=== PATIENT | female | born 1970 | race Caucasian/White ===

== ENCOUNTER 2017-02-12 14:44 | Emergency (ER) | payer OTHER ==
[2017-02-12 15:00] VITALS: BP 187/101; PULSE 105; RESP 16; TEMP 98.6
[2017-02-12] MEDS ORDERED: KETOROLAC 60 MG/2 ML VIAL IM STA (16:05)
[2017-02-12] MEDS ORDERED: ORPHENADRINE 30 MG/ML 2 ML VIAL IM STA (16:05)
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
--- NOTE | 2017-02-15 04:07 | CDI ---
Dear Rox Sotomayor PA-C: Please do addendum History of Present Illness. Thank you, Trenton Leal, Nurse Research. If you have any questions, please contact Medical Records Analyst at [phone]. PRADEEPD
== END 2017-02-12 17:51 | disposition home or self-care (01) ==
LOC: EC 14:44
DX: M48.06 Spinal stenosis, lumbar region (principal); M43.16 Spondylolisthesis, lumbar region; M51.26 Other intervertebral disc displacement, lumbar region; M51.36 Other intervertebral disc degeneration, lumbar region; M47.816 Spondylosis without myelopathy or radiculopathy, lumbar region; M46.05 Spinal enthesopathy, thoracolumbar region; F17.200 Nicotine dependence, unspecified, uncomplicated; V49.49XA Driver injured in collision with other motor vehicles in traffic accident, initial encounter; Y92.410 Unspecified street and highway as the place of occurrence of the external cause
CPT/HCPCS: 99284; 96372 ×2; 72131; J2360; J1885

== ENCOUNTER → 2017-07-29 | Outpatient (CLI) | payer BC, OTHER ==
--- NOTE | 2017-07-29 10:40 | MR ---
MR lumbar spine wo con Spondylolisthesis, site unspecified, chronic lower back pain Multiplanar, multiecho imaging of the lumbar spine was obtained without contrast on a 3 Pam magnet. REFERENCE:None. FINDINGS: Paraspinal soft tissues are normal. Vertebral body height and alignment are maintained. Cord signal is maintained. The conus ends normally at the T12-L1 disc level. At T12-L1, there is disc space loss and disc desiccation. There is a broad-based disc displacement. I ntervertebral foramina are well maintained. There is mild hypertrophic change and capsulitis within t he facets. At L1-2, there is disc space loss. There is a left paracentral disc protrusion deforming the thecal s ac. This is also causing some left-sided intervertebral foraminal narrowing. There are mild hypertrop hic changes in the facets. At L2-3, there is severe disc space loss. There is a broad-based disc protrusion deforming the thecal sac. This extends into both intervertebral foramina causing mild intervertebral foraminal narrowing bilaterally. There is capsulitis and hypertrophic change in the facets. There is mild to moderate yina tral canal stenosis. At L3-4, there is disc space loss. There is mild left-sided intervertebral foraminal narrowing. There is a broad-based disc displacement. There are hypertrophic changes and capsulitis within the facets. There is moderate central canal compromise. At L4-5, there is disc space loss. There is a diffuse disc displacement. Intervertebral foramina are reasonably well-maintained. There are marked hypertrophic changes in the facets. There is moderate ce ntral canal stenosis. At L5-S1, there is disc space loss. Intervertebral foramina appear reasonably well-maintained. There is no significant compressive discopathy. There are hypertrophic changes in the facets. IMPRESSION: 1. DIFFUSE DEGENERATIVE DISC DISEASE AND FACET ARTHROPATHY. 2. BROAD-BASED DISC PROTRUSION, L2-3, EXTENDING INTO BOTH INTERVERTEBRAL FORAMINA AND CAUSING BILATER AL INTERVERTEBRAL FORAMINAL NARROWING. 3. MULTILEVEL INTERVERTEBRAL FORAMINAL NARROWING. 4. VARYING DEGREES OF CENTRAL CANAL COMPROMISE MOST MARKED AT L3-4.
== END | disposition home or self-care (01) ==
LOC: RADMRIMAIN 09:48
PROVIDERS: ATTEND Neurological Surgery
DX: M99.73 Connective tissue and disc stenosis of intervertebral foramina of lumbar region (principal); M51.26 Other intervertebral disc displacement, lumbar region; M51.36 Other intervertebral disc degeneration, lumbar region; M46.96 Unspecified inflammatory spondylopathy, lumbar region
CPT/HCPCS: 72148

== ENCOUNTER → 2017-11-25 | Outpatient (CLI) | payer BC | END | disposition home or self-care (01) | LOC: LABWHC1 08:45 | PROVIDERS: ATTEND Psychiatry & Neurology Pain Medicine | DX: Z51.81 Encounter for therapeutic drug level monitoring (principal); Z79.899 Other long term (current) drug therapy | CPT/HCPCS: 36415; 82565; 84450; 84460; 84520 ==

== ENCOUNTER 2019-01-20 22:05 | Emergency (ER) | payer BC, OTHER ==
[2019-01-20 22:11] VITALS: RESP 18
--- NOTE | 2019-01-20 22:33 | ED ---
Recheck HPI - General Chief Complaint: Recheck/Abnormal Lab/Rx Stated Complaint: Back pain Time Seen by Provider: 01/20/19 22:14 Source: patient Mode of arrival: ambulatory Limitations: no limitations - History of Present Illness Initial Comments: 40-year-old female presenting with bilateral lower extremity swelling that has been worsening over the last 2 weeks. Patient states that she has had an increase in her work duties causing her to have worsening of her chronic back pain and lower extremity swelling. She denies any new weakness, saddle anest hesia, bowel or bladder dysfunction. States that her blood pressures also been high when she's been checking it at home, however she was recently switched from amlodipine to metoprolol for her hypertension secondary to her lower extremity swelling. She denies history of DVT/PE, recent surgery, active cancer, current hormone use. She states the swelling is worse in the left leg and it is in the right, but it does improve with leg elevation. She has not tried compression stockings. - Related Data Home Medications Medication Instructions Recorded Confirmed Cyclobenzaprine [Flexeril] 10 mg PO BID PRN 01/20/19 01/20/19 Gabapentin [Neurontin] 300 mg PO TID 01/20/19 01/20/19 Hydrocodone/Acetaminophen [[place] 1 tab PO TID PRN 01/20/19 01/20/19 7.5-325] Ibuprofen [Motrin] 800 mg PO TID 01/20/19 01/20/19 Lacosamide [Vimpat] 50 mg PO BID 01/20/19 01/20/19 Metoprolol Succinate [Toprol XL] 50 mg PO DAILY 01/20/19 01/20/19 Allergies Allergy/AdvReac Type Severity Reaction Status Date / Time No Known Allergies Allergy Verified 01/20/19 23:25 Review of Systems ROS Statement: Those systems with pertinent positive or pertinent negative responses have been documented in the HPI. Review of Systems Constitutional: Denies fever, chills Eyes: Denies change in vision, Denies pain Ears, nose, mouth, throat: Denies headaches, Denies sore throat Cardiovascular: Denies chest pain. Denies palpitations Respiratory: Denies shortness of breath, Denies cough Gastrointestinal: Negative abdominal pain. Denies nausea, vomiting, diarrhea. Genitourinary: Denies hematuria, Denies infections Musculoskeletal: Positive back pain (chronic), Denies swelling Integumentary: Denies rash Neurological: Denies headache, focal weakness, focal numbness Psychiatric: Denies anxiety, Denies depression Hematologic/Lymphatic: Denies easy bleeding or bruising ROS Other: All systems not noted in ROS Statement are negative. Past Medical History Past Medical History: No Reported History Additional Past Medical History / Comment(s): stenosis, herniated discs History of Any Multi-Drug Resistant Organisms: None Reported Past Surgical History: Section, Ear Surgery Past Psychological History: No Psychological Hx Reported Smoking Status: Current every day smoker Past Alcohol Use History: None Reported Past Drug Use History: Opiates General Exam - General Exam Comments Initial Comments: General: Awake, alert, No acute Distress HENT: Normocephalic. Atraumatic Eyes: PERRL. EOMI. No scleral icterus. No injected conjunctiva Neck: Full ROM Chest/Lungs: Clear to auscultation bilaterally. No wheezing, rhonchi, or rales Cardiac: Regular rate, rhythm. No murmurs or rubs. Mild edema to bilateral lower extremities at the ankles Abdomen/GI: Soft, nontender, nondistended. No rebound, guarding, or rigidity. Musculoskeletal: Full ROM Skin: Warm, dry, intact Neurologic: A/Ox3, no weakness, no sensory deficit, no abnormal gait, no coordination deficit Limitations: no limitations Course Vital Signs 01/20/19 01/20/19 01/21/19 22:07 22:41 00:53 Temperature 98.1 F 97.9 F Pulse Rate 90 75 Respiratory 18 18 Rate Blood Pressure 191/102 145/85 165/95 O2 Sat by Pulse 98 96 Oximetry Medical Decision Making - Medical Decision Making [id number] female presenting with lower extremity swelling. Initial exam the patient is awake, alert, no acute distress. VSS. Patient is to rest her symptoms. Her lower extremity Dopplers were negative for DVT. No signs of CHF. She was instructed to wear compression stockings while at work.No further emergent workup indicated. The patient was given return to ED instructions. They were instructed to follow up with their primary care provider. Stable for discharge at this time. Disposition Clinical Impression: Leg swelling Disposition: HOME SELF-CARE Condition: Good Instructions (If sedation given, give patient instructions): Leg Edema (ED) Is patient prescribed a controlled substance at d/c from ED?: No Referrals: Arnulfo Ohara DO [Primary Care Provider] - 1-2 days
--- NOTE | 2019-01-21 00:15 | US ---
EXAM: US Duplex Bilateral Lower Extremity Veins CLINICAL HISTORY: Pain TECHNIQUE: Real-time duplex ultrasound scan of the bilateral lower extremity veins integrating B-mode two-dimensional vascular structure, Doppler spectral analysis, color flow Doppler imaging and compression. COMPARISON: No relevant prior studies available. FINDINGS: Right deep veins: Unremarkable. No DVT in the right common femoral, femoral, proximal deep femoral or popliteal veins. The veins demonstrate normal color flow, are normally compressible, with normal phasic flow and/or augmentation response. Right superficial veins: Unremarkable. No thrombus in the visualized right great saphenous vein. Left deep veins: Unremarkable. No DVT in the left common femoral, femoral, proximal deep femoral or popliteal veins. The veins demonstrate normal color flow, are normally compressible, with normal phasic flow and/or augmentation response. Left superficial veins: Unremarkable. No thrombus in the visualized left great saphenous vein. Soft tissues: No acute findings. No popliteal cyst. Lymph nodes: Bilateral inguinal lymph nodes, likely reactive. IMPRESSION: No acute findings.
[2019-01-21 00:54] VITALS: BP 165/95; PULSE 75; TEMP 97.9
== END 2019-01-21 00:54 | disposition home or self-care (01) ==
LOC: EC 22:05
DX: M79.89 Other specified soft tissue disorders (principal); G89.29 Other chronic pain; M54.9 Dorsalgia, unspecified; I15.8 Other secondary hypertension; F17.200 Nicotine dependence, unspecified, uncomplicated; Z79.891 Long term (current) use of opiate analgesic; Z79.899 Other long term (current) drug therapy
CPT/HCPCS: 93970; 99283

== ENCOUNTER → 2019-02-19 | Outpatient (CLI) | payer BC ==
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
--- NOTE | 2019-02-19 15:34 | XR ---
Right foot HISTORY: Elevated uric acid, M12.9 3 views of the right foot Bone mineralization, joint spaces and alignment are maintained. There is a plantar calcaneus spur. No fracture or dislocation. Small ossific densities are present posterior to the talus which appear wel l-corticated. IMPRESSION: No evident arthropathy. Plantar calcaneal spur. Possible loose bodies posterior ankle carmencita nt.
== END | disposition home or self-care (01) ==
LOC: RADXRMAIN 11:48
PROVIDERS: ATTEND Internal Medicine Hematology & Oncology
DX: M77.31 Calcaneal spur, right foot (principal); I10 Essential (primary) hypertension; D72.829 Elevated white blood cell count, unspecified; D72.820 Lymphocytosis (symptomatic); M19.90 Unspecified osteoarthritis, unspecified site
CPT/HCPCS: 71046

== ENCOUNTER 2020-03-06 09:57 | Inpatient (IN) | payer BC ==
[2020-03-06] MEDS ORDERED: ACETAMINOPHEN TAB 325 MG TAB PO STA (10:08)
--- NOTE | 2020-03-06 10:22 | ED ---
Fever HPI - General Chief Complaint: Fever Stated Complaint: Abd pain/weak Time Seen by Provider: 03/06/20 10:08 Source: patient Mode of arrival: wheelchair Limitations: no limitations - History of Present Illness Initial Comments: 49-year-old pleasant, female obese presents for abdominal pain and fever. Patient states Monday she was developing right upper quadrant abdominal pain she states that she thought it was her gallbladder and she had increased pain after eating greasy foods. She states she also has had loose stools. Patient states at that time she was tested for Covid she states that when she initially presented to the urgent care on Monday she did not have a fever at that time was told to come to the ER if she had increasing pain. Patient states her Covid test came back negative she states she has had increasing cough at night. She denies any lower abdominal pain she denies dysuria urgency frequency she denies any neck stiffness headaches she admits to generalized weakness and body aches. Patient states that the pain is in the RUQ and does seem to radiate to the shoulder at time. Patient denies sore throat, eat pain, rashes. Admits to nausea, no vomiting. Patient on arrival is febrile, HR elevated. She appears nontoxic however in appearance. - Related Data Home Medications Medication Instructions Recorded Confirmed Ibuprofen [Motrin] 800 mg PO DAILY 01/20/19 03/06/20 Cyclobenzaprine [Flexeril] 5 mg PO DAILY 03/06/20 03/06/20 Ferrous Sulfate [Feosol] 325 mg PO DAILY 03/06/20 03/06/20 HYDROcodone/APAP 10-325MG [[place] 1 tab PO TID 03/06/20 03/06/20 10-325] Losartan/Hydrochlorothiazide 1 tab PO DAILY 03/06/20 03/06/20 [Losartan-Hctz 100-25 mg Tab] Allergies Allergy/AdvReac Type Severity Reaction Status Date / Time No Known Allergies Allergy Verified 03/06/20 11:33 Review of Systems ROS Statement: Those systems with pertinent positive or pertinent negative responses have been documented in the HPI. ROS Other: All systems not noted in ROS Statement are negative. Past Medical History Past Medical History: Hypertension Additional Past Medical History / Comment(s): stenosis, herniated discs History of Any Multi-Drug Resistant Organisms: None Reported Past Surgical History: Section, Ear Surgery Past Psychological History: No Psychological Hx Reported Smoking Status: Current every day smoker Past Alcohol Use History: None Reported Past Drug Use History: Marijuana, Opiates General Exam - General Exam Comments Initial Comments: General: The patient is awake and alert, in no distress Eye: Pupils are equal, round and reactive to light, extra-ocular movements are intact. No nystagmus. There is normal conjunctiva bilaterally. No signs of icterus. Ears, nose, mouth and throat: There are moist mucous membranes and no oral lesions. Neck: The neck is supple, there is no tenderness or JVD. Cardiovascular: There is a regular rate and rhythm. No murmur, rub or gallop is appreciated. Respiratory: Lungs are clear to auscultation, respirations are non-labored, breath sounds are equal. No wheezes, stridor, rales, or rhonchi. Gastrointestinal: Soft, non-distended, minimal RUQ tenderness, (-) murphys sign, abdomen without masses or organomegaly noted. There is no rebound or guarding present. No CVA tenderness. Bowel sounds are unremarkable.] Musculoskeletal: Normal ROM, no tenderness. Strength 5/5. Sensation intact. Pulses equal bilaterally 2+. Neurological: A&O x 3. CN II-XII intact, There are no obvious motor or sensory deficits. Coordination appears grossly intact. Speech is normal. Skin: Skin is warm and dry and no rashes or lesions are noted. Psychiatric: Cooperative, appropriate mood & affect, normal judgment. Limitations: no limitations Course Vital Signs 03/06/20 03/06/20 03/06/20 10:04 11:38 12:12 Temperature 103 F H 103 F H Pulse Rate 116 H 101 H Respiratory 18 19 Rate Blood Pressure 117/80 111/71 O2 Sat by Pulse 96 94 L Oximetry Medical Decision Making - Medical Decision Making Patient presenting with cough and right side pain she thought it was her gallbladder initially ultrasound outpatient revealed no obvious gallbladder disease. She negative Medley sign. No significant tenderness to palpation of the abdomen. Febrile 103 with elevated heart rate on arrival she denied any shortness of breath. Patient states she has had upper respiratory symptoms as well as diarrhea. Patient is found to have a multifocal pneumonia as well as hyponatremia in the presence of diarrhea there is concern for possible Legionella. Legionella antibody urine test was obtained and is pending. No recent hospitalizations no previous intubations recently. Patient denied any leg swelling recent surgery she does not use any exogenous hormones, no history of DVT/PE wiht no history of hemoptysis. Patient was provided a potassium supplement as she was found to be at 3.4. Patietn placed on rocephin and azithromycin. She is agreeable to admission and care plan. Patient will be admitted to [facility] group as Dr. Painter who usually covers for her PCP is no communications superintendent this weekend. Dr. Schilling is agreeable to care plan and admission. Ventricular rate 117 bpm, MI interval 142 ms, QRS ration 82 ms, QT/QTC 306/426 ms. This is sinus tachycardia no ST elevation or depression is appreciated. - Lab Data Result diagrams: 03/06/20 10:43 03/06/20 10:43 Lab Results 03/06/20 03/06/20 03/06/20 Range/Units 10:43 10:43 10:43 WBC 21.2 H (3.8-10.6) k/uL RBC 4.24 (3.80-5.40) m/uL Hgb 13.3 (11.4-16.0) gm/dL Hct 38.5 (34.0-46.0) % MCV 90.8 (80.0-100.0) fL MCH 31.3 (25.0-35.0) pg MCHC 34.5 (31.0-37.0) g/dL RDW 13.2 (11.5-15.5) % Plt Count 187 (150-450) k/uL Neutrophils % 93 % Lymphocytes % 3 % Monocytes % 2 % Eosinophils % 0 % Basophils % 0 % Neutrophils # 19.8 H (1.3-7.7) k/uL Lymphocytes # 0.7 L (1.0-4.8) k/uL Monocytes # 0.5 (0-1.0) k/uL Eosinophils # 0.1 (0-0.7) k/uL Basophils # 0.1 (0-0.2) k/uL PT 11.1 (9.0-12.0) sec INR 1.1 (<1.2) APTT 30.1 H (22.0-30.0) sec Sodium 128 L (137-145) mmol/L Potassium 3.4 L (3.5-5.1) mmol/L Chloride 94 L (98-107) mmol/L Carbon Dioxide 23 (22-30) mmol/L Anion Gap 11 mmol/L BUN 20 H (7-17) mg/dL Creatinine 1.17 H (0.52-1.04) mg/dL Est GFR (CKD-EPI)AfAm 63 (>60 ml/min/1.73 sqM) Est GFR (CKD-EPI)NonAf 55 (>60 ml/min/1.73 sqM) Glucose 228 H (74-99) mg/dL Plasma Lactic Acid Tao (0.7-2.0) mmol/L Calcium 8.4 (8.4-10.2) mg/dL Total Bilirubin 0.5 (0.2-1.3) mg/dL AST 33 (14-36) U/L ALT 21 (4-34) U/L Alkaline Phosphatase 127 H (38-126) U/L Troponin I (0.000-0.034) ng/mL Total Protein 6.8 (6.3-8.2) g/dL Albumin 3.6 (3.5-5.0) g/dL Urine Color Urine Appearance (Clear) Urine pH (5.0-8.0) Ur Specific [place] (1.001-1.035) Urine Protein (Negative) Urine Glucose (UA) (Negative) Urine Ketones (Negative) Urine Blood (Negative) Urine Nitrite (Negative) Urine Bilirubin (Negative) Urine Urobilinogen (<2.0) mg/dL Ur Leukocyte Esterase (Negative) Urine RBC (0-5) /hpf Urine WBC (0-5) /hpf Ur Squamous Epith Cells (0-4) /hpf Urine Bacteria (None) /hpf Cellular Casts (0) /lpf Hyaline Casts (0-2) /lpf Granular Casts (0) /lpf Urine Mucus (None) /hpf 03/06/20 03/06/20 03/06/20 Range/Units 10:43 10:44 10:44 WBC (3.8-10.6) k/uL RBC (3.80-5.40) m/uL Hgb (11.4-16.0) gm/dL Hct (34.0-46.0) % MCV (80.0-100.0) fL MCH (25.0-35.0) pg MCHC (31.0-37.0) g/dL RDW (11.5-15.5) % Plt Count (150-450) k/uL Neutrophils % % Lymphocytes % % Monocytes % % Eosinophils % % Basophils % % Neutrophils # (1.3-7.7) k/uL Lymphocytes # (1.0-4.8) k/uL Monocytes # (0-1.0) k/uL Eosinophils # (0-0.7) k/uL Basophils # (0-0.2) k/uL PT (9.0-12.0) sec INR (<1.2) APTT (22.0-30.0) sec Sodium (137-145) mmol/L Potassium (3.5-5.1) mmol/L Chloride (98-107) mmol/L Carbon Dioxide (22-30) mmol/L Anion Gap mmol/L BUN (7-17) mg/dL Creatinine (0.52-1.04) mg/dL Est GFR (CKD-EPI)AfAm (>60 ml/min/1.73 sqM) Est GFR (CKD-EPI)NonAf (>60 ml/min/1.73 sqM) Glucose (74-99) mg/dL Plasma Lactic Acid Tao 1.8 (0.7-2.0) mmol/L Calcium (8.4-10.2) mg/dL Total Bilirubin (0.2-1.3) mg/dL AST (14-36) U/L ALT (4-34) U/L Alkaline Phosphatase (38-126) U/L Troponin I <0.012 (0.000-0.034) ng/mL Total Protein (6.3-8.2) g/dL Albumin (3.5-5.0) g/dL Urine Color Yellow Urine Appearance Turbid H (Clear) Urine pH 6.0 (5.0-8.0) Ur Specific [place] 1.026 (1.001-1.035) Urine Protein 3+ H (Negative) Urine Glucose (UA) Trace H (Negative) Urine Ketones Trace H (Negative) Urine Blood Moderate H (Negative) Urine Nitrite Negative (Negative) Urine Bilirubin Negative (Negative) Urine Urobilinogen 2.0 (<2.0) mg/dL Ur Leukocyte Esterase Negative (Negative) Urine RBC 1 (0-5) /hpf Urine WBC 16 H (0-5) /hpf Ur Squamous Epith Cells 12 H (0-4) /hpf Urine Bacteria Moderate H (None) /hpf Cellular Casts 19 (0) /lpf Hyaline Casts 34 H (0-2) /lpf Granular Casts 76 (0) /lpf Urine Mucus Occasional H (None) /hpf Disposition Clinical Impression: Fever, Cough, Hyponatremia, Pneumonia, Leukocytosis, Diarrhea Disposition: HOME SELF-CARE Condition: Good Is patient prescribed a controlled substance at d/c from ED?: No Referrals: Arnulfo Ohara DO [Primary Care Provider] - 1-2 days Time of Disposition: 11:40 Decision to Admit Reason: Admit from EC Decision Date: 03/06/20 Decision Time: 11:40
[2020-03-06] MEDS: SODIUM CHLORIDE 0.9% 1,000 ML IV SCH ×2 (10:51→20:56)
--- NOTE | 2020-03-06 11:18 | XR ---
EXAMINATION TYPE: XR chest 2V DATE OF EXAM: 03/06/2020 COMPARISON: Chest x-ray February 19, 2019. HISTORY: Fever and cough. TECHNIQUE: Frontal and lateral views of the chest are obtained. FINDINGS: There is right mid lung pneumonic infiltrate and lateral left mid to upper lung airspace o pacities. On lateral view there is involvement of superior aspect lower lobe along with anterior-infe rior aspect upper lobe. I suspect the latter corresponds to the right-sided infiltrate but not comple tely certain. No pleural effusion or pneumothorax seen bilaterally. The cardiac silhouette size remai ns within normal limits. New silhouetting right heart border suggests middle lobe involvement. The osseous structures are intact. IMPRESSION: New multifocal, multilobar, bilateral acute pneumonic infiltrates.
[2020-03-06 11:19] LABS: Albumin 3.6 g/dL (3.5-5.0); Calcium 8.4 mg/dL (8.4-10.2); Potassium 3.4 mmol/L (3.5-5.1); Total Bilirubin 0.5 mg/dL (0.2-1.3); Total Protein 6.8 g/dL (6.3-8.2)
[2020-03-06 11:34] LABS: INR 1.1 (<1.2); Partial Thromboplastin Time 30.1 sec (22.0-30.0); Prothrombin Time 11.1 sec (9.0-12.0)
[2020-03-06] MEDS ORDERED: AZITHROMYCIN 500 MG in SODIUM CHLORIDE 0.9% 250 ML IVPB STA (11:39)
[2020-03-06] MEDS ORDERED: NALOXONE 0.4 MG/ML 1 ML VIAL IV PRN (11:40)
[2020-03-06 11:55] LABS: Appearance,Urine Turbid (Clear); Bacteria,Urine Moderate /hpf; Bilirubin,Urine Negative (Negative); Blood,Urine Moderate (Negative); Cellular Casts,Urine 19 /lpf (0); Color,Urine Yellow; Glucose,Urine (UA) Trace (Negative); Granular Casts,Urine 76 /lpf (0); Hyaline Casts,Urine 34 /lpf (0-2); Ketones,Urine Trace (Negative); Leukocyte Esterase,Urine Negative (Negative); Mucus,Urine Occasional /hpf; Nitrite,Urine Negative (Negative); Protein,Urine 3+ (Negative); RBC,Urine 1 /hpf (0-5); Specific Gravity,Urine 1.026 (1.001-1.035); Squamous Epithelial Cell,Urine 12 /hpf (0-4); WBC,Urine 16 /hpf (0-5)
[2020-03-06] MEDS: IBUPROFEN 600 MG TAB PO PRN (12:06)
[2020-03-06 12:15] LABS: Basophils # (A) 0.1 k/uL (0-0.2); Basophils % (A) 0 %; Eosinophils # (A) 0.1 k/uL (0-0.7); Eosinophils % (A) 0 %; HCT 38.5 % (34.0-46.0); HGB 13.3 gm/dL (11.4-16.0); Lymphocytes # (A) 0.7 k/uL (1.0-4.8); Lymphocytes % (A) 3 %; MCH 31.3 pg (25.0-35.0); MCHC 34.5 g/dL (31.0-37.0); MCV 90.8 fL (80.0-100.0); Mean Platelet Volume 9.2; Monocytes # (A) 0.5 k/uL (0-1.0); Monocytes % (A) 2 %; Neutrophils # (A) 19.8 k/uL (1.3-7.7); Neutrophils % (A) 93 %; Platelet Count 187 k/uL (150-450); RBC 4.24 m/uL (3.80-5.40); RDW 13.2 % (11.5-15.5); WBC 21.2 k/uL (3.8-10.6)
[2020-03-06] MEDS ORDERED: POTASSIUM CHLORIDE ER 20 MEQ TAB.ER PO STA (12:23)
[2020-03-06] MEDS: HEPARIN SODIUM,PORCINE 5,000 UNIT/ML 1 ML VIAL SQ SCH ×2 (15:55→23:06)
[2020-03-06] MEDS: ACETAMINOPHEN TAB 325 MG TAB PO PRN (21:03)
--- NOTE | 2020-03-06 22:37 | P.HPIM ---
History of Present Illness H&P Date: 03/06/20 Chief Complaint: Fever Patient is a 49-year-old female with a known history of hypertension, GERD, chronic pain due to bilateral sciatica and herniated lumbar disc on follow-up with pain clinic and also everyday smoker presents to ER with complaints of abdominal pain and fever. Patient states that since last Monday she was having right upper quadrant abdominal pain and thought it was her gallbladder. Patient was also having loose stools. Patient initially went to urgent care clinic. Patient did not have any fever at that time. Patient was tested for COVID which came up negative, was told later. Denied any dysuria or hematuria. No flank pain. No chest pain. Patient is also having generalized weakness and body aches. Noticed some exertional dyspnea. Otherwise no vomiting no nausea. No headache or dizziness or lightheadedness. On admission patient was febrile with T-max 103 F with tachycardia. Saturating well on room air. Chest x-ray showed new multifocal multilobar bilateral acute pneumonic infiltrates. Laboratory data showed WBC 21.2, hemoglobin 13.3 and platelets 187 Lymphocytes 0.7 Sodium 128, potassium 3.4, chloride 94, BUN 20 and creatinine 1.17 Blood sugar is 228 Urine showed 3+ protein and turbid with trace glucose and trace ketones. Moderate blood. AST ALT 33 and 21. Alk phos 127. Bilirubin level is total 0.5 Review of Systems Constitutional: Patient does have fever. No chills. Generalized weakness and malaise.. Abdomen: Patient denied nausea vomiting and diarrhea and abdominal pain. Cardiovascular: Patient denies any chest pain or short of breath no palpitations. Respiratory: patient denied any cough is from production. No shortness of breath Neurologic: Patient denied any numbness or tingling headache. Musculoskeletal: Patient denies any complaints of joint swelling or deformity. Skin: Negative Psychiatric: Negative Endocrine: No heat or cold intolerance. No recent weight gain. Genitourinary: No dysuria or hematuria. All other 14 point ROS negative except the above Past Medical History Past Medical History: GERD/Reflux, Hypertension Additional Past Medical History / Comment(s): Stenosis, herniated bulging discs/bilateral sciatica/gait disturbance, chronic pain-sees Dr. Stephenson for pain management, abdominal discomfort past year, elevated WBC, anemia History of Any Multi-Drug Resistant Organisms: None Reported Past Surgical History: Section, Ear Surgery Additional Past Surgical History / Comment(s): Bilateral myringotomy/tubes as child Past Anesthesia/Blood Transfusion Reactions: No Reported Reaction Smoking Status: Current every day smoker - Past Family History Father Family Medical History: Cancer Additional Family Medical History / Comment(s): Father had bladder cancer. He is . Mother Family Medical History: Renal Disease Additional Family Medical History / Comment(s): Mother is . She had renal failure/dialysis. Medications and Allergies Home Medications Medication Instructions Recorded Confirmed Type Ibuprofen [Motrin] 800 mg PO DAILY 01/20/19 03/06/20 History Cyclobenzaprine [Flexeril] 5 mg PO DAILY 03/06/20 03/06/20 History Ferrous Sulfate [Feosol] 325 mg PO DAILY 03/06/20 03/06/20 History HYDROcodone/APAP 10-325MG [[place] 1 tab PO TID 03/06/20 03/06/20 History 10-325] Losartan/Hydrochlorothiazide 1 tab PO DAILY 03/06/20 03/06/20 History [Losartan-Hctz 100-25 mg Tab] Allergies Allergy/AdvReac Type Severity Reaction Status Date / Time No Known Allergies Allergy Verified 03/06/20 11:33 Physical Exam Vitals: Vital Signs Temp Pulse Resp BP Pulse Ox 03/06/20 13:34 98.8 F 03/06/20 12:12 101 H 19 111/71 94 L 03/06/20 11:38 103 F H 03/06/20 10:04 103 F H 116 H 18 117/80 96 Intake and Output 03/06/20 03/06/20 03/06/20 06:59 14:59 22:59 Other: Weight 116.12 kg PHYSICAL EXAMINATION: Patient is lying in the bed comfortably, no acute distress, awake alert and oriented.. HEENT: Normocephalic. Neck is supple. Pupils reactive. Nostrils clear. Oral cavity is moist. Ears reveal no drainage. Neck reveals no JVD, carotid bruits, or thyromegaly. CHEST EXAMINATION: Trachea is central. Symmetrical expansion. Bibasilar diminished air entry. Coarse rhonchi. Nonlabored breathing.. CARDIAC: Normal S1, S2 with no gallops. No murmurs ABDOMEN: Soft. non tender. no RUQ tenderness, Bowel sounds normal. No organomegaly. No abdominal bruits. Extremities: reveal no edema. No clubbing or cyanosis Neurologically awake, alert, oriented x3 with well-coordinated movements. No focal deficits noted Skin: No rash or skin lesions. Psychiatric: Coperative. Nonsuicidal Musculoskeletal: No joint swelling or deformity. Normal range of motion. Results CBC & Chem 7: 03/06/20 10:43 03/06/20 10:43 Labs: Abnormal Lab Results - Last 24 Hours (Table) 03/06/20 03/06/20 03/06/20 Range/Units 10:43 10:43 10:43 WBC 21.2 H (3.8-10.6) k/uL Neutrophils # 19.8 H (1.3-7.7) k/uL Lymphocytes # 0.7 L (1.0-4.8) k/uL APTT 30.1 H (22.0-30.0) sec Sodium 128 L (137-145) mmol/L Potassium 3.4 L (3.5-5.1) mmol/L Chloride 94 L (98-107) mmol/L BUN 20 H (7-17) mg/dL Creatinine 1.17 H (0.52-1.04) mg/dL Glucose 228 H (74-99) mg/dL Alkaline Phosphatase 127 H (38-126) U/L Urine Appearance (Clear) Urine Protein (Negative) Urine Glucose (UA) (Negative) Urine Ketones (Negative) Urine Blood (Negative) Urine WBC (0-5) /hpf Ur Squamous Epith Cells (0-4) /hpf Urine Bacteria (None) /hpf Hyaline Casts (0-2) /lpf Urine Mucus (None) /hpf 03/06/20 Range/Units 10:44 WBC (3.8-10.6) k/uL Neutrophils # (1.3-7.7) k/uL Lymphocytes # (1.0-4.8) k/uL APTT (22.0-30.0) sec Sodium (137-145) mmol/L Potassium (3.5-5.1) mmol/L Chloride (98-107) mmol/L BUN (7-17) mg/dL Creatinine (0.52-1.04) mg/dL Glucose (74-99) mg/dL Alkaline Phosphatase (38-126) U/L Urine Appearance Turbid H (Clear) Urine Protein 3+ H (Negative) Urine Glucose (UA) Trace H (Negative) Urine Ketones Trace H (Negative) Urine Blood Moderate H (Negative) Urine WBC 16 H (0-5) /hpf Ur Squamous Epith Cells 12 H (0-4) /hpf Urine Bacteria Moderate H (None) /hpf Hyaline Casts 34 H (0-2) /lpf Urine Mucus Occasional H (None) /hpf Thrombosis Risk Factor Assmnt - DVT/VTE Prophylaxis DVT/VTE Prophylaxis: Pharmacologic Prophylaxis ordered - Choose All That Apply Any of the Below Risk Factors Present?: Yes Each Factor Represents 1 point: Age 41-60 years, Obesity (BMI >25), Serious lung disease incl. pneumonia (< 1month) Other Risk Factors: No Other congenital or acquired thrombophilia - If yes, enter type in comment: No Thrombosis Risk Factor Assessment Total Risk Factor Score: 3 Thrombosis Risk Factor Assessment Level: Moderate Risk Assessment and Plan Assessment: Multilobar pneumonia Sepsis secondary to pneumonia Hyponatremia likely hypovolemic/prerenal Rule out COVID-19 viral infection Morbid obesity BMI 41.7 Hypertension GERD Chronic back pain and bilateral sciatica arm pain clinic follow-up. Ongoing nicotine addiction DVT prophylaxis with heparin subcu Plan: Patient will be continued on antibiotics in the form of ceftriaxone and azithromycin. Continue with IV hydration and monitor electrolytes and replace potassium. Follow-up blood cultures. Urine Legionella antigen was ordered. Continue with droplet and contact precautions and COVID-19 PCR was sent. Further recommendations based on the clinical course. Time with Patient: Greater than 30
[2020-03-06] MEDS: IPRATROPIUM-ALBUTEROL 3 ML NEB INHALATION PRN (23:13)
[2020-03-07] MEDS: IBUPROFEN 600 MG TAB PO PRN (01:33)
[2020-03-07] MEDS: SODIUM CHLORIDE 0.9% 1,000 ML IV SCH ×3 (01:34→17:53)
[2020-03-07 06:46] LABS: Basophils % (A) 0 %; Eosinophils # (A) 0.1 k/uL (0-0.7); Eosinophils % (A) 0 %; HGB 11.6 gm/dL (11.4-16.0); Lymphocytes % (A) 6 %; MCH 30.6 pg (25.0-35.0); MCHC 33.1 g/dL (31.0-37.0); MCV 92.4 fL (80.0-100.0); Mean Platelet Volume 8.3; Monocytes # (A) 0.3 k/uL (0-1.0); Monocytes % (A) 2 %; Neutrophils # (A) 14.9 k/uL (1.3-7.7); Neutrophils % (A) 91 %; Platelet Count 183 k/uL (150-450); RBC 3.79 m/uL (3.80-5.40); RDW 13.6 % (11.5-15.5); WBC 16.3 k/uL (3.8-10.6)
[2020-03-07] MEDS: CYCLOBENZAPRINE 5 MG TAB PO SCH (07:04)
[2020-03-07] MEDS: HEPARIN SODIUM,PORCINE 5,000 UNIT/ML 1 ML VIAL SQ SCH ×2 (07:04→17:50)
[2020-03-07] MEDS ORDERED: AZITHROMYCIN 500 MG TAB PO SCH (09:00)
[2020-03-07 09:48] LABS: African American GFR (CKD) 76.6 (60.0-200.0); Anion Gap 10.2 mmol/L (4.00-12.00); Carbon Dioxide 21.8 mmol/L (21.6-31.8); Non-African American GFR(CKD) 66.1 (60.0-200.0)
[2020-03-07] MEDS ORDERED: Potassium Replacement Protocol 1 EACH MISC MISCELLANE PRN ×2 (10:28→12:55)
[2020-03-07] MEDS: POTASSIUM CHLORIDE ER 20 MEQ TAB.ER PO SCH ×2 (11:20→14:23)
[2020-03-07] MEDS ORDERED: MENTHOL (NICE) LOZENGE MUCOUS MEM PRN (11:27)
[2020-03-07] MEDS ORDERED: Magnesium Replacement Protocol 1 EACH MISC MISCELLANE PRN (12:13)
[2020-03-07] MEDS: MAGNESIUM SULFATE-D5W PMX 1 GM in DEXTROSE/WATER 1 100ML.BAG IVPB SCH ×2 (12:43→14:24)
[2020-03-07] MEDS: ACETAMINOPHEN TAB 325 MG TAB PO PRN (14:20)
[2020-03-07] MEDS: IPRATROPIUM-ALBUTEROL 3 ML NEB INHALATION PRN (15:42)
--- NOTE | 2020-03-07 18:44 | CT ---
EXAMINATION TYPE: CT angio chest DATE OF EXAM: 03/07/2020 COMPARISON: None HISTORY: Elevated d-dimer. CT DLP: 937.4 mGycm Automated exposure control for dose reduction was used. CONTRAST: Performed with IV Contrast, patient injected with 74ml mL of Isovue 370. There are 3-D post processed images. There is extensive bilateral airspace pulmonary consolidation. This is more noticeable in the right u pper lobe and superior portion of the right lower lobe. There are multiple air bronchograms. Heart is top normal in size. There is no pericardial effusion. There is no pleural effusion. There is no medi astinal adenopathy. There are right bronchial and left bronchial lymph nodes measuring up to 1.3 cm. There is spurring in the thoracic spine. There is no compression fracture. There is normal contrast opacification of the pulmonary arteries. I see no filling defect. Upper abdominal soft tissues appear intact. IMPRESSION: No evidence of pulmonary embolism. Extensive bilateral airspace pneumonic consolidation consistent with bronchopneumonia.
[2020-03-07 20:39] LABS: ABG Base Excess -6.8 mmol/L; ABG HCO3 18 mmol/L (21-25); ABG Oxygen Saturation 88.8 % (94-97); ABG PCO2 30 mmHg (35-45); ABG PH 7.39 (7.35-7.45); ABG TCO2 19 mmol/L (19-24); Allen Test Performed? Yes
[2020-03-07] MEDS ORDERED: PIPERACILLIN-TAZOBACTAM 3.375 GM in SODIUM CHLORIDE 0.9% 100 ML IVPB STA (20:45)
[2020-03-07 21:31] LABS: Glucose,Whole Blood 234 mg/dL (75-99)
--- NOTE | 2020-03-07 21:35 | XR ---
EXAMINATION TYPE: XR chest 1V portable DATE OF EXAM: 03/07/2020 COMPARISON: Yesterday HISTORY: Fever and cough TECHNIQUE: Single view FINDINGS: There is bilateral peripheral pulmonary densities airspace edema. There are chest leads. He art size is probably normal. IMPRESSION: Increasing bilateral pulmonary airspace edema compared to yesterday. This is nonspecific and could relate to acute pneumonia or RDS or drug reaction. No pleural fluid seen to suggest heart f ailure.
[2020-03-07 21:36] LABS: African American GFR (CKD) >90 (>60 ml/min/1.73 sqM); Anion Gap 11 mmol/L; Blood Urea Nitrogen 15 mg/dL (7-17); Carbon Dioxide 18 mmol/L (22-30); Chloride 98 mmol/L (98-107); Glucose 247 mg/dL (74-99); Non-African American GFR(CKD) 84 (>60 ml/min/1.73 sqM); Potassium 3.6 mmol/L (3.5-5.1); Sodium 127 mmol/L (137-145)
[2020-03-07 21:40] LABS: Basophils % (A) 0 %; Eosinophils # (A) 0.1 k/uL (0-0.7); Eosinophils % (A) 0 %; HGB 12.4 gm/dL (11.4-16.0); Lymphocytes % (A) 6 %; MCH 30.6 pg (25.0-35.0); MCHC 32.5 g/dL (31.0-37.0); Mean Platelet Volume 8.9; Monocytes # (A) 0.5 k/uL (0-1.0); Monocytes % (A) 3 %; Neutrophils # (A) 15.2 k/uL (1.3-7.7); Neutrophils % (A) 90 %; Platelet Count 223 k/uL (150-450); RBC 4.04 m/uL (3.80-5.40); RDW 13.9 % (11.5-15.5); WBC 16.9 k/uL (3.8-10.6)
[2020-03-07] MEDS ORDERED: FUROSEMIDE 10 MG/ML 4 ML VIAL IV STA ×2 (21:58→23:49)
[2020-03-07 22:03] LABS: ABG Base Excess -6.2 mmol/L; ABG HCO3 18 mmol/L (21-25); ABG Oxygen Saturation 90.5 % (94-97); ABG PCO2 27 mmHg (35-45); ABG PH 7.43 (7.35-7.45); ABG TCO2 19 mmol/L (19-24); Allen Test Performed? Yes
[2020-03-07 22:09] LABS: ABG PO2 56 mmHg (83-108)
[2020-03-07] MEDS ORDERED: ALPRAZolam 0.5 MG TAB PO STA (22:17)
[2020-03-07] MEDS ORDERED: propofoL 100 ML IV ONE (22:56)
[2020-03-07 22:57] LABS: C Reactive Protein 33.6 mg/dL (0.0-0.8)
[2020-03-07] MEDS ORDERED: ROCURONIUM 10 MG/ML (10 ML VIAL) IV ONE (23:10)
[2020-03-07] MEDS ORDERED: MIDAZOLAM 1 MG/ML 5 ML VIAL ONE (23:10)
[2020-03-07] MEDS ORDERED: SUCCINYLCHOLINE CHLORIDE VIAL 200 MG/10 ML VIAL IV ONE (23:10)
[2020-03-07] MEDS ORDERED: PROPOFOL 10 MG/ML 20 ML VIAL IV ONE (23:10)
[2020-03-07 23:33] LABS: Ferritin 2286.3 ng/mL (10.0-291.0)
--- NOTE | 2020-03-07 23:43 | XR ---
EXAMINATION TYPE: XR chest 1V portable DATE OF EXAM: 03/07/2020 COMPARISON: Today HISTORY: Respiratory failure TECHNIQUE: FINDINGS: Endotracheal tube is 1.5 cm from the [place]. There is bilateral moderately severe pulmonary airspace edema. There is nasogastric tube in the stomach. There are chest leads. IMPRESSION: Endotracheal tube is low and could be pulled back 2 to 3 cm. Severe pulmonary edema sligh tly worse than exam 2 hours ago.
[2020-03-08] MEDS: ACETAMINOPHEN TAB 325 MG TAB PO PRN ×2 (00:15→19:55)
[2020-03-08 00:36] LABS: ABG Base Excess -5.6 mmol/L; ABG HCO3 21 mmol/L (21-25); ABG Oxygen Saturation 92.2 % (94-97); ABG PCO2 42 mmHg (35-45); ABG PO2 69 mmHg (83-108); ABG TCO2 22 mmol/L (19-24); Allen Test Performed? Yes
[2020-03-08] MEDS ORDERED: CHLORHEXIDINE GLUCONATE 15 ML CUP MUCOUS MEM ONE (01:32)
[2020-03-08] MEDS: HEPARIN SODIUM,PORCINE 5,000 UNIT/ML 1 ML VIAL SQ SCH ×4 (03:03→23:38)
[2020-03-08 03:36] LABS: Appearance,Urine Clear (Clear); Bacteria,Urine Rare /hpf; Bilirubin,Urine Negative (Negative); Blood,Urine Moderate (Negative); Color,Urine Colorless; Glucose,Urine (UA) Negative (Negative); Ketones,Urine Negative (Negative); Leukocyte Esterase,Urine Negative (Negative); Nitrite,Urine Negative (Negative); Protein,Urine Negative (Negative); RBC,Urine 1 /hpf (0-5); Specific Gravity,Urine 1.006 (1.001-1.035); Squamous Epithelial Cell,Urine <1 /hpf (0-4); Urobilinogen,Urine <2.0 mg/dL (<2.0); WBC,Urine 2 /hpf (0-5)
[2020-03-08] MEDS: CISATRACURIUM 200 MG in SODIUM CHLORIDE 0.9% 180 ML IV SCH ×2 (03:56→21:42)
[2020-03-08 05:08] LABS: Basophils # (A) 0.1 k/uL (0-0.2); Basophils % (A) 0 %; Eosinophils # (A) 0.1 k/uL (0-0.7); Eosinophils % (A) 1 %; HCT 36.4 % (34.0-46.0); Lymphocytes # (A) 1.3 k/uL (1.0-4.8); Lymphocytes % (A) 8 %; MCH 30.6 pg (25.0-35.0); MCHC 33.1 g/dL (31.0-37.0); MCV 92.5 fL (80.0-100.0); Mean Platelet Volume 8.7; Monocytes # (A) 0.5 k/uL (0-1.0); Monocytes % (A) 3 %; Neutrophils # (A) 13.3 k/uL (1.3-7.7); Neutrophils % (A) 86 %; Platelet Count 193 k/uL (150-450); RBC 3.94 m/uL (3.80-5.40); RDW 13.7 % (11.5-15.5); WBC 15.5 k/uL (3.8-10.6)
[2020-03-08 05:19] LABS: Calcium 7.9 mg/dL (8.4-10.2); Potassium 3.8 mmol/L (3.5-5.1)
[2020-03-08] MEDS: IPRATROPIUM-ALBUTEROL 3 ML NEB INHALATION PRN (07:26)
[2020-03-08 08:19] LABS: ABG Base Excess -4.4 mmol/L; ABG HCO3 22 mmol/L (21-25); ABG Oxygen Saturation 96.7 % (94-97); ABG PCO2 46 mmHg (35-45); ABG PH 7.29 (7.35-7.45); ABG PO2 98 mmHg (83-108); ABG TCO2 24 mmol/L (19-24); Allen Test Performed? Yes
[2020-03-08] MEDS ORDERED: VANCOMYCIN IV PER PHARMACY 1 EACH MISC MISCELLANE PRN (08:34)
[2020-03-08] MEDS ORDERED: VANCOMYCIN 2,000 MG in SODIUM CHLORIDE 0.9% 500 ML 500 ML IVPB ONE (08:45)
--- NOTE | 2020-03-08 08:58 | XR ---
EXAMINATION TYPE: XR chest 1V portable DATE OF EXAM: 03/08/2020 COMPARISON: 30/11/2019 INDICATION: Respiratory failure TECHNIQUE: Single frontal view of the chest is obtained. FINDINGS: The heart size is normal. The pulmonary vasculature is prominent. There is a patchy infiltrate within the periphery of the midlung. There is a right mid and lower lung field opacification. Findings may have improved slightly over the interval. IMPRESSION: 1. Patchy infiltrates with minimal improvement. 2. Lines and catheters discussed above
[2020-03-08 09:01] LABS: Glucose,Whole Blood 264 mg/dL (75-99)
[2020-03-08] MEDS: CYCLOBENZAPRINE 5 MG TAB PO SCH (09:36)
[2020-03-08] MEDS: SODIUM CHLORIDE 0.9% 1,000 ML IV SCH ×3 (09:41→22:25)
[2020-03-08] MEDS ORDERED: NOREPINEPHRIN 4 MG-0.9% NS PMX 4 MG/250 ML ML IV ONE (10:01)
[2020-03-08] MEDS: INSULIN ASPART (NovoLOG) 100 UNIT/ML VIAL SQ SCH ×4 (10:26→21:00)
--- NOTE | 2020-03-08 11:03 | XR ---
EXAMINATION TYPE: XR chest 1V portable DATE OF EXAM: 03/08/2020 COMPARISON: 03/08/2020 INDICATION: Line placement TECHNIQUE: Single frontal view of the chest is obtained. FINDINGS: The heart size is mildly prominent. The pulmonary vasculature is somewhat prominent. There is a large patchy infiltrate within the right lower lobe. Left perihilar and lateral infiltrate is present. Endotracheal tube and nasogastric tube remain in position. There is insertion of a right central veno us catheter with tip in the deep right atrium. No pneumothorax is evident. IMPRESSION: 1. No pneumothorax post right central venous catheter placement. Tip is deep within the right atrium. 2. Lines and catheters discussed above. 3. Bilateral lung infiltrates. Some improvement may be on the left.
--- NOTE | 2020-03-08 11:19 | P.PN ---
Subjective Progress Note Date: 03/07/20 Principal diagnosis: Acute multifocal pneumonia. Rule out COVID-19 infection. Patient is a 49-year-old female with a known history of hypertension, GERD, chronic pain due to bilateral sciatica and herniated lumbar disc on follow-up with pain clinic and also everyday smoker presents to ER with complaints of abdominal pain and fever. Patient states that since last Monday she was having right upper quadrant abdominal pain and thought it was her gallbladder. Patient was also having loose stools. Patient initially went to urgent care clinic. Patient did not have any fever at that time. Patient was tested for COVID which came up negative, was told later. Denied any dysuria or hematuria. No flank pain. No chest pain. Patient is also having generalized weakness and body aches. Noticed some exertional dyspnea. Otherwise no vomiting no nausea. No headache or dizziness or lightheadedness. On admission patient was febrile with T-max 103 F with tachycardia. Saturating well on room air. Chest x-ray showed new multifocal multilobar bilateral acute pneumonic in filtrates. Laboratory data showed WBC 21.2, hemoglobin 13.3 and platelets 187 Lymphocytes 0.7 Sodium 128, potassium 3.4, chloride 94, BUN 20 and creatinine 1.17 Blood sugar is 228 Urine showed 3+ protein and turbid with trace glucose and trace ketones. Moderate blood. AST ALT 33 and 21. Alk phos 127. Bilirubin level is total 0.5 03/07/2020 Patient is currently lying in the bed and is still complaining of shortness of breath. Patient is awake alert oriented x3. Patient is still requiring oxygen currently at 4 L via nasal cannula. Bilateral air entry is present with no evidence of wheezing on examination. Patient is also having intermittent fevers with T-max of 103.2. Neck currently being continued on antibiotics in the form of ceftriaxone and azithromycin. COVID-19 PCR is negative. Patient will be continued on droplet and contact precautions. We will check LDH, ferritin and CRP. Due to hypoxia patient had CT of the CT angiogram of the chest was done to out any pulmonary embolism. Differential include COVID-19 viral infection and Legionella pneumonia. Urine antigen for Legionella is pending at this time. Continue to follow closely. Patient denied any complaints of chest pain. No nausea vomiting or diarrhea. Diarrhea improved now. Current medications reviewed. Objective - Vital Signs Vital signs: Vital Signs Temp 101.2 F H 03/07/20 19:16 Pulse 136 H 03/07/20 19:16 Resp 24 03/07/20 19:16 BP 137/81 03/07/20 19:16 Pulse Ox 87 L 03/07/20 20:20 Intake & Output 03/07/20 03/07/20 03/08/20 06:59 18:59 06:59 Intake Total 390 200 Balance 390 200 Weight 116.12 kg Intake: Intake, IV Titration 390 Amount Sodium Chloride 0.9% 1, 390 000 ml @ 130 mls/hr IV . Q7H42M [facility] Rx#:[id number] Oral 200 Other: Voiding Method Toilet Toilet # Voids 2 - Exam PHYSICAL EXAMINATION: Patient is lying in the bed comfortably, no acute distress, awake alert and oriented.. HEENT: Normocephalic. Neck is supple. Pupils reactive. Nostrils clear. Oral cavity is moist. Ears reveal no drainage. Neck reveals no JVD, carotid bruits, or thyromegaly. CHEST EXAMINATION: Trachea is central. Symmetrical expansion. Bibasilar diminished air entry. No wheezing no rhonchi. . Nonlabored breathing.. CARDIAC: Normal S1, S2 with no gallops. No murmurs ABDOMEN: Soft. non tender. no RUQ tenderness, Bowel sounds normal. No organomegaly. No abdominal bruits. Extremities: reveal no edema. No clubbing or cyanosis Neurologically awake, alert, oriented x3 with well-coordinated movements. No focal deficits noted Skin: No rash or skin lesions. Psychiatric: Coperative. Nonsuicidal Musculoskeletal: No joint swelling or deformity. Normal range of motion. - Labs CBC & Chem 7: 03/08/20 04:47 03/08/20 04:47 Labs: Abnormal Lab Results - Last 24 Hours (Table) 03/07/20 03/07/20 03/07/20 Range/Units 05:58 05:58 12:19 WBC 16.3 H (3.8-10.6) k/uL RBC 3.79 L (3.80-5.40) m/uL Neutrophils # 14.9 H (1.3-7.7) k/uL D-Dimer (<0.60) mg/L FEU ABG pCO2 (35-45) mmHg ABG pO2 (83-108) mmHg ABG HCO3 (21-25) mmol/L ABG O2 Saturation (94-97) % Sodium 130 L (135-145) mmol/L Potassium 3.0 L 3.2 L (3.5-5.5) mmol/L BUN/Creatinine Ratio 23.00 H (12.00-20.00) Ratio Glucose 178 H (70-110) mg/dL Calcium 8.0 L (8.7-10.3) mg/dL 03/07/20 03/07/20 Range/Units 15:58 20:35 WBC (3.8-10.6) k/uL RBC (3.80-5.40) m/uL Neutrophils # (1.3-7.7) k/uL D-Dimer 5.68 H (<0.60) mg/L FEU ABG pCO2 30 L (35-45) mmHg ABG pO2 55 L* (83-108) mmHg ABG HCO3 18 L (21-25) mmol/L ABG O2 Saturation 88.8 L (94-97) % Sodium (135-145) mmol/L Potassium (3.5-5.5) mmol/L BUN/Creatinine Ratio (12.00-20.00) Ratio Glucose (70-110) mg/dL Calcium (8.7-10.3) mg/dL Microbiology - Last 24 Hours (Table) 03/06/20 10:44 Urine Culture - Final Urine,Voided 03/06/20 10:43 Blood Culture - Preliminary Blood No Growth after 24 hours Assessment and Plan Assessment: Multilobar pneumoniaDifferential include COVID-19 viral infection and Legionella pneumonia. Hypoxic respiratory failure secondary to pneumonia Sepsis secondary to pneumonia Hyponatremia likely hypovolemic/prerenal Rule out COVID-19 viral infection Morbid obesity BMI 41.7 Hypertension GERD Chronic back pain and bilateral sciatica arm pain clinic follow-up. Ongoing nicotine addiction DVT prophylaxis with heparin subcu Plan: Patient will be continued on antibiotics in the form of ceftriaxone and azithromycin. Continue with IV hydration and monitor electrolytes and replace potassium. Follow-up blood cultures. Urine Legionella antigen was ordered. Continue with droplet and contact precautions and COVID-19 PCR was sent.COVID 19 PCR is negative. Ordered LDH, CRP and ferritin level. Troponin levels will be sent as well. ID will be consulted. Continue with oxygen therapy and follow-up closely. Further recommendations based on the clinical course. Time with Patient: Greater than 30
[2020-03-08] MEDS: IPRATROPIUM-ALBUTEROL 3 ML NEB INHALATION SCH ×4 (11:55→23:49)
[2020-03-08 12:18] LABS: Glucose,Whole Blood 235 mg/dL (75-99)
--- NOTE | 2020-03-08 14:24 | P.CNPUL ---
History of Present Illness Consult date: 03/08/20 Reason for consult: pneumonia Chief complaint: Fever and cough. History of present illness: This is a 49-year-old female with history of hypertension, obesity, GERD, works at a machine shop/factory, patient has not been feeling well since last . Patient had symptoms of fever, shortness of breath, and she could not see her primary care physician for evaluation of her symptoms, she was also complaining of some vague abdominal pain, mostly in the right upper quadrant, and she was having loose stools. Went to the urgent care upon the recommendation of her primary care physician, supposedly she was tested for covid 19, and it was supposedly negative as she was told later. Her symptoms kept deteriorating, and her fever was getting as high as 103 on admission. Seen in the ER, noted to have diffuse bilateral infiltrates and multilobar pneumonia. Patient was admitted, however last night the patient's condition deteriorated, patient was switched to a nonrebreather mask, and her pO2 remained marginal in the range of 55 at best. I was notified about the patient and I recommended intubation and transferred to the ICU. Reviewed her chest x-ray, clearly shows evidence of extensive airspace disease which seems to be getting worse within a very short period of time CT angiogram of the chest was done yesterday, and it also showed extensive bilateralpulmonary consolidation. Involving right upper lobe, superior portion of the right lower lobe, and there was multiple air bronchograms in both lungs. No mediastinal adenopathy was noted. And there was no evidence of pulmonary embolism. I evaluated the patient this morning, and she is now on mechanical ventilation. Her assist control rate is 26 and I increased it to 28 tidal volume is 450 FiO2 was 100% I cut it down to 75% PEEP was at 14. Patient is requiring propofol at 60 mcg/kg/m, and she is also requiring Nimbex. Antibiotics curran patient is on broad-spectrum coverage I changed her Zithromax and Rocephin to cefepime and vancomycin. ABG this morning showed a pO2 of 98 pCO2 of 46 pH of 7.29. After evaluating the patient, I went ahead and placed a right IJ central line, and a left radial arterial line for hemodynamic monitoring. Her urine output is about 50 mL/h, patient is not requiring any pressors. She had a T-max of 103 last night. was at bedside, and I updated the on her condition I was also able to get a verbal consent regarding lines on this patient. Review of Systems ROS unobtainable: due to endotracheal tube Past Medical History Past Medical History: GERD/Reflux, Hypertension Additional Past Medical History / Comment(s): Stenosis, herniated bulging discs/bilateral sciatica/gait disturbance, chronic pain-sees Dr. Stephenson for pain management, abdominal discomfort past year, elevated WBC, anemia History of Any Multi-Drug Resistant Organisms: None Reported Past Surgical History: Section, Ear Surgery Additional Past Surgical History / Comment(s): Bilateral myringotomy/tubes as child Past Anesthesia/Blood Transfusion Reactions: No Reported Reaction Smoking Status: Current every day smoker - Past Family History Father Family Medical History: Cancer Additional Family Medical History / Comment(s): Father had bladder cancer. He is . Mother Family Medical History: Renal Disease Additional Family Medical History / Comment(s): Mother is . She had renal failure/dialysis. Medications and Allergies Home Medications Medication Instructions Recorded Confirmed Type Ibuprofen [Motrin] 800 mg PO DAILY 01/20/19 03/06/20 History Cyclobenzaprine [Flexeril] 5 mg PO DAILY 03/06/20 03/06/20 History Ferrous Sulfate [Feosol] 325 mg PO DAILY 03/06/20 03/06/20 History HYDROcodone/APAP 10-325MG [[place] 1 tab PO TID 03/06/20 03/06/20 History 10-325] Losartan/Hydrochlorothiazide 1 tab PO DAILY 03/06/20 03/06/20 History [Losartan-Hctz 100-25 mg Tab] Allergies Allergy/AdvReac Type Severity Reaction Status Date / Time No Known Allergies Allergy Verified 03/06/20 11:33 Physical Exam Vitals: Vital Signs Temp Pulse Pulse Resp BP BP Pulse Ox 03/08/20 13:00 106 H 28 H 98/67 93 L 03/08/20 12:02 86 03/08/20 12:00 85 29 H 98/67 93 L 03/08/20 11:55 79 03/08/20 11:00 82 27 H 98/67 95 03/08/20 10:00 75 20 89/63 90 L 03/08/20 09:00 79 20 105/65 94 L 03/08/20 08:00 98.7 F 86 20 135/92 99 03/08/20 07:51 98 03/08/20 07:31 89 03/08/20 07:00 79 26 H 100/66 97 03/08/20 06:00 80 26 H 104/63 97 03/08/20 05:00 80 26 H 103/65 98 03/08/20 04:00 98.5 F 81 26 H 97/60 97 03/08/20 03:00 83 30 H 91/57 94 L 03/08/20 02:00 90 26 H 105/60 93 L 03/08/20 01:00 108 H 26 H 137/75 91 L 03/08/20 00:00 103 F H 130 H 26 H 140/84 92 L 03/07/20 23:00 140 H 35 H 180/116 96 03/07/20 20:20 87 L 03/07/20 19:16 101.2 F H 136 H 24 137/81 91 L 03/07/20 19:05 24 03/07/20 17:15 93 L 03/07/20 15:53 115 H 91 L 03/07/20 15:43 112 H 03/07/20 15:36 99.1 F 91 L 03/07/20 14:30 103.2 F H 129 H 20 130/71 79 L Intake and Output 03/07/20 03/08/20 03/08/20 22:59 06:59 14:59 Intake Total 80 460 Output Total 0 1455 445 Balance 0 -1375 15 Intake: IV 80 460 0.9 Normal Saline 80 460 Output: Urine 0 1455 445 Other: Voiding Method Toilet Indwelling Catheter Indwelling Catheter # Voids 2 Weight 123.5 kg ABP, PAP, CO, CI - Last 8 Hours Arterial Blood Pressure 133/61 Arterial Blood Pressure 108/53 Arterial Blood Pressure 107/54 Gen.: Revealed 49-year-old female, obese, on mechanical ventilation, sedated and on Nimbex. Head: Atraumatic, normocephalic. HEENT: PERRLA, EOMI, endotracheal tube and orogastric tube are intact. Neck supple no neck masses no thyromegaly. No cervical lymphadenopathy. CHEST EXAMINATION: Symmetrical chest expansion, crackles at the bases bilaterall y no rhonchi and no wheezes CARDIAC: Distant S1, S2 with no gallops. No murmurs ABDOMEN: Obese, Soft. non tender. No megaly no rebound no guarding. Extremities: No clubbing edema or cyanosis. Neurologically: Could not be assessed, patient is sedated and paralyzed. Skin: No rash or skin lesions. Psychiatric: Not be assessed Musculoskeletal: No joint swelling or deformity. Results - Laboratory Findings CBC and BMP: 03/08/20 04:47 03/08/20 04:47 ABG ABG pH 7.29 (7.35-7.45) L 03/08/20 08:18 ABG pCO2 46 mmHg (35-45) H 03/08/20 08:18 ABG pO2 98 mmHg (83-108) 03/08/20 08:18 ABG O2 Saturation 96.7 % (94-97) 03/08/20 08:18 PT/INR, D-dimer PT 11.1 sec (9.0-12.0) 03/06/20 10:43 INR 1.1 (<1.2) 03/06/20 10:43 D-Dimer 5.68 mg/L FEU (<0.60) H 03/07/20 15:58 Abnormal lab findings: Abnormal Labs 03/06/20 03/06/20 03/06/20 10:43 10:43 10:43 WBC 21.2 H RBC Neutrophils # 19.8 H Lymphocytes # 0.7 L APTT 30.1 H D-Dimer ABG pH ABG pCO2 ABG pO2 ABG HCO3 ABG O2 Saturation Sodium 128 L Potassium 3.4 L Chloride 94 L Carbon Dioxide BUN 20 H Creatinine 1.17 H BUN/Creatinine Ratio Glucose 228 H POC Glucose (mg/dL) Calcium Ferritin Alkaline Phosphatase 127 H Lactate Dehydrogenase C-Reactive Protein Urine Appearance Urine Protein Urine Glucose (UA) Urine Ketones Urine Blood Urine WBC Ur Squamous Epith Cells Urine Bacteria Hyaline Casts Urine Mucus 03/06/20 03/07/20 03/07/20 10:44 05:58 05:58 WBC 16.3 H RBC 3.79 L Neutrophils # 14.9 H Lymphocytes # APTT D-Dimer ABG pH ABG pCO2 ABG pO2 ABG HCO3 ABG O2 Saturation Sodium 130 L Potassium 3.0 L Chloride Carbon Dioxide BUN Creatinine BUN/Creatinine Ratio 23.00 H Glucose 178 H POC Glucose (mg/dL) Calcium 8.0 L Ferritin Alkaline Phosphatase Lactate Dehydrogenase C-Reactive Protein Urine Appearance Turbid H Urine Protein 3+ H Urine Glucose (UA) Trace H Urine Ketones Trace H Urine Blood Moderate H Urine WBC 16 H Ur Squamous Epith Cells 12 H Urine Bacteria Moderate H Hyaline Casts 34 H Urine Mucus Occasional H 03/07/20 03/07/20 03/07/20 12:19 15:58 15:58 WBC RBC Neutrophils # Lymphocytes # APTT D-Dimer 5.68 H ABG pH ABG pCO2 ABG pO2 ABG HCO3 ABG O2 Saturation Sodium Potassium 3.2 L Chloride Carbon Dioxide BUN Creatinine BUN/Creatinine Ratio Glucose POC Glucose (mg/dL) Calcium Ferritin 2286.3 H Alkaline Phosphatase Lactate Dehydrogenase 325 H C-Reactive Protein 33.6 H Urine Appearance Urine Protein Urine Glucose (UA) Urine Ketones Urine Blood Urine WBC Ur Squamous Epith Cells Urine Bacteria Hyaline Casts Urine Mucus 03/07/20 03/07/20 03/07/20 20:35 21:05 21:05 WBC 16.9 H RBC Neutrophils # 15.2 H Lymphocytes # APTT D-Dimer ABG pH ABG pCO2 30 L ABG pO2 55 L* ABG HCO3 18 L ABG O2 Saturation 88.8 L Sodium 127 L Potassium Chloride Carbon Dioxide 18 L BUN Creatinine BUN/Creatinine Ratio Glucose 247 H POC Glucose (mg/dL) Calcium 8.0 L Ferritin Alkaline Phosphatase Lactate Dehydrogenase C-Reactive Protein Urine Appearance Urine Protein Urine Glucose (UA) Urine Ketones Urine Blood Urine WBC Ur Squamous Epith Cells Urine Bacteria Hyaline Casts Urine Mucus 03/07/20 03/07/20 03/08/20 21:29 21:58 00:00 WBC RBC Neutrophils # Lymphocytes # APTT D-Dimer ABG pH ABG pCO2 27 L ABG pO2 56 L* ABG HCO3 18 L ABG O2 Saturation 90.5 L Sodium Potassium Chloride Carbon Dioxide BUN Creatinine BUN/Creatinine Ratio Glucose POC Glucose (mg/dL) 234 H Calcium Ferritin Alkaline Phosphatase Lactate Dehydrogenase C-Reactive Protein Urine Appearance Urine Protein Urine Glucose (UA) Urine Ketones Urine Blood Moderate H Urine WBC Ur Squamous Epith Cells Urine Bacteria Rare H Hyaline Casts Urine Mucus 03/08/20 03/08/20 03/08/20 00:30 04:47 04:47 WBC 15.5 H RBC Neutrophils # 13.3 H Lymphocytes # APTT D-Dimer ABG pH 7.30 L ABG pCO2 ABG pO2 69 L ABG HCO3 ABG O2 Saturation 92.2 L Sodium 128 L Potassium Chloride Carbon Dioxide 18 L BUN Creatinine BUN/Creatinine Ratio Glucose 211 H POC Glucose (mg/dL) Calcium 7.9 L Ferritin Alkaline Phosphatase Lactate Dehydrogenase C-Reactive Protein Urine Appearance Urine Protein Urine Glucose (UA) Urine Ketones Urine Blood Urine WBC Ur Squamous Epith Cells Urine Bacteria Hyaline Casts Urine Mucus 03/08/20 03/08/20 03/08/20 08:18 08:59 12:17 WBC RBC Neutrophils # Lymphocytes # APTT D-Dimer ABG pH 7.29 L ABG pCO2 46 H ABG pO2 ABG HCO3 ABG O2 Saturation Sodium Potassium Chloride Carbon Dioxide BUN Creatinine BUN/Creatinine Ratio Glucose POC Glucose (mg/dL) 264 H 235 H Calcium Ferritin Alkaline Phosphatase Lactate Dehydrogenase C-Reactive Protein Urine Appearance Urine Protein Urine Glucose (UA) Urine Ketones Urine Blood Urine WBC Ur Squamous Epith Cells Urine Bacteria Hyaline Casts Urine Mucus - Diagnostic Findings Chest x-ray: image reviewed (As noted in HPI.) CT scan - chest: image reviewed (As noted in HPI.) Assessment and Plan Assessment: Impression: Acute hypoxic respiratory failure, requiring intubation and mechanical ventilation secondary to pneumonia. Acute community-acquired pneumonia although the possibility of covid 19 pneumonitis is still not entirely ruled out. History of chronic pain syndrome. Mostly related to herniated disc disease and lumbar stenosis. History of benign essential hypertension. Recommendation: Continue ventilatory support. Empiric broad-spectrum antibiotics. Bronchodilators. IV Solu-Medrol. GI and DVT prophylaxis. Pressors if necessary. Address nutritional support and enteral feeding in the next 24 hours. Lines were placed including a right IJ central line and left radial arterial line.. Discussed her condition with her at bedside. And made him aware that she is extremely ill, and prognosis is guarded. We'll continue to follow. Time with Patient: Greater than 30
[2020-03-08] MEDS: LEVOFLOXACIN 750MG-D5W PMX 750 MG in DEXTROSE/WATER 1 150ML.BAG IVPB SCH (15:39)
[2020-03-08] MEDS: DEXAMETHASONE SOD PHOSPHATE 4 MG/ML 1 ML VIAL IV SCH (17:02)
[2020-03-08 17:10] LABS: Glucose,Whole Blood 205 mg/dL (75-99)
[2020-03-08] MEDS: PIPERACILLIN-TAZOBACTAM 3.375 GM in SODIUM CHLORIDE 0.9% 100 ML IVPB SCH ×2 (17:20→23:37)
[2020-03-08] MEDS: CHLORHEXIDINE GLUCONATE 15 ML CUP MUCOUS MEM SCH (19:55)
[2020-03-08 20:53] LABS: Glucose,Whole Blood 159 mg/dL (75-99)
--- NOTE | 2020-03-08 21:50 | P.PN ---
Subjective Progress Note Date: 03/08/20 Principal diagnosis: Acute multifocal pneumonia. Rule out COVID-19 infection. Patient is a 49-year-old female with a known history of hypertension, GERD, chronic pain due to bilateral sciatica and herniated lumbar disc on follow-up with pain clinic and also everyday smoker presents to ER with complaints of abdominal pain and fever. Patient states that since last Monday she was having right upper quadrant abdominal pain and thought it was her gallbladder. Patient was also having loose stools. Patient initially went to urgent care clinic. Patient did not have any fever at that time. Patient was tested for COVID which came up negative, was told later. Denied any dysuria or hematuria. No flank pain. No chest pain. Patient is also having generalized weakness and body aches. Noticed some exertional dyspnea. Otherwise no vomiting no nausea. No headache or dizziness or lightheadedness. On admission patient was febrile with T-max 103 F with tachycardia. Saturating well on room air. Chest x-ray showed new multifocal multilobar bilateral acute pneumonic in filtrates. Laboratory data showed WBC 21.2, hemoglobin 13.3 and platelets 187 Lymphocytes 0.7 Sodium 128, potassium 3.4, chloride 94, BUN 20 and creatinine 1.17 Blood sugar is 228 Urine showed 3+ protein and turbid with trace glucose and trace ketones. Moderate blood. AST ALT 33 and 21. Alk phos 127. Bilirubin level is total 0.5 03/07/2020 Patient is currently lying in the bed and is still complaining of shortness of breath. Patient is awake alert oriented x3. Patient is still requiring oxygen currently at 4 L via nasal cannula. Bilateral air entry is present with no evidence of wheezing on examination. Patient is also having intermittent fevers with T-max of 103.2. Neck currently being continued on antibiotics in the form of ceftriaxone and azithromycin. COVID-19 PCR is negative. Patient will be continued on droplet and contact precautions. We will check LDH, ferritin and CRP. Due to hypoxia patient had CT of the CT angiogram of the chest was done to out any pulmonary embolism. Differential include COVID-19 viral infection and Legionella pneumonia. Urine antigen for Legionella is pending at this time. Continue to follow closely. Patient denied any complaints of chest pain. No nausea vomiting or diarrhea. Diarrhea improved now. 03/08/2020 Patient is currently on mechanical ventilator. He has daily patient was hypoxic and requiring high flow oxygen via nasal cannula. ABGs were done which showed pH of 7.43, PCO2 27, PO2 56 and bicarb 18. Patient was eventually transferred to MICU and was intubated. Initial COVID-19 test was negative. Repeat test was ordered. Chest x-ray showed worsening bilateral pulmonary airspace edema and is nonspecific related to acute pneumonia are obvious. Lab data showed WBC 15.5, hemoglobin 12.0 Sodium 128, potassium 3.8 Urine negative for infection Ferritin 2286, LDH 325, CRP 33.6. Troponin x1-. Antibiotics extended to broad-spectrum with vancomycin and continued on ceftriaxone. Patient is still febrile. Pulmonary and ID is on board. Current medications reviewed. Current medications reviewed. Objective - Vital Signs Vital signs: Vital Signs Temp 98.7 F 03/08/20 16:00 Pulse 107 H 03/08/20 19:50 Resp 28 H 03/08/20 19:00 BP 98/67 03/08/20 19:00 Pulse Ox 92 L 03/08/20 19:00 Intake & Output 03/08/20 03/08/20 03/09/20 06:59 18:59 06:59 Intake Total 80 2165.575 285.268 Output Total 1455 2045 200 Balance -1375 120.575 85.268 Weight 123.5 kg Intake: IV 80 1710 100 0.9 Normal Saline 80 960 100 Levofloxacin 750Mg-D5w 150 Pmx 750 mg In Dextrose/ Water 1 150ml.bag @ 100 mls/hr IVPB Q24H [facility] Rx#: [id number] Piperacillin-Tazobactam 3 100 .375 gm In Sodium Chloride 0.9% 100 ml @ 25 mls/hr IVPB Q8HR [facility] Rx# :[id number] Vancomycin 2,000 mg In 500 Sodium Chloride 0.9% 500 ml 500 ml @ 167 mls/hr IVPB ONCE ONE Rx#: [id number] Intake, IV Titration 455.575 185.268 Amount Cisatracurium 200 mg In 110.427 Sodium Chloride 0.9% 180 ml @ 1 MCG/KG/MIN 6.967 mls/hr IV .Q24H [facility] Rx#: [id number] propofoL 1,000 mg In 455.575 74.841 Empty Bag 1 bag @ Titrate IV .Q0M [facility] Rx#: [id number] Output: Gastric Drainage 550 Urine 1455 1495 200 Other: Voiding Method Indwelling Catheter Indwelling Catheter # Voids 2 ABP, PAP, CO, CI - Last Documented Arterial Blood Pressure 149/65 - Exam PHYSICAL EXAMINATION: Patient is lCurrently sedated and intubated on mechanical ventilator.christy in the bed comfortably, no acute distress, awake alert and oriented.. HEENT: Normocephalic. Neck is supple. Pupils reactive. Nostrils clear. Oral cavity is moist. Ears reveal no drainage. Neck reveals no JVD, carotid bruits, or thyromegaly. CHEST EXAMINATION: Trachea is central. ET tube in place ,Symmetrical expansion. Bibasilar diminished air entry. No wheezing no rhonchi. CARDIAC: Normal S1, S2 with no gallops. No murmurs ABDOMEN: Soft. Bowel sounds present. No organomegaly. No abdominal bruits. Extremities: reveal no edema. No clubbing or cyanosis Neurologically currently on mech vent. No focal deficits noted Skin: No rash or skin lesions. Psychiatric: Could not be assessed at this time. Musculoskeletal: No joint swelling or deformity. - Labs CBC & Chem 7: 03/08/20 04:47 03/08/20 04:47 Labs: Abnormal Lab Results - Last 24 Hours (Table) 03/07/20 03/07/20 03/07/20 Range/Units 15:58 20:35 21:05 WBC 16.9 H (3.8-10.6) k/uL Neutrophils # 15.2 H (1.3-7.7) k/uL ABG pH (7.35-7.45) ABG pCO2 30 L (35-45) mmHg ABG pO2 55 L* (83-108) mmHg ABG HCO3 18 L (21-25) mmol/L ABG O2 Saturation 88.8 L (94-97) % Sodium (137-145) mmol/L Carbon Dioxide (22-30) mmol/L Glucose (74-99) mg/dL POC Glucose (mg/dL) (75-99) mg/dL Calcium (8.4-10.2) mg/dL Ferritin 2286.3 H (10.0-291.0) ng/mL Lactate Dehydrogenase 325 H (120-246) U/L C-Reactive Protein 33.6 H (0.0-0.8) mg/dL Urine Blood (Negative) Urine Bacteria (None) /hpf 03/07/20 03/07/20 03/07/20 Range/Units 21:05 21:29 21:58 WBC (3.8-10.6) k/uL Neutrophils # (1.3-7.7) k/uL ABG pH (7.35-7.45) ABG pCO2 27 L (35-45) mmHg ABG pO2 56 L* (83-108) mmHg ABG HCO3 18 L (21-25) mmol/L ABG O2 Saturation 90.5 L (94-97) % Sodium 127 L (137-145) mmol/L Carbon Dioxide 18 L (22-30) mmol/L Glucose 247 H (74-99) mg/dL POC Glucose (mg/dL) 234 H (75-99) mg/dL Calcium 8.0 L (8.4-10.2) mg/dL Ferritin (10.0-291.0) ng/mL Lactate Dehydrogenase (120-246) U/L C-Reactive Protein (0.0-0.8) mg/dL Urine Blood (Negative) Urine Bacteria (None) /hpf 03/08/20 03/08/20 03/08/20 Range/Units 00:00 00:30 04:47 WBC 15.5 H (3.8-10.6) k/uL Neutrophils # 13.3 H (1.3-7.7) k/uL ABG pH 7.30 L (7.35-7.45) ABG pCO2 (35-45) mmHg ABG pO2 69 L (83-108) mmHg ABG HCO3 (21-25) mmol/L ABG O2 Saturation 92.2 L (94-97) % Sodium (137-145) mmol/L Carbon Dioxide (22-30) mmol/L Glucose (74-99) mg/dL POC Glucose (mg/dL) (75-99) mg/dL Calcium (8.4-10.2) mg/dL Ferritin (10.0-291.0) ng/mL Lactate Dehydrogenase (120-246) U/L C-Reactive Protein (0.0-0.8) mg/dL Urine Blood Moderate H (Negative) Urine Bacteria Rare H (None) /hpf 03/08/20 03/08/20 03/08/20 Range/Units 04:47 08:18 08:59 WBC (3.8-10.6) k/uL Neutrophils # (1.3-7.7) k/uL ABG pH 7.29 L (7.35-7.45) ABG pCO2 46 H (35-45) mmHg ABG pO2 (83-108) mmHg ABG HCO3 (21-25) mmol/L ABG O2 Saturation (94-97) % Sodium 128 L (137-145) mmol/L Carbon Dioxide 18 L (22-30) mmol/L Glucose 211 H (74-99) mg/dL POC Glucose (mg/dL) 264 H (75-99) mg/dL Calcium 7.9 L (8.4-10.2) mg/dL Ferritin (10.0-291.0) ng/mL Lactate Dehydrogenase (120-246) U/L C-Reactive Protein (0.0-0.8) mg/dL Urine Blood (Negative) Urine Bacteria (None) /hpf 03/08/20 03/08/20 Range/Units 12:17 17:08 WBC (3.8-10.6) k/uL Neutrophils # (1.3-7.7) k/uL ABG pH (7.35-7.45) ABG pCO2 (35-45) mmHg ABG pO2 (83-108) mmHg ABG HCO3 (21-25) mmol/L ABG O2 Saturation (94-97) % Sodium (137-145) mmol/L Carbon Dioxide (22-30) mmol/L Glucose (74-99) mg/dL POC Glucose (mg/dL) 235 H 205 H (75-99) mg/dL Calcium (8.4-10.2) mg/dL Ferritin (10.0-291.0) ng/mL Lactate Dehydrogenase (120-246) U/L C-Reactive Protein (0.0-0.8) mg/dL Urine Blood (Negative) Urine Bacteria (None) /hpf Microbiology - Last 24 Hours (Table) 03/07/20 15:58 Blood Culture - Preliminary Blood No Growth after 24 hours 03/07/20 16:08 Blood Culture - Preliminary Blood No Growth after 24 hours 03/06/20 10:43 Blood Culture - Preliminary Blood No Growth after 48 hours 03/06/20 10:44 Urine Culture - Final Urine,Voided Assessment and Plan Assessment: Acute hypoxic respiratory failure. Currently on mechanical ventilator. Multilobar pneumoniaDifferential include COVID-19 viral infection and Legionella pneumonia. Hypoxic respiratory failure secondary to pneumonia Sepsis secondary to pneumonia Hyponatremia likely hypovolemic/prerenal Rule out COVID-19 viral infection Morbid obesity BMI 41.7 Hypertension GERD Chronic back pain and bilateral sciatica arm pain clinic follow-up. Ongoing nicotine addiction DVT prophylaxis with heparin subcu Plan: Patient will be continued on antibiotics in the form of ceftriaxone and azithromycin. added vancomycin. Continue with IV hydration and monitor electrolytes and replace potassium. Follow-up blood cultures. Urine Legionella antigen was ordered. Continue with droplet and contact precautions and COVID-19 PCR was sent.COVID 19 PCR is negative. LDH, CRP and ferritin levels elevated. Repeat COVID-19 test was sent. Pulmonary and ID is on board. Time with Patient: Greater than 30
--- NOTE | 2020-03-08 22:23 | P.CONS ---
History of Present Illness - Reason for Consult Consult date: 03/08/20 Pneumonia Requesting physician: Nestor Davis - Chief Complaint Fever x few days - History of Present Illness Patient is a 49 year old female presenting to the hospital 2 days ago on 03/06/2020 for evaluation of fever and abdominal pain currently the patient s till having a fever on Tuesdays that his status prior to the hospital patient was complaining of pain to the right upper quadrant area in addition to the having loose stools the patient was complaining of for increasing shortness of breath and a cough on arrival to the ER, the patient did have fever to 103F patient did have elevated white count of 21.2 patient did have normal liver enzymes, patient did have a chest x-ray with multifocal pneumonia patient was admitted to the hospital he'll be started on Rocephin and Zithromax subsequently the patient did have worsening respiratory symptoms CT angiogram wasn't was negative for PE did shows extensive bilateral airspace the morning consultation consistent with bronchopneumonia patient did went respiratory distress and ended up getting intubated also to the ICU patient did better subsequent has been switched over to vancomycin and Zosyn and infectious disease was consulted for further management of antibiotic therapy most information has been a pain from review the chart and talking nursing staff as the patient is currently sedated on the vent and is unable to provide any history Review of Systems Positive points has been mentioned in HPI complete review could not be obtained because of his underlying mental status Past Medical History Past Medical History: GERD/Reflux, Hypertension Additional Past Medical History / Comment(s): Stenosis, herniated bulging discs/bilateral sciatica/gait disturbance, chronic pain-sees Dr. Stephenson for pain management, abdominal discomfort past year, elevated WBC, anemia History of Any Multi-Drug Resistant Organisms: None Reported Past Surgical History: Section, Ear Surgery Additional Past Surgical History / Comment(s): Bilateral myringotomy/tubes as child Past Anesthesia/Blood Transfusion Reactions: No Reported Reaction Smoking Status: Current every day smoker - Past Family History Father Family Medical History: Cancer Additional Family Medical History / Comment(s): Father had bladder cancer. He is . Mother Family Medical History: Renal Disease Additional Family Medical History / Comment(s): Mother is . She had renal failure/dialysis. Medications and Allergies Home Medications Medication Instructions Recorded Confirmed Type Ibuprofen [Motrin] 800 mg PO DAILY 01/20/19 03/06/20 History Cyclobenzaprine [Flexeril] 5 mg PO DAILY 03/06/20 03/06/20 History Ferrous Sulfate [Feosol] 325 mg PO DAILY 03/06/20 03/06/20 History HYDROcodone/APAP 10-325MG [[place] 1 tab PO TID 03/06/20 03/06/20 History 10-325] Losartan/Hydrochlorothiazide 1 tab PO DAILY 03/06/20 03/06/20 History [Losartan-Hctz 100-25 mg Tab] Allergies Allergy/AdvReac Type Severity Reaction Status Date / Time No Known Allergies Allergy Verified 03/06/20 11:33 Physical Exam Vitals: Vital Signs Temp Pulse Pulse Resp BP Pulse Ox 03/08/20 19:50 107 H 03/08/20 19:30 114 H 03/08/20 19:00 112 H 28 H 98/67 92 L 03/08/20 18:00 109 H 27 H 98/67 93 L 03/08/20 17:00 101 H 19 98/67 92 L 03/08/20 16:00 98.7 F 107 H 136 H 14 98/67 93 L 03/08/20 15:52 111 H 03/08/20 15:45 112 H 03/08/20 15:00 107 H 28 H 98/67 91 L 03/08/20 14:00 102 H 27 H 98/67 92 L 03/08/20 13:00 106 H 28 H 98/67 93 L 03/08/20 12:02 86 03/08/20 12:00 98.6 F 85 29 H 98/67 93 L 03/08/20 11:55 79 03/08/20 11:00 82 27 H 98/67 95 03/08/20 10:00 75 20 89/63 90 L 03/08/20 09:00 79 20 105/65 94 L 03/08/20 08:00 98.7 F 86 20 135/92 99 03/08/20 07:51 98 03/08/20 07:31 89 03/08/20 07:00 79 26 H 100/66 97 03/08/20 06:00 80 26 H 104/63 97 03/08/20 05:00 80 26 H 103/65 98 03/08/20 04:00 98.5 F 81 26 H 97/60 97 03/08/20 03:00 83 30 H 91/57 94 L 03/08/20 02:00 90 26 H 105/60 93 L 03/08/20 01:00 108 H 26 H 137/75 91 L 03/08/20 00:00 103 F H 130 H 26 H 140/84 92 L 03/07/20 23:00 140 H 35 H 180/116 96 03/07/20 20:20 87 L Intake and Output 03/08/20 03/08/20 03/08/20 06:59 14:59 22:59 Intake Total 80 860 1516.002 Output Total 0533 901 7113 Balance -1375 -135 266.002 Intake: IV 80 560 1250 0.9 Normal Saline 80 560 500 Levofloxacin 750Mg-D5w 150 Pmx 750 mg In Dextrose/ Water 1 150ml.bag @ 100 mls/hr IVPB Q24H [facility] Rx#: [id number] Piperacillin-Tazobactam 3 100 .375 gm In Sodium Chloride 0.9% 100 ml @ 25 mls/hr IVPB Q8HR [facility] Rx# :[id number] Vancomycin 2,000 mg In 500 Sodium Chloride 0.9% 500 ml 500 ml @ 167 mls/hr IVPB ONCE ONE Rx#: [id number] Intake, IV Titration 300 266.002 Amount Cisatracurium 200 mg In 110.427 Sodium Chloride 0.9% 180 ml @ 1 MCG/KG/MIN 6.967 mls/hr IV .Q24H [facility] Rx#: [id number] propofoL 1,000 mg In 300 155.575 Empty Bag 1 bag @ Titrate IV .Q0M [facility] Rx#: [id number] Output: Gastric Drainage 400 150 Urine 0133 111 9825 Other: Voiding Method Indwelling Catheter Indwelling Catheter Indwelling Catheter # Voids 2 2 Weight 123.5 kg ABP, PAP, CO, CI - Last 8 Hours Arterial Blood Pressure 149/65 Arterial Blood Pressure 120/52 Arterial Blood Pressure 144/63 Arterial Blood Pressure 131/60 Arterial Blood Pressure 125/54 Arterial Blood Pressure 133/61 Arterial Blood Pressure 108/53 GENERAL DESCRIPTION: Middle-aged female intubated on the vent. No tachypnea or accessory muscle of respiration use. HEENT: Shows Pallor , no scleral icterus. Oral mucous membrane is dry. Patient is orally intubated NECK: Trachea central, no thyromegaly. LUNGS: Unlabored breathing. Decreased intensity of breath sounds. No wheeze or crackle. HEART: S1, S2, regular rate and rhythm. No loud murmur ABDOMEN: Soft, no tenderness , guarding or rigidity, no organomegaly EXTREMITIES: No edema of feet. SKIN: No rash, no masses palpable. NEUROLOGICAL: The patient is sedated on the vent Results CBC & Chem 7: 03/08/20 04:47 03/08/20 04:47 Labs: Abnormal Lab Results - Last 24 Hours (Table) 03/07/20 03/07/20 03/07/20 Range/Units 15:58 20:35 21:05 WBC 16.9 H (3.8-10.6) k/uL Neutrophils # 15.2 H (1.3-7.7) k/uL ABG pH (7.35-7.45) ABG pCO2 30 L (35-45) mmHg ABG pO2 55 L* (83-108) mmHg ABG HCO3 18 L (21-25) mmol/L ABG O2 Saturation 88.8 L (94-97) % Sodium (137-145) mmol/L Carbon Dioxide (22-30) mmol/L Glucose (74-99) mg/dL POC Glucose (mg/dL) (75-99) mg/dL Calcium (8.4-10.2) mg/dL Ferritin 2286.3 H (10.0-291.0) ng/mL Lactate Dehydrogenase 325 H (120-246) U/L C-Reactive Protein 33.6 H (0.0-0.8) mg/dL Urine Blood (Negative) Urine Bacteria (None) /hpf 03/07/20 03/07/20 03/07/20 Range/Units 21:05 21:29 21:58 WBC (3.8-10.6) k/uL Neutrophils # (1.3-7.7) k/uL ABG pH (7.35-7.45) ABG pCO2 27 L (35-45) mmHg ABG pO2 56 L* (83-108) mmHg ABG HCO3 18 L (21-25) mmol/L ABG O2 Saturation 90.5 L (94-97) % Sodium 127 L (137-145) mmol/L Carbon Dioxide 18 L (22-30) mmol/L Glucose 247 H (74-99) mg/dL POC Glucose (mg/dL) 234 H (75-99) mg/dL Calcium 8.0 L (8.4-10.2) mg/dL Ferritin (10.0-291.0) ng/mL Lactate Dehydrogenase (120-246) U/L C-Reactive Protein (0.0-0.8) mg/dL Urine Blood (Negative) Urine Bacteria (None) /hpf 03/08/20 03/08/20 03/08/20 Range/Units 00:00 00:30 04:47 WBC 15.5 H (3.8-10.6) k/uL Neutrophils # 13.3 H (1.3-7.7) k/uL ABG pH 7.30 L (7.35-7.45) ABG pCO2 (35-45) mmHg ABG pO2 69 L (83-108) mmHg ABG HCO3 (21-25) mmol/L ABG O2 Saturation 92.2 L (94-97) % Sodium (137-145) mmol/L Carbon Dioxide (22-30) mmol/L Glucose (74-99) mg/dL POC Glucose (mg/dL) (75-99) mg/dL Calcium (8.4-10.2) mg/dL Ferritin (10.0-291.0) ng/mL Lactate Dehydrogenase (120-246) U/L C-Reactive Protein (0.0-0.8) mg/dL Urine Blood Moderate H (Negative) Urine Bacteria Rare H (None) /hpf 03/08/20 03/08/20 03/08/20 Range/Units 04:47 08:18 08:59 WBC (3.8-10.6) k/uL Neutrophils # (1.3-7.7) k/uL ABG pH 7.29 L (7.35-7.45) ABG pCO2 46 H (35-45) mmHg ABG pO2 (83-108) mmHg ABG HCO3 (21-25) mmol/L ABG O2 Saturation (94-97) % Sodium 128 L (137-145) mmol/L Carbon Dioxide 18 L (22-30) mmol/L Glucose 211 H (74-99) mg/dL POC Glucose (mg/dL) 264 H (75-99) mg/dL Calcium 7.9 L (8.4-10.2) mg/dL Ferritin (10.0-291.0) ng/mL Lactate Dehydrogenase (120-246) U/L C-Reactive Protein (0.0-0.8) mg/dL Urine Blood (Negative) Urine Bacteria (None) /hpf 03/08/20 03/08/20 Range/Units 12:17 17:08 WBC (3.8-10.6) k/uL Neutrophils # (1.3-7.7) k/uL ABG pH (7.35-7.45) ABG pCO2 (35-45) mmHg ABG pO2 (83-108) mmHg ABG HCO3 (21-25) mmol/L ABG O2 Saturation (94-97) % Sodium (137-145) mmol/L Carbon Dioxide (22-30) mmol/L Glucose (74-99) mg/dL POC Glucose (mg/dL) 235 H 205 H (75-99) mg/dL Calcium (8.4-10.2) mg/dL Ferritin (10.0-291.0) ng/mL Lactate Dehydrogenase (120-246) U/L C-Reactive Protein (0.0-0.8) mg/dL Urine Blood (Negative) Urine Bacteria (None) /hpf Microbiology - Last 24 Hours (Table) 03/07/20 15:58 Blood Culture - Preliminary Blood No Growth after 24 hours 03/07/20 16:08 Blood Culture - Preliminary Blood No Growth after 24 hours 03/06/20 10:43 Blood Culture - Preliminary Blood No Growth after 48 hours 03/06/20 10:44 Urine Culture - Final Urine,Voided Assessment and Plan Assessment: 1-patient presented to hospital with sepsis in this patient who did have a fever tachycardia and elevated white count source is likely pneumonia with evidence of bilateral infiltrate with a question of possible atypical bacterial pneumonia patient has been ruled out for covid 19 , the patient did have a right upper quadrant pain on presentation hospital that may need further investigation to make sure no evidence of any acute intra-abdominal pathology such as cholecys titis though her liver enzymes are normal and less likely (1) Sepsis Current Visit: Yes Status: Acute Code(s): A41.9 - SEPSIS, UNSPECIFIED ORGANISM SNOMED Code(s): 08023844 (2) Pneumonia Current Visit: Yes Status: Acute Code(s): J18.9 - PNEUMONIA, UNSPECIFIED ORGANISM SNOMED Code(s): 017649369 Plan: 1- we will obtain sputum for Gram stain and culture 2-check urine for Legionella antigen 3-check ultrasound of the liver and gallbladder area 4-continue the Zosyn however add Levaquin 750 mg daily We will follow on clinical condition and cultures to further adjust medication if needed Thank you for this consultation will follow this patient with you Time with Patient: Greater than 30
[2020-03-08 22:34] LABS: ABG Base Excess -2.8 mmol/L; ABG HCO3 23 mmol/L (21-25); ABG Oxygen Saturation 96.5 % (94-97); ABG PCO2 44 mmHg (35-45); ABG PH 7.33 (7.35-7.45); ABG PO2 86 mmHg (83-108); ABG TCO2 24 mmol/L (19-24); Allen Test Performed? Yes
[2020-03-09] MEDS ORDERED: VANCOMYCIN 1,750 MG in SODIUM CHLORIDE 0.9% 500 ML 500 ML IVPB SCH ×2
[2020-03-09 01:01] LABS: Glucose,Whole Blood 228 mg/dL (75-99)
[2020-03-09] MEDS: INSULIN ASPART (NovoLOG) 100 UNIT/ML VIAL SQ SCH ×6 (01:06→22:07)
[2020-03-09] MEDS: IPRATROPIUM-ALBUTEROL 3 ML NEB INHALATION SCH ×6 (03:56→23:17)
[2020-03-09 04:10] LABS: Glucose,Whole Blood 266 mg/dL (75-99)
--- NOTE | 2020-03-09 04:16 | PCN ---
PROCEDURE NOTE OPERATIVE REPORT: Placement of the right IJ central line. PREOPERATIVE DIAGNOSIS: Acute hypoxic respiratory failure and pneumonia. POSTOPERATIVE DIAGNOSIS: Acute hypoxic respiratory failure and pneumonia. ANESTHESIA USED: 2 mL of 1% lidocaine. PROCEDURE: The patient was placed in a Trendelenburg position, the area of the cervical region on the right side was prepared in a sterile fashion and drapes were applied. The area behind the posterior belly of the sternocleidomastoid muscle was locally anesthetized. Then using the posterior approach, the right internal jugular vein was easily cannulated, and a guidewire was placed. The area around the guidewire was dilated with a dilator. Then a triple-lumen catheter was inserted over the guidewire, and the guidewire was removed. Good blood flow and 3 different ports were working fine. The procedure was well tolerated and no evidence of any immediate complications. A chest x- ray showed no complications and adequate placement of the central line. MMODL / IJN: [id number] /
--- NOTE | 2020-03-09 04:22 | PCN ---
PROCEDURE NOTE OPERATIVE REPORT: Placement of the left radial arterial line. PREOPERATIVE DIAGNOSIS: Acute hypoxic respiratory failure. POSTOPERATIVE DIAGNOSIS: Acute hypoxic respiratory failure. ANESTHESIA USED: None deployed. PROCEDURE: The left wrist was prepared in a sterile fashion and drapes were applied. Left radial artery was palpated, cannulated easily and a guidewire was placed. A Cook catheter was inserted over the guidewire, the guidewire was removed. Good blood flow and good waveform noted. No evidence of any immediate complications. The line was secured using 3.0 silk sutures. MMODL / IJN: [id number] /
[2020-03-09 04:27] LABS: HCT 34.1 % (34.0-46.0); HGB 11.4 gm/dL (11.4-16.0); MCH 31.1 pg (25.0-35.0); MCHC 33.3 g/dL (31.0-37.0); MCV 93.4 fL (80.0-100.0); Mean Platelet Volume 8.4; Platelet Count 226 k/uL (150-450); RBC 3.65 m/uL (3.80-5.40); RDW 14.1 % (11.5-15.5)
[2020-03-09 04:37] LABS: African American GFR (CKD) >90 (>60 ml/min/1.73 sqM); Anion Gap 8 mmol/L; Blood Urea Nitrogen 15 mg/dL (7-17); Calcium 7.9 mg/dL (8.4-10.2); Carbon Dioxide 21 mmol/L (22-30); Chloride 105 mmol/L (98-107); Glucose 228 mg/dL (74-99); Non-African American GFR(CKD) >90 (>60 ml/min/1.73 sqM); Potassium 3.8 mmol/L (3.5-5.1); Sodium 134 mmol/L (137-145)
[2020-03-09] MEDS ORDERED: POTASSIUM BICARBONATE/CIT AC 20 MEQ TABLET.EFF NG-TUBE SCH (05:00)
[2020-03-09 05:21] LABS: ABG Base Excess -3.7 mmol/L; ABG HCO3 23 mmol/L (21-25); ABG Oxygen Saturation 95.9 % (94-97); ABG PCO2 45 mmHg (35-45); ABG PH 7.31 (7.35-7.45); ABG PO2 85 mmHg (83-108); ABG TCO2 24 mmol/L (19-24); Allen Test Performed? Yes
[2020-03-09 07:47] LABS: ABG PO2 55 mmHg (83-108)
[2020-03-09] MEDS: CHLORHEXIDINE GLUCONATE 15 ML CUP MUCOUS MEM SCH ×2 (08:14→21:37)
[2020-03-09] MEDS: PIPERACILLIN-TAZOBACTAM 3.375 GM in SODIUM CHLORIDE 0.9% 100 ML IVPB SCH ×3 (08:14→23:08)
[2020-03-09] MEDS: HEPARIN SODIUM,PORCINE 5,000 UNIT/ML 1 ML VIAL SQ SCH ×3 (08:15→23:08)
[2020-03-09] MEDS: CYCLOBENZAPRINE 5 MG TAB PO SCH (08:15)
[2020-03-09] MEDS: DEXAMETHASONE SOD PHOSPHATE 4 MG/ML 1 ML VIAL IV SCH (08:17)
[2020-03-09] MEDS: PANTOPRAZOLE 40 MG/10 ML VIAL IVP SCH (08:21)
--- NOTE | 2020-03-09 08:46 | XR ---
EXAMINATION TYPE: XR chest 1V portable DATE OF EXAM: 03/09/2020 COMPARISON: 03/08/2020 HISTORY: Line placement TECHNIQUE: Single frontal view of the chest is obtained. FINDINGS: Right-sided IJ catheter overlies the right atrium. No pneumothorax. ET and NG tube stable. Diffuse bilateral pleural-parenchymal changes are stable. Osseous structures intact. IMPRESSION: Diffuse bilateral pleural-parenchymal changes correlate for pulmonary edema, ARDS or dif fuse pneumonia. Findings stable.
--- NOTE | 2020-03-09 09:06 | US ---
EXAMINATION TYPE: US abdomen complete DATE OF EXAM: 03/09/2020 COMPARISON: 03/05/2020 CLINICAL HISTORY: Fever abdominal pain. ICU patient vented EXAM MEASUREMENTS: Liver Length: 24.0 cm Gallbladder Wall: 0.3 cm CBD: 0.9 cm Spleen: 15.6 cm Right Kidney: 11.8 x 4.8 x 5.0 cm Left Kidney: 12.1 x 5.1 x 5.1 cm Pancreas: wnl Liver: Enlarged, heterogeneous Gallbladder: wnl Evidence for sonographic Medley's sign: No CBD: Dilated Spleen: Enlarged Right Kidney: wnl Left Kidney: wnl Upper IVC: wnl Abd Aorta: wnl IMPRESSION: 1. Hepatosplenomegaly correlate for hepatitis or hepatocellular disease. 2. CBD is dilated measuring 9 mm. Correlate for distal CBD obstruction.
[2020-03-09 10:21] LABS: Glucose,Whole Blood 205 mg/dL (75-99)
[2020-03-09 10:29] LABS: C Reactive Protein 366.8 mg/L (<10.0)
[2020-03-09] MEDS: CISATRACURIUM 200 MG in SODIUM CHLORIDE 0.9% 180 ML IV SCH (11:28)
--- NOTE | 2020-03-09 11:56 | PN ---
PROGRESS NOTE PULMONARY/CRITICAL CARE PROGRESS NOTE: DATE OF SERVICE: 03/09/2020 CRITICAL CARE TIME: 34 minutes This is a 49-year-old female who was admitted on 11/04/2019. She apparently came with abdominal pain and pneumonia. Because of impending respiratory failure and respiratory distress, she was intubated on 03/08/2020. She was seen by my partner yesterday. The patient currently is on the volume assist-control modality, with a rate of 28, tidal volume 450, FiO2 of 70%, PEEP of 14. Will make a few changes. Will drop her to a low tidal volume strategy with a tidal volume at 350, increase the rate from 28 to 36 and also bump her PEEP up to 18 from 14 to see if we can't reduce the FiO2 down. I told the respiratory therapist that saturations 88%-90% are perfectly okay in this patient. Current gases on the old settings show a pO2 of 85, pCO2 of 45 and a pH of 7.31. This is consistent with a mild respiratory acidosis. She is on saline 100 mL an hour, propofol at 65 mcg/per minute and Nimbex at 2 mcg/kg per minute with train of 4 monitoring, at 20 milliamps, she twitches 2/4. We are going to do a bronchoscopy and BAL today paying special attention to the right lung. COVID testing x2 was negative. Current microbiology is negative. Again currently, she is heavily sedated and paralyzed. We did ask the dietary to start her on tube feeds. Current vital signs are reviewed, temperature is 98.9, heart rate 90, respiratory rate 36, blood pressure 107/51, and saturations are 93%. Appears in no acute distress, currently sedated and paralyzed. HEENT: Examination is grossly unremarkable. There is an orally placed endotracheal tube and NG tube. NECK: Supple, full range of motion. No adenopathy, thyromegaly or neck vein distention. CARDIOVASCULAR: Examination reveals regular rhythm and rate. Heart rate 92, S1, S2 normal. LUNGS: Reveal diminished breath sounds throughout. Breath sounds are equal bilaterally. There are diffuse coarse rhonchi. No crackles. ABDOMEN: Soft, bowel sounds are not noted. EXTREMITIES: Intact. No significant edema. SKIN: Without rash. NEUROLOGIC: Examination could not be adequately assessed. Current labs include a white count of 16, hemoglobin 11.4, hematocrit 34.1, platelet count 226,000. D-dimer 3.12. Blood gases have been noted. Sodium 134, potassium 3.8 chloride is 105, CO2 is 21, anion gap is 8. BUN and creatinine were 15 and 0.74. LDH of 1640 pm. C-reactive protein 366.8. Microbiology including blood and urine sampling is thus far negative. Chest x-ray shows bilateral pneumonia, more dense consolidation on the right side than on the left. CURRENT MEDICATIONS: Reviewed. She is on Tylenol, Artificial Tears, Peridex, Nimbex, Flexeril, Decadron, subcu heparin, Dilaudid, NovoLog sliding scale, DuoNeb, Levaquin, magnesium replacement, cough drops, Narcan, Protonix, Zosyn, potassium replacement, propofol and vancomycin. ASSESSMENT: 1. Acute hypoxemic respiratory failure requiring intubation and mechanical ventilation for bilateral pneumonia, on March 08, 2020. 2. Acute community-acquired pneumonia. 3. COVID-19 testing x2 negative. 4. Chronic pain syndrome. 5. History of lumbar stenosis and herniated disc. 6. History of benign essential hypertension. PLAN: Currently, the vent will be changed to a bit. Will go with a low tidal volume strategy dropping the tidal volume from 450 to 350 and the rate being increased from 28-36 breaths per minute. Will bump the PEEP from 14 to 18 and see if we cannot wean the FiO2 down further. I told the nurses and respiratory therapist to accept saturations 88% or higher. The patient is currently on saline, Diprivan and Nimbex. Will ask dietary to start tube feeds. She will have bronchoscopy and BAL today. Will sample the right lower lobe with a BAL. Additional recommendations and suggestions are forthcoming. Prognosis is guarded. Will continue to follow. CRITICAL CARE TIME: 34 minutes. MMODL / IJN: [id number] /
[2020-03-09] MEDS: ARTIFICIAL TEARS-HYPROMELLOSE DROPS 15 ML BTL BOTH EYES SCH ×4 (12:09→23:08)
[2020-03-09 14:37] LABS: Glucose,Whole Blood 251 mg/dL (75-99)
[2020-03-09 15:46] LABS: ALT 57 U/L (4-34); AST 198 U/L (14-36); African American GFR (CKD) >90 (>60 ml/min/1.73 sqM); Albumin 2.7 g/dL (3.5-5.0); Alkaline Phosphatase 114 U/L (38-126); Anion Gap 4 mmol/L; Blood Urea Nitrogen 16 mg/dL (7-17); Calcium 8.1 mg/dL (8.4-10.2); Carbon Dioxide 24 mmol/L (22-30); Chloride 108 mmol/L (98-107); Glucose 210 mg/dL (74-99); Non-African American GFR(CKD) >90 (>60 ml/min/1.73 sqM); Sodium 136 mmol/L (137-145); Total Bilirubin 0.4 mg/dL (0.2-1.3); Total Protein 5.6 g/dL (6.3-8.2)
--- NOTE | 2020-03-09 15:56 | P.PN ---
Subjective 49-year-old female with a known history of hypertension, GERD, chronic pain due to bilateral sciatica and herniated lumbar disc on follow-up with pain clinic and also everyday smoker presents to ER with complaints of abdominal pain and fever. Patient states that since last Monday she was having right upper quadrant abdominal pain and thought it was her gallbladder. Patient was also having loose stools. Patient initially went to urgent care clinic. Patient did not have any fever at that time. Patient was tested for COVID which came up neg ative, was told later. Denied any dysuria or hematuria. No flank pain. No chest pain. Patient is also having generalized weakness and body aches. Noticed some exertional dyspnea. Otherwise no vomiting no nausea. No headache or dizziness or lightheadedness. On admission patient was febrile with T-max 103 F with tachycardia. Saturating well on room air. Chest x-ray showed new multifocal multilobar bilateral acute pneumonic infiltrates. Laboratory data showed WBC 21.2, hemoglobin 13.3 and platelets 187 Lymphocytes 0.7 Sodium 128, potassium 3.4, chloride 94, BUN 20 and creatinine 1.17 Blood sugar is 228 Urine showed 3+ protein and turbid with trace glucose and trace ketones. Moderate blood. AST ALT 33 and 21. Alk phos 127. Bilirubin level is total 0.5 03/07/2020 Patient is currently lying in the bed and is still complaining of shortness of breath. Patient is awake alert oriented x3. Patient is still requiring oxygen currently at 4 L via nasal cannula. Bilateral air entry is present with no evidence of wheezing on examination. Patient is also having intermittent fevers with T-max of 103.2. Neck currently being continued on antibiotics in the form of ceftriaxone and azithromycin. COVID-19 PCR is negative. Patient will be continued on droplet and contact precautions. We will check LDH, ferritin and CRP. Due to hypoxia patient had CT of the CT angiogram of the chest was done to out any pulmonary embolism. Differential include COVID-19 viral infection and Legionella pneumonia. Urine antigen for Legionella is pending at this time. Continue to follow closely. Patient denied any complaints of chest pain. No nausea vomiting or diarrhea. Diarrhea improved now. 03/08/2020 Patient is currently on mechanical ventilator. He has daily patient was hypoxic and requiring high flow oxygen via nasal cannula. ABGs were done which showed pH of 7.43, PCO2 27, PO2 56 and bicarb 18. Patient was eventually transferred to MICU and was intubated. Initial COVID-19 test was negative. Repeat test was ordered. Chest x-ray showed worsening bilateral pulmonary airspace edema and is nonspecific related to acute pneumonia are obvious. 03/09/2020 Patient is positive for Legionella pneumonia. Covid 19 was negative. Patient is appropriately on levofloxacin which will be continued discussed with infectious disease vancomycin discontinued Zosyn will be continued for couple more days. Patient continues to be on ventilator. Patient is also on propofol and Nimbex drip not on any pressor support at this time Via systems: Unable to attend due to her clinical condition All inpatient medications were reviewed and appropriate changes in these medications as dictated in the interval history and assessment and plan. Objective - Vital Signs Vital signs: Vital Signs Temp 98.6 F 03/09/20 11:00 Pulse 89 03/09/20 15:00 Resp 36 H 03/09/20 15:00 BP 98/67 03/08/20 19:00 Pulse Ox 92 L 03/09/20 15:00 Intake & Output 03/08/20 03/09/20 03/09/20 18:59 06:59 18:59 Intake Total 2165.575 2306.700 1408.825 Output Total 2045 1170 485 Balance 383.044 4661.700 923.825 Weight 119.5 kg 119.5 kg Intake: IV 1710 1600 1000 0.9 Normal Saline 960 1000 900 Levofloxacin 750Mg-D5w 150 Pmx 750 mg In Dextrose/ Water 1 150ml.bag @ 100 mls/hr IVPB Q24H [facility] Rx#: [id number] Piperacillin-Tazobactam 3 100 100 100 .375 gm In Sodium Chloride 0.9% 100 ml @ 25 mls/hr IVPB Q8HR [facility] Rx# :[id number] Vancomycin 2,000 mg In 500 500 Sodium Chloride 0.9% 500 ml 500 ml @ 167 mls/hr IVPB ONCE ONE Rx#: [id number] Intake, IV Titration 455.575 706.700 391.825 Amount Cisatracurium 200 mg In 137.134 191.825 Sodium Chloride 0.9% 180 ml @ 1 MCG/KG/MIN 6.967 mls/hr IV .Q24H [facility] Rx#: [id number] propofoL 1,000 mg In 455.575 569.566 200 Empty Bag 1 bag @ Titrate IV .Q0M [facility] Rx#: [id number] Tube Feeding 17 Output: Gastric Drainage 550 150 Urine 1495 1020 485 Other: Voiding Method Indwelling Catheter Indwelling Catheter Indwelling Catheter # Voids 2 ABP, PAP, CO, CI - Last Documented Arterial Blood Pressure 122/58 - Exam PHYSICAL EXAMINATION: GENERAL: Obese intubated sedated HEENT: Pupils reacting to light. EOMI. No scleral icterus. No conjunctival pallor. Normocephalic, atraumatic. No pharyngeal erythema. No thyromegaly. CARDIOVASCULAR: S1 and S2 present. No murmurs, rubs, or gallops. PULMONARY: Chest is clear to auscultation, no wheezing or crackles. ABDOMEN: Soft, nontender, nondistended, normoactive bowel sounds. No palpable organomegaly. MUSCULOSKELETAL: No joint swelling or deformity. EXTREMITIES: No cyanosis, clubbing, or pedal edema. NEUROLOGICAL: Able to assess. SKIN: No rashes. - Labs CBC & Chem 7: 03/09/20 04:05 03/09/20 15:15 Labs: Abnormal Lab Results - Last 24 Hours (Table) 03/06/20 03/07/20 03/08/20 Range/Units 10:44 20:35 17:08 WBC (3.8-10.6) k/uL RBC (3.80-5.40) m/uL D-Dimer (<0.60) mg/L FEU ABG pH (7.35-7.45) ABG pO2 55 L* (83-108) mmHg Sodium (137-145) mmol/L Chloride (98-107) mmol/L Carbon Dioxide (22-30) mmol/L Glucose (74-99) mg/dL POC Glucose (mg/dL) 205 H (75-99) mg/dL Calcium (8.4-10.2) mg/dL AST (14-36) U/L ALT (4-34) U/L Lactate Dehydrogenase (313-618) U/L C-Reactive Protein (<10.0) mg/L Total Protein (6.3-8.2) g/dL Albumin (3.5-5.0) g/dL Urine Legionella Ag Positive H (Negative) 03/08/20 03/08/20 03/09/20 Range/Units 20:51 22:30 00:59 WBC (3.8-10.6) k/uL RBC (3.80-5.40) m/uL D-Dimer (<0.60) mg/L FEU ABG pH 7.33 L (7.35-7.45) ABG pO2 (83-108) mmHg Sodium (137-145) mmol/L Chloride (98-107) mmol/L Carbon Dioxide (22-30) mmol/L Glucose (74-99) mg/dL POC Glucose (mg/dL) 159 H 228 H (75-99) mg/dL Calcium (8.4-10.2) mg/dL AST (14-36) U/L ALT (4-34) U/L Lactate Dehydrogenase (313-618) U/L C-Reactive Protein (<10.0) mg/L Total Protein (6.3-8.2) g/dL Albumin (3.5-5.0) g/dL Urine Legionella Ag (Negative) 03/09/20 03/09/20 03/09/20 Range/Units 04:05 04:05 04:05 WBC 16.0 H (3.8-10.6) k/uL RBC 3.65 L (3.80-5.40) m/uL D-Dimer (<0.60) mg/L FEU ABG pH (7.35-7.45) ABG pO2 (83-108) mmHg Sodium 134 L (137-145) mmol/L Chloride (98-107) mmol/L Carbon Dioxide 21 L (22-30) mmol/L Glucose 228 H (74-99) mg/dL POC Glucose (mg/dL) (75-99) mg/dL Calcium 7.9 L (8.4-10.2) mg/dL AST (14-36) U/L ALT (4-34) U/L Lactate Dehydrogenase 1540 H (313-618) U/L C-Reactive Protein 366.8 H (<10.0) mg/L Total Protein (6.3-8.2) g/dL Albumin (3.5-5.0) g/dL Urine Legionella Ag (Negative) 03/09/20 03/09/2003/09/20 Range/Units 04:09 05:16 08:45 WBC (3.8-10.6) k/uL RBC (3.80-5.40) m/uL D-Dimer 3.12 H (<0.60) mg/L FEU ABG pH 7.31 L (7.35-7.45) ABG pO2 (83-108) mmHg Sodium (137-145) mmol/L Chloride (98-107) mmol/L Carbon Dioxide (22-30) mmol/L Glucose (74-99) mg/dL POC Glucose (mg/dL) 266 H (75-99) mg/dL Calcium (8.4-10.2) mg/dL AST (14-36) U/L ALT (4-34) U/L Lactate Dehydrogenase (313-618) U/L C-Reactive Protein (<10.0) mg/L Total Protein (6.3-8.2) g/dL Albumin (3.5-5.0) g/dL Urine Legionella Ag (Negative) 03/09/20 03/09/20 03/09/20 Range/Units 10:19 14:35 15:15 WBC (3.8-10.6) k/uL RBC (3.80-5.40) m/uL D-Dimer (<0.60) mg/L FEU ABG pH (7.35-7.45) ABG pO2 (83-108) mmHg Sodium 136 L (137-145) mmol/L Chloride 108 H (98-107) mmol/L Carbon Dioxide (22-30) mmol/L Glucose 210 H (74-99) mg/dL POC Glucose (mg/dL) 205 H 251 H (75-99) mg/dL Calcium 8.1 L (8.4-10.2) mg/dL AST 198 H (14-36) U/L ALT 57 H (4-34) U/L Lactate Dehydrogenase (313-618) U/L C-Reactive Protein (<10.0) mg/L Total Protein 5.6 L (6.3-8.2) g/dL Albumin 2.7 L (3.5-5.0) g/dL Urine Legionella Ag (Negative) Microbiology - Last 24 Hours (Table) 03/06/20 10:43 Blood Culture - Preliminary Blood No Growth after 72 hours 03/07/20 15:58 Blood Culture - Preliminary Blood No Growth after 24 hours 03/07/20 16:08 Blood Culture - Preliminary Blood No Growth after 24 hours Assessment and Plan Plan: -Acute respiratory failure: Secondary to Legionella pneumonia, ruled out covid 19. Continue with the levofloxacin and Zosyn for now since patient is intubated discontinue vancomycin discontinue Decadron. -Sepsis severe secondary to multiple lobar pneumonia from Legionella -Hypovolemic hyponatremia improved now -Uncontrolled elevated blood sugars secondary to systemic steroids, and do not have any hemoglobin A1c available patient will be continued on sliding scale -Wasting -Hypertension Gases patient reflux disease -Chronic back pain DVT prophylaxis with heparin subcu
[2020-03-09] MEDS ORDERED: VANCOMYCIN 2,000 MG in SODIUM CHLORIDE 0.9% 500 ML 500 ML IVPB SCH (16:00)
[2020-03-09] MEDS: LEVOFLOXACIN 750MG-D5W PMX 750 MG in DEXTROSE/WATER 1 150ML.BAG IVPB SCH (16:49)
[2020-03-09 16:51] LABS: Ferritin 3730.1 ng/mL (10.0-291.0)
[2020-03-09] MEDS: SODIUM CHLORIDE 0.9% 1,000 ML IV SCH (16:51)
[2020-03-09 18:26] LABS: Glucose,Whole Blood 238 mg/dL (75-99)
[2020-03-09] MEDS: HYDROmorphone 1 MG/ML 1 ML SYRINGE IVP PRN (20:24)
[2020-03-09 22:01] LABS: Glucose,Whole Blood 147 mg/dL (75-99)
--- NOTE | 2020-03-09 22:26 | PN ---
PROGRESS NOTE DATE OF SERVICE: 03/09/2020 REASON FOR FOLLOWUP: Acute pneumonia. INTERVAL HISTORY: The patient is currently afebrile. The patient is hemodynamically stable, not on any pressor support. FiO2 is currently down to 50%. The patient is status post bronchoscopy this morning. No worsening purulent secretions through the ET or any diarrhea reported by the nursing staff. The patient is currently on the vent, unable to provide any history. PHYSICAL EXAMINATION: Blood pressure is 146/67 with a pulse of 98, temperature 98.2. She is 93% on 50% FiO2. General description is a middle-aged female intubated on the vent. RESPIRATORY SYSTEM: Unlabored breathing with decreased breath sounds at the base. No wheeze. HEART: S1, S2. Regular rate and rhythm. ABDOMEN: Soft. No tenderness. LABS: Urine is positive. Hemoglobin is 11.4, white count 16,000, BUN of 16, creatinine 0.74. DIAGNOSTIC IMPRESSION AND PLAN: Patient with acute respiratory failure which is multifactorial in this patient who did have multifocal pneumonia secondary to . Patient is covered with Levaquin; to continue. The patient is status post bronchoscopy. The bronch cultures are negative for any resistant pathogen. Zosyn will be discontinued. Plan of care was discussed with the admitting physician. MMJAVEDL / ANGELON: [id number] /
[2020-03-09 23:45] LABS: Glucose,Whole Blood 155 mg/dL (75-99)
[2020-03-10] MEDS: HYDROmorphone 1 MG/ML 1 ML SYRINGE IVP PRN ×6 (00:43→22:56)
[2020-03-10] MEDS: CISATRACURIUM 200 MG in SODIUM CHLORIDE 0.9% 180 ML IV SCH ×2 (01:45→17:31)
[2020-03-10] MEDS: SODIUM CHLORIDE 0.9% 1,000 ML IV SCH ×3 (01:47→19:33)
[2020-03-10 02:01] LABS: Glucose,Whole Blood 122 mg/dL (75-99)
[2020-03-10] MEDS: INSULIN ASPART (NovoLOG) 100 UNIT/ML VIAL SQ SCH ×6 (02:02→21:03)
[2020-03-10] MEDS: ARTIFICIAL TEARS-HYPROMELLOSE DROPS 15 ML BTL BOTH EYES SCH ×6 (04:13→22:41)
[2020-03-10] MEDS: IPRATROPIUM-ALBUTEROL 3 ML NEB INHALATION SCH ×5 (04:26→19:33)
[2020-03-10 04:36] LABS: Hypochromasia Slight; MCH 31.1 pg (25.0-35.0); MCHC 32.4 g/dL (31.0-37.0); MCV 96.2 fL (80.0-100.0); Mean Platelet Volume 8.1; Platelet Count 267 k/uL (150-450); RBC 3.53 m/uL (3.80-5.40); RDW 14.4 % (11.5-15.5); WBC 16.1 k/uL (3.8-10.6)
[2020-03-10 04:49] LABS: African American GFR (CKD) >90 (>60 ml/min/1.73 sqM); Anion Gap 5 mmol/L; Blood Urea Nitrogen 21 mg/dL (7-17); Calcium 8.2 mg/dL (8.4-10.2); Carbon Dioxide 24 mmol/L (22-30); Chloride 110 mmol/L (98-107); Glucose 126 mg/dL (74-99); Non-African American GFR(CKD) 89 (>60 ml/min/1.73 sqM); Potassium 3.7 mmol/L (3.5-5.1); Sodium 139 mmol/L (137-145)
[2020-03-10 05:12] LABS: Band Neutrophils % 19 %; Lymphocytes # (M) 0.48 k/uL (1.0-4.8); Metamyelocytes # (M) 0.81 k/uL (0); Metamyelocytes % 5 %; Monocytes # (M) 0.48 k/uL (0-1.0); Neutrophils % (M) 70 %; Nucleated Red Blood Cells 0 /100 WBC (0-0); Total Cells Counted 100
[2020-03-10 05:25] LABS: ABG Base Excess -2.4 mmol/L; ABG HCO3 25 mmol/L (21-25); ABG Oxygen Saturation 92.6 % (94-97); ABG PCO2 55 mmHg (35-45); ABG PH 7.26 (7.35-7.45); ABG PO2 69 mmHg (83-108); ABG TCO2 26 mmol/L (19-24); Allen Test Performed? Yes
[2020-03-10 05:27] LABS: Glucose,Whole Blood 145 mg/dL (75-99)
[2020-03-10] MEDS ORDERED: Potassium Replacement Protocol 1 EACH MISC MISCELLANE PRN (05:33)
[2020-03-10] MEDS ORDERED: POTASSIUM BICARBONATE/CIT AC 20 MEQ TABLET.EFF NG-TUBE SCH ×2 (06:00→07:00)
--- NOTE | 2020-03-10 08:07 | XR ---
EXAMINATION TYPE: XR chest 1V portable DATE OF EXAM: 03/10/2020 COMPARISON: Prior chest x-ray 03/09/2020 HISTORY: Intubated TECHNIQUE: Single frontal view of the chest is obtained. FINDINGS: Bilateral airspace disease is again noted, there may be some slight interval improvement i n aeration. Endotracheal tube, NG tube, right jugular central venous catheter are overlying appropria te positions. There are overlying cardiac leads. No evident pneumothorax or pleural effusion. Heart i s stable. IMPRESSION: There may be some slight interval improvement in aeration
[2020-03-10] MEDS: HEPARIN SODIUM,PORCINE 5,000 UNIT/ML 1 ML VIAL SQ SCH ×3 (08:08→22:41)
[2020-03-10] MEDS: PIPERACILLIN-TAZOBACTAM 3.375 GM in SODIUM CHLORIDE 0.9% 100 ML IVPB SCH ×3 (08:08→22:41)
[2020-03-10] MEDS: PANTOPRAZOLE 40 MG/10 ML VIAL IVP SCH (08:09)
[2020-03-10] MEDS: CHLORHEXIDINE GLUCONATE 15 ML CUP MUCOUS MEM SCH ×2 (08:09→21:03)
--- NOTE | 2020-03-10 08:59 | OP ---
OPERATIVE REPORT PULMONARY/CRITICAL CARE PROCEDURE NOTE: PROCEDURE: Bronchoscopy airway examination, therapeutic lavage, BAL. PREOP DIAGNOSIS: Bilateral pneumonia. POSTOP DIAGNOSIS: Same. The patient was already sedated and paralyzed. The patient's procedure took place in the patient's room in which was room #263 in the ICU. After the patient was being fully monitored, the bronchoscope was pushed through the bronchoscope adapter, connected to the endotracheal tube. The airways were examined thoroughly. The right upper lobe, right middle lobe, right lower lobe, left upper lobe proper, lingula and left lower lobe were all evaluated. There was diffuse erythema and hyperemia of the airways. There was some secretions noted throughout. The bronchoscope was wedged into the right middle lobe. The BAL was performed. Thirty mL was recovered. It will be sent to the laboratory for analysis. All paperwork to be filled out. The patient tolerated the procedure well. She did she was receiving 100% oxygen during the procedure. There was no immediate complication. MMODL / IJN: [id number] /
--- NOTE | 2020-03-10 09:20 | CONS ---
CONSULTATION DATE OF DICTATION: March 09, 2020 REASON FOR CONSULTATION: Dilated CBD. HISTORY OF PRESENT ILLNESS: The patient is a 49-year-old pleasant white female, presented to the hospital 3 days ago with fever, shortness of breath and right upper quadrant abdominal pain. The patient had a fever of 103 and leukocytosis and subsequently chest x-ray showed multifocal pneumonia. She was admitted to the hospital and was started on Rocephin and Zithromax, but a few hours later, she had worsening respiratory symptoms and went into acute respiratory failure presently in the intensive care unit, intubated on the vent and Dr. Dick following the patient closely. She did have a CT of abdomen done at the time of admission to the hospital because of right upper quadrant abdominal pain that showed some dilated CBD at 9 mm. However, serum transaminases have been completely within normal limits. We are consulted for possible biliary sepsis. PAST MEDICAL HISTORY: Significant for GERD, hypertension, chronic back pain. PAST SURGICAL HISTORY: , ear surgery. SOCIAL HISTORY: Chronic smoker. No alcohol use. FAMILY HISTORY: Father had bladder cancer. Mother: End-stage renal disease. MEDICATIONS: Medications at home include Motrin, Flexeril, Feosol, [place], losartan, hydrochlorothiazide. ALLERGIES: None. REVIEW OF SYSTEMS: Could not be obtained as patient is presently on the vent, intubated and sedated. PHYSICAL EXAMINATION: On physical examination she appears comfortable vital signs show T-max of 99, pulse rate 99, blood pressure 144/65. HEENT examination unremarkable sclerae anicteric oral cavity no lesions. Neck no JVD or lymph node enlargement. CHEST was clear to auscultation. HEART: Regular rate and rhythm. ABDOMEN: Soft, it was obese. Bowel sounds are positive. Nontender extremities no pedal edema. Neuro sedated on the vent. LABS: Labs done from today WBC 16, hemoglobin 11.1, platelets normal. Basic metabolic panel is within normal limits. ALT, AST on December in March 06 was 33 and 21 respectively, alkaline phosphatase was 127, total bilirubin 0.5. No repeat serum transaminases since admission: Vitals; PCR negative three times. IMPRESSION: 1. Acute respiratory failure secondary to bilateral pneumonia. The patient remains on the vent, intubated, sedated, on broad-spectrum antibiotics. 2. Abdominal pain associated with nausea, vomiting. At the time of admission the hospital. An ultrasound of the abdomen done at that time showed dilated CBD. The ultrasound of abdomen done this morning did show evidence of dilated common bile duct but normal-appearing gallbladder with no gallstones noted. Serum transaminases at the time of admission to the hospital was within normal limits. Repeat labs were not done. Based on the presentation doubt we are dealing with any biliary sepsis at this time. 3. History of hypertension. 4. Hyperglycemia secondary to systemic steroids. RECOMMENDATIONS: 1. Continue broad-spectrum antibiotics. 2. Repeat LFTs on a daily basis. 3. Based on the labs, we will decide if she needs any endoscopy intervention, but at this time it is unlikely we are dealing with biliary sepsis. 4. Continue management as per activities leader. 5. We will follow with you closely, thank you for this consultation. MMODL / IJN: [id number] /
[2020-03-10 10:12] LABS: Glucose,Whole Blood 164 mg/dL (75-99)
--- NOTE | 2020-03-10 11:13 | PN ---
PROGRESS NOTE PULMONARY/CRITICAL CARE PROGRESS: DATE OF SERVICE: March 10, 2020. CRITICAL CARE TIME: 33 minutes. HISTORY: This is a 49-year-old female who was admitted on March 06, 2000. She came in with abdominal pain and pneumonia. Because of impending respiratory failure and respiratory distress, she was intubated on March 08. She has been seen by my partner over the weekend. The patient currently remains on the ventilator. She is on the volume assist- control mode. Her settings include volume assist-control rate of 36, tidal volume 350, FiO2 of 50%, PEEP of 18. Blood gases show a pO2 of 69, pCO2 of 55 and a pH of 7.26. The patient is getting saline at 100 mL an hour, Nimbex at 2 mcg/kg per minute, propofol at 55 mics per kg per minute and Vital high-protein at 17 with a goal of 17 mL an hour. Yesterday, she underwent bronchoscopy with attention to the right middle lobe, right lower lobe. BAL was sent for analysis. We also sent cytology. Those studies are pending. Her urine Legionella antigen was positive. Her COVID testing x2 and I believe x3 was negative. PHYSICAL EXAMINATION: VITAL SIGNS: Current vital signs are reviewed. Temperature 99.1. Heart rate 95, respiratory rate 36, blood pressure 119/54, saturations between 91, 92% on 50% and 18 PEEP. Currently sedated and paralyzed. HEENT: Examination is grossly unremarkable. NECK: Supple. Full range of motion. CARDIOVASCULAR: Examination reveals regular rhythm and rate. Heart rate low 90s. S1, S2 normal. Heart sounds are distant. LUNGS: Reveal diffuse coarse rhonchi. Breath sounds equal. No wheezes or crackles. ABDOMEN: Soft. Bowel sounds are heard. EXTREMITIES are intact. Minimal edema. SKIN: Without rash. NEUROLOGIC: Examination cannot be adequately assessed as the patient is currently sedated and paralyzed. LABS: Reviewed. White count 16.1, hemoglobin 11, hematocrit 34.0, platelet count 267,000. Sodium 139, potassium 3.7, chloride 110. CO2 24. Anion gap is 5. BUN and creatinine were 21 and 0.79. [place] virus testing has been negative x3. I believe. Influenza A and B studies are negative. Her urine Legionella antigen on the was positive. Cultures of the blood urine have been negative. Bronch washings are pending. Chest x-ray from March 10 shows some improvement in aeration. This may be related to the fact the patient is on higher PEEP levels. CURRENT MEDICATIONS: Reviewed. The patient is currently on Tylenol, Artificial Tears, Peridex, Nimbex, subcu heparin, Dilaudid, insulin, updrafts, Levaquin, magnesium replacement, Narcan, Protonix, Zosyn, potassium replacement, and propofol. ASSESSMENT: 1. Acute hypoxemic respiratory failure, requiring intubation and mechanical ventilation for bilateral pneumonia on March 08, 2020. 2. Acute community-acquired pneumonia, which may relate to Legionella pneumophila pneumonia. 3. COVID-19 testing x2 and maybe 3 negative. 4. Chronic pain syndrome. 5. History of lumbar stenosis and herniated disk. 6. History of benign essential hypertension. 7. Acute lung injury/acute respiratory distress syndrome secondary to pneumonia. PLAN: Currently, the patient is stable on the ventilator. We got her FiO2 down to 50% with PEEP of 18. She will stay there for now. The patient is currently on Nimbex and propofol at 2 mcg/kg per minute and 55 mics per kg per minute respectively. The patient is getting nourished. She is on appropriate antibiotics in the form of Levaquin and Zosyn. We will continue to follow. Bronch washes have been sent to the laboratory for analysis. Those are pending. Critical care time 33 minutes. MMODL / IJN: [id number] /
[2020-03-10 12:09] LABS: Glucose,Whole Blood 162 mg/dL (75-99)
[2020-03-10 12:26] LABS: ALT 60 U/L (4-34); AST 173 U/L (14-36); Albumin 2.5 g/dL (3.5-5.0); Alkaline Phosphatase 114 U/L (38-126); Bilirubin, Delta 0.6 mg/dL (0.0-0.2); Total Bilirubin 0.6 mg/dL (0.2-1.3); Total Protein 5.5 g/dL (6.3-8.2)
--- NOTE | 2020-03-10 12:42 | P.PN ---
Subjective 49-year-old female with a known history of hypertension, GERD, chronic pain due to bilateral sciatica and herniated lumbar disc on follow-up with pain clinic and also everyday smoker presents to ER with complaints of abdominal pain and fever. Patient states that since last Monday she was having right upper quadrant abdominal pain and thought it was her gallbladder. Patient was also having loose stools. Patient initially went to urgent care clinic. Patient did not have any fever at that time. Patient was tested for COVID which came up neg ative, was told later. Denied any dysuria or hematuria. No flank pain. No chest pain. Patient is also having generalized weakness and body aches. Noticed some exertional dyspnea. Otherwise no vomiting no nausea. No headache or dizziness or lightheadedness. On admission patient was febrile with T-max 103 F with tachycardia. Saturating well on room air. Chest x-ray showed new multifocal multilobar bilateral acute pneumonic infiltrates. Laboratory data showed WBC 21.2, hemoglobin 13.3 and platelets 187 Lymphocytes 0.7 Sodium 128, potassium 3.4, chloride 94, BUN 20 and creatinine 1.17 Blood sugar is 228 Urine showed 3+ protein and turbid with trace glucose and trace ketones. Moderate blood. AST ALT 33 and 21. Alk phos 127. Bilirubin level is total 0.5 03/07/2020 Patient is currently lying in the bed and is still complaining of shortness of breath. Patient is awake alert oriented x3. Patient is still requiring oxygen currently at 4 L via nasal cannula. Bilateral air entry is present with no evidence of wheezing on examination. Patient is also having intermittent fevers with T-max of 103.2. Neck currently being continued on antibiotics in the form of ceftriaxone and azithromycin. COVID-19 PCR is negative. Patient will be continued on droplet and contact precautions. We will check LDH, ferritin and CRP. Due to hypoxia patient had CT of the CT angiogram of the chest was done to out any pulmonary embolism. Differential include COVID-19 viral infection and Legionella pneumonia. Urine antigen for Legionella is pending at this time. Continue to follow closely. Patient denied any complaints of chest pain. No nausea vomiting or diarrhea. Diarrhea improved now. 03/08/2020 Patient is currently on mechanical ventilator. He has daily patient was hypoxic and requiring high flow oxygen via nasal cannula. ABGs were done which showed pH of 7.43, PCO2 27, PO2 56 and bicarb 18. Patient was eventually transferred to MICU and was intubated. Initial COVID-19 test was negative. Repeat test was ordered. Chest x-ray showed worsening bilateral pulmonary airspace edema and is nonspecific related to acute pneumonia are obvious. 03/09/2020 Patient is positive for Legionella pneumonia. Covid 19 was negative. Patient is appropriately on levofloxacin which will be continued discussed with infectious disease vancomycin discontinued Zosyn will be continued for couple more days. Patient continues to be on ventilator. Patient is also on propofol and Nimbex drip not on any pressor support at this time 03/10/2020 Patient remains admitted to support, Nimbex in the propofol patient underwent bronchoscopy and BAL was sent for analysis. Via systems: Unable to attend due to her clinical condition All inpatient medications were reviewed and appropriate changes in these medications as dictated in the interval history and assessment and plan. Objective - Vital Signs Vital signs: Vital Signs Temp 99.1 F 03/10/20 12:00 Pulse 92 03/10/20 12:23 Resp 36 H 03/10/20 12:00 BP 112/67 03/10/20 07:00 Pulse Ox 92 L 03/10/20 12:00 Intake & Output 03/09/20 03/10/20 03/10/20 18:59 06:59 18:59 Intake Total 9678.766 2759.669 1176.805 Output Total 685 710 450 Balance 7343.100 4989.669 726.805 Weight 119.5 kg 119.1 kg Intake: IV 1400 1233 718 0.9 Normal Saline 1100 1200 600 Levofloxacin 750Mg-D5w 150 Pmx 750 mg In Dextrose/ Water 1 150ml.bag @ 100 mls/hr IVPB Q24H [facility] Rx#: [id number] Piperacillin-Tazobactam 3 150 100 .375 gm In Sodium Chloride 0.9% 100 ml @ 25 mls/hr IVPB Q8HR [facility] Rx# :[id number] Pressure bag 33 18 Intake, IV Titration 491.825 456.669 279.805 Amount Cisatracurium 200 mg In 191.825 168.146 7.233 Sodium Chloride 0.9% 180 ml @ 1 MCG/KG/MIN 6.967 mls/hr IV .Q24H [facility] Rx#: [id number] propofoL 1,000 mg In 300 288.523 272.572 Empty Bag 1 bag @ Titrate IV .Q0M [facility] Rx#: [id number] Tube Feeding 68 255 119 Other 60 Output: Urine 685 710 450 Other: Voiding Method Indwelling Catheter Indwelling Catheter Indwelling Catheter ABP, PAP, CO, CI - Last Documented Arterial Blood Pressure 114/54 - Exam PHYSICAL EXAMINATION: GENERAL: Obese intubated sedated HEENT: Pupils reacting to light. EOMI. No scleral icterus. No conjunctival pallor. Normocephalic, atraumatic. No pharyngeal erythema. No thyromegaly. CARDIOVASCULAR: S1 and S2 present. No murmurs, rubs, or gallops. PULMONARY: Chest is clear to auscultation, no wheezing or crackles. ABDOMEN: Soft, nontender, nondistended, normoactive bowel sounds. No palpable organomegaly. MUSCULOSKELETAL: No joint swelling or deformity. EXTREMITIES: No cyanosis, clubbing, or pedal edema. NEUROLOGICAL: Able to assess. SKIN: No rashes. - Labs CBC & Chem 7: 03/10/20 04:00 03/10/20 04:00 Labs: Abnormal Lab Results - Last 24 Hours (Table) 03/06/20 03/09/20 03/09/20 Range/Units 10:44 04:05 14:35 WBC (3.8-10.6) k/uL RBC (3.80-5.40) m/uL Hgb (11.4-16.0) gm/dL Neutrophils # (Manual) (1.3-7.7) k/uL Lymphocytes # (Manual) (1.0-4.8) k/uL Metamyelocytes # (Man) (0) k/uL ABG pH (7.35-7.45) ABG pCO2 (35-45) mmHg ABG pO2 (83-108) mmHg ABG Total CO2 (19-24) mmol/L ABG O2 Saturation (94-97) % Sodium (137-145) mmol/L Chloride (98-107) mmol/L BUN (7-17) mg/dL Glucose (74-99) mg/dL POC Glucose (mg/dL) 251 H (75-99) mg/dL Calcium (8.4-10.2) mg/dL Ferritin 3730.1 H (10.0-291.0) ng/mL Delta Bilirubin (0.0-0.2) mg/dL AST (14-36) U/L ALT (4-34) U/L Total Protein (6.3-8.2) g/dL Albumin (3.5-5.0) g/dL Urine Legionella Ag Positive H (Negative) 03/09/20 03/09/20 03/09/20 Range/Units 15:15 18:24 21:59 WBC (3.8-10.6) k/uL RBC (3.80-5.40) m/uL Hgb (11.4-16.0) gm/dL Neutrophils # (Manual) (1.3-7.7) k/uL Lymphocytes # (Manual) (1.0-4.8) k/uL Metamyelocytes # (Man) (0) k/uL ABG pH (7.35-7.45) ABG pCO2 (35-45) mmHg ABG pO2 (83-108) mmHg ABG Total CO2 (19-24) mmol/L ABG O2 Saturation (94-97) % Sodium 136 L (137-145) mmol/L Chloride 108 H (98-107) mmol/L BUN (7-17) mg/dL Glucose 210 H (74-99) mg/dL POC Glucose (mg/dL) 238 H 147 H (75-99) mg/dL Calcium 8.1 L (8.4-10.2) mg/dL Ferritin (10.0-291.0) ng/mL Delta Bilirubin (0.0-0.2) mg/dL AST 198 H (14-36) U/L ALT 57 H (4-34) U/L Total Protein 5.6 L (6.3-8.2) g/dL Albumin 2.7 L (3.5-5.0) g/dL Urine Legionella Ag (Negative) 03/09/20 03/10/20 03/10/20 Range/Units 23:44 02:00 04:00 WBC 16.1 H (3.8-10.6) k/uL RBC 3.53 L (3.80-5.40) m/uL Hgb 11.0 L (11.4-16.0) gm/dL Neutrophils # (Manual) 14.30 H (1.3-7.7) k/uL Lymphocytes # (Manual) 0.48 L (1.0-4.8) k/uL Metamyelocytes # (Man) 0.81 H (0) k/uL ABG pH (7.35-7.45) ABG pCO2 (35-45) mmHg ABG pO2 (83-108) mmHg ABG Total CO2 (19-24) mmol/L ABG O2 Saturation (94-97) % Sodium (137-145) mmol/L Chloride (98-107) mmol/L BUN (7-17) mg/dL Glucose (74-99) mg/dL POC Glucose (mg/dL) 155 H 122 H (75-99) mg/dL Calcium (8.4-10.2) mg/dL Ferritin (10.0-291.0) ng/mL Delta Bilirubin (0.0-0.2) mg/dL AST (14-36) U/L ALT (4-34) U/L Total Protein (6.3-8.2) g/dL Albumin (3.5-5.0) g/dL Urine Legionella Ag (Negative) 03/10/20 03/10/20 03/10/20 Range/Units 04:00 05:19 05:25 WBC (3.8-10.6) k/uL RBC (3.80-5.40) m/uL Hgb (11.4-16.0) gm/dL Neutrophils # (Manual) (1.3-7.7) k/uL Lymphocytes # (Manual) (1.0-4.8) k/uL Metamyelocytes # (Man) (0) k/uL ABG pH 7.26 L (7.35-7.45) ABG pCO2 55 H (35-45) mmHg ABG pO2 69 L (83-108) mmHg ABG Total CO2 26 H (19-24) mmol/L ABG O2 Saturation 92.6 L (94-97) % Sodium (137-145) mmol/L Chloride 110 H (98-107) mmol/L BUN 21 H (7-17) mg/dL Glucose 126 H (74-99) mg/dL POC Glucose (mg/dL) 145 H (75-99) mg/dL Calcium 8.2 L (8.4-10.2) mg/dL Ferritin (10.0-291.0) ng/mL Delta Bilirubin 0.6 H (0.0-0.2) mg/dL AST 173 H (14-36) U/L ALT 60 H (4-34) U/L Total Protein 5.5 L (6.3-8.2) g/dL Albumin 2.5 L (3.5-5.0) g/dL Urine Legionella Ag (Negative) 03/10/20 03/10/20 Range/Units 10:09 12:07 WBC (3.8-10.6) k/uL RBC (3.80-5.40) m/uL Hgb (11.4-16.0) gm/dL Neutrophils # (Manual) (1.3-7.7) k/uL Lymphocytes # (Manual) (1.0-4.8) k/uL Metamyelocytes # (Man) (0) k/uL ABG pH (7.35-7.45) ABG pCO2 (35-45) mmHg ABG pO2 (83-108) mmHg ABG Total CO2 (19-24) mmol/L ABG O2 Saturation (94-97) % Sodium (137-145) mmol/L Chloride (98-107) mmol/L BUN (7-17) mg/dL Glucose (74-99) mg/dL POC Glucose (mg/dL) 164 H 162 H (75-99) mg/dL Calcium (8.4-10.2) mg/dL Ferritin (10.0-291.0) ng/mL Delta Bilirubin (0.0-0.2) mg/dL AST (14-36) U/L ALT (4-34) U/L Total Protein (6.3-8.2) g/dL Albumin (3.5-5.0) g/dL Urine Legionella Ag (Negative) Microbiology - Last 24 Hours (Table) 03/07/20 16:08 Blood Culture - Preliminary Blood No Growth after 48 hours 03/07/20 15:58 Blood Culture - Preliminary Blood No Growth after 48 hours 03/06/20 10:43 Blood Culture - Preliminary Blood No Growth after 72 hours Assessment and Plan Plan: -Acute respiratory failure: Secondary to Legionella pneumonia, ruled out covid 19. Continue with the levofloxacin and Zosyn for now since patient is intubated . Patient appears in with little Motrin and patient is status post bronchoscopy -Sepsis severe secondary to multiple lobar pneumonia from Legionella -Hypovolemic hyponatremia improved now -Uncontrolled elevated blood sugars secondary to systemic steroids, and do not have any hemoglobin A1c available patient will be continued on sliding scale -Hypertension Gases patient reflux disease -Chronic back pain DVT prophylaxis with heparin subcu
--- NOTE | 2020-03-10 12:45 | P.PN ---
Subjective Progress Note Date: 03/10/20 Principal diagnosis: Dilated common bile duct The patient is a 49-year-old white female who presented to the hospital or days ago with fever, shortness of breath and right upper quadrant abdominal pain. The patient had a fever of 103 and leukocytosis and subsequent chest x-ray showed multifocal pneumonia. The patient had worsening respiratory symptoms and went into acute respiratory failure and is presently in the intensive care unit intubated. The patient underwent a CT of the abdomen at the time of admission for right upper quadrant abdominal pain that did show some dilated CBD at 9 mm, however serum transaminases have been completely within normal limits. The trent ent remains intubated and sedated. There were no acute changes through the night. She underwent a bronchoscopy yesterday with studies. Her urine Legionella antigen was positive. Objective - Vital Signs Vital signs: Vital Signs Temp 99.1 F 03/10/20 12:00 Pulse 92 03/10/20 12:23 Resp 36 H 03/10/20 12:00 BP 112/67 03/10/20 07:00 Pulse Ox 92 L 03/10/20 12:00 Intake & Output 03/09/20 03/10/20 03/10/20 18:59 06:59 18:59 Intake Total 1802.691 4351.669 1176.805 Output Total 685 710 450 Balance 0012.081 0328.669 726.805 Weight 119.5 kg 119.1 kg Intake: IV 1400 1233 718 0.9 Normal Saline 1100 1200 600 Levofloxacin 750Mg-D5w 150 Pmx 750 mg In Dextrose/ Water 1 150ml.bag @ 100 mls/hr IVPB Q24H [facility] Rx#: [id number] Piperacillin-Tazobactam 3 150 100 .375 gm In Sodium Chloride 0.9% 100 ml @ 25 mls/hr IVPB Q8HR [facility] Rx# :[id number] Pressure bag 33 18 Intake, IV Titration 491.825 456.669 279.805 Amount Cisatracurium 200 mg In 191.825 168.146 7.233 Sodium Chloride 0.9% 180 ml @ 1 MCG/KG/MIN 6.967 mls/hr IV .Q24H [facility] Rx#: [id number] propofoL 1,000 mg In 300 288.523 272.572 Empty Bag 1 bag @ Titrate IV .Q0M [facility] Rx#: [id number] Tube Feeding 68 255 119 Other 60 Output: Urine 685 710 450 Other: Voiding Method Indwelling Catheter Indwelling Catheter Indwelling Catheter ABP, PAP, CO, CI - Last Documented Arterial Blood Pressure 114/54 - Exam General appearance: Sedated and intubated. Obese. HET: Head is normocephalic and atraumatic. Neck: Supple without lymphadenopathy. Abdomen: Soft, nontender, nondistended with bowel sounds. No palpable organomegaly. Extremities: Normal skin color and turgor. Minimal pedal edema. Neurological: Sedated. - Labs CBC & Chem 7: 03/10/20 04:00 03/10/20 04:00 Labs: Abnormal Lab Results - Last 24 Hours (Table) 03/06/20 03/09/20 03/09/20 Range/Units 10:44 04:05 14:35 WBC (3.8-10.6) k/uL RBC (3.80-5.40) m/uL Hgb (11.4-16.0) gm/dL Neutrophils # (Manual) (1.3-7.7) k/uL Lymphocytes # (Manual) (1.0-4.8) k/uL Metamyelocytes # (Man) (0) k/uL ABG pH (7.35-7.45) ABG pCO2 (35-45) mmHg ABG pO2 (83-108) mmHg ABG Total CO2 (19-24) mmol/L ABG O2 Saturation (94-97) % Sodium (137-145) mmol/L Chloride (98-107) mmol/L BUN (7-17) mg/dL Glucose (74-99) mg/dL POC Glucose (mg/dL) 251 H (75-99) mg/dL Calcium (8.4-10.2) mg/dL Ferritin 3730.1 H (10.0-291.0) ng/mL Delta Bilirubin (0.0-0.2) mg/dL AST (14-36) U/L ALT (4-34) U/L Total Protein (6.3-8.2) g/dL Albumin (3.5-5.0) g/dL Urine Legionella Ag Positive H (Negative) 03/09/20 03/09/20 03/09/20 Range/Units 15:15 18:24 21:59 WBC (3.8-10.6) k/uL RBC (3.80-5.40) m/uL Hgb (11.4-16.0) gm/dL Neutrophils # (Manual) (1.3-7.7) k/uL Lymphocytes # (Manual) (1.0-4.8) k/uL Metamyelocytes # (Man) (0) k/uL ABG pH (7.35-7.45) ABG pCO2 (35-45) mmHg ABG pO2 (83-108) mmHg ABG Total CO2 (19-24) mmol/L ABG O2 Saturation (94-97) % Sodium 136 L (137-145) mmol/L Chloride 108 H (98-107) mmol/L BUN (7-17) mg/dL Glucose 210 H (74-99) mg/dL POC Glucose (mg/dL) 238 H 147 H (75-99) mg/dL Calcium 8.1 L (8.4-10.2) mg/dL Ferritin (10.0-291.0) ng/mL Delta Bilirubin (0.0-0.2) mg/dL AST 198 H (14-36) U/L ALT 57 H (4-34) U/L Total Protein 5.6 L (6.3-8.2) g/dL Albumin 2.7 L (3.5-5.0) g/dL Urine Legionella Ag (Negative) 03/09/20 03/10/20 03/10/20 Range/Units 23:44 02:00 04:00 WBC 16.1 H (3.8-10.6) k/uL RBC 3.53 L (3.80-5.40) m/uL Hgb 11.0 L (11.4-16.0) gm/dL Neutrophils # (Manual) 14.30 H (1.3-7.7) k/uL Lymphocytes # (Manual) 0.48 L (1.0-4.8) k/uL Metamyelocytes # (Man) 0.81 H (0) k/uL ABG pH (7.35-7.45) ABG pCO2 (35-45) mmHg ABG pO2 (83-108) mmHg ABG Total CO2 (19-24) mmol/L ABG O2 Saturation (94-97) % Sodium (137-145) mmol/L Chloride (98-107) mmol/L BUN (7-17) mg/dL Glucose (74-99) mg/dL POC Glucose (mg/dL) 155 H 122 H (75-99) mg/dL Calcium (8.4-10.2) mg/dL Ferritin (10.0-291.0) ng/mL Delta Bilirubin (0.0-0.2) mg/dL AST (14-36) U/L ALT (4-34) U/L Total Protein (6.3-8.2) g/dL Albumin (3.5-5.0) g/dL Urine Legionella Ag (Negative) 03/10/20 03/10/20 03/10/20 Range/Units 04:00 05:19 05:25 WBC (3.8-10.6) k/uL RBC (3.80-5.40) m/uL Hgb (11.4-16.0) gm/dL Neutrophils # (Manual) (1.3-7.7) k/uL Lymphocytes # (Manual) (1.0-4.8) k/uL Metamyelocytes # (Man) (0) k/uL ABG pH 7.26 L (7.35-7.45) ABG pCO2 55 H (35-45) mmHg ABG pO2 69 L (83-108) mmHg ABG Total CO2 26 H (19-24) mmol/L ABG O2 Saturation 92.6 L (94-97) % Sodium (137-145) mmol/L Chloride 110 H (98-107) mmol/L BUN 21 H (7-17) mg/dL Glucose 126 H (74-99) mg/dL POC Glucose (mg/dL) 145 H (75-99) mg/dL Calcium 8.2 L (8.4-10.2) mg/dL Ferritin (10.0-291.0) ng/mL Delta Bilirubin 0.6 H (0.0-0.2) mg/dL AST 173 H (14-36) U/L ALT 60 H (4-34) U/L Total Protein 5.5 L (6.3-8.2) g/dL Albumin 2.5 L (3.5-5.0) g/dL Urine Legionella Ag (Negative) 03/10/20 03/10/20 Range/Units 10:09 12:07 WBC (3.8-10.6) k/uL RBC (3.80-5.40) m/uL Hgb (11.4-16.0) gm/dL Neutrophils # (Manual) (1.3-7.7) k/uL Lymphocytes # (Manual) (1.0-4.8) k/uL Metamyelocytes # (Man) (0) k/uL ABG pH (7.35-7.45) ABG pCO2 (35-45) mmHg ABG pO2 (83-108) mmHg ABG Total CO2 (19-24) mmol/L ABG O2 Saturation (94-97) % Sodium (137-145) mmol/L Chloride (98-107) mmol/L BUN (7-17) mg/dL Glucose (74-99) mg/dL POC Glucose (mg/dL) 164 H 162 H (75-99) mg/dL Calcium (8.4-10.2) mg/dL Ferritin (10.0-291.0) ng/mL Delta Bilirubin (0.0-0.2) mg/dL AST (14-36) U/L ALT (4-34) U/L Total Protein (6.3-8.2) g/dL Albumin (3.5-5.0) g/dL Urine Legionella Ag (Negative) Microbiology - Last 24 Hours (Table) 03/07/20 16:08 Blood Culture - Preliminary Blood No Growth after 48 hours 03/07/20 15:58 Blood Culture - Preliminary Blood No Growth after 48 hours 03/06/20 10:43 Blood Culture - Preliminary Blood No Growth after 72 hours Assessment and Plan Assessment: 1. Acute respiratory failure secondary to bilateral pneumonia. The patient remains on the vent, intubated, sedated, on broad-spectrum antibiotics. 2. Abdominal pain associated with nausea and vomiting. Abdominal ultrasound was completed which showed a dilated common bile duct at 0.9 cm, hepatosplenomegaly. Serum transaminases at the time of admission to hospital was within normal limits. With no further repeat labs done. Based on the presentation likely not dealing with any biliary sepsis at this time. 3. History of hypertension 4. Hyperglycemia secondary to systemic steroids Plan: 1. Continue broad-spectrum spectrum antibiotics 2. Repeat LFTs on a daily basis 3. Based on the labs and we will decide if the patient needs any endoscopic intervention. But at this time it is unlikely we are dealing with biliary sepsis 4. Continue management as per shopping centre manager 5. We will follow with you closely. The impression and plan of care has been dictated as directed. Dr. Lupe Singletary I performed a history and examination of this patient, discussed the same with the dictator. I agree with the dictator's note ,documented as a scribe. Any additional findings or plans will be noted.
[2020-03-10 13:07] LABS: Appearance,BF Hazy; Color,BF Pink; Nucleated Cells, Body Fluid 80 /uL; RBC, Body Fluid 19350 /uL
[2020-03-10 13:14] LABS: Mononuclear WBC,Body Fluid 83 %; Polynuclear WBC,Body Fluid 17 %; Total Cells Counted,Body Fluid 100
[2020-03-10] MEDS: LEVOFLOXACIN 750MG-D5W PMX 750 MG in DEXTROSE/WATER 1 150ML.BAG IVPB SCH (14:44)
[2020-03-10 15:58] LABS: Hemoglobin A1C 7.7 % (4.0-6.0)
[2020-03-10 17:16] LABS: Glucose,Whole Blood 177 mg/dL (75-99)
[2020-03-10 21:00] LABS: Glucose,Whole Blood 170 mg/dL (75-99)
[2020-03-10] MEDS: ACETAMINOPHEN TAB 325 MG TAB PO PRN (21:04)
--- NOTE | 2020-03-11 00:15 | PN ---
PROGRESS NOTE DATE OF SERVICE: 03/10/2020 REASON FOR FOLLOWUP: Acute Legionella pneumonia with sepsis. INTERVAL HISTORY: Patient is currently afebrile. The patient is hemodynamically stable, not on pressor support. FiO2 is currently at 50%. No vomiting. secretions in the ET. No diarrhea. PHYSICAL EXAMINATION: Blood pressure 100/69, pulse of 92, temperature 98, she is 93% on 50% Venti. General description is a middle-aged female intubated on the vent. Respiratory system: Unlabored breathing, decreased breath sounds in the bases. No wheeze. Heart S1, S2. Regular rate and rhythm. Abdomen soft, no tenderness. LABS: Hemoglobin is 11.9, white count 16.1. BUN of 21, creatinine 0.79. Bronchoscopy cultures currently pending. DIAGNOSTIC IMPRESSION AND PLAN: Patient with acute respiratory failure which is multifactorial in this patient with confirmed Legionella pneumonia, elevated liver enzymes, though ultrasound of the abdomen did show dilated CBD. The patient is currently covered on Levaquin and Zosyn to continue. Cultures have been negative so far and monitor clinical course closely. MMODL / IJN: [id number] /
[2020-03-11 01:10] LABS: Glucose,Whole Blood 155 mg/dL (75-99)
[2020-03-11] MEDS: INSULIN ASPART (NovoLOG) 100 UNIT/ML VIAL SQ SCH ×6 (01:14→22:32)
[2020-03-11] MEDS: IPRATROPIUM-ALBUTEROL 3 ML NEB INHALATION SCH ×7 (01:42→23:59)
[2020-03-11] MEDS: HYDROmorphone 1 MG/ML 1 ML SYRINGE IVP PRN ×5 (03:03→19:12)
[2020-03-11] MEDS: ARTIFICIAL TEARS-HYPROMELLOSE DROPS 15 ML BTL BOTH EYES SCH ×6 (03:05→23:51)
[2020-03-11 04:25] LABS: Albumin 2.4 g/dL (3.5-5.0); Calcium 8.1 mg/dL (8.4-10.2); Potassium 3.6 mmol/L (3.5-5.1); Total Bilirubin 0.8 mg/dL (0.2-1.3); Total Protein 5.3 g/dL (6.3-8.2)
[2020-03-11] MEDS: POTASSIUM CHLORIDE 10 MEQ in WATER FOR INJECTION 1 100ML.BAG IVPB SCH ×2 (04:48→06:52)
[2020-03-11 05:06] LABS: ABG Base Excess -0.5 mmol/L; ABG HCO3 26 mmol/L (21-25); ABG Oxygen Saturation 93.2 % (94-97); ABG PCO2 56 mmHg (35-45); ABG PH 7.28 (7.35-7.45); ABG PO2 70 mmHg (83-108); ABG TCO2 28 mmol/L (19-24); Allen Test Performed? Yes
[2020-03-11] MEDS: CISATRACURIUM 200 MG in SODIUM CHLORIDE 0.9% 180 ML IV SCH ×2 (06:20→19:30)
[2020-03-11] MEDS: SODIUM CHLORIDE 0.9% 1,000 ML IV SCH ×3 (06:52→20:27)
[2020-03-11 08:04] LABS: HCT 33.9 % (34.0-46.0); HGB 10.4 gm/dL (11.4-16.0); Hypochromasia Marked; MCH 29.9 pg (25.0-35.0); MCHC 30.6 g/dL (31.0-37.0); MCV 97.8 fL (80.0-100.0); Mean Platelet Volume 8.4; Platelet Count 321 k/uL (150-450); RBC 3.47 m/uL (3.80-5.40); RDW 14.8 % (11.5-15.5); WBC 18.8 k/uL (3.8-10.6)
[2020-03-11] MEDS: HEPARIN SODIUM,PORCINE 5,000 UNIT/ML 1 ML VIAL SQ SCH ×3 (08:11→23:52)
[2020-03-11] MEDS: PANTOPRAZOLE 40 MG/10 ML VIAL IVP SCH (08:12)
[2020-03-11] MEDS: CHLORHEXIDINE GLUCONATE 15 ML CUP MUCOUS MEM SCH ×2 (08:12→20:36)
[2020-03-11] MEDS: PIPERACILLIN-TAZOBACTAM 3.375 GM in SODIUM CHLORIDE 0.9% 100 ML IVPB SCH ×3 (08:12→23:51)
--- NOTE | 2020-03-11 08:55 | XR ---
EXAMINATION TYPE: XR chest 1V DATE OF EXAM: 03/11/2020 COMPARISON: Prior chest x-ray 03/10/2020 HISTORY: Intubated, pneumonia TECHNIQUE: Single frontal view of the chest is obtained. FINDINGS: Endotracheal tube and NG tube, right jugular central venous catheter are stable and overly ing appropriate positions. Airspace disease persists, not significant changed compared to prior exam. There is no evident pneumothorax or pleural effusion. Heart size is stable. IMPRESSION: Essentially stable findings consistent with patient's history pneumonia
[2020-03-11 09:07] LABS: Band Neutrophils % 14 %; Lymphocytes # (M) 1.32 k/uL (1.0-4.8); Metamyelocytes # (M) 0.38 k/uL (0); Metamyelocytes % 2 %; Monocytes # (M) 0.56 k/uL (0-1.0); Myelocytes # (M) 0.75 k/uL (0); Myelocytes % 4 %; Neutrophils % (M) 72 %; Nucleated Red Blood Cells 0 /100 WBC (0-0); Total Cells Counted 200
[2020-03-11 09:08] LABS: Toxic Granulation Present; Toxic Vacuolation Present
[2020-03-11 09:09] LABS: Anisocytosis (M) Present; Poikilocytosis (M) Present
[2020-03-11] MEDS ORDERED: FUROSEMIDE 10 MG/ML 4 ML VIAL IV STA (09:15)
[2020-03-11 10:21] LABS: Glucose,Whole Blood 180 mg/dL (75-99)
--- NOTE | 2020-03-11 12:55 | P.PN ---
Subjective Progress Note Date: 03/11/20 Principal diagnosis: Dilated common bile duct The patient is a 49-year-old white female who presented to the hospital or days ago with fever, shortness of breath and right upper quadrant abdominal pain. The patient had a fever of 103 and leukocytosis and subsequent chest x-ray showed multifocal pneumonia. The patient had worsening respiratory symptoms and went into acute respiratory failure and is presently in the intensive care unit intubated. The patient underwent a CT of the abdomen at the time of admission for right upper quadrant abdominal pain that did show some dilated CBD at 9 mm, however serum transaminases initially were within normal limits. They did spike , however have been continuously improving. Total bili 0.8, alkaline phosphatase 137, AST 144, ALT 72. The patient remains intubated and sedated. There were no acute changes through the night. She underwent a bronchoscopy two days ago with studies. Her urine Legionella antigen was positive. Objective - Vital Signs Vital signs: Vital Signs Temp 100.6 F H 03/11/20 12:00 Pulse 89 03/11/20 12:02 Resp 36 H 03/11/20 12:00 BP 110/64 03/10/20 21:00 Pulse Ox 95 03/11/20 12:00 Intake & Output 03/10/20 03/11/20 03/11/20 18:59 06:59 18:59 Intake Total 1018.353 0178.674 1127.801 Output Total 975 1500 1330 Balance 958.614 563.674 -202.199 Weight 119.1 kg 121.2 kg Intake: IV 1268 1321 718 0.9 Normal Saline 1000 1100 600 Levofloxacin 750Mg-D5w 150 Pmx 750 mg In Dextrose/ Water 1 150ml.bag @ 100 mls/hr IVPB Q24H [facility] Rx#: [id number] Piperacillin-Tazobactam 3 100 100 .375 gm In Sodium Chloride 0.9% 100 ml @ 25 mls/hr IVPB Q8HR [facility] Rx# :[id number] Potassium Chloride 10 meq 200 In Water For Injection 1 100ml.bag @ 100 mls/hr IVPB Q1H [facility] Rx#: [id number] Pressure bag 18 21 18 Intake, IV Titration 486.614 473.674 247.801 Amount Cisatracurium 200 mg In 24.300 25.633 Sodium Chloride 0.9% 180 ml @ 1 MCG/KG/MIN 6.967 mls/hr IV .Q24H [facility] Rx#: [id number] propofoL 1,000 mg In 462.314 448.041 247.801 Empty Bag 1 bag @ Titrate IV .Q0M [facility] Rx#: [id number] Tube Feeding 119 179 102 Other 60 90 60 Output: Urine 975 1500 1330 Other: Voiding Method Indwelling Catheter Indwelling Catheter Indwelling Catheter # Voids 2 ABP, PAP, CO, CI - Last Documented Arterial Blood Pressure 106/54 - Exam General appearance: Sedated and intubated. Obese. HET: Head is normocephalic and atraumatic. Neck: Supple without lymphadenopathy. Abdomen: Soft, nontender, nondistended with bowel sounds. No palpable organomegaly. Extremities: Normal skin color and turgor. Minimal pedal edema. Neurological: Sedated. - Labs CBC & Chem 7: 03/11/20 04:00 03/11/20 14:50 Labs: Abnormal Lab Results - Last 24 Hours (Table) 03/10/20 03/10/20 03/10/20 Range/Units 04:00 17:14 20:58 WBC (3.8-10.6) k/uL RBC (3.80-5.40) m/uL Hgb (11.4-16.0) gm/dL Hct (34.0-46.0) % MCHC (31.0-37.0) g/dL Neutrophils # (Manual) (1.3-7.7) k/uL Metamyelocytes # (Man) (0) k/uL Myelocytes # (Manual) (0) k/uL ABG pH (7.35-7.45) ABG pCO2 (35-45) mmHg ABG pO2 (83-108) mmHg ABG HCO3 (21-25) mmol/L ABG Total CO2 (19-24) mmol/L ABG O2 Saturation (94-97) % Chloride (98-107) mmol/L BUN (7-17) mg/dL Glucose (74-99) mg/dL POC Glucose (mg/dL) 177 H 170 H (75-99) mg/dL Hemoglobin A1c 7.7 H (4.0-6.0) % Calcium (8.4-10.2) mg/dL AST (14-36) U/L ALT (4-34) U/L Alkaline Phosphatase (38-126) U/L Total Protein (6.3-8.2) g/dL Albumin (3.5-5.0) g/dL 03/11/20 03/11/20 03/11/20 Range/Units 01:08 04:00 04:00 WBC 18.8 H (3.8-10.6) k/uL RBC 3.47 L (3.80-5.40) m/uL Hgb 10.4 L (11.4-16.0) gm/dL Hct 33.9 L (34.0-46.0) % MCHC 30.6 L (31.0-37.0) g/dL Neutrophils # (Manual) 16.10 H (1.3-7.7) k/uL Metamyelocytes # (Man) 0.38 H (0) k/uL Myelocytes # (Manual) 0.75 H (0) k/uL ABG pH (7.35-7.45) ABG pCO2 (35-45) mmHg ABG pO2 (83-108) mmHg ABG HCO3 (21-25) mmol/L ABG Total CO2 (19-24) mmol/L ABG O2 Saturation (94-97) % Chloride 111 H (98-107) mmol/L BUN 25 H (7-17) mg/dL Glucose 150 H (74-99) mg/dL POC Glucose (mg/dL) 155 H (75-99) mg/dL Hemoglobin A1c (4.0-6.0) % Calcium 8.1 L (8.4-10.2) mg/dL AST 144 H (14-36) U/L ALT 72 H (4-34) U/L Alkaline Phosphatase 137 H (38-126) U/L Total Protein 5.3 L (6.3-8.2) g/dL Albumin 2.4 L (3.5-5.0) g/dL 03/11/20 03/11/20 Range/Units 05:00 10:19 WBC (3.8-10.6) k/uL RBC (3.80-5.40) m/uL Hgb (11.4-16.0) gm/dL Hct (34.0-46.0) % MCHC (31.0-37.0) g/dL Neutrophils # (Manual) (1.3-7.7) k/uL Metamyelocytes # (Man) (0) k/uL Myelocytes # (Manual) (0) k/uL ABG pH 7.28 L (7.35-7.45) ABG pCO2 56 H (35-45) mmHg ABG pO2 70 L (83-108) mmHg ABG HCO3 26 H (21-25) mmol/L ABG Total CO2 28 H (19-24) mmol/L ABG O2 Saturation 93.2 L (94-97) % Chloride (98-107) mmol/L BUN (7-17) mg/dL Glucose (74-99) mg/dL POC Glucose (mg/dL) 180 H (75-99) mg/dL Hemoglobin A1c (4.0-6.0) % Calcium (8.4-10.2) mg/dL AST (14-36) U/L ALT (4-34) U/L Alkaline Phosphatase (38-126) U/L Total Protein (6.3-8.2) g/dL Albumin (3.5-5.0) g/dL Microbiology - Last 24 Hours (Table) 03/09/20 18:00 Gram Stain - Preliminary Bronchoalviolar Lavage - Right Bronchial Washings Culture - Preliminary 03/09/20 18:00 Acid Fast Bacilli Smear - Final Bronchoalviolar Lavage - Right Acid Fast Bacilli Culture - Preliminary 03/07/20 16:08 Blood Culture - Preliminary Blood No Growth after 72 hours 03/07/20 15:58 Blood Culture - Preliminary Blood No Growth after 72 hours 03/09/20 18:00 Fungal Culture - Preliminary Bronchoalviolar Lavage - Right 03/06/20 10:43 Blood Culture - Preliminary Blood No Growth after 96 hours Assessment and Plan Assessment: 1. Acute respiratory failure secondary to bilateral pneumonia. The patient remains on the vent, intubated, sedated, on broad-spectrum antibiotics. 2. Abdominal pain associated with nausea and vomiting. Abdominal ultrasound was completed which showed a dilated common bile duct at 0.9 cm, hepatosplenomegaly. Serum transaminases at the time of admission to hospital was within normal limits. With no further repeat labs done. Based on the presentation likely not dealing with any biliary sepsis at this time. 3. History of hypertension 4. Hyperglycemia secondary to systemic steroids Plan: 1. Continue broad-spectrum spectrum antibiotics 2. Repeat LFTs on a daily basis 3. Based on the labs and we will decide if the patient needs any endoscopic intervention. But at this time it is unlikely we are dealing with biliary sepsis 4. Continue management as per stock driver 5. We will sign off at this time please do not hesitate to contact us with any future concerns. The impression and plan of care has been dictated as directed. Dr. Lupe Singletary I performed a history and examination of this patient, discussed the same with the dictator. I agree with the dictator's note ,documented as a scribe. Any additional findings or plans will be noted.
--- NOTE | 2020-03-11 14:13 | PN ---
PROGRESS NOTE PULMONARY/CRITICAL CARE PROGRESS NOTE: DATE OF SERVICE: 03/11/2020 CRITICAL CARE TIME: 34 minutes. This is a 49-year-old female who was admitted back on March 06, 2020. She came in with abdominal pain and pneumonia. Because of impending respiratory failure and respiratory distress, she was intubated 2 days later on March 08, 2020. She had been seen by my partner over the weekend. She remains on mechanical ventilator. She unfortunately has developed acute respiratory distress syndrome. She is currently on the volume assist-control mode. Her rate is 36, tidal volume 350, FiO2 of 50%, PEEP of 18. Blood gases show pO2 of 70, pCO2 of 56 and a pH 7.27. The patient's lung compliance is 24 mL for 1 cm water. This is well below the normal lung compliance of 75 mL/cm water. Her peak airway pressure is 39 cm of water and her plateau pressure is 32 cm of water. She is getting saline at 100 mL an hour, propofol at 55 mcg/kg/per minute, Nimbex at 2 mcg/kg per minute with train of 4 monitoring, and Vital high- protein at 17 with a goal of 17 mL an hour. Currently, the patient is on Zosyn and Levaquin as antibiotics. We are going to give her Lasix 40 mg IV push today. She did undergo bronchoscopy a couple days ago. Results are currently pending. Chest x-ray shows diffuse bilateral infiltrates, more right than left-sided. Her urinary Legionella antigen was positive. Current vital signs are reviewed. Temperature is 99.7 heart rate 90, respiratory rate 36, blood pressure 115/58, saturations are in the low 90s. Appears in no acute distress. Currently sedated and paralyzed. HEENT: Examination is grossly unremarkable. There is an orally placed endotracheal tube and NG tube. NECK: Supple, full range of motion. No adenopathy. Neck veins are flat. CARDIOVASCULAR: Examination reveals regular rhythm and rate. S1, S2 normal. No S3, S4, or murmur. LUNGS: Reveal coarse bilateral rhonchi. Breath sounds equal. ABDOMEN: Soft, bowel sounds are noted. EXTREMITIES: Intact. There is some slight edema. It is 1+. No cyanosis or clubbing. SKIN: Without rash. NEUROLOGIC: Examination cannot be adequately assessed given the fact that the patient is sedated and paralyzed. LABS: Reviewed. White count 18.8, hemoglobin 10.4, hematocrit 33.9, platelet count 321,000, blood gases have been noted. Sodium 143, potassium 3.6, chloride 111, CO2 is 26, anion gap is 6. BUN and creatinine were 25 and 0.95. Calcium is 8.1, bilirubin 0.8, AST 144, ALT 72, albumin 2.4. Microbiology including bronch washes are all negative. Chest x-ray from today shows stable findings with bilateral airspace disease, right greater than left. MEDICATIONS: Reviewed. The patient is on Tylenol, Artificial Tears, chlorhexidine, Nimbex, heparin subcu, Dilaudid p.r.n., insulin, updrafts, Levaquin, magnesium replacement, Narcan, Zosyn, Protonix, potassium replacement, and propofol. ASSESSMENT: 1. Acute hypoxemic respiratory failure requiring intubation and mechanical ventilation for bilateral lower lobe pneumonia, on March 08, 2020. 2. Acute community-acquired pneumonia, which may relate to Legionella pneumophila pneumonia. 3. COVID-19 testing x2 and maybe negative x3. 4. Chronic pain syndrome. 5. History of lumbar stenosis and herniated disk. 6. History of benign essential hypertension. 7. Acute lung injury/acute respiratory distress syndrome characterized by elevated peak and plateau pressures, and diffuse air is characterized by increased peak and plateau pressures, diffuse bilateral airspace disease, high PEEP requirements, and low lung compliance. PLAN: Currently, the patient remains on the ventilator. She is on good antibiotics in the form of Zosyn and Levaquin. Bronch specimens are still pending or negative. The patient will get Lasix 40 mg x1 today. The patient will continue on her nutrition with Vital high-protein at goal of 17 mL an hour. She will continue on propofol and Nimbex. Will do train of 4 monitoring. No vent changes. The fact that the pH is a bit acidotic is positive as it causes hemoglobin to be less tightly bound to oxygen, with shift of the oxyhemoglobin curve to the right, allowing more oxygen at the tissue level. Additional recommendations and suggestions are forthcoming. Critical care time 34 minutes. MMODL / IJN: [id number] /
--- NOTE | 2020-03-11 14:34 | P.PN ---
Subjective 49-year-old female with a known history of hypertension, GERD, chronic pain due to bilateral sciatica and herniated lumbar disc on follow-up with pain clinic and also everyday smoker presents to ER with complaints of abdominal pain and fever. Patient states that since last Monday she was having right upper quadrant abdominal pain and thought it was her gallbladder. Patient was also having loose stools. Patient initially went to urgent care clinic. Patient did not have any fever at that time. Patient was tested for COVID which came up neg ative, was told later. Denied any dysuria or hematuria. No flank pain. No chest pain. Patient is also having generalized weakness and body aches. Noticed some exertional dyspnea. Otherwise no vomiting no nausea. No headache or dizziness or lightheadedness. On admission patient was febrile with T-max 103 F with tachycardia. Saturating well on room air. Chest x-ray showed new multifocal multilobar bilateral acute pneumonic infiltrates. Laboratory data showed WBC 21.2, hemoglobin 13.3 and platelets 187 Lymphocytes 0.7 Sodium 128, potassium 3.4, chloride 94, BUN 20 and creatinine 1.17 Blood sugar is 228 Urine showed 3+ protein and turbid with trace glucose and trace ketones. Moderate blood. AST ALT 33 and 21. Alk phos 127. Bilirubin level is total 0.5 03/07/2020 Patient is currently lying in the bed and is still complaining of shortness of breath. Patient is awake alert oriented x3. Patient is still requiring oxygen currently at 4 L via nasal cannula. Bilateral air entry is present with no evidence of wheezing on examination. Patient is also having intermittent fevers with T-max of 103.2. Neck currently being continued on antibiotics in the form of ceftriaxone and azithromycin. COVID-19 PCR is negative. Patient will be continued on droplet and contact precautions. We will check LDH, ferritin and CRP. Due to hypoxia patient had CT of the CT angiogram of the chest was done to out any pulmonary embolism. Differential include COVID-19 viral infection and Legionella pneumonia. Urine antigen for Legionella is pending at this time. Continue to follow closely. Patient denied any complaints of chest pain. No nausea vomiting or diarrhea. Diarrhea improved now. 03/08/2020 Patient is currently on mechanical ventilator. He has daily patient was hypoxic and requiring high flow oxygen via nasal cannula. ABGs were done which showed pH of 7.43, PCO2 27, PO2 56 and bicarb 18. Patient was eventually transferred to MICU and was intubated. Initial COVID-19 test was negative. Repeat test was ordered. Chest x-ray showed worsening bilateral pulmonary airspace edema and is nonspecific related to acute pneumonia are obvious. 03/09/2020 Patient is positive for Legionella pneumonia. Covid 19 was negative. Patient is appropriately on levofloxacin which will be continued discussed with infectious disease vancomycin discontinued Zosyn will be continued for couple more days. Patient continues to be on ventilator. Patient is also on propofol and Nimbex drip not on any pressor support at this time 03/10/2020 Patient remains admitted to support, Nimbex in the propofol patient underwent bronchoscopy and BAL was sent for analysis. 03/11/2020 Patient remains intubated remains on in the Nimbex propofol. Patient does see press pretty status did not improve significant elevation started having fevers today patient remains on Zosyn and the Levaquin. Patient will receive a dose of IV Lasix today. Patient does have acute respiratory distress syndrome from Le gionella pneumonia. Patient is requiring high PEEP of around 18 and also the respiratory rate was set up at the 36 with therapy is barely holding up at 7.27 and pCO2 of 56 Via systems: Unable to attend due to her clinical condition All inpatient medications were reviewed and appropriate changes in these medications as dictated in the interval history and assessment and plan. Objective - Vital Signs Vital signs: Vital Signs Temp 100.6 F H 03/11/20 12:00 Pulse 93 03/11/20 14:00 Resp 36 H 03/11/20 14:00 BP 110/64 03/10/20 21:00 Pulse Ox 93 L 03/11/20 14:00 Intake & Output 03/10/20 03/11/20 03/11/20 18:59 06:59 18:59 Intake Total 1190.461 2130.674 1367.801 Output Total 975 1500 1855 Balance 958.614 563.674 -487.199 Weight 119.1 kg 121.2 kg Intake: IV 1268 1321 924 0.9 Normal Saline 1000 1100 800 Levofloxacin 750Mg-D5w 150 Pmx 750 mg In Dextrose/ Water 1 150ml.bag @ 100 mls/hr IVPB Q24H [facility] Rx#: [id number] Piperacillin-Tazobactam 3 100 100 .375 gm In Sodium Chloride 0.9% 100 ml @ 25 mls/hr IVPB Q8HR [facility] Rx# :[id number] Potassium Chloride 10 meq 200 In Water For Injection 1 100ml.bag @ 100 mls/hr IVPB Q1H [facility] Rx#: [id number] Pressure bag 18 21 24 Intake, IV Titration 486.614 473.674 247.801 Amount Cisatracurium 200 mg In 24.300 25.633 Sodium Chloride 0.9% 180 ml @ 1 MCG/KG/MIN 6.967 mls/hr IV .Q24H [facility] Rx#: [id number] propofoL 1,000 mg In 462.314 448.041 247.801 Empty Bag 1 bag @ Titrate IV .Q0M [facility] Rx#: [id number] Tube Feeding 119 179 136 Other 60 90 60 Output: Urine 975 1500 1855 Other: Voiding Method Indwelling Catheter Indwelling Catheter Indwelling Catheter # Voids 2 ABP, PAP, CO, CI - Last Documented Arterial Blood Pressure 118/59 - Exam PHYSICAL EXAMINATION: GENERAL: Obese intubated sedated HEENT: Pupils reacting to light. EOMI. No scleral icterus. No conjunctival pallor. Normocephalic, atraumatic. No pharyngeal erythema. No thyromegaly. CARDIOVASCULAR: S1 and S2 present. No murmurs, rubs, or gallops. PULMONARY: Chest is clear to auscultation, no wheezing or crackles. ABDOMEN: Soft, nontender, nondistended, normoactive bowel sounds. No palpable organomegaly. MUSCULOSKELETAL: No joint swelling or deformity. EXTREMITIES: No cyanosis, clubbing, or pedal edema. NEUROLOGICAL: Able to assess. SKIN: No rashes. - Labs CBC & Chem 7: 03/11/20 04:00 03/11/20 04:00 Labs: Abnormal Lab Results - Last 24 Hours (Table) 03/10/20 03/10/20 03/10/20 Range/Units 04:00 17:14 20:58 WBC (3.8-10.6) k/uL RBC (3.80-5.40) m/uL Hgb (11.4-16.0) gm/dL Hct (34.0-46.0) % MCHC (31.0-37.0) g/dL Neutrophils # (Manual) (1.3-7.7) k/uL Metamyelocytes # (Man) (0) k/uL Myelocytes # (Manual) (0) k/uL ABG pH (7.35-7.45) ABG pCO2 (35-45) mmHg ABG pO2 (83-108) mmHg ABG HCO3 (21-25) mmol/L ABG Total CO2 (19-24) mmol/L ABG O2 Saturation (94-97) % Chloride (98-107) mmol/L BUN (7-17) mg/dL Glucose (74-99) mg/dL POC Glucose (mg/dL) 177 H 170 H (75-99) mg/dL Hemoglobin A1c 7.7 H (4.0-6.0) % Calcium (8.4-10.2) mg/dL AST (14-36) U/L ALT (4-34) U/L Alkaline Phosphatase (38-126) U/L Total Protein (6.3-8.2) g/dL Albumin (3.5-5.0) g/dL 03/11/20 03/11/20 03/11/20 Range/Units 01:08 04:00 04:00 WBC 18.8 H (3.8-10.6) k/uL RBC 3.47 L (3.80-5.40) m/uL Hgb 10.4 L (11.4-16.0) gm/dL Hct 33.9 L (34.0-46.0) % MCHC 30.6 L (31.0-37.0) g/dL Neutrophils # (Manual) 16.10 H (1.3-7.7) k/uL Metamyelocytes # (Man) 0.38 H (0) k/uL Myelocytes # (Manual) 0.75 H (0) k/uL ABG pH (7.35-7.45) ABG pCO2 (35-45) mmHg ABG pO2 (83-108) mmHg ABG HCO3 (21-25) mmol/L ABG Total CO2 (19-24) mmol/L ABG O2 Saturation (94-97) % Chloride 111 H (98-107) mmol/L BUN 25 H (7-17) mg/dL Glucose 150 H (74-99) mg/dL POC Glucose (mg/dL) 155 H (75-99) mg/dL Hemoglobin A1c (4.0-6.0) % Calcium 8.1 L (8.4-10.2) mg/dL AST 144 H (14-36) U/L ALT 72 H (4-34) U/L Alkaline Phosphatase 137 H (38-126) U/L Total Protein 5.3 L (6.3-8.2) g/dL Albumin 2.4 L (3.5-5.0) g/dL 03/11/20 03/11/20 Range/Units 05:00 10:19 WBC (3.8-10.6) k/uL RBC (3.80-5.40) m/uL Hgb (11.4-16.0) gm/dL Hct (34.0-46.0) % MCHC (31.0-37.0) g/dL Neutrophils # (Manual) (1.3-7.7) k/uL Metamyelocytes # (Man) (0) k/uL Myelocytes # (Manual) (0) k/uL ABG pH 7.28 L (7.35-7.45) ABG pCO2 56 H (35-45) mmHg ABG pO2 70 L (83-108) mmHg ABG HCO3 26 H (21-25) mmol/L ABG Total CO2 28 H (19-24) mmol/L ABG O2 Saturation 93.2 L (94-97) % Chloride (98-107) mmol/L BUN (7-17) mg/dL Glucose (74-99) mg/dL POC Glucose (mg/dL) 180 H (75-99) mg/dL Hemoglobin A1c (4.0-6.0) % Calcium (8.4-10.2) mg/dL AST (14-36) U/L ALT (4-34) U/L Alkaline Phosphatase (38-126) U/L Total Protein (6.3-8.2) g/dL Albumin (3.5-5.0) g/dL Microbiology - Last 24 Hours (Table) 03/06/20 10:43 Blood Culture - Preliminary Blood No Growth after 120 hours 03/09/20 18:00 Gram Stain - Preliminary Bronchoalviolar Lavage - Right Bronchial Washings Culture - Preliminary 03/09/20 18:00 Acid Fast Bacilli Smear - Final Bronchoalviolar Lavage - Right Acid Fast Bacilli Culture - Preliminary 03/07/20 16:08 Blood Culture - Preliminary Blood No Growth after 72 hours 03/07/20 15:58 Blood Culture - Preliminary Blood No Growth after 72 hours 03/09/20 18:00 Fungal Culture - Preliminary Bronchoalviolar Lavage - Right Assessment and Plan Plan: -Acute respiratory failure: Secondary to Legionella pneumonia, ruled out covid 19. Continue with the levofloxacin and Zosyn for now since patient is intubated . Patient appears in with little Motrin and patient is status post bronchoscopy -Sepsis severe secondary to multiple lobar pneumonia from Legionella -Obesity with possible restrictive lung disease and chronic CO2 retention from that -Hypovolemic hyponatremia improved now, patient is bit volume ordered if clinically receiving IV Lasix today -Uncontrolled elevated blood sugars secondary to systemic steroids, and do not have any hemoglobin A1c available patient will be continued on sliding scale -Hypertension Gases patient reflux disease -Chronic back pain DVT prophylaxis with heparin subcu
[2020-03-11 14:35] LABS: Glucose,Whole Blood 151 mg/dL (75-99)
[2020-03-11] MEDS: LEVOFLOXACIN 750MG-D5W PMX 750 MG in DEXTROSE/WATER 1 150ML.BAG IVPB SCH (17:02)
[2020-03-11] MEDS ORDERED: Potassium Replacement Protocol 1 EACH MISC MISCELLANE PRN (17:21)
[2020-03-11] MEDS ORDERED: POTASSIUM BICARBONATE/CIT AC 20 MEQ TABLET.EFF NG-TUBE SCH (18:00)
[2020-03-11 18:32] LABS: Glucose,Whole Blood 163 mg/dL (75-99)
[2020-03-11] MEDS: ACETAMINOPHEN TAB 325 MG TAB PO PRN (20:36)
[2020-03-11 22:30] LABS: Glucose,Whole Blood 166 mg/dL (75-99)
--- NOTE | 2020-03-12 01:09 | PN ---
PROGRESS NOTE DATE OF SERVICE: 03/11/2020 REASON FOR FOLLOWUP: Acute Legionella pneumonia. INTERVAL HISTORY: The patient has been running a low-grade fever of 100.9. The patient is hemodynamically stable though FiO2 still is currently stable at 50%. No significant purulent secretion through the ET or any diarrhea has been reported. PHYSICAL EXAMINATION: Blood pressure 125/62 with a pulse of 98, temperature 100.9. She is 91% on 50% FiO2. General description is a middle-aged female lying in bed in no distress. RESPIRATORY SYSTEM: Unlabored breathing, decreased breath sounds at bases. No wheeze. HEART: S1, S2. Regular rate and rhythm. ABDOMEN: Soft, no tenderness. LABS: Hemoglobin is 10.4, white count 18.8. BUN of 25, creatinine 0.95. Bronch culture so far negative. DIAGNOSTIC IMPRESSION AND PLAN: Patient with acute Legionella pneumonia in this patient with acute respiratory failure, status post bronchoscopy. Those cultures pending. Patient is covered with Levaquin to continue and monitor clinical course closely. Continue supportive care. MMODL / IJN: [id number] /
[2020-03-12 02:12] LABS: Glucose,Whole Blood 168 mg/dL (75-99)
[2020-03-12] MEDS: INSULIN ASPART (NovoLOG) 100 UNIT/ML VIAL SQ SCH ×6 (02:30→22:15)
[2020-03-12] MEDS: IPRATROPIUM-ALBUTEROL 3 ML NEB INHALATION SCH ×6 (03:20→23:54)
[2020-03-12] MEDS: ARTIFICIAL TEARS-HYPROMELLOSE DROPS 15 ML BTL BOTH EYES SCH ×5 (03:30→20:32)
[2020-03-12] MEDS: HYDROmorphone 1 MG/ML 1 ML SYRINGE IVP PRN ×3 (04:40→15:14)
[2020-03-12 04:56] LABS: ABG Base Excess 2.4 mmol/L; ABG HCO3 29 mmol/L (21-25); ABG Oxygen Saturation 94.2 % (94-97); ABG PCO2 59 mmHg (35-45); ABG PO2 75 mmHg (83-108); ABG TCO2 31 mmol/L (19-24); Allen Test Performed? Yes
[2020-03-12] MEDS: CISATRACURIUM 200 MG in SODIUM CHLORIDE 0.9% 180 ML IV SCH (05:01)
[2020-03-12 05:27] LABS: HCT 35.7 % (34.0-46.0); HGB 10.9 gm/dL (11.4-16.0); Hypochromasia Moderate; MCH 29.8 pg (25.0-35.0); MCHC 30.5 g/dL (31.0-37.0); MCV 97.6 fL (80.0-100.0); Mean Platelet Volume 7.4; Platelet Count 399 k/uL (150-450); RBC 3.66 m/uL (3.80-5.40); RDW 14.8 % (11.5-15.5); WBC 23.8 k/uL (3.8-10.6)
[2020-03-12 05:41] LABS: ALT 107 U/L (4-34); AST 188 U/L (14-36); African American GFR (CKD) >90 (>60 ml/min/1.73 sqM); Albumin 2.7 g/dL (3.5-5.0); Alkaline Phosphatase 163 U/L (38-126); Anion Gap 6 mmol/L; Blood Urea Nitrogen 28 mg/dL (7-17); Calcium 8.1 mg/dL (8.4-10.2); Carbon Dioxide 28 mmol/L (22-30); Chloride 109 mmol/L (98-107); Glucose 211 mg/dL (74-99); Non-African American GFR(CKD) 82 (>60 ml/min/1.73 sqM); Potassium 4.4 mmol/L (3.5-5.1); Sodium 143 mmol/L (137-145); Total Bilirubin 0.9 mg/dL (0.2-1.3); Total Protein 5.8 g/dL (6.3-8.2)
[2020-03-12 05:52] LABS: Band Neutrophils % 13 %; Eosinophils # (M) 0.24 k/uL (0-0.7); Lymphocytes # (M) 1.43 k/uL (1.0-4.8); Metamyelocytes # (M) 3.81 k/uL (0); Metamyelocytes % 16 %; Monocytes # (M) 0.71 k/uL (0-1.0); Myelocytes # (M) 0.95 k/uL (0); Myelocytes % 4 %; Neutrophils % (M) 57 %; Nucleated Red Blood Cells 0 /100 WBC (0-0); Total Cells Counted 200
[2020-03-12 05:54] LABS: Anisocytosis (M) Present; Poikilocytosis (M) Present; Toxic Granulation Present; Toxic Vacuolation Present
[2020-03-12 06:23] LABS: Glucose,Whole Blood 204 mg/dL (75-99)
[2020-03-12] MEDS: PIPERACILLIN-TAZOBACTAM 3.375 GM in SODIUM CHLORIDE 0.9% 100 ML IVPB SCH ×2 (08:09→16:16)
[2020-03-12] MEDS: CHLORHEXIDINE GLUCONATE 15 ML CUP MUCOUS MEM SCH ×2 (08:09→21:52)
[2020-03-12] MEDS: HEPARIN SODIUM,PORCINE 5,000 UNIT/ML 1 ML VIAL SQ SCH ×2 (08:09→16:16)
[2020-03-12] MEDS: PANTOPRAZOLE 40 MG/10 ML VIAL IVP SCH (08:09)
[2020-03-12] MEDS ORDERED: FUROSEMIDE 10 MG/ML 4 ML VIAL IV STA (09:16)
--- NOTE | 2020-03-12 09:17 | XR ---
EXAMINATION TYPE: XR chest 1V DATE OF EXAM: 03/12/2020 COMPARISON: 03/11/2020 HISTORY: Shortness of breath TECHNIQUE: Single frontal view of the chest is obtained. FINDINGS: ET and NG tube stable. Central line with the tip overlying the right atrium. Diffuse inter stitial pattern with right-sided consolidation and pleural effusion. Subsegmental changes at the left lung base. IMPRESSION: 1. Diffuse pleural-parenchymal changes are stable may been the basis of a pneumonia. Underlying heart failure not excluded.
[2020-03-12 10:27] LABS: Glucose,Whole Blood 163 mg/dL (75-99)
[2020-03-12 14:06] LABS: Glucose,Whole Blood 153 mg/dL (75-99)
--- NOTE | 2020-03-12 15:12 | PN ---
PROGRESS NOTE PULMONARY/CRITICAL CARE PROGRESS NOTE: DATE OF SERVICE: 03/12/2020 Critical care time 33 minutes. INTERVAL HISTORY: This is a 49-year-old female who was admitted back on March 06. She came in with abdominal pain and pneumonia. Because of impending respiratory failure and respiratory distress, she was intubated 2 days later on the . She was seen by my partner over the weekend. Currently, she remains on the ventilator. She has unfortunately developed acute respiratory distress syndrome. Currently, she is on the volume assist- control mode rate of 36, tidal volume 350, FiO2 of 50%, PEEP of 18. Blood gases show a pO2 of 75, pCO2 of 59, and pH of 7.30. She is getting saline at 40 mL an hour, propofol at 55 mcg/kg/min and Nimbex at 2 mcg/kg/minute. She does have train of 4 monitoring, and she is getting nourished with Vital high-protein at 28 cc/hour which is goal. Today, we are going to turn her PEEP down from 18 to 15. We will give her Lasix 40 mg IV push. We will see if we cannot DC the Nimbex. Instead of Nimbex, we will use Dilaudid hourly if we need to and if that does not work, fentanyl by drip. She did have bronchoscopy a couple days ago. BAL sampling is still pending or negative. PHYSICAL EXAMINATION: VITAL SIGNS: Current vital signs include a temperature 99.5, heart rate 92, respiratory rate 36, blood pressure 108/52, saturations are low 90s on 50% and 15 of PEEP. Appears in no acute distress. HEENT: Examination is grossly unremarkable. She has an orally placed endotracheal tube and NG tube. NECK: Supple. Full range of motion. No adenopathy. Neck veins are flat. CARDIOVASCULAR: Examination reveals regular rhythm and rate. Heart rate 92. S1, S2 normal. No S3, S4, or murmur. LUNGS: Reveal coarse rhonchi bilaterally. Breath sounds equal. ABDOMEN: Soft. Bowel sounds are noted. EXTREMITIES: Intact. Mild edema. SKIN: Without rash. NEUROLOGIC: Examination cannot be adequately assessed. LABS: Reviewed. White count 23.8, hemoglobin 10.9, hematocrit 35.7, platelet count 399,000. Blood gases are noted. Sodium 143, potassium 4.4, chloride 109, CO2 28, anion gap of 6. BUN and creatinine were 28 and 0.84. AST 188, ALT 107, alkaline phosphatase 163, total protein 5.8, albumin 2.7. Microbiology is all negative. IMAGING: A chest x-ray shows diffuse pleural parenchymal changes. These are consistent with pneumonia and ARDS. MEDICATIONS: Reviewed. Currently, the patient is on Tylenol, Artificial Tears, Peridex, Nimbex, heparin subcu, Dilaudid, insulin, DuoNeb, Levaquin, magnesium replacement, Narcan, Protonix, Zosyn, potassium replacement, propofol and saline at 40 mL an hour. ASSESSMENT: 1. Acute hypoxemic respiratory failure requiring intubation and mechanical ventilation for bilateral lower lobe pneumonia, on March 08, 2020, and ARDS. 2. Failure to wean from mechanical ventilation or even make any significant progress from the higher FiO2 and PEEP that she was on earlier. 3. Acute community-acquired pneumonia, which may relate to underlying Legionella pneumophila pneumonia. 4. COVID-19 testing x3, negative. 5. Chronic pain syndrome. 6. History of lumbar stenosis and herniated disk. 7. History of benign essential hypertension. 8. Acute lung injury/acute respiratory distress syndrome characterized by elevated peak and plateau pressures, diffuse pulmonary infiltrates and high PEEP requirements along with low lung compliance. PLAN: The patient remains on good antibiotics in form of Levaquin and Zosyn. We will attempt to get the patient off the Nimbex today. PEEP levels dropped from 18-15. The patient really has not made much progress. We will give her Lasix again 40 mg IV push. She is getting nourished at goal with Vital high-protein at 28, which is goal. She remains on propofol at 55 mcg/kg/min. We may have to use hourly Dilaudid and/or fentanyl drip. I may consider a tracheostomy and PEG tube placement tomorrow on her. Additional recommendations and suggestions are forthcoming. Prognosis is guarded. MMODL / IJN: [id number] / [facility]
[2020-03-12] MEDS: LEVOFLOXACIN 750MG-D5W PMX 750 MG in DEXTROSE/WATER 1 150ML.BAG IVPB SCH (16:16)
[2020-03-12] MEDS: ACETAMINOPHEN TAB 325 MG TAB PO PRN (16:16)
[2020-03-12 18:37] LABS: Glucose,Whole Blood 173 mg/dL (75-99)
--- NOTE | 2020-03-12 20:00 | P.PN ---
Progress Note - Text Progress Note Date: 03/12/20 Presenting complaint: Intubated Interval history: Patient presented with fever, shortness of breath. Admitted with acute respiratory failure secondary to Legionella pneumonia. COVID 19 was ruled out. Started on IV Levaquin and Zosyn. Sepsis. Hypovolemic, hyponatremia. [id number]. FiO2 50 with a PEEP of 15. On IV propofol. Telemetry shows sinus rhythm. 2 feeding at 28 mL an hour. Sedated Progress review of systems cannot be done patient intubated Active Medications Acetaminophen (Acetaminophen Tab 325 Mg Tab) 650 mg PO Q6HR PRN PRN Reason: Mild Pain or Fever > 100.5 Last Admin: 03/12/20 16:16 Dose: 650 mg Documented by: Albuterol/Ipratropium (Ipratropium-Albuterol 3 Ml Neb) 3 ml INHALATION RT-Q4H YANI Last Admin: 03/12/20 15:18 Dose: 3 ml Documented by: Artificial Tears (Artificial Tears-Hypromellose Drops 15 Ml Btl) 2 drops BOTH EYES Q4HR YANI Last Admin: 03/12/20 16:24 Dose: 2 drops Documented by: Chlorhexidine Gluconate (Chlorhexidine Gluconate 15 Ml Cup) 15 ml MUCOUS MEM BID YANI Last Admin: 03/12/20 08:09 Dose: 15 ml Documented by: Heparin Sodium (Porcine) (Heparin Sodium,Porcine 5,000 Unit/Ml 1 Ml Vial) 5,000 unit SQ Q8HR YANI Last Admin: 03/12/20 16:16 Dose: 5,000 unit Documented by: Hydromorphone HCl (Hydromorphone 1 Mg/Ml 1 Ml Syringe) 1 mg IVP Q2HR PRN PRN Reason: Pain Last Admin: 03/12/20 15:14 Dose: 1 mg Documented by: Propofol 1,000 mg/ IV Solution 100 mls @ 0 mls/hr IV .Q0M YANI; Protocol Last Admin: 03/12/20 16:37 Dose: 55 mcg/kg/min, 40.326 mls/hr Documented by: Cisatracurium Besylate 200 mg/ (Sodium Chloride) 200 mls @ 6.967 mls/hr IV .Q24H YANI; Protocol Last Titration: 03/12/20 09:36 Dose: 0 mcg/kg/min, 0 mls/hr Documented by: Piperacillin Sod/Tazobactam (Sod 3.375 gm/ Sodium Chloride) 100 mls @ 25 mls/hr IVPB Q8HR [facility] Last Admin: 03/12/20 16:16 Dose: 25 mls/hr Documented by: Levofloxacin 750 mg/ IV (Solution) 150 mls @ 100 mls/hr IVPB Q24H [facility] Last Admin: 03/12/20 16:16 Dose: 100 mls/hr Documented by: Sodium Chloride (Saline 0.9%) 1,000 mls @ 40 mls/hr IV .Q24H [facility] Last Admin: 03/11/20 20:27 Dose: 40 mls/hr Documented by: Insulin Aspart (Insulin Aspart (Novolog) 100 Unit/Ml Vial) 0 unit SQ Q4H [facility]; Protocol Last Admin: 03/12/20 18:38 Dose: 2 unit Documented by: Miscellaneous Information (Magnesium Replacement Protocol 1 Each Misc) 1 each MISCELLANE DAILY PRN; Protocol PRN Reason: Per Protocol Miscellaneous Information (Potassium Replacement Protocol 1 Each Misc) 1 each MISCELLANE DAILY PRN; Protocol PRN Reason: Per Protocol Naloxone HCl (Naloxone 0.4 Mg/Ml 1 Ml Vial) 0.2 mg IV Q2M PRN PRN Reason: Opioid Reversal Pantoprazole Sodium (Pantoprazole 40 Mg/10 Ml Vial) 40 mg IVP DAILY [facility] Last Admin: 03/12/20 08:09 Dose: 40 mg Documented by: On examination: VITAL SIGNS: 100.6, 87, 36, 135 with 64, 95% on the ventilator GENERAL APPEARANCE: BMI 54.4, laying in bed, intubated, HEENT: Intubated, or G-tube present EYES: Pupils equal. Conjunctiva normal. NECK: JVD unable to assess. Mass not palpable. RESPIRATORY: Respiratory effort increased. Lungs decreased breath sounds CARDIOVASCULAR: First and second sounds normal. No edema. ABDOMEN: Soft. Liver and spleen not palpable. No tenderness. No mass palpable. Kamara catheter PSYCHIATRY: Patient sedated INVESTIGATIONS, reviewed in the clinical context: White count 23.8 hemoglobin 10.9 platelets 399 potassium 4.4 creatinine 0.84 albumin 2.7 AST 188 ALT 107 Previous testing: Abdominal ultrasound-hepatosplenomegaly CBD dilated at 9 mm Chest [id number] infiltrates Urine Legionella antigen positive Assessment: -Acute hypoxic respiratory failure from bilateral lower lobe pneumonia, ARDS, requiring mechanical ventilation-slow to respond -Possible Legionella pneumonia -COVID 19 negative -Chronic pain syndrome -GERD -Essential hypertension -Chronic pain syndrome sees Dr. cook -Chronic nicotine dependence cigarette smoker -Chronic spine herniated disc with spinal stenosis -Morbid obesity BMI 54.4 -Hyperglycemia secondary to steroids. No diabetes. -Possible ischemic hepatitis. - Plan: Patient currently on DuoNeb, artificial tears, subcu heparin, IV Levaquin, IV propofol, IV Zosyn. Prognosis guarded.
[2020-03-12] MEDS: SODIUM CHLORIDE 0.9% 1,000 ML IV SCH (21:50)
[2020-03-12 22:04] LABS: Glucose,Whole Blood 140 mg/dL (75-99)
--- NOTE | 2020-03-12 23:49 | PN ---
PROGRESS NOTE DATE OF SERVICE: 03/12/2020 REASON FOR FOLLOWUP: 1. Acute Legionella pneumonia. 2. Patient with persistent elevated white count and fever with a question of ascending cholangitis. INTERVAL HISTORY: The patient has been running a fever though with temperature a 100.6 this afternoon. The patient is hemodynamically stable not on pressor support. FiO2 is currently stable at 50%. No significant purulent secretion through the ET or any diarrhea reported by nursing staff. PHYSICAL EXAMINATION: Blood pressure 141/71 with a pulse of 84, temperature 99.6. She is 95% on 50% FiO2. General description is a middle-aged female lying in bed in no distress. RESPIRATORY SYSTEM: Unlabored breathing, decreased breath sounds in the bases. No wheeze. HEART: S1, S2. Regular rate and rhythm. ABDOMEN: Soft, no tenderness. LABS: Hemoglobin is 10.9, white count 23.8. BUN of 28, creatinine 0.84. Liver enzymes remain to be elevated. DIAGNOSTIC IMPRESSION AND PLAN: 1. Patient with acute respiratory failure which is multifactorial in this patient who did have acute Legionella pneumonia for which the patient is covered with Levaquin. 2. Patient now with persistently elevated white count and a fever in this patient who did have abnormal ultrasound of the abdomen with question of CBD obstruction. CT of abdomen and pelvis will be ordered for tomorrow to rule out abdominal source for this elevated white count and fever. Continue Zosyn and monitor clinical course closely. MMODL / IJN: [id number] /
[2020-03-13] MEDS: PIPERACILLIN-TAZOBACTAM 3.375 GM in SODIUM CHLORIDE 0.9% 100 ML IVPB SCH ×3 (00:03→17:08)
[2020-03-13] MEDS: HEPARIN SODIUM,PORCINE 5,000 UNIT/ML 1 ML VIAL SQ SCH ×4 (00:03→23:14)
[2020-03-13] MEDS: ARTIFICIAL TEARS-HYPROMELLOSE DROPS 15 ML BTL BOTH EYES SCH ×7 (00:04→23:15)
[2020-03-13] MEDS: HYDROmorphone 1 MG/ML 1 ML SYRINGE IVP PRN ×2 (01:03→03:53)
[2020-03-13] MEDS: INSULIN ASPART (NovoLOG) 100 UNIT/ML VIAL SQ SCH ×5 (02:43→20:34)
[2020-03-13 02:46] LABS: Glucose,Whole Blood 154 mg/dL (75-99)
[2020-03-13] MEDS: IPRATROPIUM-ALBUTEROL 3 ML NEB INHALATION SCH ×5 (03:50→19:35)
[2020-03-13 04:11] LABS: ABG Base Excess 6.1 mmol/L; ABG HCO3 31 mmol/L (21-25); ABG Oxygen Saturation 93.2 % (94-97); ABG PCO2 49 mmHg (35-45); ABG PH 7.41 (7.35-7.45); ABG PO2 66 mmHg (83-108); ABG TCO2 32 mmol/L (19-24); Allen Test Performed? Yes
[2020-03-13 04:28] LABS: HCT 34.8 % (34.0-46.0); Hypochromasia Slight; MCH 30.2 pg (25.0-35.0); MCHC 31.6 g/dL (31.0-37.0); MCV 95.6 fL (80.0-100.0); Mean Platelet Volume 7.5; Platelet Count 407 k/uL (150-450); RBC 3.64 m/uL (3.80-5.40); RDW 14.5 % (11.5-15.5); WBC 26.5 k/uL (3.8-10.6)
[2020-03-13 04:40] LABS: African American GFR (CKD) >90 (>60 ml/min/1.73 sqM); Anion Gap 5 mmol/L; Blood Urea Nitrogen 32 mg/dL (7-17); Calcium 8.4 mg/dL (8.4-10.2); Carbon Dioxide 31 mmol/L (22-30); Chloride 110 mmol/L (98-107); Glucose 164 mg/dL (74-99); Non-African American GFR(CKD) 86 (>60 ml/min/1.73 sqM); Potassium 3.8 mmol/L (3.5-5.1); Sodium 146 mmol/L (137-145)
[2020-03-13] MEDS: ACETAMINOPHEN TAB 325 MG TAB PO PRN (04:41)
[2020-03-13] MEDS ORDERED: POTASSIUM BICARBONATE/CIT AC 20 MEQ TABLET.EFF NG-TUBE SCH (05:00)
[2020-03-13 06:02] LABS: Band Neutrophils % 14 %; Eosinophils # (M) 1.06 k/uL (0-0.7); Lymphocytes # (M) 2.39 k/uL (1.0-4.8); Metamyelocytes # (M) 1.06 k/uL (0); Metamyelocytes % 4 %; Monocytes # (M) 0.53 k/uL (0-1.0); Myelocytes % 3 %; Neutrophils % (M) 66 %; Nucleated Red Blood Cells 0 /100 WBC (0-0); Total Cells Counted 200
[2020-03-13 06:04] LABS: Anisocytosis (M) Present; Polychromasia Present
[2020-03-13 06:05] LABS: Large Platelets Present; Poikilocytosis (M) Present
[2020-03-13 06:14] LABS: Glucose,Whole Blood 165 mg/dL (75-99)
[2020-03-13] MEDS ORDERED: IBUPROFEN 800 MG TAB PO PRN (09:32)
[2020-03-13 09:58] LABS: Glucose,Whole Blood 171 mg/dL (75-99)
[2020-03-13] MEDS: PANTOPRAZOLE 40 MG/10 ML VIAL IVP SCH (10:26)
[2020-03-13] MEDS: CHLORHEXIDINE GLUCONATE 15 ML CUP MUCOUS MEM SCH ×2 (10:26→20:35)
[2020-03-13] MEDS: IOPAMIDOL CONTRAST (ORAL USE) VIAL PO PRN ×2 (10:27→11:36)
--- NOTE | 2020-03-13 10:29 | XR ---
EXAMINATION TYPE: XR chest 1V DATE OF EXAM: 03/13/2020 COMPARISON: Prior chest x-ray dated 03/12/2020 HISTORY: Intubated, pneumonia TECHNIQUE: Single frontal view of the chest is obtained. FINDINGS: Endotracheal tube and NG tube are overlying appropriate positions, right jugular central v enous catheter is stable, tip is in the right atrium. There is no evident pneumothorax. Bilateral air space disease persists. No evident effusion. There are overlying cardiac leads. IMPRESSION: Findings consistent with bilateral pneumonia, similar to prior exam.
[2020-03-13 12:05] LABS: Appearance,Urine Clear (Clear); Bacteria,Urine Rare /hpf; Bilirubin,Urine Negative (Negative); Blood,Urine Negative (Negative); Color,Urine Yellow; Glucose,Urine (UA) Negative (Negative); Ketones,Urine Negative (Negative); Leukocyte Esterase,Urine Negative (Negative); Mucus,Urine Rare /hpf; Nitrite,Urine Negative (Negative); PH, Urine 6.5 (5.0-8.0); Protein,Urine 1+ (Negative); Specific Gravity,Urine 1.032 (1.001-1.035); Urobilinogen,Urine <2.0 mg/dL (<2.0); WBC,Urine 2 /hpf (0-5)
--- NOTE | 2020-03-13 13:27 | PN ---
PROGRESS NOTE PULMONARY/CRITICAL CARE PROGRESS NOTE: DATE OF SERVICE: March 13, 2020 Critical care time 34 minutes. HISTORY: This is a 49-year-old female who was admitted back on March 06. She came in with abdominal pain and pneumonia. She developed acute impending hypoxemic respiratory failure and respiratory distress and was intubated 2 days later on March 08. She was seen by my partner over the weekend. She currently remains on the ventilator. She has developed acute lung injury/ARDS. Anyway, the patient is on the volume assist- control mode rate of 36, tidal volume 350, FiO2 of 50%, PEEP of 15. Blood gases show a pO2 of 66, pCO2 49 and pH is 7.41. The PEEP is going to be reduced from 15-12. She is on propofol at 55 mics per minute, saline at 40 mL an hour and Vital high-protein at 28 mL now which is goal. We were able to get her off the Nimbex. She had been paralyzed for a number of days. Microbiology is negative. This includes a bronchoscopy that was done. We did a bronch wash focusing on the right middle lobe and right lower lobe. A CT of the abdomen and pelvis was ordered by the Infectious Disease doctor today. She remains on Zosyn and Levaquin. Overall, her status has remained relatively stable. She is critically ill but stable. PHYSICAL EXAMINATION: VITAL SIGNS: Current vital signs are reviewed. Temperature is 101.1, heart rate 111, respiratory rate 36, blood pressure 111/54, saturations 93% on the 50% and 12 PEEP. GENERAL: Appears in no acute distress, currently sedated. HEENT: Examination is grossly unremarkable. She has an orally placed endotracheal tube and NG tube. NECK: Supple. Full range of motion. No adenopathy. Neck veins are flat. CARDIOVASCULAR: Examination reveals tachycardia. Heart rate 111. S1, S2 normal. She is in sinus rhythm. LUNGS: Reveal diffuse coarse rhonchi. Breath sounds equal. ABDOMEN: Obese. Bowel sounds are heard. EXTREMITIES are intact. Minimal edema. SKIN: Without rash. NEUROLOGIC: Examination is difficult to assess given her level of sedation. LABS: Reviewed. White count 26.5, hemoglobin 11, hematocrit 34.8, platelet count 407,000, blood gases have been noted. Sodium 146, potassium 3.8, chloride 110, CO2 31, anion gap is 5. BUN and creatinine were 32 and 0.81. Glucose 164. Urine HCG was negative. Microbiology including bronch washes have all been negative. The most recent chest x-ray shows diffuse bilateral infiltrates, with atelectasis and pleural effusions, right greater than left. CURRENT MEDICATIONS: Reviewed. They include Tylenol, Artificial Tears, Peridex, subcu heparin, Dilaudid, Motrin, insulin, DuoNeb, Levaquin, magnesium replacement, Narcan, Protonix, Zosyn, potassium replacement, and propofol. ASSESSMENT: 1. Acute hypoxemic respiratory failure, requiring intubation and mechanical ventilation, for bilateral lower lobe pneumonia, on March 08, 2020. 2. Subsequent development of acute lung injury and acute respiratory distress syndrome, requiring high concentrations of oxygen and PEEP. 3. Failure to wean from mechanical ventilation or even make significant progress, although more recently, FiO2 has been weaned down and PEEP levels have been reduced as well. 4. Acute community-acquired pneumonia, which may relate to underlying Legionella pneumophila pneumonia. 5. COVID-19 testing x3, was negative. 6. Chronic pain syndrome. 7. History of lumbar stenosis and herniated disc. 8. History of benign essential hypertension. PLAN: The patient will continue on the ventilator. We have been able to wean her FiO2 down to 50% from 100% and PEEP levels which were previously 18 have been weaned down to 12. Her blood gases are stable. She remains on propofol at 55 mics per kg per minute. She is getting Vital high-protein at 28, which is goal. The patient's microbiology studies have been negative thus far. CT of the abdomen and pelvis ordered by Infectious Diseases to rule out an abscess. She remains on Zosyn and Levaquin. Overall prognosis is guarded. We will continue to follow. We have been able to wean her off the paralytic. Critical care time 34 minutes. MMODL / IJN: [id number] /
--- NOTE | 2020-03-13 13:35 | CT ---
EXAMINATION TYPE: CT abdomen pelvis w con DATE OF EXAM: 03/13/2020 HISTORY: Fever of Unknown origin. CT DLP: 3681.4mGycm Automated Exposure Control for Dose Reduction was Utilized. CONTRAST: CT scan of the abdomen and pelvis is performed with oral and with IV Contrast, patient injected with 100 mL of Isovue 300. COMPARISON: Chest x-ray earlier today. Abdominal ultrasound March 09, 2020 FINDINGS: LUNG BASES: There are tiny bilateral pleural effusions there are patchy areas of groundglass opacity and consolidation in the left lung base. There is more dense consolidation posteriorly in the right l megan base. There is cardiomegaly with portion of right internal jugular catheter terminating in inferi or right atrium identified. LIVER/GB: Mildly enlarged liver with prominent right hepatic lobe. Overall heterogeneity. PANCREAS: No significant abnormality is seen. SPLEEN: No significant abnormality is seen. ADRENALS: No significant abnormality is seen. KIDNEYS: Symmetric cortical medullary uptake. No visualized excretion bilaterally. No hydronephrosis or concerning renal masses identified. BOWEL: Orogastric tube in decompressed stomach. Oral contrast reaches level of the proximal transvers e colon. No suspicious small or large bowel dilatation. Scattered air-fluid levels are present, nonsp ecific finding. Fluid-filled distal sigmoid colon and rectum noted correlate for underlying diarrhea or mild uncomplicated colitis. No suspicious wall thickening UTERUS/ADNEXA: Anteverted uterus. Both ovaries normal in size. There is 1.9 cm cystic lesion left ova ry probably prominent follicle or simple small ovarian cyst on axial image 81. LYMPH NODES: No greater than 1cm abdominal or pelvic lymph nodes are appreciated. OSSEOUS STRUCTURES: Multilevel spurring and disc space narrowing in the thoracolumbar spine. Multilev el vacuum disc phenomenon is present. OTHER: No significant additional abnormality is seen. IMPRESSION: 1. Cardiomegaly with tiny bilateral pleural effusions. Multifocal small areas of groundglass opacity and consolidation in the left lung base. More prominent consolidation with central air bronchograms i n the right lung base. Correlate clinically for multifocal bilateral pneumonias. 2. No well-formed fluid collection or drainable abscess. Possible mild distal colitis versus diarrhea . Overall nonspecific but strongly favor nonobstructive bowel gas pattern currently.
[2020-03-13 16:04] LABS: Glucose,Whole Blood 153 mg/dL (75-99)
[2020-03-13] MEDS: LEVOFLOXACIN 750MG-D5W PMX 750 MG in DEXTROSE/WATER 1 150ML.BAG IVPB SCH (16:16)
--- NOTE | 2020-03-13 17:02 | P.PN ---
Progress Note - Text Progress Note Date: 03/13/20 Presenting complaint: Intubated Interval history: Patient presented with fever, shortness of breath. Admitted with acute respiratory failure secondary to Legionella pneumonia. COVID 19 was ruled out. Started on IV Levaquin and Zosyn. Sepsis. Hypovolemic, hyponatremia. [id number]. FiO2 50 with a PEEP of 12. On IV propofol. Telemetry shows sinus rhythm. 2 feeding at 28 mL an hour. Schilling-green secretions through the tracheostomy. Has been spiking fevers. Getting pancultured. at the bedside. Progress review of systems cannot be done patient intubated Active Medications Acetaminophen (Acetaminophen Tab 325 Mg Tab) 650 mg PO Q6HR PRN PRN Reason: Mild Pain or Fever > 100.5 Last Admin: 03/13/20 04:41 Dose: 650 mg Documented by: Albuterol/Ipratropium (Ipratropium-Albuterol 3 Ml Neb) 3 ml INHALATION RT-Q4H [facility] Last Admin: 03/13/20 15:01 Dose: 3 ml Documented by: Artificial Tears (Artificial Tears-Hypromellose Drops 15 Ml Btl) 2 drops BOTH EYES Q4HR [facility] Last Admin: 03/13/20 16:20 Dose: 2 drops Documented by: Chlorhexidine Gluconate (Chlorhexidine Gluconate 15 Ml Cup) 15 ml MUCOUS MEM BID YANI Last Admin: 03/13/20 10:26 Dose: 15 ml Documented by: Heparin Sodium (Porcine) (Heparin Sodium,Porcine 5,000 Unit/Ml 1 Ml Vial) 5,000 unit SQ Q8HR YANI Last Admin: 03/13/20 16:17 Dose: 5,000 unit Documented by: Hydromorphone HCl (Hydromorphone 1 Mg/Ml 1 Ml Syringe) 1 mg IVP Q2HR PRN PRN Reason: Pain Last Admin: 03/13/20 03:53 Dose: 1 mg Documented by: Propofol 1,000 mg/ IV Solution 100 mls @ 0 mls/hr IV .Q0M [facility]; Protocol Last Admin: 03/13/20 13:06 Dose: 55 mcg/kg/min, 40.326 mls/hr Documented by: Levofloxacin 750 mg/ IV (Solution) 150 mls @ 100 mls/hr IVPB Q24H [facility] Last Admin: 03/13/20 16:16 Dose: 100 mls/hr Documented by: Sodium Chloride (Saline 0.9%) 1,000 mls @ 40 mls/hr IV .Q24H [facility] Last Admin: 03/12/20 21:50 Dose: 40 mls/hr Documented by: Ibuprofen (Ibuprofen 800 Mg Tab) 800 mg PO QID PRN PRN Reason: Fever and/ or Pain Last Admin: 03/13/20 10:26 Dose: 800 mg Documented by: Insulin Aspart (Insulin Aspart (Novolog) 100 Unit/Ml Vial) 0 unit SQ Q4HR [facility]; Protocol Last Admin: 03/13/20 16:17 Dose: 2 unit Documented by: Miscellaneous Information (Magnesium Replacement Protocol 1 Each Misc) 1 each MISCELLANE DAILY PRN; Protocol PRN Reason: Per Protocol Miscellaneous Information (Potassium Replacement Protocol 1 Each Misc) 1 each MISCELLANE DAILY PRN; Protocol PRN Reason: Per Protocol Naloxone HCl (Naloxone 0.4 Mg/Ml 1 Ml Vial) 0.2 mg IV Q2M PRN PRN Reason: Opioid Reversal Pantoprazole Sodium (Pantoprazole 40 Mg/10 Ml Vial) 40 mg IVP DAILY [facility] Last Admin: 03/13/20 10:26 Dose: 40 mg Documented by: Vancomycin HCl (Vancomycin Oral Solution 250 Mg/5 Ml Bottle) 250 mg OG-TUBE Q6HR [facility] On examination: VITAL SIGNS: T-max 102.1, 81, 27, 119/64, 96% on the ventilator GENERAL APPEARANCE: laying in bed, intubated, HEENT: Intubated, OG-tube present EYES: Pupils equal. Conjunctiva normal. NECK: JVD unable to assess. Mass not palpable. RESPIRATORY: Respiratory effort increased. Lungs decreased breath sounds CARDIOVASCULAR: First and second sounds normal. No edema. ABDOMEN: Soft. Liver and spleen not palpable. No tenderness. No mass palpable. Kamara catheter PSYCHIATRY: Patient sedated INVESTIGATIONS, reviewed in the clinical context: White count 26.5 hemoglobin 11 increased neutrophils, sodium 146 creatinine 0.81 Chest x-ray film personally reviewed by me-bilateral infiltrates right greater than left Computed tomography scan of the abdomen-nonspecific findings. Consolidation in the right lower lobe. Previous testing: Abdominal ultrasound-hepatosplenomegaly CBD dilated at 9 mm Chest [id number] infiltrates Urine Legionella antigen positive Assessment: -Acute hypoxic respiratory failure from bilateral lower lobe pneumonia, ARDS, re quiring mechanical ventilation-slow to respond -Possible Legionella pneumonia -Persistent sepsis-repeat panculture-slow to respond. -COVID 19 negative -Chronic pain syndrome -GERD -Essential hypertension -Chronic pain syndrome sees Dr. cook -Chronic nicotine dependence cigarette smoker -Chronic spine herniated disc with spinal stenosis -Morbid obesity BMI 54.4 -Hyperglycemia secondary to steroids. No diabetes. -Possible ischemic hepatitis. - Plan: Patient currently on DuoNeb, artificial tears, subcu heparin, IV Levaquin, IV propofol, IV Zosyn-discontinued. Oral vancomycin added per Dr. Givens. Patient had a couple of loose stools. Care was discussed with her at the bedside.
[2020-03-13] MEDS: VANCOMYCIN ORAL SOLUTION 250 MG/5 ML BOTTLE OG-TUBE SCH ×2 (18:41→23:14)
--- NOTE | 2020-03-13 19:14 | PN ---
PROGRESS NOTE DATE OF SERVICE: 03/13/2020 REASON FOR FOLLOWUP: 1. Acute Legionella pneumonia. 2. Persistent fever. INTERVAL HISTORY: The patient did spike another fever this morning of 102.1 degrees Fahrenheit. The patient is currently hemodynamically stable, not on any pressor support. FiO2 stable 96. The patient noted to have some diarrhea by the nursing staff. Though hemodynamically stable, not on any pressor support. PHYSICAL EXAMINATION: Blood pressure 119/64, pulse 81. Temperature 99.5. She is 96% on 50% FiO2. General description is a middle-aged female lying in bed in no distress. Respiratory system: Unlabored breathing with decreased breath sounds in the bases. No wheeze. HEART: S1, S2. Regular rate and rhythm. ABDOMEN: Soft. No tenderness. LABS: Hemoglobin is 11.9, white count 6.5. BUN of 32, creatinine 0.81. Bronch and lavage cultures so far negative. Blood culture negative. The patient did have a CT of abdomen and pelvis multifocal small areas of ground-glass opacities, consolidation left lung base and right lung base possible colitis. DIAGNOSTIC IMPRESSION AND PLAN: Patient with acute Legionella pneumonia with acute respiratory failure with concern for possible aspiration pneumonia. The patient now with persistent fever and elevated white count with some component of colitis seen on the CT. Stool for C diff will be requested. We will empirically add oral vancomycin and see clinical response to it and monitor clinical course closely. MMJAVEDL / DARELL: [id number] /
[2020-03-13 20:34] LABS: Glucose,Whole Blood 135 mg/dL (75-99)
[2020-03-13] MEDS: SODIUM CHLORIDE 0.9% 1,000 ML IV SCH (20:35)
[2020-03-13 23:40] LABS: Glucose,Whole Blood 136 mg/dL (75-99)
[2020-03-14] MEDS: INSULIN ASPART (NovoLOG) 100 UNIT/ML VIAL SQ SCH ×6 (00:02→19:39)
[2020-03-14] MEDS: IPRATROPIUM-ALBUTEROL 3 ML NEB INHALATION SCH ×7 (00:02→22:55)
[2020-03-14] MEDS: ARTIFICIAL TEARS-HYPROMELLOSE DROPS 15 ML BTL BOTH EYES SCH ×5 (03:47→19:39)
[2020-03-14 03:57] LABS: Glucose,Whole Blood 162 mg/dL (75-99)
[2020-03-14] MEDS: HYDROmorphone 1 MG/ML 1 ML SYRINGE IVP PRN ×6 (04:04→21:36)
[2020-03-14 04:11] LABS: HGB 10.2 gm/dL (11.4-16.0); Hypochromasia Slight; MCH 30.7 pg (25.0-35.0); MCV 95.8 fL (80.0-100.0); Mean Platelet Volume 7.5; Platelet Count 371 k/uL (150-450); RBC 3.34 m/uL (3.80-5.40); RDW 14.3 % (11.5-15.5); WBC 21.1 k/uL (3.8-10.6)
[2020-03-14 04:28] LABS: African American GFR (CKD) >90 (>60 ml/min/1.73 sqM); Anion Gap 2 mmol/L; Blood Urea Nitrogen 33 mg/dL (7-17); Carbon Dioxide 29 mmol/L (22-30); Chloride 112 mmol/L (98-107); Glucose 162 mg/dL (74-99); Non-African American GFR(CKD) >90 (>60 ml/min/1.73 sqM); Potassium 3.7 mmol/L (3.5-5.1); Sodium 143 mmol/L (137-145)
[2020-03-14 04:29] LABS: Band Neutrophils % 13 %; Lymphocytes # (M) 1.48 k/uL (1.0-4.8); Metamyelocytes # (M) 1.27 k/uL (0); Metamyelocytes % 6 %; Monocytes # (M) 0.63 k/uL (0-1.0); Myelocytes # (M) 0.42 k/uL (0); Myelocytes % 2 %; Neutrophils % (M) 70 %; Nucleated Red Blood Cells 0 /100 WBC (0-0); Total Cells Counted 200
[2020-03-14 04:30] LABS: Anisocytosis (M) Present; Poikilocytosis (M) Present; Toxic Granulation Present; Toxic Vacuolation Present
[2020-03-14 04:31] LABS: Polychromasia Present
[2020-03-14 05:01] LABS: ABG Base Excess 5.5 mmol/L; ABG HCO3 30 mmol/L (21-25); ABG Oxygen Saturation 97.1 % (94-97); ABG PCO2 43 mmHg (35-45); ABG PH 7.45 (7.35-7.45); ABG PO2 87 mmHg (83-108); ABG TCO2 31 mmol/L (19-24); Allen Test Performed? Yes
[2020-03-14] MEDS: POTASSIUM CHLORIDE 10 MEQ in WATER FOR INJECTION 1 100ML.BAG IVPB SCH ×2 (05:57→06:55)
[2020-03-14] MEDS: VANCOMYCIN ORAL SOLUTION 250 MG/5 ML BOTTLE OG-TUBE SCH ×3 (05:57→17:36)
[2020-03-14 06:40] LABS: Triglycerides 805 mg/dL (<150)
[2020-03-14 07:49] LABS: Glucose,Whole Blood 139 mg/dL (75-99)
--- NOTE | 2020-03-14 07:51 | XR ---
EXAMINATION TYPE: XR chest 1V portable DATE OF EXAM: 03/14/2020 COMPARISON: Prior chest x-ray 03/13/2020 HISTORY: Intubated TECHNIQUE: Single frontal view of the chest is obtained. FINDINGS: Endotracheal tube, NG tube, right jugular central venous catheter are all again noted and appear stable. There are overlying cardiac leads. No evident pneumothorax. Increased density has deve loped in the interval in the left lung base, left hemidiaphragm is obscured. Airspace disease persist s on the right. Heart size may be accentuated by technique. IMPRESSION: Correlate for pneumonia, edema, associated effusion
[2020-03-14] MEDS: HEPARIN SODIUM,PORCINE 5,000 UNIT/ML 1 ML VIAL SQ SCH ×2 (08:22→15:48)
[2020-03-14] MEDS: CHLORHEXIDINE GLUCONATE 15 ML CUP MUCOUS MEM SCH ×2 (08:22→19:39)
[2020-03-14] MEDS: PANTOPRAZOLE 40 MG/10 ML VIAL IVP SCH (08:23)
[2020-03-14 11:29] LABS: Glucose,Whole Blood 148 mg/dL (75-99)
--- NOTE | 2020-03-14 11:34 | PN ---
PROGRESS NOTE PULMONARY/CRITICAL CARE PROGRESS NOTE: DATE OF SERVICE: 03/14/2020 Critical care time 34 minutes. This is a 49-year-old female who was admitted back on March 06. She came in with abdominal pain and pneumonia. Unfortunately, she developed acute impending hypoxemic respiratory failure in david respiratory distress and was intubated 2 days later on March 08. She was seen by my partners over the weekend. Currently, she remains on the ventilator. She has developed acute respiratory distress syndrome, but has improved over the last couple of days. Currently, she is on the volume assist-control mode rate of 36, tidal volume 350, FiO2 50%, PEEP of 12 to be turned down to PEEP of 10. Blood gases today show a pO2 of 87, pCO2 43, pH 7.44. Currently, she is on propofol at 25 mics/kg/minute, saline at 40 mL an hour and Vital high-protein at 28 with a goal of 28 mL an hour. Yesterday, she was re-cultured. She had a CT of the abdomen and pelvis which did not show anything acute. It was ordered by Infectious Diseases. Again currently, her overall situation seems to be stable and a bit improved. The patient remains on Zosyn and Levaquin as per ID. Current vital signs reviewed. Temperature 98.4, heart rate 80, respiratory rate is 36, blood pressure 164/82, mean is 93. CVP is 14. Saturations are 97%. She appears in no acute distress. Currently stable. Sedated. HEENT: Examination is grossly unremarkable. Neck has full range of motion. No adenopathy. Neck veins are flat. CARDIOVASCULAR: Examination reveals regular rhythm rate. Heart rate 80 beats per minute. Heart sounds are distant. No murmur. LUNGS: Reveal diffuse coarse rhonchi bilaterally. Breath sounds equal. No crackles or wheezes. ABDOMEN: Soft. Bowel sounds are heard. EXTREMITIES: Intact. Minimal edema. No cyanosis or clubbing. SKIN: Without rash. NEUROLOGIC: Examination could not be properly assessed. LABS: Reviewed. White count 21.1, hemoglobin 10.2, hematocrit 32.0, platelet count 371,000. Blood gases show a pO2 of 87, pCO2 of 43 and a pH is 7.45. Sodium 143, potassium 3.7, chloride 112, CO2 29, anion gap is 2. BUN and creatinine were 33 and 0.61. Microbiology is all negative. Urinary Legionella antigen was positive. Chest x-ray was done on March 14. It does show bilateral lower lobe infiltrates. The abnormalities tend to be more right than left-sided. CURRENT MEDICATIONS: Reviewed. The patient is currently on Tylenol, Artificial Tears, chlorhexidine, subcu heparin, Dilaudid, Motrin, insulin, DuoNeb, Levaquin, magnesium, Narcan, Protonix, potassium replacement, vancomycin orally, and propofol. Zosyn has apparently been discontinued. ASSESSMENT: 1. Acute hypoxemic respiratory failure, requiring intubation and mechanical ventilation for bilateral lower lobe pneumonia on March 08, 2020. 2. Subsequent development of acute lung injury and acute respiratory distress syndrome, requiring high concentrations of oxygen and PEEP, somewhat improved. 3. Failure to wean from mechanical ventilation or even make significant progress, although more recently, FiO2 and PEEP levels have been weaned. 4. Acute community-acquired pneumonia, which may relate to underlying Legionella pneumophila pneumonia. 5. COVID-19 testing negative x3. 6. Chronic pain syndrome. 7. History of lumbar stenosis and herniated disk. 8. History of benign essential hypertension. 9. PLAN: The patient will have her PEEP dropped from 12 to 10. She will remain on the ventilator for now. Tomorrow we will attempt a daily interruption of sedation with spontaneous breathing trial. She is being nourished with Vital high-protein at 28, which is goal. Abdomen and pelvic CT scan were negative essentially. The patient will be re-cultured. No additional recommendations are made. She is on oral vancomycin and also Levaquin IV. Zosyn has been discontinued. Appreciate ID input. Prognosis is guarded. MMODL / IJN: [id number] /
[2020-03-14 15:22] LABS: Glucose,Whole Blood 137 mg/dL (75-99)
--- NOTE | 2020-03-14 15:43 | P.PN ---
Progress Note - Text Progress Note Date: 03/14/20 Presenting complaint: Intubated Interval history: Patient presented with fever, shortness of breath. Admitted with acute respiratory failure secondary to Legionella pneumonia. COVID 19 was ruled out. Started on IV Levaquin and Zosyn. Sepsis. Hypovolemic, hyponatremia. [id number]. FiO2 50 and a PEEP of 10. Telemetry shows sinus rhythm. Drips included propofol. Stool negative for C. diff.. [address] Progress review of systems cannot be done patient intubated Active Medications Acetaminophen (Acetaminophen Tab 325 Mg Tab) 650 mg PO Q6HR PRN PRN Reason: Mild Pain or Fever > 100.5 Last Admin: 03/13/20 04:41 Dose: 650 mg Documented by: Albuterol/Ipratropium (Ipratropium-Albuterol 3 Ml Neb) 3 ml INHALATION RT-Q4H [facility] Last Admin: 03/14/20 14:54 Dose: 3 ml Documented by: Artificial Tears (Artificial Tears-Hypromellose Drops 15 Ml Btl) 2 drops BOTH EYES Q4HR [facility] Last Admin: 03/14/20 12:36 Dose: 2 drops Documented by: Chlorhexidine Gluconate (Chlorhexidine Gluconate 15 Ml Cup) 15 ml MUCOUS MEM BID [facility] Last Admin: 03/14/20 08:22 Dose: 15 ml Documented by: Heparin Sodium (Porcine) (Heparin Sodium,Porcine 5,000 Unit/Ml 1 Ml Vial) 5,000 unit SQ Q8HR [facility] Last Admin: 03/14/20 08:22 Dose: 5,000 unit Documented by: Hydromorphone HCl (Hydromorphone 1 Mg/Ml 1 Ml Syringe) 1 mg IVP Q2HR PRN PRN Reason: Pain Last Admin: 03/14/20 11:56 Dose: 1 mg Documented by: Propofol 1,000 mg/ IV Solution 100 mls @ 0 mls/hr IV .Q0M [facility]; Protocol Last Titration: 03/14/20 15:00 Dose: 30 mcg/kg/min, 21.834 mls/hr Documented by: Levofloxacin 750 mg/ IV (Solution) 150 mls @ 100 mls/hr IVPB Q24H [facility] Last Admin: 03/13/20 16:16 Dose: 100 mls/hr Documented by: Sodium Chloride (Saline 0.9%) 1,000 mls @ 40 mls/hr IV .Q24H [facility] Last Admin: 03/13/20 20:35 Dose: 40 mls/hr Documented by: Ibuprofen (Ibuprofen 800 Mg Tab) 800 mg PO QID PRN PRN Reason: Fever and/ or Pain Last Admin: 03/13/20 10:26 Dose: 800 mg Documented by: Insulin Aspart (Insulin Aspart (Novolog) 100 Unit/Ml Vial) 0 unit SQ Q4HR [facility]; Protocol Last Admin: 03/14/20 11:56 Dose: 1 unit Documented by: Miscellaneous Information (Magnesium Replacement Protocol 1 Each Misc) 1 each MISCELLANE DAILY PRN; Protocol PRN Reason: Per Protocol Miscellaneous Information (Potassium Replacement Protocol 1 Each Misc) 1 each MISCELLANE DAILY PRN; Protocol PRN Reason: Per Protocol Naloxone HCl (Naloxone 0.4 Mg/Ml 1 Ml Vial) 0.2 mg IV Q2M PRN PRN Reason: Opioid Reversal Pantoprazole Sodium (Pantoprazole 40 Mg/10 Ml Vial) 40 mg IVP DAILY [facility] Last Admin: 03/14/20 08:23 Dose: 40 mg Documented by: Vancomycin HCl (Vancomycin Oral Solution 250 Mg/5 Ml Bottle) 250 mg OG-TUBE Q6HR [facility] Last Admin: 03/14/20 12:36 Dose: 250 mg Documented by: On examination: VITAL SIGNS: Afebrile, 73, 30, 138/71, 96% on the ventilator GENERAL APPEARANCE: laying in bed, intubated, HEENT: Intubated, OG-tube present EYES: Pupils equal. Conjunctiva normal. NECK: JVD unable to assess. Mass not palpable. RESPIRATORY: Respiratory effort increased. Lungs decreased breath sounds CARDIOVASCULAR: First and second sounds normal. No edema. ABDOMEN: Soft. Liver and spleen not palpable. No tenderness. No mass palpable. Kamara catheter PSYCHIATRY: Patient sedated INVESTIGATIONS, reviewed in the clinical context: White count 21.1 hemoglobin 10.2 potassium 3.7 creatinine 0.61 Chest x-ray film personally reviewed by me-bilateral infiltrates right greater than left Computed tomography scan of the abdomen-nonspecific findings. Consolidation in the right lower lobe. Previous testing: Abdominal ultrasound-hepatosplenomegaly CBD dilated at 9 mm Chest [id number] infiltrates Urine Legionella antigen positive Assessment: -Acute hypoxic respiratory failure from bilateral lower lobe pneumonia, ARDS, requiring mechanical ventilation-slow to respond -Possible Legionella pneumonia -Persistent sepsis-repeat panculture-slow to respond. -COVID 19 negative -Chronic pain syndrome -GERD -Essential hypertension -Chronic pain syndrome sees Dr. cook -Chronic nicotine dependence cigarette smoker -Chronic spine herniated disc with spinal stenosis -Morbid obesity BMI 54.4 -Hyperglycemia secondary to steroids. No diabetes. -Possible ischemic hepatitis. - Plan: Continue DuoNeb, artificial tears, subcu heparin, IV Levaquin, IV propofol,. Oral vancomycin-can be stopped C. diff negative.. Patient remains critical..
[2020-03-14] MEDS: LEVOFLOXACIN 750MG-D5W PMX 750 MG in DEXTROSE/WATER 1 150ML.BAG IVPB SCH (15:49)
[2020-03-14 19:34] LABS: Glucose,Whole Blood 130 mg/dL (75-99)
[2020-03-14] MEDS: SODIUM CHLORIDE 0.9% 1,000 ML IV SCH (19:38)
--- NOTE | 2020-03-14 22:52 | PN ---
PROGRESS NOTE DATE OF SERVICE: 03/14/2020 REASON FOR FOLLOWUP: 1. Acute Legionella pneumonia. 2. Possible C. diff. INTERVAL HISTORY: Patient is currently afebrile. The patient is hemodynamically stable, not on any pressor support. FiO2 is currently stable at 50% and the patient's diarrhea has improved. EXAMINATION: Her blood pressure is 115/62 with a pulse of 73, temperature 98.4. She is 100% on 50% FIO2. General description is a middle-aged female intubated on the vent. Respiratory system: Unlabored breathing, decreased breath sounds at the base, no wheeze. Heart S1, S2. Regular rate and rhythm. Abdomen soft, no tenderness. Extremities: Trace edema of feet. LABS: Hemoglobin is 10.3, white count 21.1. BUN of 33, creatinine 0.61. DIAGNOSTIC IMPRESSION AND PLAN: 1. Patient with acute Legionella pneumonia currently covered with Levaquin. The patient did have a bronchoscopy and those cultures have been negative. Zosyn discontinued. 2. Patient with diarrhea with fever, elevated white count, possible C diff. Clinically responding to oral vancomycin, to continue and monitor clinical course closely. MMODL / IJN: [id number] /
[2020-03-15] MEDS: HYDROmorphone 1 MG/ML 1 ML SYRINGE IVP PRN ×3 (00:03→09:30)
[2020-03-15 00:04] LABS: Glucose,Whole Blood 145 mg/dL (75-99)
[2020-03-15] MEDS: HEPARIN SODIUM,PORCINE 5,000 UNIT/ML 1 ML VIAL SQ SCH ×3 (00:29→18:34)
[2020-03-15] MEDS: VANCOMYCIN ORAL SOLUTION 250 MG/5 ML BOTTLE OG-TUBE SCH ×4 (00:30→18:27)
[2020-03-15] MEDS: INSULIN ASPART (NovoLOG) 100 UNIT/ML VIAL SQ SCH ×6 (00:30→19:53)
[2020-03-15] MEDS: ARTIFICIAL TEARS-HYPROMELLOSE DROPS 15 ML BTL BOTH EYES SCH ×6 (00:30→19:53)
[2020-03-15] MEDS: IPRATROPIUM-ALBUTEROL 3 ML NEB INHALATION SCH ×6 (02:53→23:03)
[2020-03-15 04:14] LABS: Glucose,Whole Blood 126 mg/dL (75-99)
[2020-03-15 04:19] LABS: African American GFR (CKD) >90 (>60 ml/min/1.73 sqM); Anion Gap 2 mmol/L; Blood Urea Nitrogen 31 mg/dL (7-17); Calcium 7.9 mg/dL (8.4-10.2); Carbon Dioxide 27 mmol/L (22-30); Chloride 115 mmol/L (98-107); Glucose 135 mg/dL (74-99); Non-African American GFR(CKD) >90 (>60 ml/min/1.73 sqM); Sodium 144 mmol/L (137-145)
[2020-03-15 04:25] LABS: HGB 10.4 gm/dL (11.4-16.0); Hypochromasia Slight; MCH 30.6 pg (25.0-35.0); MCHC 31.5 g/dL (31.0-37.0); MCV 97.3 fL (80.0-100.0); Mean Platelet Volume 7.6; Platelet Count 348 k/uL (150-450); RBC 3.39 m/uL (3.80-5.40); RDW 14.6 % (11.5-15.5); WBC 21.2 k/uL (3.8-10.6)
[2020-03-15 05:20] LABS: Band Neutrophils % 12 %; Eosinophils # (M) 0.42 k/uL (0-0.7); Lymphocytes # (M) 2.76 k/uL (1.0-4.8); Metamyelocytes # (M) 1.27 k/uL (0); Metamyelocytes % 6 %; Monocytes # (M) 0.42 k/uL (0-1.0); Myelocytes # (M) 0.21 k/uL (0); Myelocytes % 1 %; Neutrophils % (M) 66 %; Nucleated Red Blood Cells 0 /100 WBC (0-0); Total Cells Counted 200
[2020-03-15 05:21] LABS: Anisocytosis (M) Present; Large Platelets Present
[2020-03-15 05:22] LABS: Polychromasia Present
[2020-03-15 05:23] LABS: Poikilocytosis (M) Present
[2020-03-15 05:41] LABS: ABG Base Excess 3.6 mmol/L; ABG HCO3 28 mmol/L (21-25); ABG Oxygen Saturation 93.2 % (94-97); ABG PCO2 39 mmHg (35-45); ABG PH 7.46 (7.35-7.45); ABG PO2 65 mmHg (83-108); ABG TCO2 29 mmol/L (19-24); Allen Test Performed? Yes
[2020-03-15 07:51] LABS: Glucose,Whole Blood 140 mg/dL (75-99)
[2020-03-15] MEDS: PANTOPRAZOLE 40 MG/10 ML VIAL IVP SCH (07:54)
[2020-03-15] MEDS: CHLORHEXIDINE GLUCONATE 15 ML CUP MUCOUS MEM SCH ×2 (07:55→19:52)
--- NOTE | 2020-03-15 08:02 | XR ---
EXAMINATION TYPE: XR chest 1V portable DATE OF EXAM: 03/15/2020 COMPARISON: 03/14/2020 INDICATION: Assess lungs TECHNIQUE: Single frontal view of the chest is obtained. FINDINGS: The heart size is with prominent. The pulmonary vasculature is indistinct. Is diffuse increased lung markings through the right lung and in the left perihilar region. Milder in filtrate is in the left lower lobe. Left central venous catheter is present with the tip in the right atrium. Endotracheal tube tip is ab ove the cortez. Nasogastric tube transverses the thorax. IMPRESSION: 1. Bilateral lung infiltrates, increasing in the left perihilar region. 2. Multiple lines and catheters discussed above
[2020-03-15 12:01] LABS: Glucose,Whole Blood 139 mg/dL (75-99)
[2020-03-15] MEDS ORDERED: FUROSEMIDE 10 MG/ML 4 ML VIAL IV STA (12:55)
--- NOTE | 2020-03-15 13:35 | PN ---
PROGRESS NOTE PULMONARY/CRITICAL CARE PROGRESS NOTE: DATE OF SERVICE: 03/15/2020 Critical care time 33 minutes. This is a 49-year-old female who was admitted back on March 06. She initially came in with abdominal pain and pneumonia. Unfortunately, she developed acute impending hypoxemic respiratory failure with david respiratory distress and was intubated two days later on March 08. The patient remains on the mechanical ventilator. She did develop acute lung injury with ARDS. Initially, she was on 100% and 18 of PEEP and we have been able to wean her down to 50% and 10 of PEEP. Currently, her vent settings include the volume assist-control modality, rate 36, tidal volume 350, FiO2 of 50%, PEEP of 10. Blood gases show pO2 of 65, pCO2 of 39 and pH 7.45. She remains on propofol at 50 mcg/kg per minute, saline at 40 mL an hour and Vital high-protein at 28 with a goal of 28 mL an hour. Because she is doing much better, we will attempt a daily interruption of sedation and spontaneous breathing trial on 10 of pressure support and 5 of CPAP. In addition, the patient will get Lasix 40 mg IV push for fluid overload. The patient remains on antibiotics. Other than her urinary Legionella antigen, all culture data including bronch results have been negative. PHYSICAL EXAMINATION: VITAL SIGNS: Current vital signs good temperature 96, heart rate 82, respiratory rate 15, blood pressure 110/74, and a saturation 93%. She appears in no acute distress, she is currently sedated. HEENT: Examination is grossly unremarkable. There is an orally placed endotracheal tube and NG tube. NECK: Supple. Full range of motion. No adenopathy. Neck veins are flat. CARDIOVASCULAR: Examination reveals regular rhythm and rate. Heart rate mid 80s. S1, S2 normal. Heart sounds are distant. LUNGS: Reveal diffuse coarse rhonchi. Breath sounds are diminished. No wheezes or crackles. ABDOMEN: Obese. Bowel sounds are heard. EXTREMITIES are intact. Mild edema. No cyanosis or clubbing. SKIN: Without rash. NEUROLOGIC: Examination could not be adequately assessed. White count 21.2, hemoglobin 10.4, hematocrit 33.0, platelet count 348,000. Blood gases have been noted. Sodium 144, potassium 4, chloride 115, CO2 27, anion gap is 2, BUN and creatinine were 31 and 0.57. Microbiologic data is all negative up to this point. Her most recent chest x-ray done this morning shows diffuse bilateral infiltrates, more so in the left parahilar region. CURRENT MEDICATIONS: Reviewed. She is currently on Tylenol, Artificial Tears, chlorhexidine, subcu heparin, Dilaudid p.r.n., ibuprofen for fever control, sliding scale insulin, DuoNeb, Levaquin, magnesium replacement, Narcan, Protonix, potassium replacement protocol, propofol, saline IV, and oral vancomycin. ASSESSMENT: 1. Acute hypoxemic respiratory failure requiring intubation and mechanical ventilation for bilateral lower lobe pneumonia, March 08, 2020. 2. Subsequent development of acute lung injury/ARDS, requiring high concentrations of oxygen and high levels of PEEP, somewhat improved. 3. Failure to wean from mechanical ventilation although patient will have a daily interruption of sedation and spontaneous breathing trial today. 4. Acute community-acquired pneumonia, which may relate to underlying new Legionella pneumophila pneumonia. 5. COVID-19 testing negative x3. 6. Chronic pain syndrome. 7. History of lumbar stenosis and herniated disk. 8. History of benign essential hypertension. PLAN: Currently, the patient's respiratory status has slightly improved. She is down to 50% and 10 of PEEP. We will attempt a daily interruption of sedation and spontaneous breathing trial on PSV 10, CPAP of 5. She will get Lasix 40 mg IV push prior. No additional recommendations are made. Prognosis is guarded. She may end up needing a tracheostomy and PEG tube placement. Culture data is all negative. She is currently on Levaquin and oral vancomycin. We will continue to follow. Prognosis is guarded. MMODL / IJN: [id number] /
--- NOTE | 2020-03-15 14:17 | P.PN ---
Progress Note - Text Progress Note Date: 03/15/20 Presenting complaint: Intubated Interval history: Patient presented with fever, shortness of breath. Admitted with acute respiratory failure secondary to Legionella pneumonia. COVID 19 was ruled out. Started on IV Levaquin and Zosyn. Sepsis. Hypovolemic, hyponatremia. Empirically being treated with Flagyl by ID for C. diff.. [id number]. FiO2 50 and a PEEP of 10. Telemetry shows sinus rhythm. Propofol dose decreased. 2 feeding to continue. Patient awake. Following simple commands. Progress review of systems cannot be done patient intubated Active Medications Acetaminophen (Acetaminophen Tab 325 Mg Tab) 650 mg PO Q6HR PRN PRN Reason: Mild Pain or Fever > 100.5 Last Admin: 03/13/20 04:41 Dose: 650 mg Documented by: Albuterol/Ipratropium (Ipratropium-Albuterol 3 Ml Neb) 3 ml INHALATION RT-Q4H [facility] Last Admin: 03/15/20 12:51 Dose: 3 ml Documented by: Artificial Tears (Artificial Tears-Hypromellose Drops 15 Ml Btl) 2 drops BOTH EYES Q4HR [facility] Last Admin: 03/15/20 13:32 Dose: Not Given Documented by: Chlorhexidine Gluconate (Chlorhexidine Gluconate 15 Ml Cup) 15 ml MUCOUS MEM BID [facility] Last Admin: 03/15/20 07:55 Dose: 15 ml Documented by: Heparin Sodium (Porcine) (Heparin Sodium,Porcine 5,000 Unit/Ml 1 Ml Vial) 5,000 unit SQ Q8HR [facility] Last Admin: 03/15/20 07:56 Dose: 5,000 unit Documented by: Hydromorphone HCl (Hydromorphone 1 Mg/Ml 1 Ml Syringe) 1 mg IVP Q2HR PRN PRN Reason: Pain Last Admin: 03/15/20 09:30 Dose: 1 mg Documented by: Propofol 1,000 mg/ IV Solution 100 mls @ 0 mls/hr IV .Q0M [facility]; Protocol Last Admin: 03/15/20 08:18 Dose: 50 mcg/kg/min, 36.39 mls/hr Documented by: Levofloxacin 750 mg/ IV (Solution) 150 mls @ 100 mls/hr IVPB Q24H [facility] Last Admin: 03/14/20 15:49 Dose: 100 mls/hr Documented by: Sodium Chloride (Saline 0.9%) 1,000 mls @ 40 mls/hr IV .Q24H [facility] Last Admin: 03/14/20 19:38 Dose: 40 mls/hr Documented by: Ibuprofen (Ibuprofen 800 Mg Tab) 800 mg PO QID PRN PRN Reason: Fever and/ or Pain Last Admin: 03/13/20 10:26 Dose: 800 mg Documented by: Insulin Aspart (Insulin Aspart (Novolog) 100 Unit/Ml Vial) 0 unit SQ Q4HR [facility]; Protocol Last Admin: 03/15/20 13:32 Dose: Not Given Documented by: Miscellaneous Information (Magnesium Replacement Protocol 1 Each Misc) 1 each MISCELLANE DAILY PRN; Protocol PRN Reason: Per Protocol Miscellaneous Information (Potassium Replacement Protocol 1 Each Misc) 1 each MISCELLANE DAILY PRN; Protocol PRN Reason: Per Protocol Naloxone HCl (Naloxone 0.4 Mg/Ml 1 Ml Vial) 0.2 mg IV Q2M PRN PRN Reason: Opioid Reversal Pantoprazole Sodium (Pantoprazole 40 Mg/10 Ml Vial) 40 mg IVP DAILY [facility] Last Admin: 03/15/20 07:54 Dose: 40 mg Documented by: Vancomycin HCl (Vancomycin Oral Solution 250 Mg/5 Ml Bottle) 250 mg OG-TUBE Q6HR [facility] Last Admin: 03/15/20 13:32 Dose: Not Given Documented by: On examination: VITAL SIGNS: 98.6, 74, 23, 120 7066, 94% on ventilator GENERAL APPEARANCE: laying in bed, intubated, somewhat awake HEENT: Intubated, OG-tube present EYES: Pupils equal. Conjunctiva normal. NECK: JVD unable to assess. Mass not palpable. RESPIRATORY: Respiratory effort increased. Lungs decreased breath sounds CARDIOVASCULAR: First and second sounds normal. No edema. ABDOMEN: Soft. Liver and spleen not palpable. No tenderness. No mass palpable. Kamara catheter PSYCHIATRY: Patient sedated INVESTIGATIONS, reviewed in the clinical context: White count 21.2 hemoglobin 10.4 potassium 4 creatinine 0.57 Previous testing Chest x-ray film personally reviewed by me-bilateral infiltrates right greater than left Computed tomography scan of the abdomen-nonspecific findings. Consolidation in the right lower lobe. Abdominal ultrasound-hepatosplenomegaly CBD dilated at 9 mm Chest [id number] infiltrates Urine Legionella antigen positive Sputum-Luisa albicans Assessment: -Acute hypoxic respiratory failure from bilateral lower lobe pneumonia, ARDS, requiring mechanical ventilation-slow to respond -Possible Legionella pneumonia -Persistent sepsis-repeat fevers - down -COVID 19 negative -Chronic pain syndrome -GERD -Essential hypertension -Chronic pain syndrome sees Dr. cook -Chronic nicotine dependence cigarette smoker -Chronic spine herniated disc with spinal stenosis -Morbid obesity BMI 54.4 -Hyperglycemia secondary to steroids. No diabetes. -Possible ischemic hepatitis. - Plan: Continue DuoNeb, artificial tears, subcu heparin, IV Levaquin, IV propofol,. Oral vancomycin-continued empirically as patient is responding though C. diff reported negative
[2020-03-15] MEDS: LEVOFLOXACIN 750MG-D5W PMX 750 MG in DEXTROSE/WATER 1 150ML.BAG IVPB SCH (18:33)
[2020-03-15 19:45] LABS: Glucose,Whole Blood 202 mg/dL (75-99)
[2020-03-15] MEDS: SODIUM CHLORIDE 0.9% 1,000 ML IV SCH (19:53)
[2020-03-16] MEDS: ARTIFICIAL TEARS-HYPROMELLOSE DROPS 15 ML BTL BOTH EYES SCH ×6 (00:49→19:50)
[2020-03-16] MEDS: INSULIN ASPART (NovoLOG) 100 UNIT/ML VIAL SQ SCH ×6 (00:49→20:46)
[2020-03-16 00:50] LABS: Glucose,Whole Blood 141 mg/dL (75-99)
[2020-03-16] MEDS: HYDROmorphone 1 MG/ML 1 ML SYRINGE IVP PRN ×4 (00:51→22:29)
[2020-03-16] MEDS: HEPARIN SODIUM,PORCINE 5,000 UNIT/ML 1 ML VIAL SQ SCH ×3 (00:51→17:25)
[2020-03-16] MEDS: VANCOMYCIN ORAL SOLUTION 250 MG/5 ML BOTTLE OG-TUBE SCH ×2 (00:51→06:42)
[2020-03-16] MEDS: IPRATROPIUM-ALBUTEROL 3 ML NEB INHALATION SCH ×5 (03:23→18:20)
[2020-03-16 03:57] LABS: Glucose,Whole Blood 147 mg/dL (75-99)
[2020-03-16 04:58] LABS: ALT 72 U/L (4-34); AST 72 U/L (14-36); African American GFR (CKD) >90 (>60 ml/min/1.73 sqM); Albumin 2.7 g/dL (3.5-5.0); Alkaline Phosphatase 142 U/L (38-126); Anion Gap 3 mmol/L; Blood Urea Nitrogen 26 mg/dL (7-17); Calcium 7.9 mg/dL (8.4-10.2); Carbon Dioxide 29 mmol/L (22-30); Chloride 111 mmol/L (98-107); Glucose 154 mg/dL (74-99); Non-African American GFR(CKD) >90 (>60 ml/min/1.73 sqM); Potassium 3.4 mmol/L (3.5-5.1); Sodium 143 mmol/L (137-145); Total Bilirubin 0.8 mg/dL (0.2-1.3); Total Protein 5.8 g/dL (6.3-8.2)
[2020-03-16 05:10] LABS: ABG Base Excess 4.7 mmol/L; ABG HCO3 29 mmol/L (21-25); ABG Oxygen Saturation 95.8 % (94-97); ABG PCO2 41 mmHg (35-45); ABG PH 7.45 (7.35-7.45); ABG PO2 78 mmHg (83-108); ABG TCO2 30 mmol/L (19-24); Allen Test Performed? Yes
--- NOTE | 2020-03-16 05:56 | PN ---
PROGRESS NOTE DATE OF SERVICE: 03/15/2020 REASON FOR FOLLOWUP: 1. Acute Legionella pneumonia. 2. Possible C difficile. INTERVAL HISTORY: The patient is currently afebrile. The patient is hemodynamically stable. FiO2 is currently stable at 50%. No significant purulent secretion through ET. The patient continued to have diarrhea for which the patient did have fecal management system. PHYSICAL EXAMINATION: Blood pressure 126/68 with a pulse of 91, temperature 99.1. She is 96% on 50% FiO2. General description is a middle-aged female intubated on the vent. RESPIRATORY SYSTEM: Unlabored breathing, decreased breath sounds at the bases. No wheeze. HEART: S1, S2. Regular rate and rhythm. ABDOMEN: Soft, no tenderness. EXTREMITIES: No edema of feet. LABS: Hemoglobin is 10.4, white count 21.2, BUN of 31, creatinine 0.57. DIAGNOSTIC IMPRESSION AND PLAN: 1. Patient with acute Legionella pneumonia for which the patient is currently covered with Levaquin and to continue. 2. Patient did have a fever, elevated white count and diarrhea with concern for possible Clostridium difficile, though stool for Clostridium difficile came back negative; however, the patient's fever and white count responded to the oral vancomycin which will be continued. Monitor clinical course closely. MMODL / IJN: [id number] /
[2020-03-16 05:59] LABS: HCT 33.6 % (34.0-46.0); HGB 10.8 gm/dL (11.4-16.0); MCHC 32.3 g/dL (31.0-37.0); Mean Platelet Volume 8.4; Platelet Count 355 k/uL (150-450); RDW 14.5 % (11.5-15.5); WBC 21.4 k/uL (3.8-10.6)
[2020-03-16] MEDS: POTASSIUM BICARBONATE/CIT AC 20 MEQ TABLET.EFF NG-TUBE SCH ×2 (06:41→08:28)
[2020-03-16 07:16] LABS: Band Neutrophils % 16 %; Eosinophils # (M) 0.43 k/uL (0-0.7); Lymphocytes # (M) 3.64 k/uL (1.0-4.8); Metamyelocytes # (M) 0.64 k/uL (0); Metamyelocytes % 3 %; Monocytes # (M) 0.21 k/uL (0-1.0); Myelocytes # (M) 0.43 k/uL (0); Myelocytes % 2 %; Neutrophils % (M) 59 %; Nucleated Red Blood Cells 0 /100 WBC (0-0); Total Cells Counted 200
[2020-03-16 07:17] LABS: Toxic Granulation Present
[2020-03-16 07:19] LABS: Toxic Vacuolation Present
[2020-03-16] MEDS: CHLORHEXIDINE GLUCONATE 15 ML CUP MUCOUS MEM SCH ×2 (08:23→20:43)
[2020-03-16] MEDS: PANTOPRAZOLE 40 MG/10 ML VIAL IVP SCH (08:23)
--- NOTE | 2020-03-16 08:26 | XR ---
EXAMINATION TYPE: XR chest 1V portable DATE OF EXAM: 03/16/2020 COMPARISON: Prior chest x-ray 03/15/2020 HISTORY: ARDS, intubated TECHNIQUE: Single frontal view of the chest is obtained. FINDINGS: There is improved aeration as compared to prior exam. Endotracheal tube, orogastric tube, right jugular central venous catheter are overlying stable position. There is no evident pneumothorax . Persistent increased density noted at the right lung base obscures the right hemidiaphragm, interva l improved visualization of the left hemidiaphragm. Heart size likely stable accounting for differenc es in technique. IMPRESSION: Improved aeration especially in the left lung as compared to prior exam.
[2020-03-16] MEDS: DEXMEDETOMIDINE/0.9% NACL(PMX) 400 MCG in EMPTY BAG 1 BAG IV SCH (10:30)
[2020-03-16 12:15] LABS: Glucose,Whole Blood 200 mg/dL (75-99)
[2020-03-16] MEDS ORDERED: ANIDULAFUNGIN 200 MG in SODIUM CHLORIDE 0.9% 200 ML IVPB ONE (13:00)
--- NOTE | 2020-03-16 14:42 | P.PN ---
Subjective Progress Note Date: 03/16/20 This is a 49-year-old here patient remains intubated on a mechanical ventilator for lower lobe pneumonia since 03/08/2020. The patient developed acute hypoxic respiratory failure requiring intubation mechanical ventilation. Subsequently, she developed an acute lung injury/ARDS and the patient required high level of oxygen and PEEP level. The patient had an acute pneumonia" at 19 testing came back negative and the patient checked positive for Legionella and and had urine antigen, negative influenza screen, and bronchoscopy was further done and the bronchioloalveolar lavage was negative for any other microbial growth. The patient is currently on Levaquin and vancomycin. She remains intubated on a mechanical ventilator. She remains sedated, and comfortable. This morning, the patient remains on a mechanical ventilator and she is on a PEEP of 10 with an FiO2 of 50%. Respiratory rate is a 36 with a tidal volume of 350. She is on propofol which is running at 50 g per KG per minute. Normal saline is running at 40 mL an hour. She is receiving vital high protein enteral feeding for nutri tional support at the rate of 28 mL an hour which is at goal. The patient is being seen in the follow-up today in the intensive care unit on 03/16/2020. The chest x-ray still showing extensive consolidation of the right lung base. The patient's triglyceride level was noted to be quite elevated. Based on that, I made recommendations to stop the propofol is was this patient to Precedex for now and use Versed if needed. Note that earlier this morning, the patient is still on a low tidal volume ventilation. I made the necessity ventilator changes as the patient's airway pressures are not elevated at this point in time and the patient was urinating higher tidal volumes on a mechanical ventilator. The patient is arousable while off the sedation. Tolerating enteral feeding for nutritional support. CAT scan of the chest will be needed to characterized abnormal mass in the right lower lobe. The patient is on Levaquin IV. The patient has a fecal management system for some limited diarrhea. No evidence of any significant colitis. No fever. The patient has some Luisa elements in the mouth and infection disease saw the patient and evaluated her and added Eraxis. Objective - Vital Signs Vital signs: Vital Signs Temp 98.4 F 03/16/20 12:00 Pulse 82 03/16/20 14:00 Resp 19 10/05/20 14:00 BP 110/74 03/16/20 14:00 Pulse Ox 96 03/16/20 14:00 Intake & Output 03/15/20 03/16/20 03/16/20 18:59 06:59 18:59 Intake Total 068.945 9186.970 Output Total 3925 1270 Balance -3474.271 339.970 Weight 124.3 kg 118.9 kg Intake: IV 222 679 0.9 Normal Saline 180 490 Levofloxacin 750Mg-D5w 150 Pmx 750 mg In Dextrose/ Water 1 150ml.bag @ 100 mls/hr IVPB Q24H YANI Rx#: [id number] Normal Saline Pressure 42 39 bag Intake, IV Titration 86.729 504.970 Amount propofoL 1,000 mg In 86.729 504.970 Empty Bag 1 bag @ Titrate IV .Q0M YANI Rx#: [id number] Tube Feeding 112 336 Other 30 90 Output: Urine 3925 1270 Other: Voiding Method Indwelling Catheter Indwelling Catheter ABP, PAP, CO, CI - Last Documented Arterial Blood Pressure 141/82 - Exam Gen. appearance, comfortable not this is intubated on a mechanical ventilator. Orogastric and orotracheal tube are both in place. Sedated with propofol. Head exam was generally normal. There was no scleral icterus or corneal arcus. Mucous membranes were moist. Neck was supple and without jugular venous distension, thyromegaly, or carotid bruits. Carotids were easily palpable bilaterally. There was no adenopathy. Lungs sounds are diminished in the right lung base otherwise there is no wheezes, rhonchi or crackles Cardiac exam revealed the PMI to be normally situated and sized. The rhythm was regular and no extrasystoles were noted during several minutes of auscultation. The first and second heart sounds were normal and physiologic splitting of the second heart sound was noted. There were no murmurs, rubs, clicks, or gallops. Abdominal exam revealed normal bowel sounds. The abdomen was soft, non-tender, and without masses, organomegaly, or appreciable enlargement of the abdominal aorta. Examination of the extremities revealed easily palpable radial, femoral and pedal pulses. There was no cyanosis, clubbing or edema. Examination of the skin revealed no evidence of significant rashes, suspicious appearing nevi or other concerning lesions. Neurologic is sedated - Labs CBC & Chem 7: 03/16/20 03:58 03/16/20 03:58 Labs: Abnormal Lab Results - Last 24 Hours (Table) 03/15/20 03/16/20 03/16/20 Range/Units 19:43 00:48 03:55 WBC (3.8-10.6) k/uL RBC (3.80-5.40) m/uL Hgb (11.4-16.0) gm/dL Hct (34.0-46.0) % Neutrophils # (Manual) (1.3-7.7) k/uL Metamyelocytes # (Man) (0) k/uL Myelocytes # (Manual) (0) k/uL ABG pO2 (83-108) mmHg ABG HCO3 (21-25) mmol/L ABG Total CO2 (19-24) mmol/L Potassium (3.5-5.1) mmol/L Chloride (98-107) mmol/L BUN (7-17) mg/dL Glucose (74-99) mg/dL POC Glucose (mg/dL) 202 H 141 H 147 H (75-99) mg/dL Calcium (8.4-10.2) mg/dL AST (14-36) U/L ALT (4-34) U/L Alkaline Phosphatase (38-126) U/L Total Protein (6.3-8.2) g/dL Albumin (3.5-5.0) g/dL 03/16/20 03/16/20 03/16/20 Range/Units 03:58 03:58 05:08 WBC 21.4 H (3.8-10.6) k/uL RBC 3.50 L (3.80-5.40) m/uL Hgb 10.8 L (11.4-16.0) gm/dL Hct 33.6 L (34.0-46.0) % Neutrophils # (Manual) 16.00 H (1.3-7.7) k/uL Metamyelocytes # (Man) 0.64 H (0) k/uL Myelocytes # (Manual) 0.43 H (0) k/uL ABG pO2 78 L (83-108) mmHg ABG HCO3 29 H (21-25) mmol/L ABG Total CO2 30 H (19-24) mmol/L Potassium 3.4 L (3.5-5.1) mmol/L Chloride 111 H (98-107) mmol/L BUN 26 H (7-17) mg/dL Glucose 154 H (74-99) mg/dL POC Glucose (mg/dL) (75-99) mg/dL Calcium 7.9 L (8.4-10.2) mg/dL AST 72 H (14-36) U/L ALT 72 H (4-34) U/L Alkaline Phosphatase 142 H (38-126) U/L Total Protein 5.8 L (6.3-8.2) g/dL Albumin 2.7 L (3.5-5.0) g/dL 03/16/20 Range/Units 12:14 WBC (3.8-10.6) k/uL RBC (3.80-5.40) m/uL Hgb (11.4-16.0) gm/dL Hct (34.0-46.0) % Neutrophils # (Manual) (1.3-7.7) k/uL Metamyelocytes # (Man) (0) k/uL Myelocytes # (Manual) (0) k/uL ABG pO2 (83-108) mmHg ABG HCO3 (21-25) mmol/L ABG Total CO2 (19-24) mmol/L Potassium (3.5-5.1) mmol/L Chloride (98-107) mmol/L BUN (7-17) mg/dL Glucose (74-99) mg/dL POC Glucose (mg/dL) 200 H (75-99) mg/dL Calcium (8.4-10.2) mg/dL AST (14-36) U/L ALT (4-34) U/L Alkaline Phosphatase (38-126) U/L Total Protein (6.3-8.2) g/dL Albumin (3.5-5.0) g/dL Microbiology - Last 24 Hours (Table) 03/13/20 10:55 Blood Culture - Preliminary Blood No Growth after 72 hours 03/13/20 19:40 Gram Stain - Final Sputum Sputum Culture - Final Luisa albicans 03/13/20 14:09 Blood Culture - Preliminary Blood No Growth after 48 hours Assessment and Plan Plan: 1 acute hypoxic respiratory failure secondary to Legionella pneumonia. The patient have bronchoscopy and the bronchioloalveolar lavage was negative. The Legionella urine antigen was positive. The patient had negative influenza screen. The Covid 19 testing was also negative. The patient remains on Levaquin. She remains intubated on a mechanical ventilator. The patient was found to have some Luisa in the sputum and Eraxis was also added by infectious disease. Utility of this antibiotic is questionable as the patient's working diagnosis is very much consistent with Legionella pneumonia. 2 ARDS secondary to Legionella pneumonia, improved and the based on day airway pressures, the patient's lungs are obviously more compliant compared to yeste rday and today before. 3 sepsis secondary to Legionella pneumonia 4 obesity, morbid with a BMI 55.3. 5 hypertension 6 chronic back pain as the patient has lumbar stenosis and herniated this diseas e 7 leukocytosis 8 enteral feeding for nutritional support 9 mild transaminitis secondary to Legionella 10 hypertriglyceridemia secondary to propofol infusion Plan Continue ventilator support Increase the tidal volume 450 and dropped a respiratory rate down to 24, keep the PEEP at 10 and there is no further room for improvement at this point in time. Peak air pressures around 26 with a static airway pressure of 20. Perform a CAT scan of the chest to characterized abnormalities in the right lower lobe. Fluid is doubtful and I think this is a Legionella related pneumonia/consolidation Continue Levaquin Fecal management system Enteral feeding for nutritional support Eraxis per ID Monitor the white cell count Stop the propofol and switch this patient to Precedex drip as the patient's t riglycerides are quite elevated May utilize Versed if needed Not ready for weaning and will continue to follow make further recommendations based on her progress. Condition is critical and his evaluation was done more than 30 minutes. Time with Patient: Greater than 30
[2020-03-16] MEDS: MIDAZOLAM HCL 50 MG in SODIUM CHLORIDE 0.9% 40 ML IV SCH ×2 (15:30→20:43)
[2020-03-16 17:16] LABS: Glucose,Whole Blood 177 mg/dL (75-99)
[2020-03-16] MEDS: LEVOFLOXACIN 750MG-D5W PMX 750 MG in DEXTROSE/WATER 1 150ML.BAG IVPB SCH (17:25)
[2020-03-16] MEDS: SODIUM CHLORIDE 0.9% 1,000 ML IV SCH (19:50)
[2020-03-16 20:43] LABS: Glucose,Whole Blood 144 mg/dL (75-99)
--- NOTE | 2020-03-16 20:57 | CT ---
EXAMINATION TYPE: CT chest wo con DATE OF EXAM: 03/16/2020 COMPARISON: Chest x-ray same date, CT 03/07/2020 HISTORY: Follow up for pneumonia. CT DLP: 995.9 mGycm. Automated Exposure Control for Dose Reduction was Utilized. TECHNIQUE: CT scan of the thorax is performed without IV contrast. FINDINGS: Endotracheal tube is present within the tracheal air column. LUNGS: The lungs are improved, upper lobes and right middle lobe are better aerated as compared to pr ior exam, there is persistent groundglass opacity present in the right lower lobe greater than left, minimal bilateral pleural effusions. There is an orogastric tube present within the stomach. Central venous catheter shows the distal tip in the right atrium. MEDIASTINUM: Lack of IV contrast is noted to limit evaluation for mediastinal and especially hilar ad enopathy. There are no definitive greater than 1 cm hilar or mediastinal lymph nodes. No cardiomega ly or pericardial effusion is seen. OTHER: No significant increased attenuation is present within the subcutaneous fat of the flanks whi ch is indeterminate.. IMPRESSION: There is some improvement in aeration compared to prior exam. Noncontrast exam.
--- NOTE | 2020-03-16 22:23 | P.PN ---
Progress Note - Text Progress Note Date: 03/16/20 Presenting complaint: Intubated Interval history: Patient presented with fever, shortness of breath. Admitted with acute respiratory failure secondary to Legionella pneumonia. COVID 19 was ruled out. Started on IV Levaquin and Zosyn. Sepsis. Hypovolemic, hyponatremia. Empirically being treated with Flagyl by ID for C. diff.. [id number]. FiO2 50 and a PEEP of 10. Telemetry shows sinus rhythm. On 2 feeding at 32 mL an hour. Started on IV antifungal, IV Levaquin, IV Versed. Propofol discontinued. Also on Precedex. Somewhat awake Progress review of systems cannot be done patient intubated Active Medications Acetaminophen (Acetaminophen Tab 325 Mg Tab) 650 mg PO Q6HR PRN PRN Reason: Mild Pain or Fever > 100.5 Last Admin: 03/13/20 04:41 Dose: 650 mg Documented by: Albuterol/Ipratropium (Ipratropium-Albuterol 3 Ml Neb) 3 ml INHALATION RT-Q4H YANI Last Admin: 03/16/20 18:20 Dose: 3 ml Documented by: Artificial Tears (Artificial Tears-Hypromellose Drops 15 Ml Btl) 2 drops BOTH EYES Q4HR YANI Last Admin: 03/16/20 19:50 Dose: 2 drops Documented by: Chlorhexidine Gluconate (Chlorhexidine Gluconate 15 Ml Cup) 15 ml MUCOUS MEM BID YANI Last Admin: 03/16/20 20:43 Dose: 15 ml Documented by: Heparin Sodium (Porcine) (Heparin Sodium,Porcine 5,000 Unit/Ml 1 Ml Vial) 5,000 unit SQ Q8HR YANI Last Admin: 03/16/20 17:25 Dose: 5,000 unit Documented by: Hydromorphone HCl (Hydromorphone 1 Mg/Ml 1 Ml Syringe) 1 mg IVP Q2HR PRN PRN Reason: Pain Last Admin: 03/16/20 13:53 Dose: 1 mg Documented by: Levofloxacin 750 mg/ IV (Solution) 150 mls @ 100 mls/hr IVPB Q24H YANI Last Admin: 03/16/20 17:25 Dose: 100 mls/hr Documented by: Sodium Chloride (Saline 0.9%) 1,000 mls @ 40 mls/hr IV .Q24H YANI Last Admin: 03/16/20 19:50 Dose: 40 mls/hr Documented by: Dexmedetomidine HCl 400 mcg/ (IV Solution) 100 mls @ 0 mls/hr IV .Q0M [facility]; Protocol Stop: 03/17/20 08:57 Last Titration: 03/16/20 12:00 Dose: 0.07 mcg/kg/hr, 2.081 mls/hr Documented by: Anidulafungin 100 mg/ Sodium (Chloride) 100 mls @ 84 mls/hr IVPB DAILY@1200 YANI Midazolam HCl 50 mg/ Sodium (Chloride) 50 mls @ 1 mls/hr IV .Q24H YANI; Protocol Last Admin: 03/16/20 20:43 Dose: 4 mg/hr, 4 mls/hr Documented by: Ibuprofen (Ibuprofen 800 Mg Tab) 800 mg PO QID PRN PRN Reason: Fever and/ or Pain Last Admin: 03/13/20 10:26 Dose: 800 mg Documented by: Insulin Aspart (Insulin Aspart (Novolog) 100 Unit/Ml Vial) 0 unit SQ Q4HR [facility]; Protocol Last Admin: 03/16/20 20:46 Dose: 1 unit Documented by: Miscellaneous Information (Magnesium Replacement Protocol 1 Each Misc) 1 each MISCELLANE DAILY PRN; Protocol PRN Reason: Per Protocol Miscellaneous Information (Potassium Replacement Protocol 1 Each Misc) 1 each MISCELLANE DAILY PRN; Protocol PRN Reason: Per Protocol Naloxone HCl (Naloxone 0.4 Mg/Ml 1 Ml Vial) 0.2 mg IV Q2M PRN PRN Reason: Opioid Reversal Pantoprazole Sodium (Pantoprazole 40 Mg/10 Ml Vial) 40 mg IVP DAILY [facility] Last Admin: 03/16/20 08:23 Dose: 40 mg Documented by: Vancomycin HCl (Vancomycin Oral Solution 250 Mg/5 Ml Bottle) 250 mg PO Q6HR [facility] On examination: VITAL SIGNS: 85, 24, 110/74, 97% on 50% ventilator GENERAL APPEARANCE: laying in bed, intubated, does open eyes HEENT: Intubated, OG-tube present EYES: Pupils equal. Conjunctiva normal. NECK: JVD unable to assess. Mass not palpable. RESPIRATORY: Respiratory effort increased. Lungs decreased breath sounds CARDIOVASCULAR: First and second sounds normal. No edema. ABDOMEN: Soft. Liver and spleen not palpable. No tenderness. No mass palpable. Kamara catheter PSYCHIATRY: Patient sedated INVESTIGATIONS, reviewed in the clinical context: White count 21.4 hemoglobin 10.8 potassium 3.4 creatinine 0.63 AST 72 ALT 72 albumin 2.7 Previous testing Chest x-ray film personally reviewed by me-bilateral infiltrates right greater than left Computed tomography scan of the abdomen-nonspecific findings. Consolidation in the right lower lobe. Abdominal ultrasound-hepatosplenomegaly CBD dilated at 9 mm Chest [id number] infiltrates Urine Legionella antigen positive Sputum-Luisa albicans Assessment: -Acute hypoxic respiratory failure from bilateral lower lobe pneumonia, ARDS, requiring mechanical ventilation-slow to respond - Legionella pneumonia -Bronchoscopy done on March 09 -Persistent sepsis-repeat fevers -improving -COVID 19 negative -Chronic pain syndrome -GERD -Essential hypertension -Chronic pain syndrome -Chronic nicotine dependence cigarette smoker -Chronic spine herniated disc with spinal stenosis -Morbid obesity BMI 54.4 -Hyperglycemia secondary to steroids. No diabetes. -Possible ischemic hepatitis.-Improving - Plan: IV antifungal added by ID today. Patient also on Precedex, IV Levaquin, IV medazepam, vancomycin. Remains critical. In ICU. Follow with refractory mixer, ID.
--- NOTE | 2020-03-16 23:42 | PN ---
PROGRESS NOTE DATE OF SERVICE: 03/16/2020 REASON FOR FOLLOWUP: 1. Acute Legionella pneumonia. 2. Diarrhea with question of C difficile. 3. Elevated white count, question of oropharyngeal candidiasis. INTERVAL HISTORY: The patient is currently afebrile. The patient is hemodynamically stable not on pressor support. FiO2 is currently down to 50%. Patient is slightly more awake, opening her eyes. She has been tolerating her tube feeds and no worsening diarrhea reported by nursing staff. PHYSICAL EXAMINATION: Blood pressure 132/70 with a pulse of 85, temperature 98. She is 98% on 50% FiO2. General description is a middle-aged female lying in bed in no distress. RESPIRATORY SYSTEM: Unlabored breathing, decreased breath sounds at the bases. No wheeze. HEART: S1, S2. Regular rate and rhythm. ABDOMEN: Soft, no tenderness. EXTREMITIES: No edema of the feet. LABS: Hemoglobin is 10.8, white count 21.4, BUN of 26, creatinine 0.63. DIAGNOSTIC IMPRESSION AND PLAN: 1. Patient with acute Legionella pneumonia. Patient is covered with Levaquin to continue. 2. The patient with diarrhea, significant concern for Clostridium difficile. Oral vancomycin discontinued by the Pulmonary staff though responding to the vancomycin needs to be monitored closely. 3. Patient with persistent elevated white count and sputum has positive for Luisa. Concern for possible oropharyngeal candidiasis and Eraxis will be added and see clinical response. MMODL / IJN: [id number] /
[2020-03-17] MEDS: HEPARIN SODIUM,PORCINE 5,000 UNIT/ML 1 ML VIAL SQ SCH ×4 (00:04→23:45)
[2020-03-17] MEDS: VANCOMYCIN ORAL SOLUTION 250 MG/5 ML BOTTLE PO SCH ×5 (00:05→23:42)
[2020-03-17] MEDS: ARTIFICIAL TEARS-HYPROMELLOSE DROPS 15 ML BTL BOTH EYES SCH ×7 (00:05→23:41)
[2020-03-17 00:12] LABS: Glucose,Whole Blood 168 mg/dL (75-99)
[2020-03-17] MEDS: INSULIN ASPART (NovoLOG) 100 UNIT/ML VIAL SQ SCH ×7 (00:22→23:44)
[2020-03-17] MEDS: IPRATROPIUM-ALBUTEROL 3 ML NEB INHALATION SCH ×6 (01:06→19:00)
[2020-03-17 04:12] LABS: Glucose,Whole Blood 245 mg/dL (75-99)
[2020-03-17] MEDS: ACETAMINOPHEN TAB 325 MG TAB PO PRN ×2 (04:54→17:18)
[2020-03-17 05:55] LABS: ABG Base Excess 4.2 mmol/L; ABG HCO3 28 mmol/L (21-25); ABG Oxygen Saturation 97.3 % (94-97); ABG PCO2 39 mmHg (35-45); ABG PH 7.47 (7.35-7.45); ABG PO2 85 mmHg (83-108); ABG TCO2 29 mmol/L (19-24); Allen Test Performed? Yes
[2020-03-17 06:23] LABS: Basophils # (A) 0.1 k/uL (0-0.2); Basophils % (A) 0 %; Eosinophils # (A) 0.2 k/uL (0-0.7); Eosinophils % (A) 2 %; HCT 33.2 % (34.0-46.0); HGB 10.5 gm/dL (11.4-16.0); Hypochromasia Slight; Lymphocytes # (A) 1.8 k/uL (1.0-4.8); Lymphocytes % (A) 12 %; MCH 31.3 pg (25.0-35.0); MCHC 31.6 g/dL (31.0-37.0); Mean Platelet Volume 9.2; Monocytes # (A) 0.7 k/uL (0-1.0); Monocytes % (A) 5 %; Neutrophils # (A) 11.4 k/uL (1.3-7.7); Neutrophils % (A) 80 %; Platelet Count 273 k/uL (150-450); RBC 3.36 m/uL (3.80-5.40); RDW 14.4 % (11.5-15.5); WBC 14.3 k/uL (3.8-10.6)
[2020-03-17 06:28] LABS: African American GFR (CKD) >90 (>60 ml/min/1.73 sqM); Anion Gap 6 mmol/L; Blood Urea Nitrogen 24 mg/dL (7-17); Calcium 8.2 mg/dL (8.4-10.2); Carbon Dioxide 27 mmol/L (22-30); Chloride 110 mmol/L (98-107); Glucose 190 mg/dL (74-99); Non-African American GFR(CKD) >90 (>60 ml/min/1.73 sqM); Potassium 4.2 mmol/L (3.5-5.1); Sodium 143 mmol/L (137-145)
[2020-03-17] MEDS: MIDAZOLAM HCL 50 MG in SODIUM CHLORIDE 0.9% 40 ML IV SCH ×2 (06:35→20:03)
--- NOTE | 2020-03-17 08:45 | XR ---
EXAMINATION TYPE: XR chest 1V portable DATE OF EXAM: 03/17/2020 COMPARISON: 03/16/2020 HISTORY: Shortness of breath TECHNIQUE: Single frontal view of the chest is obtained. FINDINGS: Bilateral consolidation and pleural effusion. ET tube, NG tube and central line stable. No sizable pneumothorax. Heart size stable. IMPRESSION: 1. Bilateral infiltrate and small effusion greater on the right stable.
[2020-03-17] MEDS: CHLORHEXIDINE GLUCONATE 15 ML CUP MUCOUS MEM SCH ×2 (10:04→20:17)
[2020-03-17] MEDS: PANTOPRAZOLE 40 MG/10 ML VIAL IVP SCH (10:05)
[2020-03-17 10:11] LABS: Glucose,Whole Blood 247 mg/dL (75-99)
[2020-03-17 12:21] LABS: Glucose,Whole Blood 223 mg/dL (75-99)
--- NOTE | 2020-03-17 12:28 | P.PN ---
Subjective Progress Note Date: 03/17/20 This is a 49-year-old here patient remains intubated on a mechanical ventilator for lower lobe pneumonia since 03/08/2020. The patient developed acute hypoxic respiratory failure requiring intubation mechanical ventilation. Subsequently, she developed an acute lung injury/ARDS and the patient required high level of oxygen and PEEP level. The patient had an acute pneumonia" at 19 testing came back negative and the patient checked positive for Legionella and and had urine antigen, negative influenza screen, and bronchoscopy was further done and the bronchioloalveolar lavage was negative for any other microbial growth. The patient is currently on Levaquin and vancomycin. She remains intubated on a mechanical ventilator. She remains sedated, and comfortable. This morning, the patient remains on a mechanical ventilator and she is on a PEEP of 10 with an FiO2 of 50%. Respiratory rate is a 36 with a tidal volume of 350. She is on propofol which is running at 50 g per KG per minute. Normal saline is running at 40 mL an hour. She is receiving vital high protein enteral feeding for nutr itional support at the rate of 28 mL an hour which is at goal. The patient is being seen in the follow-up today in the intensive care unit on 03/16/2020. The chest x-ray still showing extensive consolidation of the right lung base. The patient's triglyceride level was noted to be quite elevated. Based on that, I made recommendations to stop the propofol is was this patient to Precedex for now and use Versed if needed. Note that earlier this morning, the patient is still on a low tidal volume ventilation. I made the necessity ventilator changes as the patient's airway pressures are not elevated at this point in time and the patient was urinating higher tidal volumes on a mechanical ventilator. The patient is arousable while off the sedation. Tolerating enteral feeding for nutritional support. CAT scan of the chest will be needed to characterized abnormal mass in the right lower lobe. The patient is on Levaquin IV. The patient has a fecal management system for some limited diarrhea. No evidence of any significant colitis. No fever. The patient has some Luisa elements in the mouth and infection disease saw the patient and evaluated her and added Eraxis. On 03/17/2020 on seeing this patient for a follow-up in regards to her respiratory failure and Legionella pneumonia. The patient remains quite sedated and the patient is currently on a combination of Precedex at 1 mg per KG and Versed which is running at 6 malignant is an hour. The patient is was sedated and she is easily arousable. No agitation. In terms of her mechanical ventilator, the patient remains on assist control mode of ventilation at the rate of 20 with a tidal volume of 450 and FiO2 of 50% with a PEEP of 10. The blood gases from today shows a pH of 7.47 with a pCO2 of 39 and pO2 of 85 and this was on FiO2 of 50%. CAT scan of the chest was done yesterday and it showed extensive consolidation of the right lower lobe related to Legionella pneumonia. Was no evidence of any pleural effusion. A repeat chest x-ray from today shows interval improvement and the right lower lobe pulmonary infiltrate and a left perihilar infiltrate compared to previous chest x-rays. The patient's white cell count gradually improving and is down to 14.3. Hemoglobin stable at 10.5. Renal function is also stable with a creatinine of 0.6 with a BUN of 24. No other significant events overnight. The patient is tolerating enteral feeding for nutritional support and the patient is currently on vital high protein at the rate of 32 mL an hour. The patient is a negative fluid balance of 3.1 L and the patient is producing adequate amount of urine output for now. Objective - Vital Signs Vital signs: Vital Signs Temp 97.7 F 03/17/20 08:00 Pulse 87 03/17/20 11:35 Resp 23 03/17/20 09:00 BP 110/74 03/17/20 09:00 Pulse Ox 98 03/17/20 09:00 Intake & Output 03/16/20 03/17/20 03/17/20 18:59 06:59 18:59 Intake Total 393.165 1292.141 248 Output Total 2205 1086 240 Balance -1643.640 -6.859 8 Weight 122.5 kg Intake: IV 473 549 184 0.9 Normal Saline 440 480 160 Normal Saline Pressure 33 69 24 bag Intake, IV Titration 4.360 82.141 Amount Dexmedetomidine/0.9% NaCl 4.360 26.924 (Pmx) 400 mcg In Empty Bag 1 bag @ Titrate IV . Q0M YAIN Rx#:[id number] Midazolam HCl 50 mg In 55.217 Sodium Chloride 0.9% 40 ml @ 1 MG/HR 1 mls/hr IV .Q24H YANI Rx#:[id number] Tube Feeding 84 448 64 Output: Urine 2205 1086 240 Other: Voiding Method Indwelling Catheter Indwelling Catheter Indwelling Catheter ABP, PAP, CO, CI - Last Documented Arterial Blood Pressure 139/63 - Exam Gen. appearance, comfortable not this is intubated on a mechanical ventilator. Orogastric and orotracheal tube are both in place. Sedated with propofol. Head exam was generally normal. There was no scleral icterus or corneal arcus. Mucous membranes were moist. Neck was supple and without jugular venous distension, thyromegaly, or carotid bruits. Carotids were easily palpable bilaterally. There was no adenopathy. Lungs sounds are diminished in the right lung base otherwise there is no wheez es, rhonchi or crackles Cardiac exam revealed the PMI to be normally situated and sized. The rhythm was regular and no extrasystoles were noted during several minutes of auscultation. The first and second heart sounds were normal and physiologic splitting of the second heart sound was noted. There were no murmurs, rubs, clicks, or gallops. Abdominal exam revealed normal bowel sounds. The abdomen was soft, non-tender, and without masses, organomegaly, or appreciable enlargement of the abdominal a maritza. Examination of the extremities revealed easily palpable radial, femoral and pedal pulses. There was no cyanosis, clubbing or edema. Examination of the skin revealed no evidence of significant rashes, suspicious appearing nevi or other concerning lesions. Neurologic is sedated - Labs CBC & Chem 7: 03/17/20 04:15 03/17/20 04:15 Labs: Abnormal Lab Results - Last 24 Hours (Table) 03/16/20 03/16/20 03/17/20 Range/Units 17:14 20:42 00:11 WBC (3.8-10.6) k/uL RBC (3.80-5.40) m/uL Hgb (11.4-16.0) gm/dL Hct (34.0-46.0) % Neutrophils # (1.3-7.7) k/uL ABG pH (7.35-7.45) ABG HCO3 (21-25) mmol/L ABG Total CO2 (19-24) mmol/L ABG O2 Saturation (94-97) % Chloride (98-107) mmol/L BUN (7-17) mg/dL Glucose (74-99) mg/dL POC Glucose (mg/dL) 177 H 144 H 168 H (75-99) mg/dL Calcium (8.4-10.2) mg/dL 03/17/20 03/17/20 03/17/20 Range/Units 04:10 04:15 04:15 WBC 14.3 H (3.8-10.6) k/uL RBC 3.36 L (3.80-5.40) m/uL Hgb 10.5 L (11.4-16.0) gm/dL Hct 33.2 L (34.0-46.0) % Neutrophils # 11.4 H (1.3-7.7) k/uL ABG pH (7.35-7.45) ABG HCO3 (21-25) mmol/L ABG Total CO2 (19-24) mmol/L ABG O2 Saturation (94-97) % Chloride 110 H (98-107) mmol/L BUN 24 H (7-17) mg/dL Glucose 190 H (74-99) mg/dL POC Glucose (mg/dL) 245 H (75-99) mg/dL Calcium 8.2 L (8.4-10.2) mg/dL 03/17/20 03/17/20 03/17/20 Range/Units 05:50 10:09 12:19 WBC (3.8-10.6) k/uL RBC (3.80-5.40) m/uL Hgb (11.4-16.0) gm/dL Hct (34.0-46.0) % Neutrophils # (1.3-7.7) k/uL ABG pH 7.47 H (7.35-7.45) ABG HCO3 28 H (21-25) mmol/L ABG Total CO2 29 H (19-24) mmol/L ABG O2 Saturation 97.3 H (94-97) % Chloride (98-107) mmol/L BUN (7-17) mg/dL Glucose (74-99) mg/dL POC Glucose (mg/dL) 247 H 223 H (75-99) mg/dL Calcium (8.4-10.2) mg/dL Microbiology - Last 24 Hours (Table) 03/13/20 14:09 Blood Culture - Preliminary Blood No Growth after 72 hours 03/13/20 10:55 Blood Culture - Preliminary Blood No Growth after 72 hours 03/13/20 19:40 Gram Stain - Final Sputum Sputum Culture - Final Luisa albicans Assessment and Plan Plan: 1 acute hypoxic respiratory failure secondary to Legionella pneumonia. The patient have bronchoscopy and the bronchioloalveolar lavage was negative. The Legionella urine antigen was positive. The patient had negative influenza screen. The Covid 19 testing was also negative. The patient remains on Levaquin. She remains intubated on a mechanical ventilator. The patient was found to have some Luisa in the sputum and Eraxis was also added by infectious disease. Utility of this antibiotic is questionable as the patient's working diagnosis is very much consistent with Legionella pneumonia. The CAT scan of the chest showed extensive consolidation of the right lower lobe which is improving. The chest x-rays also showing gradual improvement in the pulmonary infiltrates. The patient oxidation is improved and the patient currently is on a combination of 10 of PEEP with an FiO2 of 50%. Blood gases was noted. We'll gradually wean down the PEEP if possible. 2 ARDS secondary to Legionella pneumonia, improved and the based on day airway pressures, the patient's lungs are obviously more compliant compared to yesterday and today before. 3 sepsis secondary to Legionella pneumonia, and the patient has leukocytosis which is improving 4 obesity, morbid with a BMI 55.3. 5 hypertension 6 chronic back pain as the patient has lumbar stenosis and herniated this disease 7 leukocytosis, improving 8 enteral feeding for nutritional support 9 mild transaminitis secondary to Legionella 10 hypertriglyceridemia secondary to propofol infusion, and the propofol infusion was discontinued and the patient is currently on a combination of Precedex and Versed 11 diarrhea with a negative stool for C. diff Plan Continue ventilator support with gradual attempts to wean down the PEEP Continue Precedex and Versed infusions for sedation Discontinue the propofol Continue enteral feeding for nutritional support No need for diuretics as the patient is producing adequate amount of urine output and the patient is a negative fluid balance White cell count is improving Hemodynamically stable I'm hoping that within next 24-48 hours. Able to do some weaning trials in this patient. We'll continue to follow. Is a critically care evaluation and this is done in more than 30 minutes. Time with Patient: Greater than 30
[2020-03-17] MEDS: DEXMEDETOMIDINE/0.9% NACL(PMX) 400 MCG in EMPTY BAG 1 BAG IV SCH ×3 (13:44→20:31)
[2020-03-17] MEDS: ANIDULAFUNGIN 100 MG in SODIUM CHLORIDE 0.9% 100 ML IVPB SCH (14:28)
--- NOTE | 2020-03-17 15:54 | P.PN ---
Progress Note - Text Progress Note Date: 03/17/20 Presenting complaint: Intubated Interval history: Patient presented with fever, shortness of breath. Admitted with acute respiratory failure secondary to Legionella pneumonia. COVID 19 was ruled out. Started on IV Levaquin and Zosyn. Sepsis. Hypovolemic, hyponatremia. Empirically being treated with Flagyl by ID for C. diff.. IV antifungal added. Cesuf-CRS-renovsxpi. FiO2 50 and now P4 8. Awake. Telemetry shows sinus rhythm. On IV midazolam, 2 feeding 32 mL an hour. Spiking fevers Progress review of systems cannot be done patient intubated Active Medications Acetaminophen (Acetaminophen Tab 325 Mg Tab) 650 mg PO Q6HR PRN PRN Reason: Mild Pain or Fever > 100.5 Last Admin: 03/17/20 04:54 Dose: 650 mg Documented by: Albuterol/Ipratropium (Ipratropium-Albuterol 3 Ml Neb) 3 ml INHALATION RT-Q4H YANI Last Admin: 03/17/20 15:29 Dose: 3 ml Documented by: Artificial Tears (Artificial Tears-Hypromellose Drops 15 Ml Btl) 2 drops BOTH EYES Q4HR YANI Last Admin: 03/17/20 13:45 Dose: Not Given Documented by: Chlorhexidine Gluconate (Chlorhexidine Gluconate 15 Ml Cup) 15 ml MUCOUS MEM BID YANI Last Admin: 03/17/20 10:04 Dose: 15 ml Documented by: Heparin Sodium (Porcine) (Heparin Sodium,Porcine 5,000 Unit/Ml 1 Ml Vial) 5,000 unit SQ Q8HR YANI Last Admin: 03/17/20 10:04 Dose: 5,000 unit Documented by: Hydromorphone HCl (Hydromorphone 1 Mg/Ml 1 Ml Syringe) 1 mg IVP Q2HR PRN PRN Reason: Pain Last Admin: 03/16/20 22:29 Dose: 1 mg Documented by: Levofloxacin 750 mg/ IV (Solution) 150 mls @ 100 mls/hr IVPB Q24H YANI Last Admin: 03/16/20 17:25 Dose: 100 mls/hr Documented by: Sodium Chloride (Saline 0.9%) 1,000 mls @ 40 mls/hr IV .Q24H YANI Last Admin: 03/16/20 19:50 Dose: 40 mls/hr Documented by: Anidulafungin 100 mg/ Sodium (Chloride) 100 mls @ 84 mls/hr IVPB DAILY@1200 YANI Last Admin: 03/17/20 14:28 Dose: 84 mls/hr Documented by: Midazolam HCl 50 mg/ Sodium (Chloride) 50 mls @ 1 mls/hr IV .Q24H [facility]; Protocol Last Admin: 03/17/20 06:35 Dose: 6 mg/hr, 6 mls/hr Documented by: Dexmedetomidine HCl 400 mcg/ (IV Solution) 100 mls @ 0 mls/hr IV .Q0M YANI; Protocol Last Admin: 03/17/20 14:28 Dose: 1 mcg/kg/hr, 30.625 mls/hr Documented by: Ibuprofen (Ibuprofen 800 Mg Tab) 800 mg PO QID PRN PRN Reason: Fever and/ or Pain Last Admin: 03/13/20 10:26 Dose: 800 mg Documented by: Insulin Aspart (Insulin Aspart (Novolog) 100 Unit/Ml Vial) 0 unit SQ Q4HR [facility]; Protocol Last Admin: 03/17/20 14:28 Dose: Not Given Documented by: Miscellaneous Information (Magnesium Replacement Protocol 1 Each Misc) 1 each MISCELLANE DAILY PRN; Protocol PRN Reason: Per Protocol Miscellaneous Information (Potassium Replacement Protocol 1 Each Misc) 1 each MISCELLANE DAILY PRN; Protocol PRN Reason: Per Protocol Naloxone HCl (Naloxone 0.4 Mg/Ml 1 Ml Vial) 0.2 mg IV Q2M PRN PRN Reason: Opioid Reversal Pantoprazole Sodium (Pantoprazole 40 Mg/10 Ml Vial) 40 mg IVP DAILY [facility] Last Admin: 03/17/20 10:05 Dose: 40 mg Documented by: Vancomycin HCl (Vancomycin Oral Solution 250 Mg/5 Ml Bottle) 250 mg PO Q6HR [facility] Last Admin: 03/17/20 13:46 Dose: Not Given Documented by: On examination: VITAL SIGNS: 102.6, 86, 71, 110 but 74, 97% on ventilator GENERAL APPEARANCE: laying in bed, intubated, eyes open HEENT: Intubated, OG-tube present EYES: Pupils equal. Conjunctiva normal. NECK: JVD unable to assess. Mass not palpable. RESPIRATORY: Respiratory effort increased. Lungs decreased breath sounds CARDIOVASCULAR: First and second sounds normal. No edema. ABDOMEN: Soft. Liver and spleen not palpable. No tenderness. No mass palpable. Kamara catheter PSYCHIATRY: Unable to assess INVESTIGATIONS, reviewed in the clinical context: White count 14.3 hemoglobin 10.5 platelets 273 potassium 4.2 creatinine 0.64 Previous testing Chest x-ray film personally reviewed by me-bilateral infiltrates right greater than left Computed tomography scan of the abdomen-nonspecific findings. Consolidation in the right lower lobe. Abdominal ultrasound-hepatosplenomegaly CBD dilated at 9 mm Chest [id number] infiltrates Urine Legionella antigen positive Sputum-Luisa albicans Assessment: -Acute hypoxic respiratory failure from bilateral lower lobe pneumonia, ARDS, requiring mechanical ventilation-slowly improving - Legionella pneumonia -Bronchoscopy done on March 09 -Persistent sepsis- spiking fevers - -COVID 19 negative -Chronic pain syndrome -GERD -Essential hypertension -Chronic pain syndrome -Chronic nicotine dependence cigarette smoker -Chronic spine herniated disc with spinal stenosis -Morbid obesity BMI 54.4 -Hyperglycemia secondary to steroids. No diabetes. -Possible ischemic hepatitis.-Improving - Plan: IV Eraxis, IV Levaquin, IV midazolam, vancomycin. Remains critical. In ICU.
[2020-03-17 16:45] LABS: Glucose,Whole Blood 220 mg/dL (75-99)
--- NOTE | 2020-03-17 17:04 | PN ---
PROGRESS NOTE DATE OF SERVICE: 03/17/2020 REASON FOR FOLLOWUP: 1. Acute legionella pneumonia. 2. Possible oropharyngeal candidiasis. INTERVAL HISTORY: Patient did spike a fever this morning of 103, followed by 102.6 in the afternoon. The patient is hemodynamically stable, not on pressor support. FiO2 is currently stable at 50%. No significant purulent secretion through the ET or any worsening diarrhea per the nursing staff. The patient is slightly more awake today. PHYSICAL EXAMINATION: Blood pressure 110/74, pulse of 89, temperature 100, T-max 103, she is 97% on 50% FiO2. General description is a middle-aged female, lying in bed in no distress. RESPIRATORY SYSTEM: Unlabored breathing, decreased breath sounds in the base, with no wheeze. HEART: S1, S2. Regular rate and rhythm. ABDOMEN: Soft, no tenderness. LABS: Hemoglobin is 10.4, white count 14.3, BUN of 24, creatinine 0.64. Sputum is Luisa albicans. CT of the chest done yesterday, improvement in aeration, did not mention any localized fluid. DIAGNOSTIC IMPRESSION AND PLAN: 1. Patient with acute Legionella pneumonia with acute respiratory failure only on the vent. The patient did have multiple cultures, those have been negative including bronchoscopy cultures and the white count has shown a downward trend. The patient is covered with Levaquin that will be continued. 2. Patient with elevated white count with concern for possible oropharyngeal candidiasis. The patient responded to Eraxis will be continued. Repeat culture has been ordered because of the new fever. Those will be followed. Continue supportive care. MMODL / IJN: [id number] /
[2020-03-17] MEDS: LEVOFLOXACIN 750MG-D5W PMX 750 MG in DEXTROSE/WATER 1 150ML.BAG IVPB SCH (17:19)
[2020-03-17] MEDS: HYDROmorphone 1 MG/ML 1 ML SYRINGE IVP PRN (17:41)
[2020-03-17 20:05] LABS: Glucose,Whole Blood 228 mg/dL (75-99)
[2020-03-17] MEDS: SODIUM CHLORIDE 0.9% 1,000 ML IV SCH (20:18)
[2020-03-17 22:56] LABS: Glucose,Whole Blood 219 mg/dL (75-99)
[2020-03-17 23:28] LABS: Glucose,Whole Blood 219 mg/dL (75-99)
[2020-03-17] MEDS: INSULIN DETEMIR (LEVEMIR) 100 UNIT/ML SYR SQ SCH (23:28)
[2020-03-17] MEDS ORDERED: IBUPROFEN 400 MG TAB PO PRN (23:43)
[2020-03-18] MEDS: IPRATROPIUM-ALBUTEROL 3 ML NEB INHALATION SCH ×7 (00:49→23:32)
[2020-03-18] MEDS: ACETAMINOPHEN TAB 325 MG TAB PO PRN (02:04)
[2020-03-18] MEDS: DEXMEDETOMIDINE/0.9% NACL(PMX) 400 MCG in EMPTY BAG 1 BAG IV SCH ×2 (02:11→06:18)
[2020-03-18 04:04] LABS: Glucose,Whole Blood 185 mg/dL (75-99)
[2020-03-18] MEDS: ARTIFICIAL TEARS-HYPROMELLOSE DROPS 15 ML BTL BOTH EYES SCH ×3 (04:11→12:41)
[2020-03-18] MEDS: INSULIN ASPART (NovoLOG) 100 UNIT/ML VIAL SQ SCH ×5 (04:28→20:39)
[2020-03-18 05:02] LABS: Basophils # (A) 0.1 k/uL (0-0.2); Basophils % (A) 0 %; Eosinophils # (A) 0.1 k/uL (0-0.7); Eosinophils % (A) 1 %; HCT 29.9 % (34.0-46.0); HGB 9.6 gm/dL (11.4-16.0); Lymphocytes % (A) 21 %; MCH 31.1 pg (25.0-35.0); MCHC 32.2 g/dL (31.0-37.0); MCV 96.7 fL (80.0-100.0); Mean Platelet Volume 7.7; Monocytes # (A) 0.8 k/uL (0-1.0); Monocytes % (A) 5 %; Neutrophils # (A) 10.1 k/uL (1.3-7.7); Neutrophils % (A) 71 %; Platelet Count 267 k/uL (150-450); RBC 3.09 m/uL (3.80-5.40); RDW 14.5 % (11.5-15.5); WBC 14.2 k/uL (3.8-10.6)
[2020-03-18 05:10] LABS: African American GFR (CKD) >90 (>60 ml/min/1.73 sqM); Anion Gap 2 mmol/L; Blood Urea Nitrogen 25 mg/dL (7-17); Calcium 7.9 mg/dL (8.4-10.2); Carbon Dioxide 30 mmol/L (22-30); Chloride 111 mmol/L (98-107); Glucose 213 mg/dL (74-99); Non-African American GFR(CKD) 90 (>60 ml/min/1.73 sqM); Potassium 3.5 mmol/L (3.5-5.1); Sodium 143 mmol/L (137-145)
[2020-03-18 05:38] LABS: ABG Base Excess 5.1 mmol/L; ABG HCO3 29 mmol/L (21-25); ABG Oxygen Saturation 95.2 % (94-97); ABG PCO2 42 mmHg (35-45); ABG PH 7.45 (7.35-7.45); ABG PO2 72 mmHg (83-108); ABG TCO2 30 mmol/L (19-24); Allen Test Performed? Yes
[2020-03-18 06:03] LABS: Glucose,Whole Blood 195 mg/dL (75-99)
[2020-03-18] MEDS: MIDAZOLAM HCL 50 MG in SODIUM CHLORIDE 0.9% 40 ML IV SCH (06:15)
[2020-03-18] MEDS: VANCOMYCIN ORAL SOLUTION 250 MG/5 ML BOTTLE PO SCH ×2 (06:20→12:36)
[2020-03-18] MEDS: POTASSIUM CHLORIDE 10 MEQ in WATER FOR INJECTION 1 100ML.BAG IVPB SCH ×6 (06:24→23:48)
[2020-03-18 07:49] LABS: Glucose,Whole Blood 215 mg/dL (75-99)
--- NOTE | 2020-03-18 08:00 | XR ---
EXAMINATION TYPE: XR chest 1V portable DATE OF EXAM: 03/18/2020 CLINICAL HISTORY: Shortness of breath TECHNIQUE: Portable semiupright view of the chest COMPARISON: 03/17/2020 chest radiograph FINDINGS: Endotracheal tube, enteric tube, and right internal jugular central venous catheter not sig nificantly changed. Low lung volumes accentuates the cardiac silhouette. Bilateral pleural effusions and bibasilar airspace opacities, mildly increased on the left versus 03/17/2020. No pneumothorax. IMPRESSION: Bilateral pleural effusions and bibasilar airspace opacities, mildly increased on the lef t.
[2020-03-18] MEDS: CHLORHEXIDINE GLUCONATE 15 ML CUP MUCOUS MEM SCH ×2 (08:04→20:32)
[2020-03-18] MEDS: HEPARIN SODIUM,PORCINE 5,000 UNIT/ML 1 ML VIAL SQ SCH ×2 (08:04→16:52)
[2020-03-18] MEDS: PANTOPRAZOLE 40 MG/10 ML VIAL IVP SCH (08:04)
[2020-03-18] MEDS ORDERED: CEFEPIME 1 GM in SODIUM CHLORIDE 0.9% 50 ML IVPB ONE (09:00)
[2020-03-18 09:42] LABS: ABG Base Excess 4.9 mmol/L; ABG HCO3 29 mmol/L (21-25); ABG Oxygen Saturation 92.3 % (94-97); ABG PCO2 41 mmHg (35-45); ABG PH 7.46 (7.35-7.45); ABG PO2 61 mmHg (83-108); ABG TCO2 30 mmol/L (19-24)
[2020-03-18 09:44] LABS: Allen Test Performed? no
[2020-03-18 11:31] LABS: Glucose,Whole Blood 153 mg/dL (75-99)
[2020-03-18 12:40] LABS: Glucose,Whole Blood 129 mg/dL (75-99)
[2020-03-18] MEDS: ANIDULAFUNGIN 100 MG in SODIUM CHLORIDE 0.9% 100 ML IVPB SCH (12:41)
--- NOTE | 2020-03-18 13:27 | P.PN ---
Subjective Progress Note Date: 03/18/20 This is a 49-year-old here patient remains intubated on a mechanical ventilator for lower lobe pneumonia since 03/08/2020. The patient developed acute hypoxic respiratory failure requiring intubation mechanical ventilation. Subsequently, she developed an acute lung injury/ARDS and the patient required high level of oxygen and PEEP level. The patient had an acute pneumonia" at 19 testing came back negative and the patient checked positive for Legionella and and had urine antigen, negative influenza screen, and bronchoscopy was further done and the bronchioloalveolar lavage was negative for any other microbial growth. The patient is currently on Levaquin and vancomycin. She remains intubated on a mechanical ventilator. She remains sedated, and comfortable. This morning, the patient remains on a mechanical ventilator and she is on a PEEP of 10 with an FiO2 of 50%. Respiratory rate is a 36 with a tidal volume of 350. She is on propofol which is running at 50 g per KG per minute. Normal saline is running at 40 mL an hour. She is receiving vital high protein enteral feeding for nutr itional support at the rate of 28 mL an hour which is at goal. The patient is being seen in the follow-up today in the intensive care unit on 03/16/2020. The chest x-ray still showing extensive consolidation of the right lung base. The patient's triglyceride level was noted to be quite elevated. Based on that, I made recommendations to stop the propofol is was this patient to Precedex for now and use Versed if needed. Note that earlier this morning, the patient is still on a low tidal volume ventilation. I made the necessity ventilator changes as the patient's airway pressures are not elevated at this point in time and the patient was urinating higher tidal volumes on a mechanical ventilator. The patient is arousable while off the sedation. Tolerating enteral feeding for nutritional support. CAT scan of the chest will be needed to characterized abnormal mass in the right lower lobe. The patient is on Levaquin IV. The patient has a fecal management system for some limited diarrhea. No evidence of any significant colitis. No fever. The patient has some Luisa elements in the mouth and infection disease saw the patient and evaluated her and added Eraxis. On 03/17/2020 on seeing this patient for a follow-up in regards to her respiratory failure and Legionella pneumonia. The patient remains quite sedated and the patient is currently on a combination of Precedex at 1 mg per KG and Versed which is running at 6 malignant is an hour. The patient is was sedated and she is easily arousable. No agitation. In terms of her mechanical ventilator, the patient remains on assist control mode of ventilation at the rate of 20 with a tidal volume of 450 and FiO2 of 50% with a PEEP of 10. The blood gases from today shows a pH of 7.47 with a pCO2 of 39 and pO2 of 85 and this was on FiO2 of 50%. CAT scan of the chest was done yesterday and it showed extensive consolidation of the right lower lobe related to Legionella pneumonia. Was no evidence of any pleural effusion. A repeat chest x-ray from today shows interval improvement and the right lower lobe pulmonary infiltrate and a left perihilar infiltrate compared to previous chest x-rays. The patient's white cell count gradually improving and is down to 14.3. Hemoglobin stable at 10.5. Renal function is also stable with a creatinine of 0.6 with a BUN of 24. No other significant events overnight. The patient is tolerating enteral feeding for nutritional support and the patient is currently on vital high protein at the rate of 32 mL an hour. The patient is a negative fluid balance of 3.1 L and the patient is producing adequate amount of urine output for now. On 03/18/2020 the patient is being seen in follow-up in the intensive care unit. The patient is being treated for a Legionella pneumonia which has caused extensive consolidation bilaterally. Her pneumonia was gradually improving and her oxygenation was also improving. I'm a bit concerned about his ongoing fever that started yesterday. The patient was cultured and on today's chest x-ray there is some new infiltration of the left lung and I think there may be a component of ventilatory a pneumonia and the patient will be started on IV cefepime and combination to Levaquin. Meanwhile, the patient remains on a mechanical ventilator. The patient remains on assist control mode at the rate of 20 with a tidal volume of 450 and FiO2 of 50% with a PEEP of 5. The blood gases from today Showed a pH of 7.45 with a pCO2 of 42 and pO2 of 72. Earlier this morning, the patient was on a combination of Versed 2 mg an hour on Precedex at 0.8 mg per KG per minute. The sedation was gradually withdrawn and the patient was given a sedation holiday and following that the patient patient was given a trial of spontaneous breathing with a pressure support of 5 and a PEEP of 5 and FiO2 of 40%. The subsequent blood gases showed a pH of 7.46 and 0 41 and pO2 of 61. The patient was extubated to BiPAP. The patient is currently in a negative fluid balance of 1.5 L and he is making adequate urine output not even receiving any diuretics. I'm still a bit concerned about the fever. I'm going to check a pro-calcitonin level. I'm going to also ultimately replace the triple-lumen catheter and send the tip for cultures. Blood cultures were sent yesterday. Sputum culture was sent yesterday. Antibiotic modification will be done. Objective - Vital Signs Vital signs: Vital Signs Temp 98.3 F 03/18/20 12:00 Pulse 96 03/18/20 12:00 Resp 28 H 03/18/20 12:00 BP 110/74 03/17/20 16:00 Pulse Ox 96 03/18/20 12:00 Intake & Output 03/17/20 03/18/20 03/18/20 18:59 06:59 18:59 Intake Total 826 4022.209 9049.944 Output Total 1325 1013 505 Balance -499 223.534 524.944 Weight 122 kg Intake: IV 598 506 319 0.9 Normal Saline 520 440 280 Normal Saline Pressure 78 66 39 bag Intake, IV Titration 100 288.534 616.944 Amount Anidulafungin 100 mg In 100 Sodium Chloride 0.9% 100 ml @ 84 mls/hr IVPB DAILY @1200 [facility] Rx#:[id number] Cefepime 1 gm In Sodium 100 Chloride 0.9% 50 ml @ 100 mls/hr IVPB ONCE ONE Rx# :[id number] Dexmedetomidine/0.9% NaCl 100 200 6.344 (Pmx) 400 mcg In Empty Bag 1 bag @ Titrate IV . Q0M [facility] Rx#:[id number] Midazolam HCl 50 mg In 88.534 10.6 Sodium Chloride 0.9% 40 ml @ 1 MG/HR 1 mls/hr IV .Q24H [facility] Rx#:[id number] Potassium Chloride 10 meq 400 In Water For Injection 1 100ml.bag @ 100 mls/hr IVPB Q1HR [facility] Rx#: [id number] Tube Feeding 128 352 64 Other 90 30 Output: Urine 1325 1013 505 Other: Voiding Method Indwelling Catheter Indwelling Catheter Indwelling Catheter # Voids 2 ABP, PAP, CO, CI - Last Documented Arterial Blood Pressure 146/69 - Exam Gen. appearance, comfortable and the patient was taken off the sedation the patient was extubated to BiPAP. Head exam was generally normal. There was no scleral icterus or corneal arcus. Mucous membranes were moist. Neck was supple and without jugular venous distension, thyromegaly, or carotid bruits. Carotids were easily palpable bilaterally. There was no adenopathy. Lungs sounds are diminished in the right lung base otherwise there is no wheezes, rhonchi or crackles Cardiac exam revealed the PMI to be normally situated and sized. The rhythm was regular and no extrasystoles were noted during several minutes of auscultation. The first and second heart sounds were normal and physiologic splitting of the s econd heart sound was noted. There were no murmurs, rubs, clicks, or gallops. Abdominal exam revealed normal bowel sounds. The abdomen was soft, non-tender, and without masses, organomegaly, or appreciable enlargement of the abdominal aorta. Examination of the extremities revealed easily palpable radial, femoral and pedal pulses. There was no cyanosis, clubbing or edema. Examination of the skin revealed no evidence of significant rashes, suspicious appearing nevi or other concerning lesions. Neurologic the patient is awake and alert and following commands and questions appropriately. She is moving all 4 extremities while off sedation. - Labs CBC & Chem 7: 03/18/20 04:40 03/18/20 04:40 Labs: Abnormal Lab Results - Last 24 Hours (Table) 03/17/20 03/17/20 03/17/20 Range/Units 16:44 20:04 22:54 WBC (3.8-10.6) k/uL RBC (3.80-5.40) m/uL Hgb (11.4-16.0) gm/dL Hct (34.0-46.0) % Neutrophils # (1.3-7.7) k/uL ABG pH (7.35-7.45) ABG pO2 (83-108) mmHg ABG HCO3 (21-25) mmol/L ABG Total CO2 (19-24) mmol/L ABG O2 Saturation (94-97) % Chloride (98-107) mmol/L BUN (7-17) mg/dL Glucose (74-99) mg/dL POC Glucose (mg/dL) 220 H 228 H 219 H (75-99) mg/dL Calcium (8.4-10.2) mg/dL 03/17/20 03/18/20 03/18/20 Range/Units 23:27 04:03 04:40 WBC 14.2 H (3.8-10.6) k/uL RBC 3.09 L (3.80-5.40) m/uL Hgb 9.6 L (11.4-16.0) gm/dL Hct 29.9 L (34.0-46.0) % Neutrophils # 10.1 H (1.3-7.7) k/uL ABG pH (7.35-7.45) ABG pO2 (83-108) mmHg ABG HCO3 (21-25) mmol/L ABG Total CO2 (19-24) mmol/L ABG O2 Saturation (94-97) % Chloride (98-107) mmol/L BUN (7-17) mg/dL Glucose (74-99) mg/dL POC Glucose (mg/dL) 219 H 185 H (75-99) mg/dL Calcium (8.4-10.2) mg/dL 03/18/20 03/18/20 03/18/20 Range/Units 04:40 05:33 06:01 WBC (3.8-10.6) k/uL RBC (3.80-5.40) m/uL Hgb (11.4-16.0) gm/dL Hct (34.0-46.0) % Neutrophils # (1.3-7.7) k/uL ABG pH (7.35-7.45) ABG pO2 72 L (83-108) mmHg ABG HCO3 29 H (21-25) mmol/L ABG Total CO2 30 H (19-24) mmol/L ABG O2 Saturation (94-97) % Chloride 111 H (98-107) mmol/L BUN 25 H (7-17) mg/dL Glucose 213 H (74-99) mg/dL POC Glucose (mg/dL) 195 H (75-99) mg/dL Calcium 7.9 L (8.4-10.2) mg/dL 03/18/20 03/18/20 03/18/20 Range/Units 07:47 09:39 11:30 WBC (3.8-10.6) k/uL RBC (3.80-5.40) m/uL Hgb (11.4-16.0) gm/dL Hct (34.0-46.0) % Neutrophils # (1.3-7.7) k/uL ABG pH 7.46 H (7.35-7.45) ABG pO2 61 L (83-108) mmHg ABG HCO3 29 H (21-25) mmol/L ABG Total CO2 30 H (19-24) mmol/L ABG O2 Saturation 92.3 L (94-97) % Chloride (98-107) mmol/L BUN (7-17) mg/dL Glucose (74-99) mg/dL POC Glucose (mg/dL) 215 H 153 H (75-99) mg/dL Calcium (8.4-10.2) mg/dL 03/18/20 Range/Units 12:38 WBC (3.8-10.6) k/uL RBC (3.80-5.40) m/uL Hgb (11.4-16.0) gm/dL Hct (34.0-46.0) % Neutrophils # (1.3-7.7) k/uL ABG pH (7.35-7.45) ABG pO2 (83-108) mmHg ABG HCO3 (21-25) mmol/L ABG Total CO2 (19-24) mmol/L ABG O2 Saturation (94-97) % Chloride (98-107) mmol/L BUN (7-17) mg/dL Glucose (74-99) mg/dL POC Glucose (mg/dL) 129 H (75-99) mg/dL Calcium (8.4-10.2) mg/dL Microbiology - Last 24 Hours (Table) 03/13/20 10:55 Blood Culture - Preliminary Blood No Growth after 120 hours 03/18/20 01:00 Sputum Culture - Preliminary Sputum 03/17/20 17:32 Urine Culture - Preliminary Urine,Catheterized 03/13/20 14:09 Blood Culture - Preliminary Blood No Growth after 96 hours Assessment and Plan Plan: 1 acute hypoxic respiratory failure secondary to Legionella pneumonia. The patient have bronchoscopy and the bronchioloalveolar lavage was negative. The Legionella urine antigen was positive. The patient had negative influenza screen. The Covid 19 testing was also negative. The patient remains on Levaquin. She remains intubated on a mechanical ventilator. The patient was found to have some Luisa in the sputum and Eraxis was also added by infectious disease. Utility of this antibiotic is questionable as the patient's working diagnosis is very much consistent with Legionella pneumonia. Meanwhile, the patient was weaned off the mechanical ventilator and the patient was extubated. Nevertheless, the patient is having episodes of fever which obviously raises the possibility of a ventilator assist pneumonia especially the patient has a new onset left lower lobe pulmonary infiltrate. Antibiotics will be broadened. 2 ARDS secondary to Legionella pneumonia, and the patient and the positive Legionella urine antigen and legionella was also cultured by PCR and the bronchioloalveolar lavage 3 sepsis secondary to Legionella pneumonia, and the patient has leukocytosis which is improving 4 obesity, new onset fever currently under investigation 5 hypertension 6 chronic back pain as the patient has lumbar stenosis and herniated this disease 7 leukocytosis, improving 8 enteral feeding for nutritional support 9 mild transaminitis secondary to Legionella 10 hypertriglyceridemia secondary to propofol infusion, and the propofol infusion was discontinued and the patient is currently on a combination of Precedex and Versed 11 diarrhea with a negative stool for C. diff 12 obesity with a BMI 54.3 Plan Continue respiratory support and the patient has been extubated to BiPAP Discontinue all sedation Add cefepime for a possibility of a ventilator associated pneumonia and obtain sputum culture and blood culture Remove the triple-lumen catheter in the patient with a peripheral line and send it for cultures Continue Eraxis Continue Levaquin Check a pro-calcitonin level Continue Precedex and Versed infusions for sedation The condition is a critically care evaluation and this is done in more than 30 minutes. Time with Patient: Greater than 30
[2020-03-18] MEDS ORDERED: FUROSEMIDE 10 MG/ML 4 ML VIAL IV STA (15:01)
--- NOTE | 2020-03-18 16:05 | P.PN ---
Progress Note - Text Progress Note Date: 03/18/20 Presenting complaint: Intubated Interval history: Patient presented with fever, shortness of breath. Admitted with acute respiratory failure secondary to Legionella pneumonia. COVID 19 was ruled out. Started on IV Levaquin and Zosyn. Sepsis. Hypovolemic, hyponatremia. Empirically being treated with Flagyl by ID for C. diff.. IV antifungal added. Sputum culture positive for Luisa albicans. Had undergone bronchoscopy.-Other cultures were negative. [id number] today. t on BiPAP at 50%. Following commands. Still spiking fevers. All drips discontinued. Except for saline. Progress review of systems cannot be done patient on BiPAP Active Medications Acetaminophen (Acetaminophen Tab 325 Mg Tab) 650 mg PO Q6HR PRN PRN Reason: Mild Pain or Fever > 100.5 Last Admin: 03/18/20 02:04 Dose: 650 mg Documented by: Albuterol/Ipratropium (Ipratropium-Albuterol 3 Ml Neb) 3 ml INHALATION RT-Q4H [facility] Last Admin: 03/18/20 14:59 Dose: 3 ml Documented by: Chlorhexidine Gluconate (Chlorhexidine Gluconate 15 Ml Cup) 15 ml MUCOUS MEM BID [facility] Last Admin: 03/18/20 08:04 Dose: 15 ml Documented by: Heparin Sodium (Porcine) (Heparin Sodium,Porcine 5,000 Unit/Ml 1 Ml Vial) 5,000 unit SQ Q8HR [facility] Last Admin: 03/18/20 08:04 Dose: 5,000 unit Documented by: Hydromorphone HCl (Hydromorphone 1 Mg/Ml 1 Ml Syringe) 1 mg IVP Q2HR PRN PRN Reason: Pain Last Admin: 03/17/20 17:41 Dose: 1 mg Documented by: Levofloxacin 750 mg/ IV (Solution) 150 mls @ 100 mls/hr IVPB Q24H [facility] Last Admin: 03/17/20 17:19 Dose: 100 mls/hr Documented by: Sodium Chloride (Saline 0.9%) 1,000 mls @ 40 mls/hr IV .Q24H [facility] Last Admin: 03/17/20 20:18 Dose: 40 mls/hr Documented by: Anidulafungin 100 mg/ Sodium (Chloride) 100 mls @ 84 mls/hr IVPB DAILY@1200 [facility] Last Admin: 03/18/20 12:41 Dose: 84 mls/hr Documented by: Midazolam HCl 50 mg/ Sodium (Chloride) 50 mls @ 1 mls/hr IV .Q24H [facility]; Protocol Last Titration: 03/18/20 08:54 Dose: 0 mg/hr, 0 mls/hr Documented by: Dexmedetomidine HCl 400 mcg/ (IV Solution) 100 mls @ 0 mls/hr IV .Q0M [facility]; Protocol Last Titration: 03/18/20 08:54 Dose: 0 mcg/kg/hr, 0 mls/hr Documented by: Cefepime HCl 1 gm/ Sodium (Chloride) 50 mls @ 12.5 mls/hr IVPB Q12HR [facility] Ibuprofen (Ibuprofen 400 Mg Tab) 800 mg PO QID PRN PRN Reason: Fever and/ or Pain Insulin Aspart (Insulin Aspart (Novolog) 100 Unit/Ml Vial) 0 unit SQ Q4HR [facility]; Protocol Last Admin: 03/18/20 12:38 Dose: Not Given Documented by: Insulin Detemir (Insulin Detemir (Levemir) 100 Unit/Ml Syr) 15 unit SQ [facility] Last Admin: 03/17/20 23:28 Dose: 15 unit Documented by: Miscellaneous Information (Magnesium Replacement Protocol 1 Each Misc) 1 each MISCELLANE DAILY PRN; Protocol PRN Reason: Per Protocol Miscellaneous Information (Potassium Replacement Protocol 1 Each Misc) 1 each MISCELLANE DAILY PRN; Protocol PRN Reason: Per Protocol Naloxone HCl (Naloxone 0.4 Mg/Ml 1 Ml Vial) 0.2 mg IV Q2M PRN PRN Reason: Opioid Reversal Pantoprazole Sodium (Pantoprazole 40 Mg/10 Ml Vial) 40 mg IVP DAILY [facility] Last Admin: 03/18/20 08:04 Dose: 40 mg Documented by: Vancomycin HCl (Vancomycin Oral Solution 250 Mg/5 Ml Bottle) 250 mg PO Q6HR [facility] Last Admin: 03/18/20 12:36 Dose: Not Given Documented by: On examination: VITAL SIGNS: 100.3, 79, 23, 130s in the 65, 96% GENERAL APPEARANCE: laying in bed, awake, BiPAP in place HEENT: Dry mucous membranes EYES: Pupils equal. Conjunctiva normal. NECK: JVD unable to assess. Mass not palpable. RESPIRATORY: Respiratory effort increased. Lungs decreased breath sounds CARDIOVASCULAR: First and second sounds normal. No edema. ABDOMEN: Soft. Liver and spleen not palpable. No tenderness. No mass palpable. Kamara catheter PSYCHIATRY: Unable to assess INVESTIGATIONS, reviewed in the clinical context: White count 14.2 hemoglobin 9.6 platelets 267 potassium 3.5 creatinine 0.78 Previous testing Chest x-ray film personally reviewed by me-bilateral infiltrates right greater than left Computed tomography scan of the abdomen-nonspecific findings. Consolidation in the right lower lobe. Abdominal ultrasound-hepatosplenomegaly CBD dilated at 9 mm Chest [id number] infiltrates Urine Legionella antigen positive Sputum-Luisa albicans Additional cultures including blood Gram stain all negative Assessment: -Acute hypoxic respiratory failure from bilateral lower lobe pneumonia, ARDS, requiring mechanical ventilation-extubated March 18 - Legionella pneumonia -Bronchoscopy done on March 09 -Persistent sepsis- spiking fevers - -COVID 19 negative -Chronic pain syndrome -GERD -Essential hypertension -Chronic pain syndrome -Chronic nicotine dependence cigarette smoker -Chronic spine herniated disc with spinal stenosis -Morbid obesity BMI 54.4 -Hyperglycemia secondary to steroids. No diabetes. -Possible ischemic hepatitis.-Improving - Plan: Remains on IV Eraxis, IV Levaquin, vancomycin. Extubated-on BiPAP.
[2020-03-18 16:19] LABS: Glucose,Whole Blood 151 mg/dL (75-99)
[2020-03-18] MEDS ORDERED: RACEPINEPHRINE 2.25% NEB 0.5 ML NEBU INHALATION STA (16:34)
[2020-03-18] MEDS: LEVOFLOXACIN 750MG-D5W PMX 750 MG in DEXTROSE/WATER 1 150ML.BAG IVPB SCH (16:53)
[2020-03-18] MEDS: DEXAMETHASONE SOD PHOSPHATE 10 MG/ML 1 ML VIAL IV SCH (17:05)
[2020-03-18] MEDS ORDERED: DEXAMETHASONE SOD PHOSPHATE 10 MG/ML 1 ML VIAL IV SCH (18:00)
[2020-03-18] MEDS ORDERED: hydrALAZINE HCL 20 MG/ML 1 ML VIAL IVP PRN (18:53)
[2020-03-18] MEDS ORDERED: Potassium Replacement Protocol 1 EACH MISC MISCELLANE PRN (19:02)
[2020-03-18] MEDS ORDERED: ACETAMINOPHEN IV (For NPO) 1,000 MG in EMPTY BAG 1 BAG IVPB SCH (19:45)
[2020-03-18] MEDS: CLEVIDIPINE BUTYRATE 25 MG in EMPTY BAG 1 BAG IV SCH ×2 (19:45→21:35)
[2020-03-18] MEDS: HYDROmorphone 1 MG/ML 1 ML SYRINGE IVP PRN (19:53)
[2020-03-18 19:54] LABS: ABG Base Excess 6.1 mmol/L; ABG HCO3 31 mmol/L (21-25); ABG Oxygen Saturation 96.5 % (94-97); ABG PCO2 46 mmHg (35-45); ABG PH 7.43 (7.35-7.45); ABG PO2 83 mmHg (83-108); ABG TCO2 32 mmol/L (19-24)
[2020-03-18 19:55] LABS: Allen Test Performed? n
[2020-03-18] MEDS ORDERED: DEXMEDETOMIDINE/0.9% NACL(PMX) 400 MCG in EMPTY BAG 1 BAG IV SCH (20:15)
[2020-03-18 20:32] LABS: Glucose,Whole Blood 226 mg/dL (75-99)
[2020-03-18] MEDS: INSULIN DETEMIR (LEVEMIR) 100 UNIT/ML SYR SQ SCH (20:39)
[2020-03-18] MEDS: CEFEPIME 1 GM in SODIUM CHLORIDE 0.9% 50 ML IVPB SCH (20:39)
[2020-03-18] MEDS: SODIUM CHLORIDE 0.9% 1,000 ML IV SCH (20:41)
--- NOTE | 2020-03-18 22:35 | PN ---
PROGRESS NOTE DATE OF SERVICE: 03/18/2020 REASON FOR FOLLOWUP: 1. Acute Legionella pneumonia. 2. Oropharyngeal candidiasis. 3. New fever. INTERVAL HISTORY: The patient has been spiking a fever for the last 24 hours. The patient has been extubated. She is hemodynamically stable, not on any pressor support. Denies having any chest pain. Minimal cough. No vomiting or any worsening diarrhea. PHYSICAL EXAMINATION: Blood pressure 140/67, pulse of , temperature T-max of 101. She is 94% on 4 L nasal cannula. General description is a middle-aged female lying in bed in no distress. RESPIRATORY SYSTEM: Unlabored breathing with decreased breath sounds at the base. No wheeze. HEART: S1, S2. Regular rate and rhythm. ABDOMEN: Soft. No tenderness. LAB: Hemoglobin is 9.3, white count 14.2, BUN of 25, creatinine 0.78. DIAGNOSTIC IMPRESSION AND PLAN: 1. Patient with acute Legionella pneumonia, for which the patient has been on Levaquin; to continue. 2. Patient with significant diarrhea with concern for Clostridium difficile. The stool for C difficile came back negative. Vancomycin has been discontinued. 3. Patient with persistent fever, concern for possible Gram-negative pneumonia. Cefepime has been added. Sputum culture will be followed. 4. Patient with elevated white count and possible component of oropharyngeal candidiasis, for which the patient is currently covered with Eraxis; to continue, and we will monitor clinical course closely. MMODL / IJN: [id number] /
[2020-03-18] MEDS ORDERED: ACETAMINOPHEN IV (For NPO) 1,000 MG in EMPTY BAG 1 BAG IVPB PRN (23:49)
[2020-03-18 23:52] LABS: Glucose,Whole Blood 195 mg/dL (75-99)
[2020-03-19] MEDS: HEPARIN SODIUM,PORCINE 5,000 UNIT/ML 1 ML VIAL SQ SCH ×3 (00:05→17:17)
[2020-03-19] MEDS: INSULIN ASPART (NovoLOG) 100 UNIT/ML VIAL SQ SCH ×6 (00:06→21:24)
[2020-03-19] MEDS: DEXAMETHASONE SOD PHOSPHATE 10 MG/ML 1 ML VIAL IV SCH ×2 (00:06→04:57)
[2020-03-19] MEDS: IPRATROPIUM-ALBUTEROL 3 ML NEB INHALATION SCH ×6 (03:39→23:40)
[2020-03-19 04:34] LABS: Glucose,Whole Blood 188 mg/dL (75-99)
[2020-03-19 04:41] LABS: Basophils % (A) 0 %; Eosinophils # (A) 0.1 k/uL (0-0.7); Eosinophils % (A) 0 %; HGB 10.9 gm/dL (11.4-16.0); Lymphocytes # (A) 1.4 k/uL (1.0-4.8); Lymphocytes % (A) 8 %; MCH 29.7 pg (25.0-35.0); MCHC 31.1 g/dL (31.0-37.0); MCV 95.6 fL (80.0-100.0); Mean Platelet Volume 7.5; Monocytes # (A) 0.5 k/uL (0-1.0); Monocytes % (A) 3 %; Neutrophils # (A) 15.1 k/uL (1.3-7.7); Neutrophils % (A) 88 %; Platelet Count 320 k/uL (150-450); RBC 3.67 m/uL (3.80-5.40); RDW 14.5 % (11.5-15.5); WBC 17.1 k/uL (3.8-10.6)
[2020-03-19 04:49] LABS: African American GFR (CKD) >90 (>60 ml/min/1.73 sqM); Anion Gap 5 mmol/L; Blood Urea Nitrogen 25 mg/dL (7-17); Calcium 8.6 mg/dL (8.4-10.2); Carbon Dioxide 31 mmol/L (22-30); Chloride 106 mmol/L (98-107); Glucose 194 mg/dL (74-99); Non-African American GFR(CKD) >90 (>60 ml/min/1.73 sqM); Potassium 4.3 mmol/L (3.5-5.1); Sodium 142 mmol/L (137-145)
[2020-03-19 05:54] LABS: Glucose,Whole Blood 194 mg/dL (75-99)
[2020-03-19] MEDS: CLEVIDIPINE BUTYRATE 25 MG in EMPTY BAG 1 BAG IV SCH (07:00)
[2020-03-19 08:44] LABS: Glucose,Whole Blood 177 mg/dL (75-99)
--- NOTE | 2020-03-19 10:05 | XR ---
EXAMINATION TYPE: XR chest 1V portable DATE OF EXAM: 03/19/2020 CLINICAL HISTORY: Shortness of breath TECHNIQUE: Portable upright view of the chest COMPARISON: 03/18/2020 chest radiograph FINDINGS: Interval removal of endotracheal tube, enteric tube, and right internal jugular central ve nous catheter. Cardiomegaly. Bilateral pleural effusions redemonstrated. Bibasilar airspace opacities , mildly more confluent on the right versus 03/18/2020. No pneumothorax. The osseous structures are in tact. IMPRESSION: 1. Interval removal of endotracheal, enteric, and right internal jugular central venous catheter. 2. Redemonstrated bilateral pleural effusions. Bibasilar airspace opacities, mildly more confluent on the right versus 03/18/2020.
[2020-03-19] MEDS: CEFEPIME 1 GM in SODIUM CHLORIDE 0.9% 50 ML IVPB SCH ×2 (10:32→21:26)
[2020-03-19] MEDS: CHLORHEXIDINE GLUCONATE 15 ML CUP MUCOUS MEM SCH ×2 (10:33→21:24)
[2020-03-19] MEDS: PANTOPRAZOLE 40 MG/10 ML VIAL IVP SCH (10:33)
[2020-03-19] MEDS: LOSARTAN 50 MG TAB PO SCH (10:46)
[2020-03-19 14:19] LABS: Glucose,Whole Blood 161 mg/dL (75-99)
--- NOTE | 2020-03-19 14:40 | P.PN ---
Subjective Progress Note Date: 03/19/20 This is a 49-year-old here patient remains intubated on a mechanical ventilator for lower lobe pneumonia since 03/08/2020. The patient developed acute hypoxic respiratory failure requiring intubation mechanical ventilation. Subsequently, she developed an acute lung injury/ARDS and the patient required high level of oxygen and PEEP level. The patient had an acute pneumonia" at 19 testing came back negative and the patient checked positive for Legionella and and had urine antigen, negative influenza screen, and bronchoscopy was further done and the bronchioloalveolar lavage was negative for any other microbial growth. The patient is currently on Levaquin and vancomycin. She remains intubated on a mechanical ventilator. She remains sedated, and comfortable. This morning, the patient remains on a mechanical ventilator and she is on a PEEP of 10 with an FiO2 of 50%. Respiratory rate is a 36 with a tidal volume of 350. She is on propofol which is running at 50 g per KG per minute. Normal saline is running at 40 mL an hour. She is receiving vital high protein enteral feeding for nutr itional support at the rate of 28 mL an hour which is at goal. The patient is being seen in the follow-up today in the intensive care unit on 03/16/2020. The chest x-ray still showing extensive consolidation of the right lung base. The patient's triglyceride level was noted to be quite elevated. Based on that, I made recommendations to stop the propofol is was this patient to Precedex for now and use Versed if needed. Note that earlier this morning, the patient is still on a low tidal volume ventilation. I made the necessity ventilator changes as the patient's airway pressures are not elevated at this point in time and the patient was urinating higher tidal volumes on a mechanical ventilator. The patient is arousable while off the sedation. Tolerating enteral feeding for nutritional support. CAT scan of the chest will be needed to characterized abnormal mass in the right lower lobe. The patient is on Levaquin IV. The patient has a fecal management system for some limited diarrhea. No evidence of any significant colitis. No fever. The patient has some Luisa elements in the mouth and infection disease saw the patient and evaluated her and added Eraxis. On 03/17/2020 on seeing this patient for a follow-up in regards to her respiratory failure and Legionella pneumonia. The patient remains quite sedated and the patient is currently on a combination of Precedex at 1 mg per KG and Versed which is running at 6 malignant is an hour. The patient is was sedated and she is easily arousable. No agitation. In terms of her mechanical ventilator, the patient remains on assist control mode of ventilation at the rate of 20 with a tidal volume of 450 and FiO2 of 50% with a PEEP of 10. The blood gases from today shows a pH of 7.47 with a pCO2 of 39 and pO2 of 85 and this was on FiO2 of 50%. CAT scan of the chest was done yesterday and it showed extensive consolidation of the right lower lobe related to Legionella pneumonia. Was no evidence of any pleural effusion. A repeat chest x-ray from today shows interval improvement and the right lower lobe pulmonary infiltrate and a left perihilar infiltrate compared to previous chest x-rays. The patient's white cell count gradually improving and is down to 14.3. Hemoglobin stable at 10.5. Renal function is also stable with a creatinine of 0.6 with a BUN of 24. No other significant events overnight. The patient is tolerating enteral feeding for nutritional support and the patient is currently on vital high protein at the rate of 32 mL an hour. The patient is a negative fluid balance of 3.1 L and the patient is producing adequate amount of urine output for now. On 03/18/2020 the patient is being seen in follow-up in the intensive care unit. The patient is being treated for a Legionella pneumonia which has caused extensive consolidation bilaterally. Her pneumonia was gradually improving and her oxygenation was also improving. I'm a bit concerned about his ongoing fever that started yesterday. The patient was cultured and on today's chest x-ray there is some new infiltration of the left lung and I think there may be a component of ventilatory a pneumonia and the patient will be started on IV cefepime and combination to Levaquin. Meanwhile, the patient remains on a mechanical ventilator. The patient remains on assist control mode at the rate of 20 with a tidal volume of 450 and FiO2 of 50% with a PEEP of 5. The blood gases from today Showed a pH of 7.45 with a pCO2 of 42 and pO2 of 72. Earlier this morning, the patient was on a combination of Versed 2 mg an hour on Precedex at 0.8 mg per KG per minute. The sedation was gradually withdrawn and the patient was given a sedation holiday and following that the patient patient was given a trial of spontaneous breathing with a pressure support of 5 and a PEEP of 5 and FiO2 of 40%. The subsequent blood gases showed a pH of 7.46 and 0 41 and pO2 of 61. The patient was extubated to BiPAP. The patient is currently in a negative fluid balance of 1.5 L and he is making adequate urine output not even receiving any diuretics. I'm still a bit concerned about the fever. I'm going to check a pro-calcitonin level. I'm going to also ultimately replace the triple-lumen catheter and send the tip for cultures. Blood cultures were sent yesterday. Sputum culture was sent yesterday. Antibiotic modification will be done. On 03/19/2020, the patient remains extubated. Postextubation, the patient developed stridor and the patient was placed on Decadron and she was also given racemic epinephrine. She also had some issues with restlessness, anxiety and agitation and tachycardia. Overnight she was placed on Precedex at the lower dose which was gradually weaned off. This morning her blood pressure is still elevated and the patient on a clevidipine drip running at 2 mg an hour for blood pressure control. She is afebrile for now. She was having significant fever episodes earlier and for that reason the triple-lumen catheter was removed and the catheter tip was sent for cultures and the cultures are all negative. The pro-calcitonin is not significantly elevated. For now, the patient on a combination of cefepime, Levaquin regarding her Legionella pneumonia and Eraxis. The patient is not having any major respiratory distress pH is laying comfortably in bed. She is communicating. She is currently on 6 L of oxygen by nasal cannula with a pulse ox of 92%. Incentive spirometer is being used and the volume inhaled is in the order of 750. On and off, the patient required BiPAP postextubation pressure of 10/5 cm of water and currently stopped the BiPAP. She is on normal saline today to 40 mL an hour. She is awake and alert. No hoarseness. No stridor. Cough is weak yet is adequate for the time being. The chest x-ray from today is showing removal of the orotracheal tube. The patient has still a right IJ triple-lumen catheter. The patient bilateral airspace disease most on the right. There is no evidence of any pleural effusion based on her most recent CAT scan of the chest that was done prior to extubation. Objective - Vital Signs Vital signs: Vital Signs Temp 98.7 F 03/19/20 08:00 Pulse 100 03/19/20 11:48 Resp 19 03/19/20 11:00 BP 156/108 03/19/20 07:00 Pulse Ox 93 L 03/19/20 11:00 Intake & Output 03/18/20 03/19/20 03/19/20 18:59 06:59 18:59 Intake Total 1437.944 916.956 218 Output Total 1635 1540 501 Balance -197.056 -623.044 -283 Weight 122 kg 119.7 kg Intake: IV 727 796 218 0.9 Normal Saline 520 480 200 Cefepime 1 gm In Sodium 50 Chloride 0.9% 50 ml @ 12. 5 mls/hr IVPB Q12HR [facility] Rx#:[id number] Levofloxacin 750Mg-D5w 150 Pmx 750 mg In Dextrose/ Water 1 150ml.bag @ 100 mls/hr IVPB Q24H [facility] Rx#: [id number] Normal Saline Pressure 57 66 18 bag Potassium Chloride 10 meq 200 In Water For Injection 1 100ml.bag @ 100 mls/hr IVPB Q1H [facility] Rx#: [id number] Intake, IV Titration 616.944 120.956 0 Amount Anidulafungin 100 mg In 100 Sodium Chloride 0.9% 100 ml @ 84 mls/hr IVPB DAILY @1200 [facility] Rx#:[id number] Cefepime 1 gm In Sodium 100 Chloride 0.9% 50 ml @ 100 mls/hr IVPB ONCE ONE Rx# :[id number] Clevidipine Butyrate 25 76.833 0 mg In Empty Bag 1 bag @ 1 MG/HR 2 mls/hr IV .Q24H [facility] Rx#:[id number] Dexmedetomidine/0.9% NaCl 6.344 (Pmx) 400 mcg In Empty Bag 1 bag @ Titrate IV . Q0M [facility] Rx#:[id number] Dexmedetomidine/0.9% NaCl 44.123 (Pmx) 400 mcg In Empty Bag 1 bag @ Titrate IV . Q0M [facility] Rx#:[id number] Midazolam HCl 50 mg In 10.6 Sodium Chloride 0.9% 40 ml @ 1 MG/HR 1 mls/hr IV .Q24H [facility] Rx#:[id number] Potassium Chloride 10 meq 400 In Water For Injection 1 100ml.bag @ 100 mls/hr IVPB Q1HR [facility] Rx#: [id number] Tube Feeding 64 Other 30 Output: Urine 1635 1540 501 Other: Voiding Method Indwelling Catheter Indwelling Catheter Indwelling Catheter ABP, PAP, CO, CI - Last Documented Arterial Blood Pressure 148/70 - Exam Gen. appearance, comfortable and the patient was currently on 6 L of oxygen by nasal cannula Head exam was generally normal. There was no scleral icterus or corneal arcus. Mucous membranes were moist. Neck was supple and without jugular venous distension, thyromegaly, or carotid bruits. Carotids were easily palpable bilaterally. There was no adenopathy. Lungs sounds are diminished in the right lung base otherwise there is no wh eezes, rhonchi or crackles Cardiac exam revealed the PMI to be normally situated and sized. The rhythm was regular and no extrasystoles were noted during several minutes of auscultation. The first and second heart sounds were normal and physiologic splitting of the second heart sound was noted. There were no murmurs, rubs, clicks, or gallops. Abdominal exam revealed normal bowel sounds. The abdomen was soft, non-tender, and without masses, organomegaly, or appreciable enlargement of the abdominal aorta. Examination of the extremities revealed easily palpable radial, femoral and pedal pulses. There was no cyanosis, clubbing or edema. Examination of the skin revealed no evidence of significant rashes, suspicious appearing nevi or other concerning lesions. Neurologic the patient is awake and alert and following commands and questions appropriately. She is moving all 4 extremities while off sedation.Neurologically, the patient is awake and alert and the patient does not have any focal neurological deficit. Cranial nerves are essentially intact. - Labs CBC & Chem 7: 03/19/20 04:20 03/19/20 04:20 Labs: Abnormal Lab Results - Last 24 Hours (Table) 03/18/20 03/18/20 03/18/20 Range/Units 16:17 19:53 20:30 WBC (3.8-10.6) k/uL RBC (3.80-5.40) m/uL Hgb (11.4-16.0) gm/dL Neutrophils # (1.3-7.7) k/uL ABG pCO2 46 H (35-45) mmHg ABG HCO3 31 H (21-25) mmol/L ABG Total CO2 32 H (19-24) mmol/L Carbon Dioxide (22-30) mmol/L BUN (7-17) mg/dL Glucose (74-99) mg/dL POC Glucose (mg/dL) 151 H 226 H (75-99) mg/dL 03/18/20 03/19/20 03/19/20 Range/Units 23:49 04:20 04:20 WBC 17.1 H (3.8-10.6) k/uL RBC 3.67 L (3.80-5.40) m/uL Hgb 10.9 L (11.4-16.0) gm/dL Neutrophils # 15.1 H (1.3-7.7) k/uL ABG pCO2 (35-45) mmHg ABG HCO3 (21-25) mmol/L ABG Total CO2 (19-24) mmol/L Carbon Dioxide 31 H (22-30) mmol/L BUN 25 H (7-17) mg/dL Glucose 194 H (74-99) mg/dL POC Glucose (mg/dL) 195 H (75-99) mg/dL 03/19/20 03/19/20 03/19/20 Range/Units 04:32 05:52 08:41 WBC (3.8-10.6) k/uL RBC (3.80-5.40) m/uL Hgb (11.4-16.0) gm/dL Neutrophils # (1.3-7.7) k/uL ABG pCO2 (35-45) mmHg ABG HCO3 (21-25) mmol/L ABG Total CO2 (19-24) mmol/L Carbon Dioxide (22-30) mmol/L BUN (7-17) mg/dL Glucose (74-99) mg/dL POC Glucose (mg/dL) 188 H 194 H 177 H (75-99) mg/dL 03/19/20 Range/Units 14:17 WBC (3.8-10.6) k/uL RBC (3.80-5.40) m/uL Hgb (11.4-16.0) gm/dL Neutrophils # (1.3-7.7) k/uL ABG pCO2 (35-45) mmHg ABG HCO3 (21-25) mmol/L ABG Total CO2 (19-24) mmol/L Carbon Dioxide (22-30) mmol/L BUN (7-17) mg/dL Glucose (74-99) mg/dL POC Glucose (mg/dL) 161 H (75-99) mg/dL Microbiology - Last 24 Hours (Table) 03/13/20 10:55 Blood Culture - Final Blood No Growth after 144 hours 03/18/20 12:15 Catheter Tip Culture - Preliminary Catheter Tip 03/18/20 01:00 Gram Stain - Preliminary Sputum Sputum Culture - Preliminary 03/17/20 17:32 Urine Culture - Final Urine,Catheterized 03/17/20 17:26 Blood Culture - Preliminary Blood No Growth after 24 hours 03/13/20 14:09 Blood Culture - Preliminary Blood No Growth after 120 hours Assessment and Plan Plan: 1 acute hypoxic respiratory failure secondary to Legionella pneumonia. The patient was intubated and placed on a mechanical ventilator and she was extubated successfully yesterday and currently she is on 60 direction by nasal cannula. She encountered some stridor for which she was given Decadron in the stomach epinephrine. No stridor for the time being. 2 Fever, currently under investigation. Pro-calcitonin level is low. Cultures of been sent and the triple-lumen catheter was also removed and the tip was sent for culture. No significant leukocytosis. Fever has resolved and there has been no fever spike over the past 12 hours. 3 sepsis secondary to Legionella pneumonia, and the patient has leukocytosis which is improving 4 obesity, 5 hypertension, currently on a chiropractor for blood pressure control 6 chronic back pain as the patient has lumbar stenosis and herniated this disease 7 leukocytosis, improving 8 enteral feeding for nutritional support 9 mild transaminitis secondary to Legionella 10 hypertriglyceridemia secondary to propofol infusion and this was discontinued. 11 diarrhea with a negative stool for C. diff 12 obesity with a BMI 54.3 Plan Keep the patient on 6 L of oxygen by nasal cannula and aggressive pulmonary toileting and use incentive spirometer Continue the cefepime due to concern of a gram-negative pneumonia and continue Levaquin regarding the Legionella pneumonia and Eraxis per ID Monitor the fever pattern Cultures of been sent including the triple-lumen catheter tip and we'll be awaiting the results Utilize Cleviprex drip for blood pressure control and gradually wean it off and the patient will be started on losartan market manager Provide diet Physical therapy We'll continue to follow, the patient will be staying in ICU for now.
[2020-03-19] MEDS: ANIDULAFUNGIN 100 MG in SODIUM CHLORIDE 0.9% 100 ML IVPB SCH (15:18)
--- NOTE | 2020-03-19 15:52 | P.PN ---
Progress Note - Text Progress Note Date: 03/19/20 Presenting complaint: Intubated Interval history: Patient presented with fever, shortness of breath. Admitted with acute respiratory failure secondary to Legionella pneumonia. COVID 19 was ruled out. Started on IV Levaquin and Zosyn. Sepsis. Hypovolemic, hyponatremia. Empirically being treated with Flagyl by ID for C. diff.. IV antifungal added. Sputum culture positive for Luisa albicans. Had undergone bronchoscopy.-Other cultures were negative. Extubated March 18. Zumap-HUD-fl awake. Laying in bed. Nasal cannula. Overnight blood pressure is running high. Was put on Cleviprex. This morning passed bedside swallowing test. Patient's fever this is remained controlled after central line catheter was removed. Review of systems: Was done for constitutional, cardiovascular, GI, pulmonary. relevant finding as above Active Medications Albuterol/Ipratropium (Ipratropium-Albuterol 3 Ml Neb) 3 ml INHALATION RT-Q4H [facility] Last Admin: 03/19/20 15:25 Dose: 3 ml Documented by: Chlorhexidine Gluconate (Chlorhexidine Gluconate 15 Ml Cup) 15 ml MUCOUS MEM BID [facility] Last Admin: 03/19/20 10:33 Dose: Not Given Documented by: Heparin Sodium (Porcine) (Heparin Sodium,Porcine 5,000 Unit/Ml 1 Ml Vial) 5,000 unit SQ Q8HR [facility] Last Admin: 03/19/20 10:31 Dose: 5,000 unit Documented by: Hydralazine HCl (Hydralazine Hcl 20 Mg/Ml 1 Ml Vial) 10 mg IVP Q6HR PRN PRN Reason: Blood Pressure - High Last Admin: 03/18/20 19:10 Dose: 10 mg Documented by: Hydromorphone HCl (Hydromorphone 1 Mg/Ml 1 Ml Syringe) 1 mg IVP Q2HR PRN PRN Reason: Pain Last Admin: 03/18/20 19:53 Dose: 1 mg Documented by: Levofloxacin 750 mg/ IV (Solution) 150 mls @ 100 mls/hr IVPB Q24H [facility] Last Admin: 03/18/20 16:53 Dose: 100 mls/hr Documented by: Sodium Chloride (Saline 0.9%) 1,000 mls @ 40 mls/hr IV .Q24H [facility] Last Admin: 03/18/20 20:41 Dose: 40 mls/hr Documented by: Anidulafungin 100 mg/ Sodium (Chloride) 100 mls @ 84 mls/hr IVPB DAILY@1200 [facility] Last Admin: 03/19/20 15:18 Dose: 84 mls/hr Documented by: Cefepime HCl 1 gm/ Sodium (Chloride) 50 mls @ 12.5 mls/hr IVPB Q12HR [facility] Last Admin: 03/19/20 10:32 Dose: 12.5 mls/hr Documented by: Clevidipine 25 mg/ IV Solution 50 mls @ 2 mls/hr IV .Q24H [facility]; Protocol Last Admin: 03/19/20 07:00 Dose: 2 mg/hr, 4 mls/hr Documented by: Dexmedetomidine HCl 400 mcg/ (IV Solution) 100 mls @ 0 mls/hr IV .Q0M [facility]; Protocol Stop: 03/19/20 20:12 Last Titration: 03/19/20 04:30 Dose: 0 mcg/kg/hr, 0 mls/hr Documented by: Acetaminophen 1,000 mg/ IV (Solution) 100 mls @ 400 mls/hr IVPB Q6HR PRN PRN Reason: Fever>101 Stop: 03/19/20 18:14 Ibuprofen (Ibuprofen 400 Mg Tab) 800 mg PO QID PRN PRN Reason: Fever and/ or Pain Insulin Aspart (Insulin Aspart (Novolog) 100 Unit/Ml Vial) 0 unit SQ Q4HR [facility]; Protocol Last Admin: 03/19/20 14:55 Dose: Not Given Documented by: Insulin Detemir (Insulin Detemir (Levemir) 100 Unit/Ml Syr) 15 unit SQ HS [facility] Last Admin: 03/18/20 20:39 Dose: 15 unit Documented by: Losartan Potassium (Losartan 50 Mg Tab) 100 mg PO DAILY [facility] Last Admin: 03/19/20 10:46 Dose: 100 mg Documented by: Miscellaneous Information (Magnesium Replacement Protocol 1 Each Misc) 1 each MISCELLANE DAILY PRN; Protocol PRN Reason: Per Protocol Miscellaneous Information (Potassium Replacement Protocol 1 Each Misc) 1 each MISCELLANE DAILY PRN; Protocol PRN Reason: Per Protocol Miscellaneous Information (Potassium Replacement Protocol 1 Each Misc) 1 each MISCELLANE DAILY PRN; Protocol PRN Reason: Per Protocol Naloxone HCl (Naloxone 0.4 Mg/Ml 1 Ml Vial) 0.2 mg IV Q2M PRN PRN Reason: Opioid Reversal Pantoprazole Sodium (Pantoprazole 40 Mg/10 Ml Vial) 40 mg IVP DAILY [facility] Last Admin: 03/19/20 10:33 Dose: 40 mg Documented by: On examination: VITAL SIGNS: 98.7, 94, 17, 150/70, 93% on 6 L GENERAL APPEARANCE: laying in bed, awake, nasal cannula HEENT: Dry mucous membranes EYES: Pupils equal. Conjunctiva normal. NECK: JVD unable to assess. Mass not palpable. RESPIRATORY: Respiratory effort increased. Lungs decreased breath sounds CARDIOVASCULAR: First and second sounds normal. No edema. ABDOMEN: Soft. Liver and spleen not palpable. No tenderness. No mass palpable. Kamara catheter PSYCHIATRY: Awake, answering questions INVESTIGATIONS, reviewed in the clinical context: White count 7.1 hemoglobin 10.9 potassium 4.3 creatinine 0.7 Previous testing Chest x-ray film personally reviewed by me-bilateral infiltrates right greater than left Computed tomography scan of the abdomen-nonspecific findings. Consolidation in the right lower lobe. Abdominal ultrasound-hepatosplenomegaly CBD dilated at 9 mm Chest [id number] infiltrates Urine Legionella antigen positive Sputum-Luisa albicans Additional cultures including blood Gram stain all negative Assessment: -Acute hypoxic respiratory failure from bilateral lower lobe pneumonia, ARDS, requiring mechanical ventilation-extubated March 18 -Legionella pneumonia -Bronchoscopy done on March 09 -Persistent sepsis- spiking fevers - -COVID 19 negative -Chronic pain syndrome -GERD -Essential hypertension -Chronic pain syndrome -Chronic nicotine dependence cigarette smoker -Chronic spine herniated disc with spinal stenosis -Morbid obesity BMI 54.4 -Hyperglycemia secondary to steroids. No diabetes. -Possible ischemic hepatitis.-Improving - Plan: Patient is improving. Diet to be advanced. On IV Levaquin. IV Eraxis. Discussed with patient.
[2020-03-19 16:45] LABS: Glucose,Whole Blood 138 mg/dL (75-99)
[2020-03-19] MEDS: LEVOFLOXACIN 750MG-D5W PMX 750 MG in DEXTROSE/WATER 1 150ML.BAG IVPB SCH (17:17)
[2020-03-19 21:20] LABS: Glucose,Whole Blood 120 mg/dL (75-99)
[2020-03-19] MEDS: INSULIN DETEMIR (LEVEMIR) 100 UNIT/ML SYR SQ SCH (21:27)
--- NOTE | 2020-03-19 22:09 | PN ---
PROGRESS NOTE DATE OF SERVICE: 03/19/2020 REASON FOR FOLLOWUP: 1. Legionella pneumonia. 2. Oropharyngeal candidiasis. 3. Diarrhea. INTERVAL HISTORY: The patient's overall fever pattern has improved. No fever has been recorded. Her last temperature was 100.6 at midnight. The patient is breathing comfortably. Denies having chest pain. Cough; not bringing up any sputum. No nausea, vomiting, abdominal pain or worsening diarrhea reported by the nursing staff. PHYSICAL EXAMINATION: Blood pressure 159/76, pulse of 94, temperature 98. She is 95% on 2 L nasal cannula. General description is a middle-aged female lying in bed in no distress. RESPIRATORY SYSTEM: Unlabored breathing with decreased breath sounds at the base. No wheeze. HEART: S1, S2. Regular rate and rhythm. ABDOMEN: Soft. No tenderness. LABS: Hemoglobin is 10.9, white count 17.1. BUN of 25, creatinine 0.70. Repeat culture so far pending. DIAGNOSTIC IMPRESSION AND PLAN: 1. Patient with acute Legionella pneumonia with acute respiratory failure, for which the patient has been on Levaquin; to continue. 2. Patient with possible secondary bacterial pneumonia with cefepime added yesterday, but it should be adjusted to 2 grams q.12 normal kidney function. 3. possible pharyngeal candidiasis, currently covered with Eraxis. 4. Slight worsening of the white count, more likely steroid effect, which has been discontinued. Expecting the white count to show a downward trend tomorrow. MMODL / IJN: [id number] /
[2020-03-19 23:46] LABS: Glucose,Whole Blood 126 mg/dL (75-99)
[2020-03-20] MEDS: INSULIN ASPART (NovoLOG) 100 UNIT/ML VIAL SQ SCH ×5 (00:26→21:07)
[2020-03-20] MEDS: SODIUM CHLORIDE 0.9% 1,000 ML IV SCH (00:35)
[2020-03-20] MEDS: HEPARIN SODIUM,PORCINE 5,000 UNIT/ML 1 ML VIAL SQ SCH ×4 (00:36→23:32)
[2020-03-20] MEDS: IPRATROPIUM-ALBUTEROL 3 ML NEB INHALATION SCH ×5 (03:48→21:13)
[2020-03-20 04:12] LABS: Glucose,Whole Blood 148 mg/dL (75-99)
[2020-03-20 05:19] LABS: HCT 33.1 % (34.0-46.0); HGB 10.5 gm/dL (11.4-16.0); MCH 30.7 pg (25.0-35.0); MCHC 31.8 g/dL (31.0-37.0); MCV 96.5 fL (80.0-100.0); Mean Platelet Volume 7.8; Platelet Count 294 k/uL (150-450); RBC 3.43 m/uL (3.80-5.40); RDW 14.8 % (11.5-15.5); WBC 15.1 k/uL (3.8-10.6)
[2020-03-20 05:31] LABS: African American GFR (CKD) >90 (>60 ml/min/1.73 sqM); Anion Gap 6 mmol/L; Blood Urea Nitrogen 27 mg/dL (7-17); Calcium 8.5 mg/dL (8.4-10.2); Carbon Dioxide 26 mmol/L (22-30); Chloride 107 mmol/L (98-107); Glucose 142 mg/dL (74-99); Non-African American GFR(CKD) >90 (>60 ml/min/1.73 sqM); Potassium 3.3 mmol/L (3.5-5.1); Sodium 139 mmol/L (137-145)
[2020-03-20] MEDS: CLEVIDIPINE BUTYRATE 25 MG in EMPTY BAG 1 BAG IV SCH (06:37)
[2020-03-20] MEDS: POTASSIUM CHLORIDE ER 20 MEQ TAB.ER PO SCH ×2 (06:37→09:04)
[2020-03-20 07:19] LABS: Glucose,Whole Blood 135 mg/dL (75-99)
--- NOTE | 2020-03-20 08:17 | XR ---
EXAMINATION TYPE: XR chest 1V portable DATE OF EXAM: 03/20/2020 COMPARISON: Prior chest x-ray 03/19/2020 HISTORY: Shortness of breath TECHNIQUE: Single frontal view of the chest is obtained. FINDINGS: There is some improvement in aeration at the right lung base. Patient is again rotated. No evident pneumothorax. Heart size is stable. IMPRESSION: Some slight interval improvement in aeration.
[2020-03-20] MEDS: CEFEPIME 1 GM in SODIUM CHLORIDE 0.9% 50 ML IVPB SCH (09:05)
[2020-03-20] MEDS: LOSARTAN 50 MG TAB PO SCH (09:06)
[2020-03-20] MEDS: PANTOPRAZOLE 40 MG/10 ML VIAL IVP SCH (09:06)
[2020-03-20] MEDS: CHLORHEXIDINE GLUCONATE 15 ML CUP MUCOUS MEM SCH ×2 (09:06→21:06)
[2020-03-20] MEDS ORDERED: FUROSEMIDE 10 MG/ML 4 ML VIAL IV STA (09:43)
[2020-03-20] MEDS: ANIDULAFUNGIN 100 MG in SODIUM CHLORIDE 0.9% 100 ML IVPB SCH (11:13)
[2020-03-20 12:17] LABS: Glucose,Whole Blood 177 mg/dL (75-99)
--- NOTE | 2020-03-20 13:42 | P.PN ---
Subjective Progress Note Date: 03/20/20 This is a 49-year-old here patient remains intubated on a mechanical ventilator for lower lobe pneumonia since 03/08/2020. The patient developed acute hypoxic respiratory failure requiring intubation mechanical ventilation. Subsequently, she developed an acute lung injury/ARDS and the patient required high level of oxygen and PEEP level. The patient had an acute pneumonia" at 19 testing came back negative and the patient checked positive for Legionella and and had urine antigen, negative influenza screen, and bronchoscopy was further done and the bronchioloalveolar lavage was negative for any other microbial growth. The patient is currently on Levaquin and vancomycin. She remains intubated on a mechanical ventilator. She remains sedated, and comfortable. This morning, the patient remains on a mechanical ventilator and she is on a PEEP of 10 with an FiO2 of 50%. Respiratory rate is a 36 with a tidal volume of 350. She is on propofol which is running at 50 g per KG per minute. Normal saline is running at 40 mL an hour. She is receiving vital high protein enteral feeding for nutr itional support at the rate of 28 mL an hour which is at goal. The patient is being seen in the follow-up today in the intensive care unit on 03/16/2020. The chest x-ray still showing extensive consolidation of the right lung base. The patient's triglyceride level was noted to be quite elevated. Based on that, I made recommendations to stop the propofol is was this patient to Precedex for now and use Versed if needed. Note that earlier this morning, the patient is still on a low tidal volume ventilation. I made the necessity ventilator changes as the patient's airway pressures are not elevated at this point in time and the patient was urinating higher tidal volumes on a mechanical ventilator. The patient is arousable while off the sedation. Tolerating enteral feeding for nutritional support. CAT scan of the chest will be needed to characterized abnormal mass in the right lower lobe. The patient is on Levaquin IV. The patient has a fecal management system for some limited diarrhea. No evidence of any significant colitis. No fever. The patient has some Luisa elements in the mouth and infection disease saw the patient and evaluated her and added Eraxis. On 03/17/2020 on seeing this patient for a follow-up in regards to her respiratory failure and Legionella pneumonia. The patient remains quite sedated and the patient is currently on a combination of Precedex at 1 mg per KG and Versed which is running at 6 malignant is an hour. The patient is was sedated and she is easily arousable. No agitation. In terms of her mechanical ventilator, the patient remains on assist control mode of ventilation at the rate of 20 with a tidal volume of 450 and FiO2 of 50% with a PEEP of 10. The blood gases from today shows a pH of 7.47 with a pCO2 of 39 and pO2 of 85 and this was on FiO2 of 50%. CAT scan of the chest was done yesterday and it showed extensive consolidation of the right lower lobe related to Legionella pneumonia. Was no evidence of any pleural effusion. A repeat chest x-ray from today shows interval improvement and the right lower lobe pulmonary infiltrate and a left perihilar infiltrate compared to previous chest x-rays. The patient's white cell count gradually improving and is down to 14.3. Hemoglobin stable at 10.5. Renal function is also stable with a creatinine of 0.6 with a BUN of 24. No other significant events overnight. The patient is tolerating enteral feeding for nutritional support and the patient is currently on vital high protein at the rate of 32 mL an hour. The patient is a negative fluid balance of 3.1 L and the patient is producing adequate amount of urine output for now. On 03/18/2020 the patient is being seen in follow-up in the intensive care unit. The patient is being treated for a Legionella pneumonia which has caused extensive consolidation bilaterally. Her pneumonia was gradually improving and her oxygenation was also improving. I'm a bit concerned about his ongoing fever that started yesterday. The patient was cultured and on today's chest x-ray there is some new infiltration of the left lung and I think there may be a component of ventilatory a pneumonia and the patient will be started on IV cefepime and combination to Levaquin. Meanwhile, the patient remains on a mechanical ventilator. The patient remains on assist control mode at the rate of 20 with a tidal volume of 450 and FiO2 of 50% with a PEEP of 5. The blood gases from today Showed a pH of 7.45 with a pCO2 of 42 and pO2 of 72. Earlier this morning, the patient was on a combination of Versed 2 mg an hour on Precedex at 0.8 mg per KG per minute. The sedation was gradually withdrawn and the patient was given a sedation holiday and following that the patient patient was given a trial of spontaneous breathing with a pressure support of 5 and a PEEP of 5 and FiO2 of 40%. The subsequent blood gases showed a pH of 7.46 and 0 41 and pO2 of 61. The patient was extubated to BiPAP. The patient is currently in a negative fluid balance of 1.5 L and he is making adequate urine output not even receiving any diuretics. I'm still a bit concerned about the fever. I'm going to check a pro-calcitonin level. I'm going to also ultimately replace the triple-lumen catheter and send the tip for cultures. Blood cultures were sent yesterday. Sputum culture was sent yesterday. Antibiotic modification will be done. On 03/19/2020, the patient remains extubated. Postextubation, the patient developed stridor and the patient was placed on Decadron and she was also given racemic epinephrine. She also had some issues with restlessness, anxiety and agitation and tachycardia. Overnight she was placed on Precedex at the lower dose which was gradually weaned off. This morning her blood pressure is still elevated and the patient on a clevidipine drip running at 2 mg an hour for blood pressure control. She is afebrile for now. She was having significant fever episodes earlier and for that reason the triple-lumen catheter was removed and the catheter tip was sent for cultures and the cultures are all negative. The pro-calcitonin is not significantly elevated. For now, the patient on a combination of cefepime, Levaquin regarding her Legionella pneumonia and Eraxis. The patient is not having any major respiratory distress pH is laying comfortably in bed. She is communicating. She is currently on 6 L of oxygen by nasal cannula with a pulse ox of 92%. Incentive spirometer is being used and the volume inhaled is in the order of 750. On and off, the patient required BiPAP postextubation pressure of 10/5 cm of water and currently stopped the BiPAP. She is on normal saline today to 40 mL an hour. She is awake and alert. No hoarseness. No stridor. Cough is weak yet is adequate for the time being. The chest x-ray from today is showing removal of the orotracheal tube. The patient has still a right IJ triple-lumen catheter. The patient bilateral airspace disease most on the right. There is no evidence of any pleural effusion based on her most recent CAT scan of the chest that was done prior to extubation. On 03/20/2020, the patient is awake and alert and she is improving and the chest exit from today shows further improvement in the right lower lobe consolidation that was attributed to Legionella pneumonia. The patient is afebrile. The patient is on a combination of antibiotics including Levaquin, cefepime and Eraxis. No fever. No chills or chills and weaned down to 6 L of oxygen by nasal cannula with a pulse is at 97%. She is having loose stools. She had a normal sed rate of 40 mL an hour. She is off the Upper extremities was utilized for blood pressure control. She is weak. She is working with physical therapy. She has no stridor. She has been extubated after being intubated for a long period of time regarding an acute Legionella pneumonia. No altered mentation. Objective - Vital Signs Vital signs: Vital Signs Temp 97.8 F 03/20/20 08:00 Pulse 96 03/20/20 12:30 Resp 13 03/20/20 12:30 BP 126/85 03/20/20 12:00 Pulse Ox 90 L 03/20/20 12:30 Intake & Output 03/19/20 03/20/20 03/20/20 18:59 06:59 18:59 Intake Total 762 523.267 436 Output Total 1201 950 285 Balance -439 -426.733 151 Weight 113.2 kg Intake: IV 762 473 196 0.9 Normal Saline 520 440 140 Anidulafungin 100 mg In 100 Sodium Chloride 0.9% 100 ml @ 84 mls/hr IVPB DAILY @1200 [facility] Rx#:[id number] Cefepime 1 gm In Sodium 50 Chloride 0.9% 50 ml @ 12. 5 mls/hr IVPB Q12HR [facility] Rx#:[id number] Levofloxacin 750Mg-D5w 100 Pmx 750 mg In Dextrose/ Water 1 150ml.bag @ 100 mls/hr IVPB Q24H [facility] Rx#: [id number] Normal Saline Pressure 42 33 6 bag Intake, IV Titration 0 50.267 Amount Clevidipine Butyrate 25 0 50.267 mg In Empty Bag 1 bag @ 1 MG/HR 2 mls/hr IV .Q24H [facility] Rx#:[id number] Oral 240 Output: Urine 1201 950 285 Other: Voiding Method Indwelling Catheter Indwelling Catheter # Bowel Movements 1 1 ABP, PAP, CO, CI - Last Documented Arterial Blood Pressure 92/86 - Exam Gen. appearance, comfortable and the patient was currently on 6 L of oxygen by nasal cannula Head exam was generally normal. There was no scleral icterus or corneal arcus. Mucous membranes were moist. Neck was supple and without jugular venous distension, thyromegaly, or carotid bruits. Carotids were easily palpable bilaterally. There was no adenopathy. Lungs sounds are diminished in the right lung base otherwise there is no wheezes, rhonchi or crackles Cardiac exam revealed the PMI to be normally situated and sized. The rhythm was regular and no extrasystoles were noted during several minutes of auscultation. The first and second heart sounds were normal and physiologic splitting of the second heart sound was noted. There were no murmurs, rubs, clicks, or gallops. Abdominal exam revealed normal bowel sounds. The abdomen was soft, non-tender, and without masses, organomegaly, or appreciable enlargement of the abdominal aorta. Examination of the extremities revealed easily palpable radial, femoral and pedal pulses. There was no cyanosis, clubbing or edema. Examination of the skin revealed no evidence of significant rashes, suspicious appearing nevi or other concerning lesions. Neurologic the patient is awake and alert and following commands and questions appropriately. She is moving all 4 extremities while off sedation.Neurologically, the patient is awake and alert and the patient does not have any focal neurological deficit. Cranial nerves are essentially intact. - Labs CBC & Chem 7: 03/20/20 04:51 03/20/20 04:51 Labs: Abnormal Lab Results - Last 24 Hours (Table) 03/19/20 03/19/20 03/19/20 Range/Units 14:17 16:43 21:18 WBC (3.8-10.6) k/uL RBC (3.80-5.40) m/uL Hgb (11.4-16.0) gm/dL Hct (34.0-46.0) % Potassium (3.5-5.1) mmol/L BUN (7-17) mg/dL Glucose (74-99) mg/dL POC Glucose (mg/dL) 161 H 138 H 120 H (75-99) mg/dL 03/19/20 03/20/20 03/20/20 Range/Units 23:45 04:11 04:51 WBC 15.1 H (3.8-10.6) k/uL RBC 3.43 L (3.80-5.40) m/uL Hgb 10.5 L (11.4-16.0) gm/dL Hct 33.1 L (34.0-46.0) % Potassium (3.5-5.1) mmol/L BUN (7-17) mg/dL Glucose (74-99) mg/dL POC Glucose (mg/dL) 126 H 148 H (75-99) mg/dL 03/20/20 03/20/20 03/20/20 Range/Units 04:51 07:18 12:15 WBC (3.8-10.6) k/uL RBC (3.80-5.40) m/uL Hgb (11.4-16.0) gm/dL Hct (34.0-46.0) % Potassium 3.3 L (3.5-5.1) mmol/L BUN 27 H (7-17) mg/dL Glucose 142 H (74-99) mg/dL POC Glucose (mg/dL) 135 H 177 H (75-99) mg/dL Microbiology - Last 24 Hours (Table) 03/18/20 12:15 Catheter Tip Culture - Final Catheter Tip 03/18/20 01:00 Gram Stain - Final Sputum Sputum Culture - Final Luisa albicans 03/17/20 17:26 Blood Culture - Preliminary Blood No Growth after 48 hours 03/13/20 14:09 Blood Culture - Final Blood No Growth after 144 hours 03/13/20 10:55 Blood Culture - Final Blood No Growth after 144 hours Assessment and Plan Plan: 1 acute hypoxic respiratory failure secondary to Legionella pneumonia. The patient is improving and currently she is down to 6 L of oxygen by nasal cannula. Chest x-ray shows further improvement in the right lower lobe consolidation. 2 Fever, currently under investigation. Pro-calcitonin level is low. Cultures of been sent and the triple-lumen catheter was also removed and the tip was sent for culture. No significant leukocytosis. The patient is afebrile for now. The patient is covered with a combination of antibiotics including Levaquin, cefepime and Eraxis. 3 sepsis secondary to Legionella pneumonia, and the patient has leukocytosis which is improving 4 obesity, 5 hypertension, BP is under adequate control 6 chronic back pain as the patient has lumbar stenosis and herniated this disease 7 leukocytosis, improving 8 enteral feeding for nutritional support 9 mild transaminitis secondary to Legionella 10 hypertriglyceridemia secondary to propofol infusion and this was discontinued. 11 diarrhea with a negative stool for C. diff 12 obesity with a BMI 54.3 Plan We'll wean the FiO2 further commented saturation above 90% The IV Fluids to KVO He is a patient dose of Lasix 40 mg IV push Advance diet [facility] physical therapy BP is under good control and continue the losartan Keep in ICU for another 24 hours We'll continue to follow
[2020-03-20 16:47] LABS: Glucose,Whole Blood 105 mg/dL (75-99)
--- NOTE | 2020-03-20 17:10 | PN ---
PROGRESS NOTE DATE OF SERVICE: 03/20/2020. REASON FOR FOLLOWUP: Pneumonia. INTERVAL HISTORY: The patient is currently afebrile, the patient is breathing comfortably, the patient denies having any chest pain or shortness of breath. Minimal cough. No nausea. No abdominal pain, no diarrhea. PHYSICAL EXAMINATION: Her blood pressure is 170/76, pulse of 89, temperature is 97.8. She is 94% on room air. General description is a middle-aged female, up in the bed, in no distress. RESPIRATORY SYSTEM: Unlabored breathing, decreased breath sounds in the base, with no wheeze. HEART: S1, S2. Regular rate and rhythm. ABDOMEN: Soft, no tenderness. LABS: Hemoglobin 10.4, white count 15.9, BUN of 26, creatinine 0.65. DIAGNOSTIC IMPRESSION AND PLAN: 1. Patient with acute Legionella pneumonia with concern for possible secondary bacterial pneumonia as the patient did have a fever. Blood culture has been negative. Clinically responding to the Levaquin and cefepime that was added to continue. 2. Possible oropharyngeal candidiasis covered with Eraxis. White count showing a downward trend. 3. at the bedside. Questions were answered. MMODL / IJN: [id number] /
[2020-03-20] MEDS: LEVOFLOXACIN 750MG-D5W PMX 750 MG in DEXTROSE/WATER 1 150ML.BAG IVPB SCH (17:16)
--- NOTE | 2020-03-20 17:24 | P.PN ---
Progress Note - Text Progress Note Date: 03/20/20 Presenting complaint: Short of breath Interval history: Patient presented with fever, shortness of breath. Admitted with acute respiratory failure secondary to Legionella pneumonia. COVID 19 was ruled out. Started on IV Levaquin and Zosyn. Sepsis. Hypovolemic, hyponatremia. Empirically being treated with Flagyl by ID for C. diff.. IV antifungal added. Sputum culture positive for Luisa albicans. Had undergone bronchoscopy.-Other cultures were negative. Extubated March 18. Fulnx-OHW-ievwoih better. Sitting up in a chair. is visiting. Breathing is improved. On a clear liquid diet. Review of systems: Was done for constitutional, cardiovascular, GI, pulmonary. relevant finding as above Active Medications Albuterol/Ipratropium (Ipratropium-Albuterol 3 Ml Neb) 3 ml INHALATION RT-Q4H [facility] Last Admin: 03/20/20 17:09 Dose: 3 ml Documented by: Chlorhexidine Gluconate (Chlorhexidine Gluconate 15 Ml Cup) 15 ml MUCOUS MEM BID [facility] Last Admin: 03/20/20 09:06 Dose: Not Given Documented by: Heparin Sodium (Porcine) (Heparin Sodium,Porcine 5,000 Unit/Ml 1 Ml Vial) 5,000 unit SQ Q8HR [facility] Last Admin: 03/20/20 17:16 Dose: 5,000 unit Documented by: Hydralazine HCl (Hydralazine Hcl 20 Mg/Ml 1 Ml Vial) 10 mg IVP Q6HR PRN PRN Reason: Blood Pressure - High Last Admin: 03/18/20 19:10 Dose: 10 mg Documented by: Hydromorphone HCl (Hydromorphone 1 Mg/Ml 1 Ml Syringe) 1 mg IVP Q2HR PRN PRN Reason: Pain Last Admin: 03/18/20 19:53 Dose: 1 mg Documented by: Levofloxacin 750 mg/ IV (Solution) 150 mls @ 100 mls/hr IVPB Q24H [facility] Last Admin: 03/20/20 17:16 Dose: 100 mls/hr Documented by: Sodium Chloride (Saline 0.9%) 1,000 mls @ 10 mls/hr IV .Q24H [facility] Last Admin: 03/20/20 00:35 Dose: 40 mls/hr Documented by: Anidulafungin 100 mg/ Sodium (Chloride) 100 mls @ 84 mls/hr IVPB DAILY@1200 [facility] Last Admin: 03/20/20 11:13 Dose: 84 mls/hr Documented by: Cefepime HCl 2 gm/ Sodium (Chloride) 100 mls @ 25 mls/hr IVPB Q12HR [facility] Ibuprofen (Ibuprofen 400 Mg Tab) 800 mg PO QID PRN PRN Reason: Fever and/ or Pain Insulin Aspart (Insulin Aspart (Novolog) 100 Unit/Ml Vial) 0 unit SQ ACHS [facility]; Protocol Last Admin: 03/20/20 17:08 Dose: Not Given Documented by: Insulin Detemir (Insulin Detemir (Levemir) 100 Unit/Ml Syr) 15 unit SQ HS [facility] Last Admin: 03/19/20 21:27 Dose: 15 unit Documented by: Losartan Potassium (Losartan 50 Mg Tab) 100 mg PO DAILY [facility] Last Admin: 03/20/20 09:06 Dose: 100 mg Documented by: Miscellaneous Information (Magnesium Replacement Protocol 1 Each Misc) 1 each MISCELLANE DAILY PRN; Protocol PRN Reason: Per Protocol Miscellaneous Information (Potassium Replacement Protocol 1 Each Misc) 1 each MISCELLANE DAILY PRN; Protocol PRN Reason: Per Protocol Miscellaneous Information (Potassium Replacement Protocol 1 Each Misc) 1 each MISCELLANE DAILY PRN; Protocol PRN Reason: Per Protocol Naloxone HCl (Naloxone 0.4 Mg/Ml 1 Ml Vial) 0.2 mg IV Q2M PRN PRN Reason: Opioid Reversal Pantoprazole Sodium (Pantoprazole 40 Mg/10 Ml Vial) 40 mg IVP DAILY [facility] Last Admin: 03/20/20 09:06 Dose: 40 mg Documented by: On examination: VITAL SIGNS: Afebrile, 85, 21, 119/57, 87% on nasal cannula GENERAL APPEARANCE: Sitting up in a chair, more awake HEENT: Dry mucous membranes EYES: Pupils equal. Conjunctiva normal. NECK: JVD unable to assess. Mass not palpable. RESPIRATORY: Respiratory effort increased. Lungs decreased breath sounds CARDIOVASCULAR: First and second sounds normal. No edema. ABDOMEN: Soft. Liver and spleen not palpable. No tenderness. No mass palpable. Kamara catheter PSYCHIATRY: Answering questions appropriately INVESTIGATIONS, reviewed in the clinical context: White count 15.1 hemoglobin 10.5 potassium 3.3 creatinine 0.65 Chest x-ray film from October 9-improvement in aeration Previous testing Chest x-ray film personally reviewed by me-bilateral infiltrates right greater than left Computed tomography scan of the abdomen-nonspecific findings. Consolidation in the right lower lobe. Abdominal ultrasound-hepatosplenomegaly CBD dilated at 9 mm Chest [id number] infiltrates Urine Legionella antigen positive Sputum-Luisa albicans Additional cultures including blood Gram stain all negative Assessment: -Acute hypoxic respiratory failure from bilateral lower lobe pneumonia, ARDS, requiring mechanical ventilation-extubated March 18-and nasal cannula -Legionella pneumonia -Bronchoscopy done on March 09 -Persistent sepsis- spiking fevers -improved -COVID 19 negative -Chronic pain syndrome -GERD -Essential hypertension -Chronic pain syndrome -Chronic nicotine dependence cigarette smoker -Chronic spine herniated disc with spinal stenosis -Morbid obesity BMI 54.4 -Hyperglycemia secondary to steroids. No diabetes. -Possible ischemic hepatitis.-Improving - Plan: Continues to improve. On a clear liquid diet. Which to be advanced. Blood pressure is better controlled. We will repeat CMP in the morning. On IV Levaquin, IV Eraxis. Discussed with the patient and .. Follow with ID and pulmonary.
[2020-03-20] MEDS ORDERED: CEFEPIME 2 GM in SODIUM CHLORIDE 0.9% 50 ML IVPB SCH (21:00)
[2020-03-20 21:01] LABS: Glucose,Whole Blood 138 mg/dL (75-99)
[2020-03-20] MEDS: CEFEPIME 2 GM in SODIUM CHLORIDE 0.9% 100 ML IVPB SCH (21:06)
[2020-03-20] MEDS: INSULIN DETEMIR (LEVEMIR) 100 UNIT/ML SYR SQ SCH (21:07)
[2020-03-20 23:59] LABS: Glucose,Whole Blood 106 mg/dL (75-99)
[2020-03-21] MEDS: IPRATROPIUM-ALBUTEROL 3 ML NEB INHALATION SCH ×6 (00:39→20:11)
[2020-03-21 04:00] LABS: Glucose,Whole Blood 125 mg/dL (75-99)
[2020-03-21 05:22] LABS: Basophils # (A) 0.1 k/uL (0-0.2); Basophils % (A) 1 %; Eosinophils # (A) 0.3 k/uL (0-0.7); Eosinophils % (A) 3 %; HGB 11.4 gm/dL (11.4-16.0); Lymphocytes # (A) 1.8 k/uL (1.0-4.8); Lymphocytes % (A) 21 %; MCH 31.8 pg (25.0-35.0); MCHC 32.6 g/dL (31.0-37.0); MCV 97.7 fL (80.0-100.0); Mean Platelet Volume 8.1; Monocytes # (A) 0.5 k/uL (0-1.0); Monocytes % (A) 6 %; Neutrophils # (A) 5.9 k/uL (1.3-7.7); Neutrophils % (A) 68 %; Platelet Count 273 k/uL (150-450); RBC 3.58 m/uL (3.80-5.40); RDW 14.5 % (11.5-15.5); WBC 8.6 k/uL (3.8-10.6)
[2020-03-21 05:35] LABS: African American GFR (CKD) >90 (>60 ml/min/1.73 sqM); Anion Gap 4 mmol/L; Blood Urea Nitrogen 23 mg/dL (7-17); Calcium 8.4 mg/dL (8.4-10.2); Carbon Dioxide 30 mmol/L (22-30); Chloride 104 mmol/L (98-107); Glucose 124 mg/dL (74-99); Non-African American GFR(CKD) >90 (>60 ml/min/1.73 sqM); Potassium 3.1 mmol/L (3.5-5.1); Sodium 138 mmol/L (137-145)
[2020-03-21 06:34] LABS: Glucose,Whole Blood 147 mg/dL (75-99)
[2020-03-21] MEDS: POTASSIUM CHLORIDE ER 20 MEQ TAB.ER PO SCH ×2 (06:42→08:51)
[2020-03-21] MEDS: INSULIN ASPART (NovoLOG) 100 UNIT/ML VIAL SQ SCH ×4 (06:43→20:47)
--- NOTE | 2020-03-21 07:02 | XR ---
EXAMINATION TYPE: XR chest 1V portable DATE OF EXAM: 03/21/2020 COMPARISON: 03/20/2020 HISTORY: Shortness of breath TECHNIQUE: Single frontal view of the chest is obtained. FINDINGS: Bilateral infiltrate and pleural effusion. No pneumothorax. Heart size prominent stable.. Osseous structures are stable. IMPRESSION: 1. Stable bilateral pleural-parenchymal changes. Correlate for pneumonia. Otherwise consider CHF.
[2020-03-21] MEDS ORDERED: FUROSEMIDE 10 MG/ML 2 ML VIAL IV ONE (08:40)
[2020-03-21] MEDS: HEPARIN SODIUM,PORCINE 5,000 UNIT/ML 1 ML VIAL SQ SCH ×3 (08:50→23:35)
[2020-03-21] MEDS: LOSARTAN 50 MG TAB PO SCH (08:51)
[2020-03-21] MEDS: PANTOPRAZOLE 40 MG/10 ML VIAL IVP SCH (08:52)
[2020-03-21] MEDS: CEFEPIME 2 GM in SODIUM CHLORIDE 0.9% 100 ML IVPB SCH ×2 (08:52→21:48)
[2020-03-21 12:07] LABS: Glucose,Whole Blood 190 mg/dL (75-99)
--- NOTE | 2020-03-21 12:09 | P.PN ---
Subjective Progress Note Date: 03/21/20 This is a 49-year-old here patient remains intubated on a mechanical ventilator for lower lobe pneumonia since 03/08/2020. The patient developed acute hypoxic respiratory failure requiring intubation mechanical ventilation. Subsequently, she developed an acute lung injury/ARDS and the patient required high level of oxygen and PEEP level. The patient had an acute pneumonia" at 19 testing came back negative and the patient checked positive for Legionella and and had urine antigen, negative influenza screen, and bronchoscopy was further done and the bronchioloalveolar lavage was negative for any other microbial growth. The patient is currently on Levaquin and vancomycin. She remains intubated on a mechanical ventilator. She remains sedated, and comfortable. This morning, the patient remains on a mechanical ventilator and she is on a PEEP of 10 with an FiO2 of 50%. Respiratory rate is a 36 with a tidal volume of 350. She is on propofol which is running at 50 g per KG per minute. Normal saline is running at 40 mL an hour. She is receiving vital high protein enteral feeding for nutr itional support at the rate of 28 mL an hour which is at goal. The patient is being seen in the follow-up today in the intensive care unit on 03/16/2020. The chest x-ray still showing extensive consolidation of the right lung base. The patient's triglyceride level was noted to be quite elevated. Based on that, I made recommendations to stop the propofol is was this patient to Precedex for now and use Versed if needed. Note that earlier this morning, the patient is still on a low tidal volume ventilation. I made the necessity ventilator changes as the patient's airway pressures are not elevated at this point in time and the patient was urinating higher tidal volumes on a mechanical ventilator. The patient is arousable while off the sedation. Tolerating enteral feeding for nutritional support. CAT scan of the chest will be needed to characterized abnormal mass in the right lower lobe. The patient is on Levaquin IV. The patient has a fecal management system for some limited diarrhea. No evidence of any significant colitis. No fever. The patient has some Luisa elements in the mouth and infection disease saw the patient and evaluated her and added Eraxis. On 03/17/2020 on seeing this patient for a follow-up in regards to her respiratory failure and Legionella pneumonia. The patient remains quite sedated and the patient is currently on a combination of Precedex at 1 mg per KG and Versed which is running at 6 malignant is an hour. The patient is was sedated and she is easily arousable. No agitation. In terms of her mechanical ventilator, the patient remains on assist control mode of ventilation at the rate of 20 with a tidal volume of 450 and FiO2 of 50% with a PEEP of 10. The blood gases from today shows a pH of 7.47 with a pCO2 of 39 and pO2 of 85 and this was on FiO2 of 50%. CAT scan of the chest was done yesterday and it showed extensive consolidation of the right lower lobe related to Legionella pneumonia. Was no evidence of any pleural effusion. A repeat chest x-ray from today shows interval improvement and the right lower lobe pulmonary infiltrate and a left perihilar infiltrate compared to previous chest x-rays. The patient's white cell count gradually improving and is down to 14.3. Hemoglobin stable at 10.5. Renal function is also stable with a creatinine of 0.6 with a BUN of 24. No other significant events overnight. The patient is tolerating enteral feeding for nutritional support and the patient is currently on vital high protein at the rate of 32 mL an hour. The patient is a negative fluid balance of 3.1 L and the patient is producing adequate amount of urine output for now. On 03/18/2020 the patient is being seen in follow-up in the intensive care unit. The patient is being treated for a Legionella pneumonia which has caused extensive consolidation bilaterally. Her pneumonia was gradually improving and her oxygenation was also improving. I'm a bit concerned about his ongoing fever that started yesterday. The patient was cultured and on today's chest x-ray there is some new infiltration of the left lung and I think there may be a component of ventilatory a pneumonia and the patient will be started on IV cefepime and combination to Levaquin. Meanwhile, the patient remains on a mechanical ventilator. The patient remains on assist control mode at the rate of 20 with a tidal volume of 450 and FiO2 of 50% with a PEEP of 5. The blood gases from today Showed a pH of 7.45 with a pCO2 of 42 and pO2 of 72. Earlier this morning, the patient was on a combination of Versed 2 mg an hour on Precedex at 0.8 mg per KG per minute. The sedation was gradually withdrawn and the patient was given a sedation holiday and following that the patient patient was given a trial of spontaneous breathing with a pressure support of 5 and a PEEP of 5 and FiO2 of 40%. The subsequent blood gases showed a pH of 7.46 and 0 41 and pO2 of 61. The patient was extubated to BiPAP. The patient is currently in a negative fluid balance of 1.5 L and he is making adequate urine output not even receiving any diuretics. I'm still a bit concerned about the fever. I'm going to check a pro-calcitonin level. I'm going to also ultimately replace the triple-lumen catheter and send the tip for cultures. Blood cultures were sent yesterday. Sputum culture was sent yesterday. Antibiotic modification will be done. On 03/19/2020, the patient remains extubated. Postextubation, the patient developed stridor and the patient was placed on Decadron and she was also given racemic epinephrine. She also had some issues with restlessness, anxiety and agitation and tachycardia. Overnight she was placed on Precedex at the lower dose which was gradually weaned off. This morning her blood pressure is still elevated and the patient on a clevidipine drip running at 2 mg an hour for blood pressure control. She is afebrile for now. She was having significant fever episodes earlier and for that reason the triple-lumen catheter was removed and the catheter tip was sent for cultures and the cultures are all negative. The pro-calcitonin is not significantly elevated. For now, the patient on a combination of cefepime, Levaquin regarding her Legionella pneumonia and Eraxis. The patient is not having any major respiratory distress pH is laying comfortably in bed. She is communicating. She is currently on 6 L of oxygen by nasal cannula with a pulse ox of 92%. Incentive spirometer is being used and the volume inhaled is in the order of 750. On and off, the patient required BiPAP postextubation pressure of 10/5 cm of water and currently stopped the BiPAP. She is on normal saline today to 40 mL an hour. She is awake and alert. No hoarseness. No stridor. Cough is weak yet is adequate for the time being. The chest x-ray from today is showing removal of the orotracheal tube. The patient has still a right IJ triple-lumen catheter. The patient bilateral airspace disease most on the right. There is no evidence of any pleural effusion based on her most recent CAT scan of the chest that was done prior to extubation. On 03/20/2020, the patient is awake and alert and she is improving and the chest exit from today shows further improvement in the right lower lobe consolidation that was attributed to Legionella pneumonia. The patient is afebrile. The patient is on a combination of antibiotics including Levaquin, cefepime and Eraxis. No fever. No chills or chills and weaned down to 6 L of oxygen by nasal cannula with a pulse is at 97%. She is having loose stools. She had a normal sed rate of 40 mL an hour. She is off the Upper extremities was utilized for blood pressure control. She is weak. She is working with physical therapy. She has no stridor. She has been extubated after being intubated for a long period of time regarding an acute Legionella pneumonia. No altered mentation. 03/21/2020, the patient is doing extremely well. No new complaints. Oxygen level is improved and the patient is currently on 2 L of oxygen by nasal cannula. No respiratory distress. Kamara catheter is in place. She has loose bowel movements. No active diarrhea. She was given a dose of Lasix yesterday and she put out approximately 1.5 cm out immediately. She remains on a combination of Levaquin, cefepime and Eraxis. No altered mentation. Weakness improving. He is working with physical therapy. No fever. No other significant events overnight. The patient is quite stable for now as she recovered from an acute hypoxic respiratory failure related to Legionella pneumonia. Objective - Vital Signs Vital signs: Vital Signs Temp 98.2 F 03/21/20 08:00 Pulse 104 H 03/21/20 10:00 Resp 23 03/21/20 10:00 BP 116/84 03/21/20 10:00 Pulse Ox 94 L 03/21/20 10:00 Intake & Output 03/20/20 03/21/20 03/21/20 18:59 06:59 18:59 Intake Total 606 220 312 Output Total 8475 825 605 Balance -1929 -605 -293 Weight 113.2 kg 114.3 kg Intake: IV 366 220 90 0.9 Normal Saline 210 120 40 Anidulafungin 100 mg In 100 Sodium Chloride 0.9% 100 ml @ 84 mls/hr IVPB DAILY @1200 [facility] Rx#:[id number] Cefepime 1 gm In Sodium 50 100 50 Chloride 0.9% 50 ml @ 12. 5 mls/hr IVPB Q12HR [facility] Rx#:[id number] Normal Saline Pressure 6 bag Oral 240 222 Output: Urine 2535 825 605 Other: Voiding Method Indwelling Catheter Indwelling Catheter Indwelling Catheter # Bowel Movements 1 ABP, PAP, CO, CI - Last Documented Arterial Blood Pressure 92/86 - Exam Gen. appearance, comfortable and the patient was currently on 2 L of oxygen by nasal cannula Head exam was generally normal. There was no scleral icterus or corneal arcus. Mucous membranes were moist. Neck was supple and without jugular venous distension, thyromegaly, or carotid bruits. Carotids were easily palpable bilaterally. There was no adenopathy. Lungs sounds are diminished in the right lung base otherwise there is no wheezes, rhonchi or crackles Cardiac exam revealed the PMI to be normally situated and sized. The rhythm was regular and no extrasystoles were noted during several minutes of auscultation. The first and second heart sounds were normal and physiologic splitting of the second heart sound was noted. There were no murmurs, rubs, clicks, or gallops. Abdominal exam revealed normal bowel sounds. The abdomen was soft, non-tender, and without masses, organomegaly, or appreciable enlargement of the abdominal aorta. Examination of the extremities revealed easily palpable radial, femoral and pedal pulses. There was no cyanosis, clubbing or edema. Examination of the skin revealed no evidence of significant rashes, suspicious appearing nevi or other concerning lesions. Neurologic the patient is awake and alert and following commands and questions appropriately. She is moving all 4 extremities while off sedation.Neurologically, the patient is awake and alert and the patient does not have any focal neurological deficit. Cranial nerves are essentially intact. - Labs CBC & Chem 7: 03/21/20 04:55 03/21/20 04:55 Labs: Abnormal Lab Results - Last 24 Hours (Table) 03/20/20 03/20/20 03/20/20 Range/Units 12:15 16:45 21:00 RBC (3.80-5.40) m/uL Potassium (3.5-5.1) mmol/L BUN (7-17) mg/dL Glucose (74-99) mg/dL POC Glucose (mg/dL) 177 H 105 H 138 H (75-99) mg/dL 03/20/20 03/21/20 03/21/20 Range/Units 23:57 03:58 04:55 RBC 3.58 L (3.80-5.40) m/uL Potassium (3.5-5.1) mmol/L BUN (7-17) mg/dL Glucose (74-99) mg/dL POC Glucose (mg/dL) 106 H 125 H (75-99) mg/dL 03/21/20 03/21/20 Range/Units 04:55 06:33 RBC (3.80-5.40) m/uL Potassium 3.1 L (3.5-5.1) mmol/L BUN 23 H (7-17) mg/dL Glucose 124 H (74-99) mg/dL POC Glucose (mg/dL) 147 H (75-99) mg/dL Microbiology - Last 24 Hours (Table) 03/20/20 07:59 Catheter Tip Culture - Preliminary Catheter Tip 03/17/20 17:26 Blood Culture - Preliminary Blood No Growth after 72 hours 03/18/20 12:15 Catheter Tip Culture - Final Catheter Tip 03/18/20 01:00 Gram Stain - Final Sputum Sputum Culture - Final Luisa albicans Assessment and Plan Plan: 1 acute hypoxic respiratory failure secondary to Legionella pneumonia. The patient is improving and currently she is down to 2 L of oxygen by nasal cannula. Chest x-ray shows further improvement in the right lower lobe consolidation. Clinically stable as the patient is requiring minimal amount of oxygen and she is hemodynamically stable and she is recovering from an acute hypoxic respiratory failure related to pneumonia. 2 Fever, currently under investigation. Pro-calcitonin level is low. Cultures of been sent and the triple-lumen catheter was also removed and the tip was sent for culture. No significant leukocytosis. The patient is afebrile for now. The patient is covered with a combination of antibiotics including Levaquin, cefepime and Eraxis. The patient is currently afebrile. 3 sepsis secondary to Legionella pneumonia, and the patient has leukocytosis which is improving 4 obesity, 5 hypertension, BP is under adequate control 6 chronic back pain as the patient has lumbar stenosis and herniated this disease 7 leukocytosis, improving 8 enteral feeding for nutritional support 9 mild transaminitis secondary to Legionella 10 hypertriglyceridemia secondary to propofol infusion and this was discontinued. 11 diarrhea with a negative stool for C. diff 12 obesity with a BMI 54.3 Plan Given additional dose of Lasix 20 mg IV push IV fluids to KVO Remove the Kamara catheter Continue antibiotic coverage Work with physical therapy Transferred out of the intensive care unit
[2020-03-21] MEDS: LEVOFLOXACIN 750MG-D5W PMX 750 MG in DEXTROSE/WATER 1 150ML.BAG IVPB SCH (14:50)
[2020-03-21] MEDS: ANIDULAFUNGIN 100 MG in SODIUM CHLORIDE 0.9% 100 ML IVPB SCH (14:56)
[2020-03-21] MEDS: SODIUM CHLORIDE 0.9% 1,000 ML IV SCH ×2 (17:33→22:00)
[2020-03-21 17:40] LABS: Glucose,Whole Blood 221 mg/dL (75-99)
--- NOTE | 2020-03-21 19:49 | PN ---
PROGRESS NOTE DATE OF SERVICE: 03/21/2020 REASON FOR FOLLOWUP: Pneumonia. INTERVAL HISTORY: The patient is currently afebrile. The patient is breathing more comfortably. The patient denies having any chest pain or shortness of breath. Minimal cough. No nausea, no vomiting. No abdominal pain. No diarrhea. PHYSICAL EXAMINATION: Blood pressure 135/83 with a pulse of 100, temperature 98.4. She is 94% on 2 L nasal cannula. General description is a middle-aged female up in the bed in no distress. Respiratory system: Unlabored breathing, decreased breath sounds at bases, no wheeze. Heart S1, S2. Regular rate and rhythm. ABDOMEN: Soft, no tenderness. LAB: Hemoglobin is 11.4, white count 8.6, BUN of 23, creatinine 0.69. DIAGNOSTIC IMPRESSION AND PLAN: 1. Patient with acute Legionella pneumonia with acute respiratory failure. The patient has been extubated and breathing comfortably. Concern for possible secondary bacterial pneumonia. So far the patient's fever is responding to cefepime, to continue along with Levaquin. 2. Patient with oropharyngeal candidiasis covered with Eraxis. Transition to nystatin swish and swallow. Continue supportive care. MMODL / IJN: [id number] /
[2020-03-21 20:44] LABS: Glucose,Whole Blood 138 mg/dL (75-99)
[2020-03-21] MEDS: INSULIN DETEMIR (LEVEMIR) 100 UNIT/ML SYR SQ SCH (20:48)
--- NOTE | 2020-03-21 23:43 | P.PN ---
Subjective This is a pleasant 40 years old female with multiple medical problems who was admitted initially because of respiratory symptoms and within one day she become severely hypoxic needing going to the icu with mechanical ventilation, patient was found to have legionella pneumonia with suspicion of superimposed bacterial infection, infectious and pulmonary team or on the case and patient is treated with broad-spectrum antibiotics with levaquin, cefepime and eraxis. Patient showed interval improvement and eventually she got extubated, currently she was seen and examined in the ICU, resting comfortably and 2 L oxygen via nasal cannula with no significant dyspnea or coughing or chest pain. However she was a transverse, her oxygen requirement lowered to 2 L/m via nasal cannula today. Patient for possible discharge to the general medical floor Patient looks generally weak and she might benefit from rehab. Review of systems CONSTITUTIONAL: No fever, no malaise, no fatigue. HEENT: No recent visual problems or hearing problems. Denied any sore throat. CARDIOVASCULAR: No orthopnea, PND, no palpitations, no syncope. PULMONARY: No shortness of breath, no cough, no hemoptysis. GASTROINTESTINAL: No diarrhea, no nausea, no vomiting, no abdominal pain. Normoactive bowel sounds. Active Medications Generic Name Dose Route Start Last Admin Trade Name Freq PRN Reason Stop Dose Admin Albuterol/Ipratropium 3 ml 03/08/20 12:00 03/21/20 20:11 Ipratropium-Albuterol 3 Ml Neb INHALATION Not Given RT-Q4H [facility] Heparin Sodium (Porcine) 5,000 unit 03/06/20 16:00 03/21/20 23:35 Heparin Sodium,Porcine 5,000 Unit/Ml 1 Ml Vial SQ 5,000 unit Q8HR [facility] Administration Hydralazine HCl 10 mg 03/18/20 18:53 03/18/20 19:10 Hydralazine Hcl 20 Mg/Ml 1 Ml Vial IVP 10 mg Q6HR PRN Administration Blood Pressure - High Hydromorphone HCl 1 mg 03/08/20 20:32 03/18/20 19:53 Hydromorphone 1 Mg/Ml 1 Ml Syringe IVP 1 mg Q2HR PRN Administration Pain Levofloxacin 750 mg/ IV 150 mls @ 100 mls/hr 03/08/20 16:00 03/21/20 14:50 Solution IVPB 100 mls/hr Q24H [facility] Administration Sodium Chloride 1,000 mls @ 10 mls/hr 03/11/20 20:30 03/21/20 17:33 Saline 0.9% IV 10 mls/hr .Q24H [facility] Administration Anidulafungin 100 mg/ Sodium 100 mls @ 84 mls/hr 03/17/20 12:00 03/21/20 14:56 Chloride IVPB 84 mls/hr DAILY@1200 [facility] Administration Cefepime HCl 2 gm/ Sodium 100 mls @ 25 mls/hr 03/20/20 21:00 03/21/20 21:48 Chloride IVPB 25 mls/hr Q12HR [facility] Administration Ibuprofen 800 mg 03/17/20 23:43 Ibuprofen 400 Mg Tab PO QID PRN Fever and/ or Pain Insulin Aspart 0 unit 03/20/20 12:30 03/21/20 20:47 Insulin Aspart (Novolog) 100 Unit/Ml Vial SQ 1 unit ACHS [facility] Administration Protocol Insulin Detemir 15 unit 03/17/20 21:00 03/21/20 20:48 Insulin Detemir (Levemir) 100 Unit/Ml Syr SQ 15 unit HS [facility] Administration Losartan Potassium 100 mg 03/19/20 09:30 03/21/20 08:51 Losartan 50 Mg Tab PO 100 mg DAILY [facility] Administration Miscellaneous Information 1 each 03/07/20 12:13 Magnesium Replacement Protocol 1 Each Misc MISCELLANE DAILY PRN Per Protocol Protocol Miscellaneous Information 1 each 03/11/20 17:21 Potassium Replacement Protocol 1 Each Misc MISCELLANE DAILY PRN Per Protocol Protocol Miscellaneous Information 1 each 03/18/20 19:02 Potassium Replacement Protocol 1 Each Misc MISCELLANE DAILY PRN Per Protocol Protocol Naloxone HCl 0.2 mg 03/06/20 11:40 Naloxone 0.4 Mg/Ml 1 Ml Vial IV Q2M PRN Opioid Reversal Pantoprazole Sodium 40 mg 03/09/20 09:00 03/21/20 08:52 Pantoprazole 40 Mg/10 Ml Vial IVP 40 mg DAILY [facility] Administration Objective - Vital Signs Vital signs: Vital Signs Temp 98.2 F 03/21/20 08:00 Pulse 100 03/21/20 13:28 Resp 23 03/21/20 10:00 BP 116/84 03/21/20 10:00 Pulse Ox 97 03/21/20 13:16 Intake & Output 03/20/20 03/21/20 03/21/20 18:59 06:59 18:59 Intake Total 940 095 9852 Output Total 2535 825 1195 Balance -1929 -605 -149 Weight 113.2 kg 114.3 kg Intake: IV 366 220 380 0.9 Normal Saline 210 120 80 Anidulafungin 100 mg In 100 100 Sodium Chloride 0.9% 100 ml @ 84 mls/hr IVPB DAILY @1200 [facility] Rx#:[id number] Cefepime 1 gm In Sodium 50 100 50 Chloride 0.9% 50 ml @ 12. 5 mls/hr IVPB Q12HR [facility] Rx#:[id number] Levofloxacin 750Mg-D5w 150 Pmx 750 mg In Dextrose/ Water 1 150ml.bag @ 100 mls/hr IVPB Q24H [facility] Rx#: [id number] Normal Saline Pressure 6 bag Oral 240 666 Output: Urine 2535 825 1195 Other: Voiding Method Indwelling Catheter Indwelling Catheter Indwelling Catheter # Bowel Movements 1 ABP, PAP, CO, CI - Last Documented Arterial Blood Pressure 92/86 - Exam -GENERAL: The patient is alert and oriented x3, not in any acute distress. Well morbidly obese HEENT: Pupils are round and equally reacting to light. EOMI. No scleral icterus. No conjunctival pallor. Normocephalic, atraumatic. No pharyngeal erythema. No thyromegaly. CARDIOVASCULAR: S1 and S2 present. No murmurs, rubs, or gallops. PULMONARY: Chest is clear to auscultation, no wheezing or crackles. ABDOMEN: Soft, nontender, nondistended, normoactive bowel sounds. No palpable organomegaly. MUSCULOSKELETAL: No joint swelling or deformity. EXTREMITIES: No cyanosis, clubbing, or pedal edema. NEUROLOGICAL: Gross neurological examination did not reveal any focal deficits. SKIN: No rashes. no petechiae. - Labs CBC & Chem 7: 03/21/20 04:55 03/21/20 04:55 Labs: Abnormal Lab Results - Last 24 Hours (Table) 03/20/20 03/20/20 03/20/20 Range/Units 16:45 21:00 23:57 RBC (3.80-5.40) m/uL Potassium (3.5-5.1) mmol/L BUN (7-17) mg/dL Glucose (74-99) mg/dL POC Glucose (mg/dL) 105 H 138 H 106 H (75-99) mg/dL 03/21/20 03/21/20 03/21/20 Range/Units 03:58 04:55 04:55 RBC 3.58 L (3.80-5.40) m/uL Potassium 3.1 L (3.5-5.1) mmol/L BUN 23 H (7-17) mg/dL Glucose 124 H (74-99) mg/dL POC Glucose (mg/dL) 125 H (75-99) mg/dL 03/21/20 03/21/20 Range/Units 06:33 12:06 RBC (3.80-5.40) m/uL Potassium (3.5-5.1) mmol/L BUN (7-17) mg/dL Glucose (74-99) mg/dL POC Glucose (mg/dL) 147 H 190 H (75-99) mg/dL Microbiology - Last 24 Hours (Table) 03/20/20 07:59 Catheter Tip Culture - Preliminary Catheter Tip 03/17/20 17:26 Blood Culture - Preliminary Blood No Growth after 72 hours 03/18/20 12:15 Catheter Tip Culture - Final Catheter Tip Assessment and Plan Assessment: Acute left generalized pneumonia with possible superimposed bacterial infection Acute hypoxic respiratory failure, status post extubation after short period of mechanical ventilation Morbidly obese GERD Essential hypertension Plan: This is a pleasant 49 years old female who presents with vaginal pneumonia. Continue with antibiotics, continue with oxygen. Follow-up recommendation by infectious disease and pulmonary service. Labs and medication were reviewed.. Continue same treatment. Continue with symptomatic treatment. Resume home medication. Monitor lytes and vitals. DVT and GI prophylaxis. Further recommendations of the clinical course of the patient DVT prophylaxis: Subcutaneous heparin GI Prophylaxis: Ppi PT/OT: ECF for rehab
[2020-03-22] MEDS ORDERED: IPRATROPIUM-ALBUTEROL 3 ML NEB INHALATION PRN (00:25)
[2020-03-22] MEDS: IPRATROPIUM-ALBUTEROL 3 ML NEB INHALATION SCH ×5 (00:25→20:08)
[2020-03-22 04:18] LABS: Basophils # (A) 0.1 k/uL (0-0.2); Basophils % (A) 1 %; Eosinophils # (A) 0.3 k/uL (0-0.7); Eosinophils % (A) 3 %; HCT 36.5 % (34.0-46.0); HGB 11.8 gm/dL (11.4-16.0); Lymphocytes # (A) 2.6 k/uL (1.0-4.8); Lymphocytes % (A) 22 %; MCH 31.8 pg (25.0-35.0); MCHC 32.4 g/dL (31.0-37.0); MCV 98.2 fL (80.0-100.0); Mean Platelet Volume 8.2; Monocytes # (A) 0.6 k/uL (0-1.0); Monocytes % (A) 5 %; Neutrophils # (A) 8.1 k/uL (1.3-7.7); Neutrophils % (A) 68 %; Platelet Count 262 k/uL (150-450); RBC 3.72 m/uL (3.80-5.40); RDW 14.8 % (11.5-15.5); WBC 11.9 k/uL (3.8-10.6)
[2020-03-22 04:38] LABS: African American GFR (CKD) >90 (>60 ml/min/1.73 sqM); Anion Gap 5 mmol/L; Blood Urea Nitrogen 25 mg/dL (7-17); Calcium 8.7 mg/dL (8.4-10.2); Carbon Dioxide 27 mmol/L (22-30); Chloride 103 mmol/L (98-107); Glucose 159 mg/dL (74-99); Non-African American GFR(CKD) >90 (>60 ml/min/1.73 sqM); Potassium 3.2 mmol/L (3.5-5.1); Sodium 135 mmol/L (137-145)
[2020-03-22 06:31] LABS: Glucose,Whole Blood 153 mg/dL (75-99)
[2020-03-22] MEDS: POTASSIUM CHLORIDE ER 20 MEQ TAB.ER PO SCH ×2 (06:35→09:09)
[2020-03-22] MEDS: INSULIN ASPART (NovoLOG) 100 UNIT/ML VIAL SQ SCH ×4 (06:36→21:58)
--- NOTE | 2020-03-22 07:12 | XR ---
EXAMINATION TYPE: XR chest 1V portable DATE OF EXAM: 03/22/2020 COMPARISON: 03/21/2020 HISTORY: Shortness of breath TECHNIQUE: Single frontal view of the chest is obtained. FINDINGS: Basilar infiltrates and small effusions unchanged. The cardiac silhouette size is within normal limits. The osseous structures are intact. IMPRESSION: 1. Stable chest.
[2020-03-22] MEDS: HEPARIN SODIUM,PORCINE 5,000 UNIT/ML 1 ML VIAL SQ SCH ×2 (09:03→15:53)
[2020-03-22] MEDS: LOSARTAN 50 MG TAB PO SCH (09:04)
[2020-03-22] MEDS: PANTOPRAZOLE 40 MG/10 ML VIAL IVP SCH (09:04)
--- NOTE | 2020-03-22 11:24 | P.PN ---
Subjective Progress Note Date: 03/22/20 This is a 49-year-old here patient remains intubated on a mechanical ventilator for lower lobe pneumonia since 03/08/2020. The patient developed acute hypoxic respiratory failure requiring intubation mechanical ventilation. Subsequently, she developed an acute lung injury/ARDS and the patient required high level of oxygen and PEEP level. The patient had an acute pneumonia" at 19 testing came back negative and the patient checked positive for Legionella and and had urine antigen, negative influenza screen, and bronchoscopy was further done and the bronchioloalveolar lavage was negative for any other microbial growth. The patient is currently on Levaquin and vancomycin. She remains intubated on a mechanical ventilator. She remains sedated, and comfortable. This morning, the patient remains on a mechanical ventilator and she is on a PEEP of 10 with an FiO2 of 50%. Respiratory rate is a 36 with a tidal volume of 350. She is on propofol which is running at 50 g per KG per minute. Normal saline is running at 40 mL an hour. She is receiving vital high protein enteral feeding for nutr itional support at the rate of 28 mL an hour which is at goal. The patient is being seen in the follow-up today in the intensive care unit on 03/16/2020. The chest x-ray still showing extensive consolidation of the right lung base. The patient's triglyceride level was noted to be quite elevated. Based on that, I made recommendations to stop the propofol is was this patient to Precedex for now and use Versed if needed. Note that earlier this morning, the patient is still on a low tidal volume ventilation. I made the necessity ventilator changes as the patient's airway pressures are not elevated at this point in time and the patient was urinating higher tidal volumes on a mechanical ventilator. The patient is arousable while off the sedation. Tolerating enteral feeding for nutritional support. CAT scan of the chest will be needed to characterized abnormal mass in the right lower lobe. The patient is on Levaquin IV. The patient has a fecal management system for some limited diarrhea. No evidence of any significant colitis. No fever. The patient has some Luisa elements in the mouth and infection disease saw the patient and evaluated her and added Eraxis. On 03/17/2020 on seeing this patient for a follow-up in regards to her respiratory failure and Legionella pneumonia. The patient remains quite sedated and the patient is currently on a combination of Precedex at 1 mg per KG and Versed which is running at 6 malignant is an hour. The patient is was sedated and she is easily arousable. No agitation. In terms of her mechanical ventilator, the patient remains on assist control mode of ventilation at the rate of 20 with a tidal volume of 450 and FiO2 of 50% with a PEEP of 10. The blood gases from today shows a pH of 7.47 with a pCO2 of 39 and pO2 of 85 and this was on FiO2 of 50%. CAT scan of the chest was done yesterday and it showed extensive consolidation of the right lower lobe related to Legionella pneumonia. Was no evidence of any pleural effusion. A repeat chest x-ray from today shows interval improvement and the right lower lobe pulmonary infiltrate and a left perihilar infiltrate compared to previous chest x-rays. The patient's white cell count gradually improving and is down to 14.3. Hemoglobin stable at 10.5. Renal function is also stable with a creatinine of 0.6 with a BUN of 24. No other significant events overnight. The patient is tolerating enteral feeding for nutritional support and the patient is currently on vital high protein at the rate of 32 mL an hour. The patient is a negative fluid balance of 3.1 L and the patient is producing adequate amount of urine output for now. On 03/18/2020 the patient is being seen in follow-up in the intensive care unit. The patient is being treated for a Legionella pneumonia which has caused extensive consolidation bilaterally. Her pneumonia was gradually improving and her oxygenation was also improving. I'm a bit concerned about his ongoing fever that started yesterday. The patient was cultured and on today's chest x-ray there is some new infiltration of the left lung and I think there may be a component of ventilatory a pneumonia and the patient will be started on IV cefepime and combination to Levaquin. Meanwhile, the patient remains on a mechanical ventilator. The patient remains on assist control mode at the rate of 20 with a tidal volume of 450 and FiO2 of 50% with a PEEP of 5. The blood gases from today Showed a pH of 7.45 with a pCO2 of 42 and pO2 of 72. Earlier this morning, the patient was on a combination of Versed 2 mg an hour on Precedex at 0.8 mg per KG per minute. The sedation was gradually withdrawn and the patient was given a sedation holiday and following that the patient patient was given a trial of spontaneous breathing with a pressure support of 5 and a PEEP of 5 and FiO2 of 40%. The subsequent blood gases showed a pH of 7.46 and 0 41 and pO2 of 61. The patient was extubated to BiPAP. The patient is currently in a negative fluid balance of 1.5 L and he is making adequate urine output not even receiving any diuretics. I'm still a bit concerned about the fever. I'm going to check a pro-calcitonin level. I'm going to also ultimately replace the triple-lumen catheter and send the tip for cultures. Blood cultures were sent yesterday. Sputum culture was sent yesterday. Antibiotic modification will be done. On 03/19/2020, the patient remains extubated. Postextubation, the patient developed stridor and the patient was placed on Decadron and she was also given racemic epinephrine. She also had some issues with restlessness, anxiety and agitation and tachycardia. Overnight she was placed on Precedex at the lower dose which was gradually weaned off. This morning her blood pressure is still elevated and the patient on a clevidipine drip running at 2 mg an hour for blood pressure control. She is afebrile for now. She was having significant fever episodes earlier and for that reason the triple-lumen catheter was removed and the catheter tip was sent for cultures and the cultures are all negative. The pro-calcitonin is not significantly elevated. For now, the patient on a combination of cefepime, Levaquin regarding her Legionella pneumonia and Eraxis. The patient is not having any major respiratory distress pH is laying comfortably in bed. She is communicating. She is currently on 6 L of oxygen by nasal cannula with a pulse ox of 92%. Incentive spirometer is being used and the volume inhaled is in the order of 750. On and off, the patient required BiPAP postextubation pressure of 10/5 cm of water and currently stopped the BiPAP. She is on normal saline today to 40 mL an hour. She is awake and alert. No hoarseness. No stridor. Cough is weak yet is adequate for the time being. The chest x-ray from today is showing removal of the orotracheal tube. The patient has still a right IJ triple-lumen catheter. The patient bilateral airspace disease most on the right. There is no evidence of any pleural effusion based on her most recent CAT scan of the chest that was done prior to extubation. On 03/20/2020, the patient is awake and alert and she is improving and the chest exit from today shows further improvement in the right lower lobe consolidation that was attributed to Legionella pneumonia. The patient is afebrile. The patient is on a combination of antibiotics including Levaquin, cefepime and Eraxis. No fever. No chills or chills and weaned down to 6 L of oxygen by nasal cannula with a pulse is at 97%. She is having loose stools. She had a normal sed rate of 40 mL an hour. She is off the Upper extremities was utilized for blood pressure control. She is weak. She is working with physical therapy. She has no stridor. She has been extubated after being intubated for a long period of time regarding an acute Legionella pneumonia. No altered mentation. 03/21/2020, the patient is doing extremely well. No new complaints. Oxygen level is improved and the patient is currently on 2 L of oxygen by nasal cannula. No respiratory distress. Kamara catheter is in place. She has loose bowel movements. No active diarrhea. She was given a dose of Lasix yesterday and she put out approximately 1.5 cm out immediately. She remains on a combination of Levaquin, cefepime and Eraxis. No altered mentation. Weakness improving. He is working with physical therapy. No fever. No other significant events overnight. The patient is quite stable for now as she recovered from an acute hypoxic respiratory failure related to Legionella pneumonia. 03/22/2020, the patient is on 2 L of oxygen by nasal cannula. No fever. No chills. No respiratory difficulties. Chest x-ray still showing lower lobe infiltrates more so on the right. Ambulating. Working with physical therapy. Antibiotics need to be modified. No nausea. No vomiting. No abdominal pain. No chest pain. No other significant events overnight. Objective - Vital Signs Vital signs: Vital Signs Temp 98.3 F 03/22/20 08:00 Pulse 112 H 03/22/20 09:00 Resp 32 H 03/22/20 09:00 BP 121/73 03/22/20 08:00 Pulse Ox 91 L 03/22/20 09:00 Intake & Output 03/21/20 03/22/20 03/22/20 18:59 06:59 18:59 Intake Total 1046 190 Output Total 1195 625 Balance -149 -435 Weight 113.1 kg Intake: IV 380 90 0.9 Normal Saline 80 90 Anidulafungin 100 mg In 100 Sodium Chloride 0.9% 100 ml @ 84 mls/hr IVPB DAILY @1200 [facility] Rx#:[id number] Cefepime 1 gm In Sodium 50 Chloride 0.9% 50 ml @ 12. 5 mls/hr IVPB Q12HR [facility] Rx#:[id number] Levofloxacin 750Mg-D5w 150 Pmx 750 mg In Dextrose/ Water 1 150ml.bag @ 100 mls/hr IVPB Q24H [facility] Rx#: [id number] Intake, IV Titration 100 Amount Cefepime 2 gm In Sodium 100 Chloride 0.9% 100 ml @ 25 mls/hr IVPB Q12HR [facility] Rx #:[id number] Oral 666 Output: Urine 1195 625 Other: Voiding Method Bedside Commode Bedside Commode Bedside Commode # Voids 1 ABP, PAP, CO, CI - Last Documented Arterial Blood Pressure 92/86 - Exam Gen. appearance, comfortable and the patient was currently on 2 L of oxygen by nasal cannula Head exam was generally normal. There was no scleral icterus or corneal arcus. Mucous membranes were moist. Neck was supple and without jugular venous distension, thyromegaly, or carotid bruits. Carotids were easily palpable bilaterally. There was no adenopathy. Lungs sounds are diminished in the right lung base otherwise there is no wheezes , rhonchi or crackles Cardiac exam revealed the PMI to be normally situated and sized. The rhythm was regular and no extrasystoles were noted during several minutes of auscultation. The first and second heart sounds were normal and physiologic splitting of the second heart sound was noted. There were no murmurs, rubs, clicks, or gallops. Abdominal exam revealed normal bowel sounds. The abdomen was soft, non-tender, and without masses, organomegaly, or appreciable enlargement of the abdominal aorta. Examination of the extremities revealed easily palpable radial, femoral and pedal pulses. There was no cyanosis, clubbing or edema. Examination of the skin revealed no evidence of significant rashes, suspicious appearing nevi or other concerning lesions. Neurologic the patient is awake and alert and following commands and questions appropriately. She is moving all 4 extremities while off shlomo tion.Neurologically, the patient is awake and alert and the patient does not have any focal neurological deficit. Cranial nerves are essentially intact. - Labs CBC & Chem 7: 03/22/20 03:55 03/22/20 03:55 Labs: Abnormal Lab Results - Last 24 Hours (Table) 03/21/20 03/21/20 03/21/20 Range/Units 12:06 17:38 20:43 WBC (3.8-10.6) k/uL RBC (3.80-5.40) m/uL Neutrophils # (1.3-7.7) k/uL Sodium (137-145) mmol/L Potassium (3.5-5.1) mmol/L BUN (7-17) mg/dL Glucose (74-99) mg/dL POC Glucose (mg/dL) 190 H 221 H 138 H (75-99) mg/dL 03/22/20 03/22/20 03/22/20 Range/Units 03:55 03:55 06:30 WBC 11.9 H (3.8-10.6) k/uL RBC 3.72 L (3.80-5.40) m/uL Neutrophils # 8.1 H (1.3-7.7) k/uL Sodium 135 L (137-145) mmol/L Potassium 3.2 L (3.5-5.1) mmol/L BUN 25 H (7-17) mg/dL Glucose 159 H (74-99) mg/dL POC Glucose (mg/dL) 153 H (75-99) mg/dL Microbiology - Last 24 Hours (Table) 03/17/20 17:26 Blood Culture - Preliminary Blood No Growth after 96 hours 03/20/20 07:59 Catheter Tip Culture - Preliminary Catheter Tip Assessment and Plan Plan: 1 acute hypoxic respiratory failure secondary to Legionella pneumonia. The patient is improving and currently she is down to 2 L of oxygen by nasal cannula. Chest x-ray shows further improvement in the right lower lobe consolidation. Clinically stable as the patient is requiring minimal amount of oxygen and she is hemodynamically stable and she is recovering from an acute hypoxic respiratory failure related to pneumonia. 2 Fever, currently under investigation. Pro-calcitonin level is low. Cultures of been sent and the triple-lumen catheter was also removed and the tip was sent for culture. No significant leukocytosis. The patient is afebrile for now. The patient is covered with a combination of antibiotics including Levaquin, cefepime and Eraxis. The patient is currently afebrile. 3 sepsis secondary to Legionella pneumonia, and the patient has leukocytosis which is improving 4 obesity, 5 hypertension, BP is under adequate control 6 chronic back pain as the patient has lumbar stenosis and herniated this disease 7 leukocytosis, improving 8 enteral feeding for nutritional support 9 mild transaminitis secondary to Legionella 10 hypertriglyceridemia secondary to propofol infusion and this was discontinued. 11 diarrhea with a negative stool for C. diff 12 obesity with a BMI 54.3 Plan Switch Levaquin to 750 mg oral 1 tablet a day This continued IV cefepime Oxygen 2 L per minute nasal cannula and try to wean Physical therapy Transfer out of the intensive care unit.
[2020-03-22 12:08] LABS: Glucose,Whole Blood 161 mg/dL (75-99)
[2020-03-22] MEDS: ANIDULAFUNGIN 100 MG in SODIUM CHLORIDE 0.9% 100 ML IVPB SCH (13:10)
[2020-03-22] MEDS: LEVOFLOXACIN 750 MG TAB PO SCH (15:53)
[2020-03-22 17:02] LABS: Glucose,Whole Blood 117 mg/dL (75-99)
[2020-03-22] MEDS: SODIUM CHLORIDE 0.9% 1,000 ML IV SCH (20:31)
[2020-03-22 20:45] LABS: Glucose,Whole Blood 144 mg/dL (75-99)
[2020-03-22] MEDS: INSULIN DETEMIR (LEVEMIR) 100 UNIT/ML SYR SQ SCH (21:59)
--- NOTE | 2020-03-22 22:44 | P.PN ---
Subjective This is a pleasant 40 years old female with multiple medical problems who was admitted initially because of respiratory symptoms and within one day she become severely hypoxic needing going to the icu with mechanical ventilation, patient was found to have legionella pneumonia with suspicion of superimposed bacterial infection, infectious and pulmonary team or on the case and patient is treated with broad-spectrum antibiotics with levaquin, cefepime and eraxis. Patient showed interval improvement and eventually she got extubated, currently she was seen and examined in the ICU, resting comfortably and 2 L oxygen via nasal cannula with no significant dyspnea or coughing or chest pain. However she was a transverse, her oxygen requirement lowered to 2 L/m via nasal cannula today. Patient for possible discharge to the general medical floor Patient looks generally weak and she might benefit from rehab. 03/22/2020 Patient remains in the ICU, she feels more comfortable, she is mildly tachypneic, no chest pain. She is saturating 90s and dilute her oxygen No other new complaints. However patient today was trying to pull her oxygen at 2 when she slipped down to the floor from her chair by accident, no HIDA trauma, no with the injury. No other new complaints. Her antibiotic is continued with Levaquin and Eraxis. It looks like his cefepime was discontinued today Patient will benefit from ECF upon discharge Possible discharge in 24-48 hours if she keeps improving Objective - Vital Signs Vital signs: Vital Signs Temp 98.9 F 03/22/20 16:47 Pulse 96 03/22/20 17:00 Resp 17 03/22/20 17:00 BP 125/74 03/22/20 16:47 Pulse Ox 91 L 03/22/20 16:47 Intake & Output 03/21/20 03/22/20 03/22/20 18:59 06:59 18:59 Intake Total 1046 190 180 Output Total 1191 214 500 Balance -149 435 -320 Weight 113.1 kg Intake: IV 380 90 180 0.9 Normal Saline 80 90 80 Anidulafungin 100 mg In 100 100 Sodium Chloride 0.9% 100 ml @ 84 mls/hr IVPB DAILY @1200 [facility] Rx#:[id number] Cefepime 1 gm In Sodium 50 Chloride 0.9% 50 ml @ 12. 5 mls/hr IVPB Q12HR [facility] Rx#:[id number] Levofloxacin 750Mg-D5w 150 Pmx 750 mg In Dextrose/ Water 1 150ml.bag @ 100 mls/hr IVPB Q24H [facility] Rx#: [id number] Intake, IV Titration 100 Amount Cefepime 2 gm In Sodium 100 Chloride 0.9% 100 ml @ 25 mls/hr IVPB Q12HR [facility] Rx #:[id number] Oral 666 Output: Urine 1195 625 500 Other: Voiding Method Bedside Commode Bedside Commode Bedside Commode # Voids 1 ABP, PAP, CO, CI - Last Documented Arterial Blood Pressure 92/86 - Exam -GENERAL: The patient is alert and oriented x3, not in any acute distress. Well morbidly obese HEENT: Pupils are round and equally reacting to light. EOMI. No scleral icterus. No conjunctival pallor. Normocephalic, atraumatic. No pharyngeal erythema. No thyromegaly. CARDIOVASCULAR: S1 and S2 present. No murmurs, rubs, or gallops. PULMONARY: Chest is clear to auscultation, no wheezing or crackles. ABDOMEN: Soft, nontender, nondistended, normoactive bowel sounds. No palpable organomegaly. MUSCULOSKELETAL: No joint swelling or deformity. EXTREMITIES: No cyanosis, clubbing, or pedal edema. NEUROLOGICAL: Gross neurological examination did not reveal any focal deficits. SKIN: No rashes. no petechiae. - Labs CBC & Chem 7: 03/22/20 03:55 03/22/20 03:55 Labs: Abnormal Lab Results - Last 24 Hours (Table) 03/21/20 03/22/20 03/22/20 Range/Units 20:43 03:55 03:55 WBC 11.9 H (3.8-10.6) k/uL RBC 3.72 L (3.80-5.40) m/uL Neutrophils # 8.1 H (1.3-7.7) k/uL Sodium 135 L (137-145) mmol/L Potassium 3.2 L (3.5-5.1) mmol/L BUN 25 H (7-17) mg/dL Glucose 159 H (74-99) mg/dL POC Glucose (mg/dL) 138 H (75-99) mg/dL 03/22/20 03/22/20 03/22/20 Range/Units 06:30 12:07 17:01 WBC (3.8-10.6) k/uL RBC (3.80-5.40) m/uL Neutrophils # (1.3-7.7) k/uL Sodium (137-145) mmol/L Potassium (3.5-5.1) mmol/L BUN (7-17) mg/dL Glucose (74-99) mg/dL POC Glucose (mg/dL) 153 H 161 H 117 H (75-99) mg/dL Microbiology - Last 24 Hours (Table) 03/20/20 07:59 Catheter Tip Culture - Final Catheter Tip 03/17/20 17:26 Blood Culture - Preliminary Blood No Growth after 96 hours Assessment and Plan Assessment: Acute left generalized pneumonia with possible superimposed bacterial infection Acute hypoxic respiratory failure, status post extubation after short period of mechanical ventilation Morbidly obese GERD Essential hypertension Plan: This is a pleasant 49 years old female who presents with vaginal pneumonia. Continue with antibiotics, continue with oxygen. Follow-up recommendation by infectious disease and pulmonary service. Labs and medication were reviewed.. Continue same treatment. Continue with symptomatic treatment. Resume home medication. Monitor lytes and vitals. DVT and GI prophylaxis. Further recommendations of the clinical course of the patient DVT prophylaxis: Subcutaneous heparin GI Prophylaxis: Ppi PT/OT: ECF for rehab
[2020-03-23] MEDS: HEPARIN SODIUM,PORCINE 5,000 UNIT/ML 1 ML VIAL SQ SCH ×4 (00:18→23:50)
--- NOTE | 2020-03-23 00:47 | PN ---
PROGRESS NOTE DATE OF SERVICE: 03/22/2020 REASON FOR FOLLOWUP: Acute Legionella pneumonia. INTERVAL HISTORY: The patient is currently afebrile. The patient is breathing more comfortably. Patient denies having any chest pain or shortness of breath or cough. No nausea, no vomiting. No abdominal pain, no diarrhea. PHYSICAL EXAMINATION: Her blood pressure is 109/83 with a pulse of 95, temperature 98.7. She is 94% on 2 L nasal cannula. General description is a middle-aged female up in the bed in no distress. RESPIRATORY SYSTEM: Unlabored breathing, decreased breath sounds. No wheeze. HEART: S1, S2. Regular rate and rhythm. ABDOMEN: Soft, no tenderness. LABS: Hemoglobin 11.8, white count 11.9, BUN of 25, creatinine 0.77. DIAGNOSTIC IMPRESSION AND PLAN: 1. Patient with acute Legionella pneumonia in this patient overall improvement with the Levaquin to continue to finish a 2 to 3 week course of therapy. 2. Patient with oropharyngeal candidiasis and unable to use the Diflucan. Patient responded to Eraxis to continue and monitor clinical course closely. MMODL / IJN: [id number] /
[2020-03-23 06:49] LABS: Glucose,Whole Blood 139 mg/dL (75-99)
[2020-03-23] MEDS: INSULIN ASPART (NovoLOG) 100 UNIT/ML VIAL SQ SCH ×5 (07:02→20:55)
[2020-03-23] MEDS: IPRATROPIUM-ALBUTEROL 3 ML NEB INHALATION SCH ×4 (08:48→19:45)
[2020-03-23] MEDS: LOSARTAN 50 MG TAB PO SCH (08:58)
[2020-03-23] MEDS: PANTOPRAZOLE 40 MG TABLET PO SCH (08:58)
[2020-03-23 09:36] LABS: HCT 40.5 % (34.0-46.0); Hypochromasia Slight; MCH 31.9 pg (25.0-35.0); MCV 99.7 fL (80.0-100.0); Macrocytosis Slight; Mean Platelet Volume 7.5; Platelet Count 285 k/uL (150-450); RBC 4.06 m/uL (3.80-5.40); RDW 14.9 % (11.5-15.5); WBC 13.1 k/uL (3.8-10.6)
[2020-03-23 09:46] LABS: ALT 61 U/L (4-34); AST 43 U/L (14-36); African American GFR (CKD) >90 (>60 ml/min/1.73 sqM); Albumin 3.8 g/dL (3.5-5.0); Alkaline Phosphatase 122 U/L (38-126); Anion Gap 8 mmol/L; Blood Urea Nitrogen 16 mg/dL (7-17); Carbon Dioxide 24 mmol/L (22-30); Chloride 104 mmol/L (98-107); Glucose 170 mg/dL (74-99); Magnesium 1.9 mg/dL (1.6-2.3); Non-African American GFR(CKD) >90 (>60 ml/min/1.73 sqM); Phosphorus 3.9 mg/dL (2.5-4.5); Potassium 3.7 mmol/L (3.5-5.1); Sodium 136 mmol/L (137-145); Total Bilirubin 0.9 mg/dL (0.2-1.3); Total Protein 7.2 g/dL (6.3-8.2)
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
[2020-03-23 10:33] VITALS: BMI 50.5
[2020-03-23 12:14] LABS: Glucose,Whole Blood 151 mg/dL (75-99)
[2020-03-23] MEDS: ANIDULAFUNGIN 100 MG in SODIUM CHLORIDE 0.9% 100 ML IVPB SCH (12:23)
--- NOTE | 2020-03-23 14:45 | P.PN ---
Subjective Progress Note Date: 03/23/20 Principal diagnosis: Acute hypoxic failure secondary to Legionella pneumonia This is a 49-year-old here patient remains intubated on a mechanical ventilator for lower lobe pneumonia since 03/08/2020. The patient developed acute hypoxic respiratory failure requiring intubation mechanical ventilation. Subsequently, she developed an acute lung injury/ARDS and the patient required high level of oxygen and PEEP level. The patient had an acute pneumonia" at 19 testing came back negative and the patient checked positive for Legionella and and had urine antigen, negative influenza screen, and bronchoscopy was further done and the bronchioloalveolar lavage was negative for any other microbial growth. The patient is currently on Levaquin and vancomycin. She remains intubated on a mechanical ventilator. She remains sedated, and comfortable. This morning, the patient remains on a mechanical ventilator and she is on a PEEP of 10 with an FiO2 of 50%. Respiratory rate is a 36 with a tidal volume of 350. She is on propofol which is running at 50 g per KG per minute. Normal saline is running at 40 mL an hour. She is receiving vital high protein enteral feeding for n utritional support at the rate of 28 mL an hour which is at goal. The patient is being seen in the follow-up today in the intensive care unit on 03/16/2020. The chest x-ray still showing extensive consolidation of the right lung base. The patient's triglyceride level was noted to be quite elevated. Based on that, I made recommendations to stop the propofol is was this patient to Precedex for now and use Versed if needed. Note that earlier this morning, the patient is still on a low tidal volume ventilation. I made the necessity ventilator changes as the patient's airway pressures are not elevated at this point in time and the patient was urinating higher tidal volumes on a mechanical ventilator. The patient is arousable while off the sedation. Tolerating enteral feeding for nutritional support. CAT scan of the chest will be needed to characterized abnormal mass in the right lower lobe. The patient is on Levaquin IV. The patient has a fecal management system for some limited diarrhea. No evidence of any significant colitis. No fever. The patient has some Luisa elements in the mouth and infection disease saw the patient and evaluated her and added Eraxis. 03/21/2020, the patient is doing extremely well. No new complaints. Oxygen level is improved and the patient is currently on 2 L of oxygen by nasal cannula. No respiratory distress. Kamara catheter is in place. She has loose bowel movements. No active diarrhea. She was given a dose of Lasix yesterday and she put out approximately 1.5 cm out immediately. She remains on a combination of Levaquin, cefepime and Eraxis. No altered mentation. Weakness improving. He is working with physical therapy. No fever. No other significant events overnight. The patient is quite stable for now as she recovered from an acute hypoxic respiratory failure related to Legionella pneumonia. 03/22/2020, the patient is on 2 L of oxygen by nasal cannula. No fever. No chills. No respiratory difficulties. Chest x-ray still showing lower lobe infiltrates more so on the right. Ambulating. Working with physical therapy. Antibiotics need to be modified. No nausea. No vomiting. No abdominal pain. No chest pain. No other significant events overnight. Reevaluated today on , patient remains in the ICU, on 2 L nasal cannula, she is doing great, relatively asymptomatic, and asking if she could be discharged home. Patient is asymptomatic, and I have cleared the patient to be discharged home with home oxygen if necessary. Took her off oxygen and will continue to monitor her O2 saturation for the next couple of hours. Chest x-ray continues to show minimal infiltrates, but significantly improved compared to her admission chest x-ray. Labs are unremarkable including CBC and basic metabolic profile. Objective - Vital Signs Vital signs: Vital Signs Temp 98.9 F 03/23/20 08:00 Pulse 99 03/23/20 12:06 Resp 15 03/23/20 09:00 BP 109/66 03/23/20 09:00 Pulse Ox 85 L 03/23/20 09:00 Intake & Output 03/22/20 03/23/20 03/23/20 18:59 06:59 18:59 Intake Total 180 200 Output Total 500 950 Balance -320 -750 Weight 113.4 kg 113.4 kg Intake: IV 180 0 0.9 Normal Saline 80 0 Anidulafungin 100 mg In 100 Sodium Chloride 0.9% 100 ml @ 84 mls/hr IVPB DAILY @1200 [facility] Rx#:[id number] Oral 200 Output: Urine 500 950 Other: Voiding Method Bedside Commode ABP, PAP, CO, CI - Last Documented Arterial Blood Pressure 92/86 - Exam -GENERAL: Reveals 49-year-old female in no distress. HEENT: PERRLA, EOMI, no icterus.. CARDIOVASCULAR: S1 and S2 present. No murmurs, rubs, or gallops. PULMONARY: Symmetrical chest expansion, minimal crackles at the bases ABDOMEN: Soft, nontender, nondistended, normoactive bowel sounds. No palpable organomegaly. MUSCULOSKELETAL: No joint swelling or deformity. EXTREMITIES: No cyanosis, clubbing, or pedal edema. NEUROLOGICAL: Alert oriented 3 focal deficits. SKIN: No rashes. no petechiae. - Labs CBC & Chem 7: 03/23/20 09:21 03/23/20 09:21 Labs: Abnormal Lab Results - Last 24 Hours (Table) 03/22/20 03/22/20 03/22/20 Range/Units 17:01 20:44 21:03 WBC (3.8-10.6) k/uL Sodium (137-145) mmol/L Glucose (74-99) mg/dL POC Glucose (mg/dL) 117 H 144 H (75-99) mg/dL AST (14-36) U/L ALT (4-34) U/L C-Reactive Protein 30.2 H (<10.0) mg/L 03/23/20 03/23/20 03/23/20 Range/Units 06:47 09:21 09:21 WBC 13.1 H (3.8-10.6) k/uL Sodium 136 L (137-145) mmol/L Glucose 170 H (74-99) mg/dL POC Glucose (mg/dL) 139 H (75-99) mg/dL AST 43 H (14-36) U/L ALT 61 H (4-34) U/L C-Reactive Protein (<10.0) mg/L 03/23/20 Range/Units 12:13 WBC (3.8-10.6) k/uL Sodium (137-145) mmol/L Glucose (74-99) mg/dL POC Glucose (mg/dL) 151 H (75-99) mg/dL AST (14-36) U/L ALT (4-34) U/L C-Reactive Protein (<10.0) mg/L Microbiology - Last 24 Hours (Table) 03/09/20 18:00 Fungal Culture - Preliminary Bronchoalviolar Lavage - Right 03/17/20 17:26 Blood Culture Gram Stain - Preliminary Blood 03/17/20 17:26 Blood Culture - Final Blood 03/20/20 07:59 Catheter Tip Culture - Final Catheter Tip Assessment and Plan Assessment: Impression: Acute hypoxic respiratory failure, secondary to Legionella pneumonia. Hypertension. Sepsis secondary to Legionella pneumonia. Obesity. Chronic back pain. Dyslipidemia. Recommendation: Continue oral antibiotics. Titrate action and possibly discontinue. Transfer patient out of the ICU. Consider discharge planning if cleared by infectious disease on consultation. Follow-up on outpatient basis. Time with Patient: Less than 30
[2020-03-23] MEDS: LEVOFLOXACIN 750 MG TAB PO SCH (15:49)
--- NOTE | 2020-03-23 17:12 | PN ---
PROGRESS NOTE DATE OF SERVICE: 03/23/2020 REASON FOR FOLLOWUP: Pneumonia. INTERVAL HISTORY: Patient is currently afebrile, patient is breathing comfortably. The patient denies having any chest pain. No shortness of breath. Minimal cough. No nausea. No abdominal pain, no diarrhea. PHYSICAL EXAM: Blood pressure 109/66, pulse of 99, temperature 98. She is 95% on 2 L nasal cannula. General description is a middle-aged female, up in the bed in no distress. RESPIRATORY SYSTEM: Unlabored breathing, decreased breath sounds in the bases. No wheeze. HEART: S1, S2. Regular rate and rhythm. ABDOMEN: Soft, no tenderness. LABS: Hemoglobin 13, white count 13.1, creatinine 0.67. Catheter tip culture so far negative. Blood culture done on 03/17 showing a Gram-positive. DIAGNOSTIC IMPRESSION AND PLAN: 1. Patient with pneumonia secondary to Legionella. The patient is currently on Levaquin to continue. 2. Positive blood cultures, possible contaminant. The patient has shown clinical improvement. We will wait for the final ID sensitivity. Repeat blood culture has been ordered. 3. Possible oropharyngeal candidiasis, the patient continue with Eraxis, switch to oral on discharge. MMODL / IJN: [id number] /
[2020-03-23 17:31] LABS: Glucose,Whole Blood 195 mg/dL (75-99)
[2020-03-23] MEDS: SODIUM CHLORIDE 0.9% 1,000 ML IV SCH (20:46)
[2020-03-23 20:54] LABS: Glucose,Whole Blood 136 mg/dL (75-99)
[2020-03-23] MEDS: INSULIN DETEMIR (LEVEMIR) 100 UNIT/ML SYR SQ SCH (20:55)
--- NOTE | 2020-03-23 21:01 | P.PN ---
Subjective This is a pleasant 40 years old female with multiple medical problems who was admitted initially because of respiratory symptoms and within one day she become severely hypoxic needing going to the icu with mechanical ventilation, patient was found to have legionella pneumonia with suspicion of superimposed bacterial infection, infectious and pulmonary team or on the case and patient is treated with broad-spectrum antibiotics with levaquin, cefepime and eraxis. Patient showed interval improvement and eventually she got extubated, currently she was seen and examined in the ICU, resting comfortably and 2 L oxygen via nasal cannula with no significant dyspnea or coughing or chest pain. However she was a transverse, her oxygen requirement lowered to 2 L/m via nasal cannula today. Patient for possible discharge to the general medical floor Patient looks generally weak and she might benefit from rehab. 03/22/2020 Patient remains in the ICU, she feels more comfortable, she is mildly tachypneic, no chest pain. She is saturating 90s and dilute her oxygen No other new complaints. However patient today was trying to pull her oxygen at 2 when she slipped down to the floor from her chair by accident, no HIDA trauma, no with the injury. No other new complaints. Her antibiotic is continued with Levaquin and Eraxis. It looks like his cefepime was discontinued today Patient will benefit from ECF upon discharge Possible discharge in 24-48 hours if she keeps improving 03/23/2020 Patient has minimal symptoms of respiratory disease. She feels generally weak, no other new complaints She remains on oral with a ofloxacin. Pulmonary service cleared the patient once she gets cleared by ID team as well, patient can be discharged to rehab patient agrees to go to rehab upon discharge WBC is trending down 13 K today Objective - Vital Signs Vital signs: Vital Signs Temp 98.9 F 03/23/20 08:00 Pulse 99 03/23/20 16:07 Resp 15 03/23/20 09:00 BP 109/66 03/23/20 09:00 Pulse Ox 85 L 03/23/20 09:00 Intake & Output 03/22/20 03/23/20 03/23/20 18:59 06:59 18:59 Intake Total 180 200 Output Total 500 950 Balance -320 -750 Weight 113.4 kg 113.4 kg Intake: IV 180 0 0.9 Normal Saline 80 0 Anidulafungin 100 mg In 100 Sodium Chloride 0.9% 100 ml @ 84 mls/hr IVPB DAILY @1200 [facility] Rx#:[id number] Oral 200 Output: Urine 500 950 Other: Voiding Method Bedside Commode ABP, PAP, CO, CI - Last Documented Arterial Blood Pressure 92/86 - Exam -GENERAL: The patient is alert and oriented x3, not in any acute distress. Well morbidly obese HEENT: Pupils are round and equally reacting to light. EOMI. No scleral icterus. No conjunctival pallor. Normocephalic, atraumatic. No pharyngeal erythema. No thyromegaly. CARDIOVASCULAR: S1 and S2 present. No murmurs, rubs, or gallops. PULMONARY: Chest is clear to auscultation, no wheezing or crackles. ABDOMEN: Soft, nontender, nondistended, normoactive bowel sounds. No palpable organomegaly. MUSCULOSKELETAL: No joint swelling or deformity. EXTREMITIES: No cyanosis, clubbing, or pedal edema. NEUROLOGICAL: Gross neurological examination did not reveal any focal deficits. SKIN: No rashes. no petechiae. - Labs CBC & Chem 7: 03/23/20 09:21 03/23/20 09:21 Labs: Abnormal Lab Results - Last 24 Hours (Table) 03/22/20 03/22/20 03/23/20 Range/Units 20:44 21:03 06:47 WBC (3.8-10.6) k/uL Sodium (137-145) mmol/L Glucose (74-99) mg/dL POC Glucose (mg/dL) 144 H 139 H (75-99) mg/dL AST (14-36) U/L ALT (4-34) U/L C-Reactive Protein 30.2 H (<10.0) mg/L 03/23/20 03/23/20 03/23/20 Range/Units 09:21 09:21 12:13 WBC 13.1 H (3.8-10.6) k/uL Sodium 136 L (137-145) mmol/L Glucose 170 H (74-99) mg/dL POC Glucose (mg/dL) 151 H (75-99) mg/dL AST 43 H (14-36) U/L ALT 61 H (4-34) U/L C-Reactive Protein (<10.0) mg/L 03/23/20 Range/Units 17:30 WBC (3.8-10.6) k/uL Sodium (137-145) mmol/L Glucose (74-99) mg/dL POC Glucose (mg/dL) 195 H (75-99) mg/dL AST (14-36) U/L ALT (4-34) U/L C-Reactive Protein (<10.0) mg/L Microbiology - Last 24 Hours (Table) 03/09/20 18:00 Fungal Culture - Preliminary Bronchoalviolar Lavage - Right 03/17/20 17:26 Blood Culture Gram Stain - Preliminary Blood 03/17/20 17:26 Blood Culture - Final Blood 03/20/20 07:59 Catheter Tip Culture - Final Catheter Tip Assessment and Plan Assessment: Acute left generalized pneumonia with possible superimposed bacterial infection Acute hypoxic respiratory failure, status post extubation after short period of mechanical ventilation Morbidly obese GERD Essential hypertension Plan: This is a pleasant 49 years old female who presents with vaginal pneumonia. Continue with antibiotics, continue with oxygen. Follow-up recommendation by infectious disease and pulmonary service. Labs and medication were reviewed.. Continue same treatment. Continue with symptomatic treatment. Resume home medication. Monitor lytes and vitals. DVT and GI prophylaxis. Further recommendations of the clinical course of the patient DVT prophylaxis: Subcutaneous heparin GI Prophylaxis: Ppi PT/OT: ECF for rehab
[2020-03-24 02:58] VITALS: TEMP 98.2
[2020-03-24 03:51] LABS: Basophils % (A) 0 %; Eosinophils # (A) 0.3 k/uL (0-0.7); Eosinophils % (A) 3 %; HCT 33.7 % (34.0-46.0); HGB 11.1 gm/dL (11.4-16.0); Lymphocytes # (A) 2.9 k/uL (1.0-4.8); Lymphocytes % (A) 28 %; MCH 32.2 pg (25.0-35.0); MCHC 32.9 g/dL (31.0-37.0); MCV 97.9 fL (80.0-100.0); Macrocytosis Slight; Mean Platelet Volume 7.8; Monocytes # (A) 0.6 k/uL (0-1.0); Monocytes % (A) 6 %; Neutrophils # (A) 6.3 k/uL (1.3-7.7); Neutrophils % (A) 61 %; Platelet Count 256 k/uL (150-450); RBC 3.44 m/uL (3.80-5.40); RDW 15.2 % (11.5-15.5); WBC 10.4 k/uL (3.8-10.6)
[2020-03-24 04:00] LABS: African American GFR (CKD) >90 (>60 ml/min/1.73 sqM); Anion Gap 6 mmol/L; Blood Urea Nitrogen 14 mg/dL (7-17); Calcium 8.6 mg/dL (8.4-10.2); Carbon Dioxide 26 mmol/L (22-30); Chloride 104 mmol/L (98-107); Glucose 139 mg/dL (74-99); Non-African American GFR(CKD) >90 (>60 ml/min/1.73 sqM); Potassium 3.4 mmol/L (3.5-5.1); Sodium 136 mmol/L (137-145)
[2020-03-24] MEDS: INSULIN ASPART (NovoLOG) 100 UNIT/ML VIAL SQ SCH ×2 (07:01→12:30)
[2020-03-24 07:02] LABS: Glucose,Whole Blood 121 mg/dL (75-99)
[2020-03-24] MEDS: POTASSIUM CHLORIDE ER 20 MEQ TAB.ER PO SCH ×2 (07:02→08:27)
[2020-03-24 07:19] VITALS: BP 123/73; RESP 14
[2020-03-24] MEDS: PANTOPRAZOLE 40 MG TABLET PO SCH (08:27)
[2020-03-24] MEDS: LOSARTAN 50 MG TAB PO SCH (08:27)
[2020-03-24] MEDS: HEPARIN SODIUM,PORCINE 5,000 UNIT/ML 1 ML VIAL SQ SCH (08:27)
[2020-03-24] MEDS: IPRATROPIUM-ALBUTEROL 3 ML NEB INHALATION SCH ×3 (08:43→16:35)
[2020-03-24 11:56] VITALS: PULSE 94
[2020-03-24 12:14] LABS: Glucose,Whole Blood 135 mg/dL (75-99)
[2020-03-24] MEDS: ANIDULAFUNGIN 100 MG in SODIUM CHLORIDE 0.9% 100 ML IVPB SCH (12:30)
--- NOTE | 2020-03-24 13:14 | P.PN ---
Subjective Progress Note Date: 03/24/20 Principal diagnosis: Acute hypoxic failure secondary to Legionella pneumonia This is a 49-year-old here patient remains intubated on a mechanical ventilator for lower lobe pneumonia since 03/08/2020. The patient developed acute hypoxic respiratory failure requiring intubation mechanical ventilation. Subsequently, she developed an acute lung injury/ARDS and the patient required high level of oxygen and PEEP level. The patient had an acute pneumonia" at 19 testing came back negative and the patient checked positive for Legionella and and had urine antigen, negative influenza screen, and bronchoscopy was further done and the bronchioloalveolar lavage was negative for any other microbial growth. The patient is currently on Levaquin and vancomycin. She remains intubated on a mechanical ventilator. She remains sedated, and comfortable. This morning, the patient remains on a mechanical ventilator and she is on a PEEP of 10 with an FiO2 of 50%. Respiratory rate is a 36 with a tidal volume of 350. She is on propofol which is running at 50 g per KG per minute. Normal saline is running at 40 mL an hour. She is receiving vital high protein enteral feeding for n utritional support at the rate of 28 mL an hour which is at goal. The patient is being seen in the follow-up today in the intensive care unit on 03/16/2020. The chest x-ray still showing extensive consolidation of the right lung base. The patient's triglyceride level was noted to be quite elevated. Based on that, I made recommendations to stop the propofol is was this patient to Precedex for now and use Versed if needed. Note that earlier this morning, the patient is still on a low tidal volume ventilation. I made the necessity ventilator changes as the patient's airway pressures are not elevated at this point in time and the patient was urinating higher tidal volumes on a mechanical ventilator. The patient is arousable while off the sedation. Tolerating enteral feeding for nutritional support. CAT scan of the chest will be needed to characterized abnormal mass in the right lower lobe. The patient is on Levaquin IV. The patient has a fecal management system for some limited diarrhea. No evidence of any significant colitis. No fever. The patient has some Luisa elements in the mouth and infection disease saw the patient and evaluated her and added Eraxis. 03/21/2020, the patient is doing extremely well. No new complaints. Oxygen level is improved and the patient is currently on 2 L of oxygen by nasal cannula. No respiratory distress. Kamara catheter is in place. She has loose bowel movements. No active diarrhea. She was given a dose of Lasix yesterday and she put out approximately 1.5 cm out immediately. She remains on a combination of Levaquin, cefepime and Eraxis. No altered mentation. Weakness improving. He is working with physical therapy. No fever. No other significant events overnight. The patient is quite stable for now as she recovered from an acute hypoxic respiratory failure related to Legionella pneumonia. 03/22/2020, the patient is on 2 L of oxygen by nasal cannula. No fever. No chills. No respiratory difficulties. Chest x-ray still showing lower lobe infiltrates more so on the right. Ambulating. Working with physical therapy. Antibiotics need to be modified. No nausea. No vomiting. No abdominal pain. No chest pain. No other significant events overnight. Reevaluated today on 03/23/20, patient remains in the ICU, on 2 L nasal cannula, she is doing great, relatively asymptomatic, and asking if she could be discharged home. Patient is asymptomatic, and I have cleared the patient to be discharged home with home oxygen if necessary. Took her off oxygen and will continue to monitor her O2 saturation for the next couple of hours. Chest x-ray continues to show minimal infiltrates, but significantly improved compared to her admission chest x-ray. Labs are unremarkable including CBC and basic metabolic profile. Patient was reevaluated today on 03/24/20, patient is being considered for rehab, hence of discharge planning was delayed yesterday. But today the patient is saying she does not want to go to rehab, and I have cleared the patient for discharge planning today I even cleared for discharge yesterday. Patient is on room air, asymptomatic. Her labs are basically unremarkable. Objective - Vital Signs Vital signs: Vital Signs Temp 98.2 F 03/24/20 02:57 Pulse 94 03/24/20 11:55 Resp 14 03/24/20 07:00 BP 123/73 03/24/20 07:00 Pulse Ox 92 L 03/24/20 02:57 Intake & Output 03/23/20 03/24/20 03/24/20 18:59 06:59 18:59 Intake Total 100 250 Balance 100 250 Weight 113.4 kg 113.1 kg Intake: IV 100 0.9 Normal Saline 0 Anidulafungin 100 mg In 100 Sodium Chloride 0.9% 100 ml @ 84 mls/hr IVPB DAILY @1200 [facility] Rx#:[id number] Oral 250 Other: Voiding Method Bedside Commode # Voids 1 1 1 ABP, PAP, CO, CI - Last Documented Arterial Blood Pressure 92/86 - Exam -GENERAL: Reveals 49-year-old female in no distress. On room air. HEENT: PERRLA, EOMI, no icterus.. CARDIOVASCULAR: S1 and S2 present. No murmurs, rubs, or gallops. PULMONARY: Symmetrical chest expansion, minimal crackles at the bases ABDOMEN: Soft, nontender, nondistended, normoactive bowel sounds. No palpable organomegaly. MUSCULOSKELETAL: No joint swelling or deformity. EXTREMITIES: No cyanosis, clubbing, or pedal edema. NEUROLOGICAL: Alert oriented 3 focal deficits. SKIN: No rashes. no petechiae. - Labs CBC & Chem 7: 03/24/20 03:07 03/24/20 03:07 Labs: Abnormal Lab Results - Last 24 Hours (Table) 03/23/20 03/23/20 03/24/20 Range/Units 17:30 20:52 03:07 RBC 3.44 L (3.80-5.40) m/uL Hgb 11.1 L (11.4-16.0) gm/dL Hct 33.7 L (34.0-46.0) % Sodium (137-145) mmol/L Potassium (3.5-5.1) mmol/L Glucose (74-99) mg/dL POC Glucose (mg/dL) 195 H 136 H (75-99) mg/dL 03/24/20 03/24/20 03/24/20 Range/Units 03:07 07:00 12:12 RBC (3.80-5.40) m/uL Hgb (11.4-16.0) gm/dL Hct (34.0-46.0) % Sodium 136 L (137-145) mmol/L Potassium 3.4 L (3.5-5.1) mmol/L Glucose 139 H (74-99) mg/dL POC Glucose (mg/dL) 121 H 135 H (75-99) mg/dL Microbiology - Last 24 Hours (Table) 03/17/20 17:26 Blood Culture Gram Stain - Final Blood Blood Culture - Final Proprionibacterium acnes 03/09/20 18:00 Acid Fast Bacilli Smear - Final Bronchoalviolar Lavage - Right Acid Fast Bacilli Culture - Preliminary 03/22/20 21:03 Blood Culture - Preliminary Blood No Growth after 24 hours 03/09/20 18:00 Fungal Culture - Preliminary Bronchoalviolar Lavage - Right 03/17/20 17:26 Blood Culture - Final Blood Assessment and Plan Assessment: Impression: Acute hypoxic respiratory failure, secondary to Legionella pneumonia. Hypertension. Sepsis secondary to Legionella pneumonia. Obesity. Chronic back pain. Dyslipidemia. Recommendation: Continue oral antibiotics. Discontinue oxygen. Consider discharge planning if cleared by infectious disease on consultation. Follow-up on outpatient basis. Time with Patient: Less than 30
[2020-03-24] MEDS: LEVOFLOXACIN 750 MG TAB PO SCH (15:32)
--- NOTE | 2020-03-24 17:19 | PN ---
PROGRESS NOTE DATE OF SERVICE: 03/24/2020 REASON FOR FOLLOWUP: Acute Legionella pneumonia. INTERVAL HISTORY: Patient was seen on rounds this afternoon. The patient has been afebrile, she is breathing comfortably. Denies having any chest pain, shortness of breath, no cough, breathing on room air. No nausea, no vomiting, no abdominal pain, no diarrhea and she is anxious to go home. PHYSICAL EXAMINATION: Blood pressure 150/73 with a pulse of 87, temperature 98.2. She is 92% on room air. General description is a middle-aged female up in the bed in no distress. RESPIRATORY SYSTEM: Unlabored breathing, clear to auscultation. HEART: S1, S2. Regular rate and rhythm. ABDOMEN: Soft, no tenderness. LABS: Hemoglobin 11.1, white count 8.4, BUN of 14, creatinine 0.66. Blood culture with Propionibacterium. Repeat blood cultures and catheter culture negative. IMPRESSION/PLAN: 1. Patient with acute Legionella pneumonia, received about 17 to 18 units of oral and IV Levaquin. She will get another 5 days to finish a 3-week course of therapy. 2. Oropharyngeal candidiasis, adequately treated. 3. Patient with a positive blood culture. Propionibacterium possible contamination. Repeat blood culture negative. Catheter culture negative. No need for further workup for the same. MMODL / IJN: [id number] /
--- NOTE | 2020-03-24 22:45 | P.DS ---
Providers Date of admission: 03/06/20 11:40 Attending physician: Raul Painter Consults: 03/07/20 15:16 Consult Physician Routine Consulting Provider: Britt Dick Consult Reason/Comments: multifocal pneumonia Do you want consulting provider notified?: Yes 03/07/20 20:48 Consult Physician Routine Consulting Provider: Xochilt Esparza Consult Reason/Comments: Transfer to ICU Do you want consulting provider notified?: Yes 03/09/20 12:31 Consult Physician Routine Consulting Provider: Sheri Singletary Consult Reason/Comments: possible CBD obstruction Do you want consulting provider notified?: Yes 03/23/20 07:57 Consult Physician Routine Consulting Provider: Néstor Rivas Consult Reason/Comments: Eval for IPR Do you want consulting provider notified?: Yes Primary care physician: Arnulfo Ohara [facility] Course: Diagnoses: Acute legionella pneumonia with possible superimposed bacterial infection Acute hypoxic respiratory failure, status post extubation after short period of mechanical ventilation, completely resolved upon discharge new onset DM , A1c 7.7% , start metformin Short period of Abdominal pain associated with nausea and vomiting. Currently resolved. Abdominal ultrasound:dilated common bile duct at 0.9 cm hepatosplenomegaly, pt is aware and f/u as outpt Morbidly obese GERD Essential hypertension Hospital course: This is a pleasant 40 years old female with multiple medical problems who was admitted initially because of respiratory symptoms and within one day she become severely hypoxic needing going to the icu with mechanical ventilation, patient was found to have legionella pneumonia with suspicion of superimposed bacterial infection, infectious and pulmonary team or on the case and patient is treated with broad-spectrum antibiotics with levaquin, cefepime and eraxis. Patient showed interval improvement and eventually she got extubated, currently she is sitting in chair, comfortable, no respiratory distress. Breathing quietly. No chest pain. No significant coughing. No other complaint. Patient feels she is back to her normal self. Patient was cleared for discharge by both pulmonary and infectious disease Patient will be discharged on short course of oral antibiotics pt also with new onset DM , A1c 7.7% , wants to be on pills rather than insulin and she was on levemir 15 units which is switched to metformin 500 BID. glucometer delivered at bed side. i have extensive discussion with pt and about her DM managment and monitoring glu, and informed about s/s of hypoglycemia and how to deal with it pt is instructed to check her glucose 4 times a day before each meal and at bedtime, keep a log book and take it to her appointments. and if glucose less than 70 or more than 400, call 911 on come to ED and she verbalized understanding and acceptance Because of her prolonged length of stay and deconditioning, patient is recommended for ECF for subacute rehab however pt declined and wanted to go home with [facility], also PT recommended to keep her today and see how she will do with stair as they have 4 steps at home however pt and at bed declined to wait till tomorrow and want to be discharged today. Problems and management plan were discussed with the patient and at bed side and they verbalized understanding and acceptance Patient was found stable and can be discharged home however he needs follow-up as an outpatient. Patient was instructed to follow up with PCP within one week and patient agrees. Patient also was instructed to follow up with Dr. Rhett Wade as an outpatient for her biliary dilatation and hepatosplenomegaly ( Pt is aware of this diagnoses and states she has seen for this before and he recommend monitoring as per pt , however she wants to keep seeing and keep her appointment ) and she agrees to call and make appointment for follow-up within 1-2 weeks she agrees with appointments with on 04/22, 04/06 and 03/27 and states she will follow up and she will make her appointment with in 1-2 weeks pt is advised to follow up with her doctors as outpatient before she is cleared to go back to work and she agrees Gen: patient is a AAOx3, no distress. Morbidly obese CVS: S1-S2, RRR, no murmur Lungs: B/L CTA, no wheezing. Abdomen: soft, no distention, no tenderness, positive bowel sounds Extremity: no leg edema or induration Time spent more than 35 minutes Patient Condition at Discharge: Good Plan - Discharge Summary Discharge Rx Participant: No New Discharge Prescriptions: New metFORMIN HCL [Glucophage] 500 mg PO BID #60 tab Pantoprazole [Protonix] 40 mg PO DAILY #10 tablet. Albuterol Inhaler [Ventolin Hfa Inhaler] 1 puff INHALATION RT-QID PRN 3 Days #1 puff PRN Reason: Shortness Of Breath Or Wheezing Levofloxacin [Levaquin] 750 mg PO DAILY #5 tab Continue Ibuprofen [Motrin] 800 mg PO DAILY Ferrous Sulfate [Iron (65 MG Elemental)] 325 mg PO DAILY Losartan/Hydrochlorothiazide [Losartan-Hctz 100-25 mg Tab] 1 tab PO DAILY Discontinued HYDROcodone/APAP 10-325MG [[place] 10-325] 1 tab PO TID Cyclobenzaprine [Flexeril] 5 mg PO DAILY Discharge Medication List Ibuprofen [Motrin] 800 mg PO DAILY 01/20/19 [History] Ferrous Sulfate [Iron (65 MG Elemental)] 325 mg PO DAILY 03/06/20 [History] Losartan/Hydrochlorothiazide [Losartan-Hctz 100-25 mg Tab] 1 tab PO DAILY 03/06/20 [History] Albuterol Inhaler [Ventolin Hfa Inhaler] 1 puff INHALATION RT-QID PRN 3 Days #1 puff 03/24/20 [Rx] Levofloxacin [Levaquin] 750 mg PO DAILY #5 tab 03/24/20 [Rx] Pantoprazole [Protonix] 40 mg PO DAILY #10 tablet.dr 03/24/20 [Rx] metFORMIN HCL [Glucophage] 500 mg PO BID #60 tab 03/24/20 [Rx] Follow up Appointment(s)/Referral(s): Sheri Singletary MD [STAFF PHYSICIAN] - 04/22/20 1:30 pm (Text Transcriber for your enlarged liver and spleen) Nakul Ahumada DO [Doctor of Osteopathic Medicine] - 04/06/20 2:00 pm (Dairy Nutrition Specialist) [facility], [NON-STAFF] - Arnulfo Ohara DO [Primary Care Provider] - 03/27/20 1:30 pm Britt Dick MD [STAFF PHYSICIAN] - 03/30/20 3:00 pm (infectious disease doctor) Patient Instructions/Handouts: Heart Healthy Diet (DC), Hypoglycemia in a Person with Diabetes (DC), Hypoglycemia in a Person with Diabetes (GEN), Type 2 Diabetes in Adults: New Diagnosis (DC), Basic Carbohydrate Counting (DC), Meal Planning with the Plate Method (DC), Diabetic Foot Ulcers (DC), Diabetes and Your Skin (DC), Hemoglobin A1c (GEN), What to Do if Your Blood Sugar is Low (DC), Diabetes and Nutrition (ED), Diabetes and Exercise (DC), How to Check your Blood Sugar (DC), Type 2 Diabetes Management for Adults (DC) Activity/Diet/Wound Care/Special Instructions: heart healthy low carbohydrate diet activity is limited till you see your doctor we recommend to check your glucose 4 times a day before each meal and at bedtime, keep a log block and take the lobook with you to your follow up appointments. Glucose less than 70 or more than 400, call 911 on come to emergency room or urgent care Discharge Disposition: HOME WITH HOME HEALTH SERVICES
--- NOTE | 2020-03-25 09:36 | CDI ---
Documentation Clarification Form Date: 03/25/20 From: Mary Ellen Armstrong CCS Phone: If you have a question about this query, please contact Melissa Goldman, Student Development Advisor at [phone] between 8am and 5pm. Admit Date: 03/06/20 Discharge Date:03/24/20 Patient Name: Rosalva Rodriguez Visit Number: [id number] ATTENTION: The Clinical Documentation Specialists (CDI) and [facility] Coding Staff appreciate your assistance in clarifying documentation. Please respond to the clarification below the line at the bottom and electronically sign. The CDI & [facility] Coding staff will review the response and follow-up if needed. Please note: Queries are made part of the Legal Health Record. If you have any questions, please contact the author of this message via ITS. Dear Dr. Ochoa, The diagnosis ventilatory pneumonia was documented in 03/18 progress note, but is not noted in subsequent documentation. Dr Lund documents in 03/18 progress note: The patient was cultured and on today's chest x-ray there is some new infiltration of the left lung and I think there may be a component of ventilatory a pneumonia and the patient will be started on IV cefepime and combination to Levaquin.Meanwhile, the patient remains on a mechanical ventilator. History/Risk Factors: Mechanical vent 03/08-03/18, Sepsis, Legionaires' PNA, Morbid obesity BMI 51, Acute Resp Failure, Pulmonary Edema, HTN, DM Clinical Indicators: New infiltrate, + 96 hours on vent C-Xray: Bilateral pleural effusions and bibasilar airspace opacities, mildly increased on the left. Treatment: Maxipime 1 gm IVPB Q 12HR, Levaquin 750 mg IVPB Q24HR Please clarify if the diagnosis of ventilatory associated pneumonia was: Present/active this admission Treated and resolved this admission Ruled out Other, please specify Clinically unable to determine Treated and resolved this admission MTDD
== END 2020-03-24 17:05 | disposition home health service (06) | DRG 870 ==
LOC: EC 09:57 → 4SSUR 11:40 → 2SICU 03-07 21:40
PROVIDERS: ADMIT Hospitalist; ATTEND Hospitalist
PROC: 0BH17EZ Insertion of Endotracheal Airway into Trachea, Via Natural or Artificial Opening (ICD-10-PCS; principal; 2020-03-08)
PROC: 5A1955Z Respiratory Ventilation, Greater than 96 Consecutive Hours (ICD-10-PCS; principal; 2020-03-08)
PROC: 0DH67UZ Insertion of Feeding Device into Stomach, Via Natural or Artificial Opening (ICD-10-PCS; principal; 2020-03-08)
PROC: 03HY32Z Insertion of Monitoring Device into Upper Artery, Percutaneous Approach (ICD-10-PCS; 2020-03-08)
PROC: 02H633Z Insertion of Infusion Device into Right Atrium, Percutaneous Approach (ICD-10-PCS; 2020-03-08)
PROC: 4A133J1 Monitoring of Arterial Pulse, Peripheral, Percutaneous Approach (ICD-10-PCS; 2020-03-08)
PROC: 4A133B1 Monitoring of Arterial Pressure, Peripheral, Percutaneous Approach (ICD-10-PCS; 2020-03-08)
PROC: 0B9D7ZX Drainage of Right Middle Lung Lobe, Via Natural or Artificial Opening, Diagnostic (ICD-10-PCS; 2020-03-09)
PROC: 3E0G76Z Introduction of Nutritional Substance into Upper GI, Via Natural or Artificial Opening (ICD-10-PCS; 2020-03-09)
PROC: 5A09357 Assistance with Respiratory Ventilation, Less than 24 Consecutive Hours, Continuous Positive Airway Pressure (ICD-10-PCS; 2020-03-18)
DX: A41.59 Other Gram-negative sepsis (principal); A48.1 Legionnaires' disease; J96.01 Acute respiratory failure with hypoxia; J81.0 Acute pulmonary edema; J15.9 Unspecified bacterial pneumonia; J95.851 Ventilator associated pneumonia; E87.2 Acidosis; Z68.43 Body mass index [BMI] 50.0-59.9, adult; E87.1 Hypo-osmolality and hyponatremia; B37.0 Candidal stomatitis; Z20.828 Contact with and (suspected) exposure to other viral communicable diseases; K83.8 Other specified diseases of biliary tract; R16.2 Hepatomegaly with splenomegaly, not elsewhere classified; R65.20 Severe sepsis without septic shock; E66.01 Morbid (severe) obesity due to excess calories; E11.65 Type 2 diabetes mellitus with hyperglycemia; I10 Essential (primary) hypertension; F17.210 Nicotine dependence, cigarettes, uncomplicated; K21.9 Gastro-esophageal reflux disease without esophagitis; G89.4 Chronic pain syndrome; M51.16 Intervertebral disc disorders with radiculopathy, lumbar region; M48.061 Spinal stenosis, lumbar region without neurogenic claudication; R53.81 Other malaise; E86.1 Hypovolemia; R19.7 Diarrhea, unspecified; F41.9 Anxiety disorder, unspecified; E78.5 Hyperlipidemia, unspecified; R45.1 Restlessness and agitation; E78.1 Pure hyperglyceridemia; T38.0X5A Adverse effect of glucocorticoids and synthetic analogues, initial encounter; T41.295A Adverse effect of other general anesthetics, initial encounter; Z71.3 Dietary counseling and surveillance; Z79.899 Other long term (current) drug therapy; Z98.890 Other specified postprocedural states; Z98.891 History of uterine scar from previous surgery; Z80.52 Family history of malignant neoplasm of bladder; Z84.1 Family history of disorders of kidney and ureter
CPT/HCPCS: 31624; 36415; 36600; 71045; 71046; 71250; 71275; 74177; 76700; 80048; 80053; 80076; 81001; 81025; 82728; 82805; 83036; 83605; 83615; 83735; 84100; 84132; 84145; 84478; 84484; 85025; 85027; 85379; 85610; 85730; 86140; 87040; 87070; 87086; 87102; 87116; 87205; 87206; 87252; 87324; 87449; 87496; 87498; 87502; 87529; 87541; 87634; 87798; 88108; 88305; 89050; 93005; 94002; 94003; 94640; 94660; 96365; 96367; 99284

== ENCOUNTER → 2020-06-08 | Outpatient (CLI) | payer BC ==
--- NOTE | 2020-06-08 15:59 | XR ---
EXAMINATION TYPE: XR chest 2V DATE OF EXAM: 06/08/2020 COMPARISON: Chest x-ray 03/22/2020 HISTORY: R 91.8 TECHNIQUE: Frontal and lateral views of the chest are obtained. FINDINGS: There is no focal air space opacity, pleural effusion, or pneumothorax seen. The cardiac silhouette size is within normal limits. The osseous structures are intact. IMPRESSION: No acute cardiopulmonary process. There is improvement in aeration as compared to previo us exam.
== END | disposition home or self-care (01) ==
LOC: RADXRMAIN 13:10
PROVIDERS: ATTEND Family Medicine
DX: R91.8 Other nonspecific abnormal finding of lung field (principal)
CPT/HCPCS: 71046

== ENCOUNTER → 2023-06-23 | Outpatient (CLI) | payer BC ==
--- NOTE | 2023-06-25 17:42 | MM ---
Reason for Exam: Screening (asymptomatic). Baseline mammogram. Patient History: Menarche at age 13. First Full-Term at age 17. Postmenopausal. Risk Values: Silvana 5 year model risk: 0.8%. NCI Lifetime model risk: 6.3%. Prior Study Comparison: Patient's first Mammogram. Tissue Density: There are scattered fibroglandular densities. Findings: Analyzed By CAD. The pattern is symmetrical. Scattered benign calcifications are present bilaterally No suspicious groups of microcalcifications, spiculated or lobular masses, architectural distortion or other secondary signs of malignancy are mammographically apparent. Overall Assessment: Benign, BI-RAD 2 Management: Screening Mammogram of both breasts in 1 year. A negative mammogram report should not preclude additional follow up of suspicious palpable abnormalities. Patient should continue monthly self breast exam. A clinical breast exam by your physician is recommended on an annual basis and results should be correlated with mammographic findings. Electronically signed and approved by: Eric Luke D.O. Radiologis
== END | disposition home or self-care (01) ==
LOC: RADMAMWWP 07:59
PROVIDERS: ATTEND Family Medicine
DX: Z12.31 Encounter for screening mammogram for malignant neoplasm of breast (principal); Z78.0 Asymptomatic menopausal state
CPT/HCPCS: 77063; 77067